=== PATIENT | male | born 1970 | race Caucasian/White ===

== ENCOUNTER 2020-09-07 12:08 | Emergency (ER) | payer MEDICAID, SELFPAY ==
[2020-09-07 12:37] VITALS: BP 135/76; PULSE 75; RESP 16; TEMP 37.2; O2SAT 97; BMI 40.3
--- NOTE | 2020-09-07 13:39 | ED.EYEPROB ---
HPI - Eye Problem General Chief complaint: Eye Problems Stated complaint: SWOLLEN EYE Time Seen by Provider: 09/07/20 13:37 Source: patient Mode of arrival: ambulatory Limitations: no limitations History of Present Illness HPI Narrative: 50-year-old male presenting to the ED with complaints of right lower eyelid swelling /redness for the past 3 days. Denies any other symptoms complaints or concerns related to this. Related Data Allergies Allergy/AdvReac Type Severity Reaction Status Date / Time No Known Allergies Allergy Verified 09/07/20 12:37 [No Known Allergies*] Review of Systems Review of Systems: Constitutional : No Fever, No Chills Eyes: No Eye Pain, No Redness, No Foreign Body, No Discharge, No Vision Changes, No trauma Skin : No Skin Lesions Yes all other systems are reviewed and are negative FOR[facility]LY [facility], LATER [facility] Past Medical History Attestation statement: The following information was validated with the patient. Medical History Ulcer Social History Social History Advance Directives: No Advance Directives Information Provided: No Physical Exam Vital Signs: Vital Signs: Vital Signs Temp Pulse Resp BP Pulse Ox 09/07/20 12:37 99.0 F 75 16 135/76 97 Body Mass Index 40.3 vital signs have been reviewed as normal and appeared to be correct. Blood pressure normal. Heart rate normal. Respiration rate normal. Temperature normal. Oxygen saturation normal. Appearance: Alert. Oriented X3. No acute distress. Head: Normal external exam. Normocephalic. Atraumatic. No [place] signs noted. No raccoon eyes noted Eyes: PERRLA. EOMI. Conjunctiva and sclera normal. left eyelids normal. right lower eyelid with mild soft tissue swelling and erythema noted consistent with cellulitis. ENT: EAC normal. TM's Normal. Pharynx normal. Uvula midline. Moist mucous membranes. No trismus noted. No drooling noted. No muffled voice noted. Neck: Normal inspection. Neck supple. FROM. No adenopathy. Thyroid Normal. No meningeal signs. No neck mass noted. CVS: Normal heart rate and rhythm. Heart sound normal. No murmurs noted. Pulses normal throughout. Respiratory: No respiratory distress. Painless inspiration. Breath sounds normal. No wheezes/rales/rhonchi noted. Chest nontender. No accessory muscle usage noted or decreased air movement noted. Abdomen: Soft and nontender. Bowel sounds normal in all 4 quadrants. No distention noted. No organomegaly noted. No visible injury noted. Back: No CVA tenderness. Full range of motion noted. Skin: Skin warm and dry. Normal skin color. Normal skin turgor. No rashes/lesions/lacerations noted. Extremities: No lower extremity edema. Extremities exhibit normal range of motion. Extremities nontender. Neuro: Oriented X 3. No motor deficit. No sensory deficit. Reflexes normal. Course Course Course Narrative: patient has what appears like a facial/ preseptal cellulitis. Will place on antibiotics and instructions to return if any new or worsening symptoms to follow-up with primary care provider. Patient understands agrees the plan.
== END 2020-09-07 14:17 | disposition home or self-care (01) ==
PROVIDERS: Emergency Provider Emergency Medicine; PCP Nurse Practitioner Family
DX: H00.032 Abscess of right lower eyelid (principal); L03.213 Periorbital cellulitis
CPT/HCPCS: 99283

== ENCOUNTER 2020-09-23 13:52 | Emergency (ER) | payer MEDICAID, SELFPAY ==
--- NOTE | 2020-09-23 16:02 | ED_ITS ---
HPI - Back Pain/Injury General Chief Complaint: Back Pain/Injury <CADEN Serra Last Filed: 09/23/20 16:12> Stated Complaint: back pain <CADEN Serra Last Filed: 09/23/20 16:12> Time Seen by Provider: 09/23/20 15:55 <CADEN Serra Last Filed: 09/23/20 16:12> Source: patient <CADEN Serra Last Filed: 09/23/20 16:12> Mode of arrival: wheelchair <CADEN Serra Last Filed: 09/23/20 16:12> History of Present Illness HPI Narrative: 50-year-old male with a past medical history of low back pain presented to ED complaining of acute on chronic low back pain x2 days. Reports pain worse on left side radiating down LLE with intermittent tingling. Reports taking Percocet and muscle relaxer at home with little relief. Denies direct trauma/falls, numbness, urinary incontinence/retention, weakness <CADEN Serra Last Filed: 09/23/20 16:12> MD elicited complaint: back pain <CADEN Serra Last Filed: 09/23/20 16:12> Related Data Home Medications: Previous Rx's Medication Instructions Recorded cephalexin [Keflex] 500 mg PO Q6H 10 Days #40 cap 09/07/20 doxycycline monohydrate 100 mg PO BID 10 Days #20 cap 09/07/20 erythromycin 0.5 inch OPHTHALMIC (EYE) QID 5 09/07/20 Days #1 g NS acetaminophen [Tylenol Extra 500 mg PO Q6H PRN #20 tab 09/23/20 Strength] cyclobenzaprine 5 mg PO Q8H PRN 5 Days #14 tab 09/23/20 lidocaine [Lidoderm] 1 patch TOPICAL DAILY PRN #30 ea 09/23/20 MDD remove after 12 hours naproxen 500 mg PO BID PRN 10 Days #20 tab 09/23/20 <CADEN Serra Last Filed: 09/23/20 16:12> Allergies/Adverse Reactions: Allergies Allergy/AdvReac Type Severity Reaction Status Date / Time No Known Allergies Allergy Verified 09/07/20 12:37 [No Known Allergies*] <CADEN Serra Last Filed: 09/23/20 16:12> Review of Systems Review of Systems: Constitutional: No Fever, No Chills Cardiovascular: No Chest Pain, No SOB Respiratory: No Cough, No Sputum, No Wheezing Genitourinary:, No Dysuria, No Urinary FrequencyNo Urinary Incontinence Musculoskeletal: +back pain, No Myalgias, No Joint Swelling Skin: No Skin Lesions, No rash Neuro: No Weakness, No Numbness, No Paresthesias <CADEN Serra - Last Filed: 09/23/20 16:12> Yes all other systems are reviewed and are negative <CADEN Serra - Last Filed: 09/23/20 16:12> Neurologic: Denies Sensory deficit (Neuro) <CADEN Serra - Last Filed: 09/23/20 16:12> FORMERLY [facility] Past Medical History Attestation statement: The following information was validated with the patient. <CADEN Serra - Last Filed: 09/23/20 16:12> Medical History: Medical History Ulcer <CADEN Serra - Last Filed: 09/23/20 16:12> Social History Social History: Social History Advance Directives: No Advance Directives Information Provided: No <CADEN Serra - Last Filed: 09/23/20 16:12> Physical Exam Vital Signs: Vital Signs: Last Vital Signs Temp 97.6 F 09/23/20 16:03 Pulse 71 09/23/20 16:03 Resp 18 09/23/20 16:03 BP 126/68 09/23/20 16:03 Pulse Ox 97 09/23/20 16:03 Body Mass Index 31.9 <CADEN Serra - Last Filed: 09/23/20 16:12> Vital Signs: Last Vital Signs Temp 97.6 F 09/23/20 16:03 Pulse 71 09/23/20 16:03 Resp 18 09/23/20 16:03 BP 126/68 09/23/20 16:03 Pulse Ox 97 09/23/20 16:03 Body Mass Index 31.9 <Francesco Chiu MD - Last Filed: 09/28/20 07:06> Const: General: cooperative and healthy appearing <CADEN Serra - Last Filed: 09/23/20 16:12> Orientation/consciousness: patient oriented x3 <CADEN Serra - Last Filed: 09/23/20 16:12> Limitations: no limitations <Mel Merritt PA - Last Filed: 09/23/20 16:12> HENMT: Head: Yes normal to inspection <CADEN Serra - Last Filed: 09/23/20 16:12> Ears: hearing grossly normal bilaterally <Mel Merritt PA - Last Filed: 09/23/20 16:12> General nose exam: Normal external nose present <CADEN Serra - Last Filed: 09/23/20 16:12> Face and sinus: Yes normal facial exam <CADEN Serra - Last Filed: 09/23/20 16:12> Eyes: General: appearance normal, both eyes and all related structures <CADEN Cook ra - Last Filed: 09/23/20 16:12> EOM: EOMs intact bilaterally <CADEN Serra - Last Filed: 09/23/20 16:12> Neck: Neck: Yes normal visual inspection <CADEN Serra - Last Filed: 09/23/20 16:12> Resp: Effort & Inspection: normal respiratory effort <CADEN Serra - Last Filed: 09/23/20 16:12> Back/Spine/Pelvis: Other: No midline spinous tenderness throughout. + bilateral lower/lumbar MSK tenderness <CADEN Serra - Last Filed: 09/23/20 16:12> Skin: Rashes: no rashes <CADEN Serra - Last Filed: 09/23/20 16:12> Wounds: no wounds <CADEN Serra - Last Filed: 09/23/20 16:12> Neuro: Other: No saddle anesthesia. Ambulating with a limp <CADEN Serra - Last Filed: 09/23/20 16:12> General: patient oriented x3, tone normal and no focal motor deficits <CADEN Serra - Last Filed: 09/23/20 16:12> Motor exam (neuro): 5/5 motor strength present throughout <CADEN Serra - Last Filed: 09/23/20 16:12> Sensory Exam: No Sensory deficit (Neuro) <CADEN Serra Last Filed: 09/23/20 16:12> Extrem: General: Yes normal to inspection <CADEN Serra - Last Filed: 09/23/20 16:12> Course Course Course Narrative: I have reviewed the chart <Francesco Chiu MD - Last Filed: 09/28/20 07:06> MDM - Back Pain/Injury MDM Narrative Medical decision making narrative: On exam VSS, NAD, no midline spinous tenderness or red flag symptoms. No saddle anesthesia. Likely MSK pain. Low concern for cauda equina or cord compression Plan: Toradol, Lidoderm patch in the ED Upon medication reconciliation patient has monthly prescription for tramadol, will not add additional opiate medication on to regiment. <CADEN Serra Last Filed: 09/23/20 16:12> Discharge Plan Discharge Clinical Impression: Lumbar radiculopathy, Acute lumbar back pain <CADEN Serra Last Filed: 09/23/20 16:12> Patient Disposition: Home, Self-Care <CADEN Serra Last Filed: 09/23/20 16:12> Instructions: Back Pain (ED) <CADEN Serra - Last Filed: 09/23/20 16:12> Additional Instructions: Your pain is likely musculoskeletal Flexeril is a muscle relaxer, take at night as it makes you drowsy, do not drive, drink alcohol, or operate machinery while taking it Naproxen as an anti-inflammatory / pain medication, take with food Lidoderm patches are numbing patches, apply to painful area In addition take Tylenol at home If symptoms persist or worsen, pain becomes unbearable, you developed urinary retention or incontinence, or weakness return to the ED <CADEN Serra Last Filed: 09/23/20 16:12> Prescriptions: New acetaminophen [Tylenol Extra Strength] 500 mg tablet 500 mg PO Q6H PRN (Reason: pain or fever) Qty: 20 RF: 0 lidocaine [Lidoderm] 5 % adhesive patch,medicated 1 patch topical DAILY MDD remove after 12 hours PRN (Reason: pain) Qty: 30 RF: 0 naproxen 500 mg tablet 500 mg PO BID PRN (Reason: pain) 10 Days Qty: 20 RF: 0 cyclobenzaprine 5 mg tablet 5 mg PO Q8H PRN (Reason: pain (scale score 7-10)) 5 Days Qty: 14 RF: 0 No Action doxycycline monohydrate 100 mg capsule 100 mg PO BID 10 Days Qty: 20 RF: 0 cephalexin [Keflex] 500 mg capsule 500 mg PO Q6H 10 Days Qty: 40 RF: 0 erythromycin 5 mg/gram (0.5 %) ointment 0.5 inch ophthalmic (eye) QID 5 Days Qty: 1 RF: 0 <CADEN Serra - Last Filed: 09/23/20 16:12> Referrals: Yajaira Barry, DATA ANALYST [employer] DEVELOPER [Primary Care Provider] - 2 days (Your primary care doctor) <CADEN Serra - Last Filed: 09/23/20 16:12> Interventions: ED Discharge Assessment Last Done: 09/23/20 17:36 <CADEN Serra - Last Filed: 09/23/20 16:12> Discharge Date/Time: 09/23/20 16:30 <CADEN Serra - Last Filed: 09/23/20 16:12>
[2020-09-23 16:03] VITALS: BP 126/68; PULSE 71; RESP 18; TEMP 36.4; O2SAT 97; BMI 31.9
[2020-09-23] MEDS: Lidocaine 4 % Patch ADH..PATCH 1 PATCH TRANSDERMA (16:22)
[2020-09-23] MEDS: Ketorolac Tromethamine 15 MG/ML VIAL IM (16:23)
== END 2020-09-23 16:30 | disposition home or self-care (01) ==
PROVIDERS: Emergency Provider Emergency Medicine; PCP Nurse Practitioner Family
DX: M54.16 Radiculopathy, lumbar region (principal); M54.5 Low back pain; Z79.899 Other long term (current) drug therapy
CPT/HCPCS: 96372; 99284; J1885

== ENCOUNTER 2020-11-10 01:59 | Emergency (ER) | payer MEDICAID, SELFPAY ==
[2020-11-10 02:25] VITALS: BP 140/72; PULSE 102; RESP 18; TEMP 36.8; O2SAT 96; BMI 33.3
--- NOTE | 2020-11-10 03:41 | ED.ABDPAIN ---
HPI - Abdominal Pain General Chief Complaint: Abdominal Pain Stated Complaint: Constipation Time Seen by Provider: 11/10/20 03:40 Source: patient Mode of arrival: ambulatory Limitations: no limitations History of Present Illness HPI narrative: patient with history of constipation been constipated for last few days not having good bowel movement took colace without much response no nausea no vomiting no history of small-bowel obstruction in the past no fever MD elicited complaint: abdominal pain Pertinent past history: constipation Onset (ago): day(s) Pain Consistency: intermittent Location: diffuse Severity: mild Quality: cramping Radiation: none Migration to: no migration Exacerbating factors: nothing Relieving factors: nothing Related Data Previous Rx's Medication Instructions Recorded cephalexin [Keflex] 500 mg PO Q6H 10 Days #40 cap 09/07/20 doxycycline monohydrate 100 mg PO BID 10 Days #20 cap 09/07/20 erythromycin 0.5 inch OPHTHALMIC (EYE) QID 5 09/07/20 Days #1 g NS acetaminophen [Tylenol Extra 500 mg PO Q6H PRN #20 tab 09/23/20 Strength] cyclobenzaprine 5 mg PO Q8H PRN 5 Days #14 tab 09/23/20 lidocaine [Lidoderm] 1 patch TOPICAL DAILY PRN #30 ea 09/23/20 MDD remove after 12 hours naproxen 500 mg PO BID PRN 10 Days #20 tab 09/23/20 Allergies Allergy/AdvReac Type Severity Reaction Status Date / Time No Known Allergies Allergy Verified 09/07/20 12:37 [No Known Allergies*] Review of Systems Review of Systems Constitutional : No Weight loss, No Fever, No Chills ENT/Mouth : No sore throat, No Rhinorrhea Eyes: No Eye Pain, No Swelling Cardiovascular : No Chest Pain, no Dyspnea on Exertion, No Orthopnea, No Edema, No Palpitations, no SOB Respiratory : No Cough, No Sputum Gastrointestinal : no Nausea, No Vomiting, No Diarrhea, No Hematochezia, No Melena Genitourinary : No Dysuria, No Urinary Frequency Musculoskeletal : No joint pain, No Myalgias, No Joint Swelling Skin : No Skin Lesions, No rash Neuro : No Weakness, No Numbness, No Dizziness, No Headache Psych : No Anxiety/Panic, No Depression Heme/Lymph: No Bruising, No Lymphadenopathy Endocrine : No Polyuria, No Polydipsia All other systems reviewed and are negative Physical Exam Vital Signs: Vital Signs: Last Vital Signs Temp 98.2 F 11/10/20 02:25 Pulse 102 H 11/10/20 02:25 Resp 18 11/10/20 02:25 BP 140/72 H 11/10/20 02:25 Pulse Ox 96 11/10/20 02:25 Body Mass Index 33.3 Appearance: Alert. Oriented X3. No acute distress. Eyes: Pupils equal, round and reactive to light. ENT: Pharynx normal. Neck: Normal inspection. Neck supple. CVS: Normal heart rate and rhythm. Pulses normal. Respiratory: No respiratory distress. Breath sounds normal. Abdomen: Soft and nontender. Bowel sounds are present, no mass palpable, no CVA tenderness Skin: Skin warm and dry. Normal skin color. Normal skin turgor. Extremities: No lower extremity edema. Neuro: Oriented X 3. No motor deficit. No sensory deficit. MDM - Abdominal Pain MDM Narrative Medical decision making narrative: patient with constipation and diffuse abdominal pain x-ray shows stool burden will discharge him home on MiraLax advised to follow with PCP Differential Diagnosis Differential diagnosis: Likely abdominal pain and constipation Medical Records Attestation: I reviewed the patient's medical records. Lab Data Attestation: I reviewed the patient's lab results. Discharge Plan Discharge Prescriptions: No Action doxycycline monohydrate 100 mg capsule 100 mg PO BID 10 Days Qty: 20 RF: 0 cephalexin [Keflex] 500 mg capsule 500 mg PO Q6H 10 Days Qty: 40 RF: 0 erythromycin 5 mg/gram (0.5 %) ointment 0.5 inch ophthalmic (eye) QID 5 Days Qty: 1 RF: 0 acetaminophen [Tylenol Extra Strength] 500 mg tablet 500 mg PO Q6H PRN (Reason: pain or fever) Qty: 20 RF: 0 lidocaine [Lidoderm] 5 % adhesive patch,medicated 1 patch topical DAILY MDD remove after 12 hours PRN (Reason: pain) Qty: 30 RF: 0 naproxen 500 mg tablet 500 mg PO BID PRN (Reason: pain) 10 Days Qty: 20 RF: 0 cyclobenzaprine 5 mg tablet 5 mg PO Q8H PRN (Reason: pain (scale score 7-10)) 5 Days Qty: 14 RF: 0 PMFSH Past Medical History Medical History Ulcer Social History Social History Smoking Status: Smoker, status unknown Use of substances other than those prescribed or required for medical reasons: No Advance Directives: No Advance Directives Information Provided: No
--- NOTE | 2020-11-10 04:07 | XR_ITS ---
EXAMINATION: ABDOMEN 1 VIEW CLINICAL INFORMATION: Constipation. COMPARISON: 07/21/2020. TECHNIQUE: A supine view of the abdomen is provided. FINDINGS: There are no dilated loops of small bowel. There are no air-fluid levels. There is no appendicolith. The visualized lung bases are clear. The osseous structures are unremarkable. XR/XR KUB IMPRESSION: Unremarkable bowel gas pattern.
[2020-11-10] MEDS: bisacodyL 5 MG TABLET.DR 10 MG PO (04:13)
[2020-11-10] MEDS: Milk of Magnesia 30 ML ORAL.SUSP PO (04:14)
[2020-11-10 05:25] VITALS: BP 119/78; PULSE 97; RESP 18
== END 2020-11-10 05:29 | disposition home or self-care (01) ==
PROVIDERS: Emergency Provider Internal Medicine; PCP Nurse Practitioner Family
DX: K59.00 Constipation, unspecified (principal); Z79.899 Other long term (current) drug therapy
CPT/HCPCS: 74018; 99283; 99284

== ENCOUNTER → 2020-12-09 10:14 | Outpatient (BNVA) | payer MEDICAID, SELFPAY | PROVIDERS: PCP Nurse Practitioner Family; Visit Provider Physician Assistant ==

== ENCOUNTER 2021-04-20 14:38 | Emergency (ER) | payer MEDICAID, SELFPAY ==
[2021-04-20 15:24] VITALS: BP 140/65; PULSE 71; RESP 16; TEMP 36.4; O2SAT 97; BMI 33.9
--- NOTE | 2021-04-20 17:24 | ED_ITS ---
HPI - Back Pain/Injury General Chief Complaint: Back Pain/Injury Stated Complaint: back pain Time Seen by Provider: 04/20/21 17:24 History of Present Illness HPI Narrative: Patient complains of left-sided low back pain after he coughed and his back started to hurt similar to prior episodes, he has no acute illness he has a chronic mild cough, no numbness no weakness no tingling no changes to bowel or bladder no dysuria no incontinence no frequency Related Data Previous Rx's Medication Instructions Recorded erythromycin 0.5 inch OPHTHALMIC (EYE) QID 5 09/07/20 Days #1 g NS acetaminophen [Tylenol Extra 500 mg PO Q6H PRN #20 tab 09/23/20 Strength] cyclobenzaprine 5 mg PO Q8H PRN 5 Days #14 tab 09/23/20 lidocaine [Lidoderm] 1 patch TOPICAL DAILY PRN #30 ea 09/23/20 MDD remove after 12 hours naproxen 500 mg PO BID PRN 10 Days #20 tab 09/23/20 polyethylene glycol 3350 [Miralax] 17 g PO DAILY PRN #510 g 11/10/20 omeprazole 20 mg capsule,delayed 20 mg PO DAILY #30 cap 12/09/20 release acetaminophen 1,000 mg PO QID PRN #30 tab 04/20/21 cyclobenzaprine 5 mg PO TID PRN #14 tab 04/20/21 oxycodone 5 mg PO Q6H PRN #10 tab 04/20/21 Allergies Allergy/AdvReac Type Severity Reaction Status Date / Time No Known Allergies Allergy Verified 04/20/21 15:24 [No Known Allergies*] Review of Systems Review of Systems: Positive for back pain Negatives are no fever no chills no dizziness or weakness no fainting no feeling faint no headache no neck pain no sore throat no chest pain no shortness of breath no abdominal pain no nausea vomiting or diarrhea no dysuria no frequency no incontinence no numbness weakness or tingling Yes all other systems are reviewed and are negative [facility] Past Medical History Source: nursing notes reviewed Medical History (Updated 04/21/21 @ 00:01 by Keegan Singh) Acid reflux Ulcer Family History Family History (Updated 12/09/20 @ 11:12 by Yajaira Fermin PA-C) Father No problems noted. Mother Diabetes Social History Social History (Updated 12/09/20 @ 11:12 by Yajaira Fermin PA-C) Household Members Other:: with sister Alcohol intake: current Alcohol intake frequency: holidays/special occasions only Advance Directives: No Advance Directives Information Provided: Yes Current occupational status: unemployed Physical Exam Vital Signs: Vital Signs: Last Vital Signs Temp 97.6 F 04/20/21 15:24 Pulse 71 04/20/21 15:24 Resp 16 04/20/21 15:24 BP 140/65 H 04/20/21 15:24 Pulse Ox 97 04/20/21 15:24 Body Mass Index 33.9 General appearance no acute distress Head is normocephalic atraumatic Neck is supple Respiratory no acute distress Chest is clear to auscultation bilaterally Abdomen is soft and nontender Back exam there is left lower lumbar paraspinal tenderness, there is no bony tenderness, there is no CVA tenderness, pain is reproduced with movement, the skin is normal with no redness warmth or rash Extremities full range of motion x4 Neuro no gross motor sensory deficit Course Course Course Narrative: Exam is consistent with musculoskeletal pain It was provoked by coughing and the patient's cough is normal for him and he has no acute change in the cough no shortness of breath no fever and no recent upper respiratory illness Discharge Plan Discharge Clinical Impression: Strain of lumbar region Patient Disposition: Home, Self-Care Additional Instructions: Follow with primary care doctor for further evaluation Return any concerns Prescriptions: New oxycodone 5 mg tablet 5 mg PO Q6H PRN (Reason: pain) Qty: 10 RF: 0 acetaminophen 500 mg tablet 1,000 mg PO QID PRN (Reason: pain) Qty: 30 RF: 0 cyclobenzaprine 5 mg tablet 5 mg PO TID PRN (Reason: muscle spasm) Qty: 14 RF: 0 No Action erythromycin 5 mg/gram (0.5 %) ointment 0.5 inch ophthalmic (eye) QID 5 Days Qty: 1 RF: 0 acetaminophen [Tylenol Extra Strength] 500 mg tablet 500 mg PO Q6H PRN (Reason: pain or fever) Qty: 20 RF: 0 lidocaine [Lidoderm] 5 % adhesive patch,medicated 1 patch topical DAILY MDD remove after 12 hours PRN (Reason: pain) Qty: 30 RF: 0 naproxen 500 mg tablet 500 mg PO BID PRN (Reason: pain) 10 Days Qty: 20 RF: 0 cyclobenzaprine 5 mg tablet 5 mg PO Q8H PRN (Reason: pain (scale score 7-10)) 5 Days Qty: 14 RF: 0 polyethylene glycol 3350 [Miralax] 17 gram/dose powder 17 g PO DAILY PRN (Reason: constipation) Qty: 510 RF: 0 omeprazole 20 mg capsule,delayed release(DR/EC) 20 mg PO DAILY Qty: 30 RF: 5 Interventions: ED Discharge Assessment Last Done: 04/20/21 18:52 Discharge Date/Time: 04/20/21 17:39
[2021-04-20] MEDS: oxyCODONE HCl Immed Release 5 MG TABLET 10 MG PO (17:37)
[2021-04-20] MEDS: diazePAM 5 MG TABLET PO (17:37)
[2021-04-20] MEDS: Acetaminophen 325 MG TABLET 650 MG PO (17:38)
== END 2021-04-20 17:39 | disposition home or self-care (01) ==
PROVIDERS: Emergency Provider Internal Medicine; PCP Internal Medicine
DX: S39.012A Strain of muscle, fascia and tendon of lower back, initial encounter (principal); X58.XXXA Exposure to other specified factors, initial encounter; Y93.9 Activity, unspecified; Y92.9 Unspecified place or not applicable; Y99.9 Unspecified external cause status
CPT/HCPCS: 99283; 99284

== ENCOUNTER 2021-05-14 20:43 | Emergency (ER) | payer MEDICAID, SELFPAY ==
--- NOTE | ~2021-05-14 | XR_ITS ---
Indication: Shortness of breath EXAMINATION: Single view of the chest and single view abdomen Comparison 07/21/2020. Single view chest does not show failure or infiltrate. No effusion. The heart size is within normal limits. The hilar structures are comparable to previous. Single view the abdomen demonstrates nonobstructive bowel pattern. Probable pelvic phleboliths. XR/XR chest 1V IMPRESSION: No acute finding in the chest or abdomen. Nonobstructive bowel pattern. No failure or infiltrate in the chest
--- NOTE | ~2021-05-14 | XR_ITS ---
Indication: Shortness of breath EXAMINATION: Single view of the chest and single view abdomen Comparison 07/21/2020. Single view chest does not show failure or infiltrate. No effusion. The heart size is within normal limits. The hilar structures are comparable to previous. Single view the abdomen demonstrates nonobstructive bowel pattern. Probable pelvic phleboliths. XR/XR KUB IMPRESSION: No acute finding in the chest or abdomen. Nonobstructive bowel pattern. No failure or infiltrate in the chest
[2021-05-14 21:10] VITALS: BP 161/92; PULSE 85; RESP 16; TEMP 36.8; O2SAT 97; BMI 32.3
[2021-05-14 21:48] VITALS: BP 156/79; PULSE 79; RESP 18; O2SAT 99
--- NOTE | 2021-05-14 21:57 | ECG_ITS ---
Test Reason : ABDOMINAL PAIN Blood Pressure : / mmHG Vent. Rate : 071 BPM Atrial Rate : 071 BPM P-R Int : 122 ms QRS Dur : 092 ms QT Int : 362 ms P-R-T Axes : 031 011 011 degrees QTc Int : 393 ms Normal sinus rhythm Normal ECG When compared with ECG of 04-OCT-2019 15:34, No significant change was found Referred By: Tamika Santo Electronically Signed By:Mika Lao
--- NOTE | 2021-05-14 22:00 | ED.GENADULT ---
HPI - General Adult General Chief complaint: Abdominal Pain Stated complaint: vomitting, dizziness Time Seen by Provider: 05/14/21 21:51 Source: patient Mode of arrival: ambulatory Limitations: no limitations History of Present Illness HPI narrative: patient comes emergency room complaining of diarrhea, bloating, feeling nervous. Feeling dizzy. When asked the patient what dizzy feels for him, patient states that he feels like he wants to flowed out of his body . Patient also complaining of shortness of breath. patient has chest pain, no abdominal pain, no fever Related Data Previous Rx's Medication Instructions Recorded erythromycin 0.5 inch OPHTHALMIC (EYE) QID 5 09/07/20 Days #1 g NS acetaminophen [Tylenol Extra 500 mg PO Q6H PRN #20 tab 09/23/20 Strength] cyclobenzaprine 5 mg PO Q8H PRN 5 Days #14 tab 09/23/20 lidocaine [Lidoderm] 1 patch TOPICAL DAILY PRN #30 ea 09/23/20 MDD remove after 12 hours naproxen 500 mg PO BID PRN 10 Days #20 tab 09/23/20 polyethylene glycol 3350 [Miralax] 17 g PO DAILY PRN #510 g 11/10/20 omeprazole 20 mg capsule,delayed 20 mg PO DAILY #30 cap 12/09/20 release acetaminophen 1,000 mg PO QID PRN #30 tab 04/20/21 cyclobenzaprine 5 mg PO TID PRN #14 tab 04/20/21 oxycodone 5 mg PO Q6H PRN #10 tab 04/20/21 albuterol sulfate 2 puff INHALATION Q6H PRN #6.7 g 05/15/21 ondansetron HCl [Zofran] 4 mg PO Q6H PRN #10 tab 05/15/21 prednisone 50 mg PO DAILY #5 tab 05/15/21 Allergies Allergy/AdvReac Type Severity Reaction Status Date / Time No Known Allergies Allergy Verified 04/20/21 15:24 [No Known Allergies*] Review of Systems Review of Systems: Constitutional : No Weight loss, No Fever, No Chills, No Night Sweats, No Fatigue, No Malaise ENT/Mouth : No Hearing loss, No Ear Pain, No Nasal Congestion, No Sinus Pain, No Hoarseness, No sore throat, No Rhinorrhea, No Swallowing Difficulty Eyes: No Eye Pain, No Swelling, No Redness, No Foreign Body, No Discharge, No Vision Changes Cardiovascular : No Chest Pain, no Dyspnea on exertion, no orthopnea, no edema Respiratory : No Cough, No Sputum, No Wheezing, No Smoke Exposure, mild shortness of breath Gastrointestinal : No Nausea, No Vomiting, complaining of multiple episodes of diarrhea, No Constipation, No abdominal Pain, No Hematochezia, No Melena Genitourinary : no irregular bleeding, No Dysuria, No Urinary Frequency, No Hematuria, No Urinary Incontinence, No Urgency, No Flank Pain, No Urinary Flow Changes, No Hesitancy Musculoskeletal : No joint pain, No Myalgias, No Joint Swelling Skin : No Skin Lesions, No rash Neuro : No Weakness, No Numbness, No Paresthesias, No Loss of Consciousness, complaining of the dizziness No Headache Psych : No Anxiety/Panic, No Depression, No SI/HI/AH/VH, No Social Issues, Heme/Lymph: No Bruising, No Bleeding,No Lymphadenopathy Endocrine : No Polyuria, No Polydipsia, No Temperature Intolerance [facility] Past Medical History Medical History Acid reflux Ulcer Family History Family History (Updated 12/09/20 @ 11:12 by Yajaira Fermin PA-C) Father No problems noted. Mother Diabetes Social History Social History (Updated 12/09/20 @ 11:12 by Yajaira Fermin PA-C) Household Members Other:: with sister Alcohol intake: current Alcohol intake frequency: holidays/special occasions only Patient Tobacco Use Status: Never used Tobacco Use of substances other than those prescribed or required for medical reasons: Yes Substance Use Type: Marijuana Advance Directives: No Advance Directives Information Provided: Yes Current occupational status: unemployed Physical Exam Vital Signs: Vital Signs: Last Vital Signs Temp 98.3 F 05/14/21 21:10 Pulse 98 05/15/21 00:05 Resp 18 05/14/21 21:48 BP 154/104 H 05/15/21 00:00 Pulse Ox 99 05/14/21 21:48 Body Mass Index 32.3 Appearance: Alert. Oriented X3. No acute distress. Eyes: Pupils equal, round and reactive to light. ENT: Pharynx normal. Neck: Normal inspection. Neck supple. No lymph nodes noted. No crepitus CVS: Normal heart rate and rhythm. Pulses normal. Normal S1 and S2 Respiratory: No respiratory distress. Breath sounds normal. No Wheezing. No rales Abdomen: Soft and nontender. No rigidity. No distention. good BS x4 Skin: Skin warm and dry. Normal skin color. Normal skin turgor. Extremities: No lower extremity edema. No lower extremity edema. No Lacerations. No Rash Neuro: Oriented X 3. No motor deficit. No sensory deficit. Moving all extermities. No slurred speech. Course Course Course Narrative: I discussed the labs with the patient, to his knowledge he does not have anemia. Patient consented to digital rectal exam. Brown stool, patient is also being tested for COVID-19. Patient started feeling short of breath, started wheezing, a breathing treatment was offered. After treatment,Patient's oxygen saturation remains at 99% on room air. no longer wheezing patient's orthostatics were positive initially, given IV fluids, repeat orthostatics are now negative, pt is now asymptomatic. I discussed with the patient that he needs to follow up with his primary care physician regarding the low hemoglobin. Guaiac stool test was negative. Patient will likely need iron studies patient requested that his medication is being sent to [facility], I discussed with the patient that the pharmacy is closed tomorrow, I offered to send his medications to another pharmacy, patient declined, states he will wait until Sunday to pick his medications. I discussed with the patient that if he has shortness of breath, any new symptoms, to return to the emergency room Medical Decision Making Lab Data Result diagrams: 05/14/21 22:06 05/14/21 22:06 Labs: Lab Results 05/14/21 05/14/21 05/14/21 Range/Units 21:53 22:06 22:06 WBC 4.1 L (4.8-10.8) X10*3/uL RBC 2.57 L (4.60-5.80) X10*6/uL Hgb 10.0 L (14.0-18.0) g/dl Hct 29.2 L (42-52) % MCV 113.6 H (80-98) fL MCH 38.9 H (27.0-33.0) pg MCHC 34.2 (31.0-36.0) g/dl RDW 15.0 (11.0-16.0) % Plt Count 123 L (160-400) X10*3/uL MPV 10.8 (9.4-12.4) fL Immature Gran % (Auto) 0.7 H (0.0-0.4) % Neut % (Auto) 41.2 L (45-73) % Lymph % (Auto) 48.0 H (20-40) % [place] % (Auto) 5.4 (2-11) % Eos % (Auto) 3.7 (0-4) % Baso % (Auto) 1.0 (0-2) % Lymph # (Auto) 2.0 (1.2-4.9) X10*3/uL [place] # (Auto) 0.2 (0.1-1.2) X10*3/uL Eos # (Auto) 0.2 (0.0-0.4) X10*3/uL Baso # (Auto) 0.0 (0.0-0.2) X10*3/uL Abs Immat Gran (auto) 0.03 (0.00-0.03) X10*3/uL Absolute Neuts (auto) 1.7 L (2.0-8.3) X10*3/uL Absolute Nucleated RBC 0.000 (0.0-0.012) X10*3/uL Nucleated RBC % (auto) 0.0 (0.0-0.2) /100WBC PT (10.8-13.0) SEC INR (0.9-1.1) Sodium 140 (135-145) mmol/L Potassium 4.2 (3.3-5.1) mmol/L Chloride 104 (96-108) mmol/L Carbon Dioxide 25 (22-29) mmol/L Anion Gap 15 (12-20) BUN 17 H (9-16) mg/dL Creatinine 0.82 (0.5-1.4) mg/dL Estim Creat Clear Calc 111.1 Estimated GFR > 60 Random Glucose 97 (60-115) mg/dL Calcium 9.3 (8.4-10.2) mg/dL Total Bilirubin 0.2 (0.0-1.0) mg/dL Direct Bilirubin 0.2 (0.0-0.5) mg/dL AST 31 (5-37) U/L ALT 25 (0-40) U/L Alkaline Phosphatase 71 (39-117) U/L Troponin I High Sens (<3.5-35.0) ng/L B-Natriuretic Peptide (<100) pg/mL Total Protein 7.2 (6.5-8.0) g/dL Albumin 4.4 (3.5-5.0) g/dL Urine Color YELLOW Urine Appearance CLEAR Urine pH 6.0 (5.0-8.0) Ur Specific [place] 1.020 (1.005-1.025) Urine Protein NEG (NEG-TRACE) MG/DL Urine Glucose (UA) NEG (NEG) MG/DL Urine Ketones NEG (NEG) MG/DL Urine Blood NEG (NEG) Urine Nitrite NEG (NEG) Ur Leukocyte Esterase NEG (NEG) Urine RBC 0-2 (0) /HPF Urine WBC 0 (0-4) /HPF Ur Squamous Epith Cells NONE /LPF Urine Bacteria NONE /LPF Stool Occult Blood (NEGATIVE) COVID-19 (JOEY) (Negative) COVID-19 Clin Com 05/14/21 05/14/21 05/14/21 Range/Units 22:06 22:07 22:50 WBC (4.8-10.8) X10*3/uL RBC (4.60-5.80) X10*6/uL Hgb (14.0-18.0) g/dl Hct (42-52) % MCV (80-98) fL MCH (27.0-33.0) pg MCHC (31.0-36.0) g/dl RDW (11.0-16.0) % Plt Count (160-400) X10*3/uL MPV (9.4-12.4) fL Immature Gran % (Auto) (0.0-0.4) % Neut % (Auto) (45-73) % Lymph % (Auto) (20-40) % [place] % (Auto) (2-11) % Eos % (Auto) (0-4) % Baso % (Auto) (0-2) % Lymph # (Auto) (1.2-4.9) X10*3/uL [place] # (Auto) (0.1-1.2) X10*3/uL Eos # (Auto) (0.0-0.4) X10*3/uL Baso # (Auto) (0.0-0.2) X10*3/uL Abs Immat Gran (auto) (0.00-0.03) X10*3/uL Absolute Neuts (auto) (2.0-8.3) X10*3/uL Absolute Nucleated RBC (0.0-0.012) X10*3/uL Nucleated RBC % (auto) (0.0-0.2) /100WBC PT 11.9 (10.8-13.0) SEC INR 1.0 (0.9-1.1) Sodium (135-145) mmol/L Potassium (3.3-5.1) mmol/L Chloride (96-108) mmol/L Carbon Dioxide (22-29) mmol/L Anion Gap (12-20) BUN (9-16) mg/dL Creatinine (0.5-1.4) mg/dL Estim Creat Clear Calc Estimated GFR Random Glucose (60-115) mg/dL Calcium (8.4-10.2) mg/dL Total Bilirubin (0.0-1.0) mg/dL Direct Bilirubin (0.0-0.5) mg/dL AST (5-37) U/L ALT (0-40) U/L Alkaline Phosphatase (39-117) U/L Troponin I High Sens 4.4 (<3.5-35.0) ng/L B-Natriuretic Peptide < 10 (<100) pg/mL Total Protein (6.5-8.0) g/dL Albumin (3.5-5.0) g/dL Urine Color Urine Appearance Urine pH (5.0-8.0) Ur Specific [place] (1.005-1.025) Urine Protein (NEG-TRACE) MG/DL Urine Glucose (UA) (NEG) MG/DL Urine Ketones (NEG) MG/DL Urine Blood (NEG) Urine Nitrite (NEG) Ur Leukocyte Esterase (NEG) Urine RBC (0) /HPF Urine WBC (0-4) /HPF Ur Squamous Epith Cells /LPF Urine Bacteria /LPF Stool Occult Blood (NEGATIVE) COVID-19 (JOEY) Negative (Negative) COVID-19 Clin Com See Note 06/26/21 Range/Units 22:51 WBC (4.8-10.8) X10*3/uL RBC (4.60-5.80) X10*6/uL Hgb (14.0-18.0) g/dl Hct (42-52) % MCV (80-98) fL MCH (27.0-33.0) pg MCHC (31.0-36.0) g/dl RDW (11.0-16.0) % Plt Count (160-400) X10*3/uL MPV (9.4-12.4) fL Immature Gran % (Auto) (0.0-0.4) % Neut % (Auto) (45-73) % Lymph % (Auto) (20-40) % [place] % (Auto) (2-11) % Eos % (Auto) (0-4) % Baso % (Auto) (0-2) % Lymph # (Auto) (1.2-4.9) X10*3/uL [place] # (Auto) (0.1-1.2) X10*3/uL Eos # (Auto) (0.0-0.4) X10*3/uL Baso # (Auto) (0.0-0.2) X10*3/uL Abs Immat Gran (auto) (0.00-0.03) X10*3/uL Absolute Neuts (auto) (2.0-8.3) X10*3/uL Absolute Nucleated RBC (0.0-0.012) X10*3/uL Nucleated RBC % (auto) (0.0-0.2) /100WBC PT (10.8-13.0) SEC INR (0.9-1.1) Sodium (135-145) mmol/L Potassium (3.3-5.1) mmol/L Chloride (96-108) mmol/L Carbon Dioxide (22-29) mmol/L Anion Gap (12-20) BUN (9-16) mg/dL Creatinine (0.5-1.4) mg/dL Estim Creat Clear Calc Estimated GFR Random Glucose (60-115) mg/dL Calcium (8.4-10.2) mg/dL Total Bilirubin (0.0-1.0) mg/dL Direct Bilirubin (0.0-0.5) mg/dL AST (5-37) U/L ALT (0-40) U/L Alkaline Phosphatase (39-117) U/L Troponin I High Sens (<3.5-35.0) ng/L B-Natriuretic Peptide (<100) pg/mL Total Protein (6.5-8.0) g/dL Albumin (3.5-5.0) g/dL Urine Color Urine Appearance Urine pH (5.0-8.0) Ur Specific [place] (1.005-1.025) Urine Protein (NEG-TRACE) MG/DL Urine Glucose (UA) (NEG) MG/DL Urine Ketones (NEG) MG/DL Urine Blood (NEG) Urine Nitrite (NEG) Ur Leukocyte Esterase (NEG) Urine RBC (0) /HPF Urine WBC (0-4) /HPF Ur Squamous Epith Cells /LPF Urine Bacteria /LPF Stool Occult Blood NEGATIVE (NEGATIVE) COVID-19 (JOEY) (Negative) COVID-19 Clin Com Imaging Data [facility] and chest x-ray: Radiologist's impression: Single view chest does not show failure or infiltrate. No effusion. The heart size is within normal limits. The hilar structures are comparable to previous. Single view the abdomen demonstrates nonobstructive bowel pattern. Probable pelvic phleboliths. XR/XR KUB IMPRESSION: No acute finding in the chest or abdomen. Nonobstructive bowel pattern. No failure or infiltrate in the chest ECG Data Attestation: I personally reviewed and interpreted this ECG as follows: ( sinus rhythm, heart rate 71, no ST segment depression or elevation, nonspecific T-wave inversion in lead 3, QTC 393) Discharge Plan Discharge Clinical Impression: Vomiting, Diarrhea, Dizziness, Asthma Patient Disposition: Home, Self-Care Instructions: Asthma (ED), Dehydration (ED) Additional Instructions: Please follow-up with your primary care physician tomorrow. If you have any worsening or new symptoms, please return to the emergency room or call 911 Prescriptions: New albuterol sulfate 90 mcg/actuation HFA aerosol inhaler 2 puff inhalation Q6H PRN (Reason: shortness of breath or wheezing) Qty: 6.7 RF: 0 prednisone 50 mg tablet 50 mg PO DAILY Qty: 5 RF: 0 ondansetron HCl [Zofran] 4 mg tablet 4 mg PO Q6H PRN (Reason: nausea and vomiting) Qty: 10 RF: 0 No Action erythromycin 5 mg/gram (0.5 %) ointment 0.5 inch ophthalmic (eye) QID 5 Days Qty: 1 RF: 0 acetaminophen [Tylenol Extra Strength] 500 mg tablet 500 mg PO Q6H PRN (Reason: pain or fever) Qty: 20 RF: 0 lidocaine [Lidoderm] 5 % adhesive patch,medicated 1 patch topical DAILY MDD remove after 12 hours PRN (Reason: pain) Qty: 30 RF: 0 naproxen 500 mg tablet 500 mg PO BID PRN (Reason: pain) 10 Days Qty: 20 RF: 0 cyclobenzaprine 5 mg tablet 5 mg PO Q8H PRN (Reason: pain (scale score 7-10)) 5 Days Qty: 14 RF: 0 oxycodone 5 mg tablet 5 mg PO Q6H PRN (Reason: pain) Qty: 10 RF: 0 acetaminophen 500 mg tablet 1,000 mg PO QID PRN (Reason: pain) Qty: 30 RF: 0 cyclobenzaprine 5 mg tablet 5 mg PO TID PRN (Reason: muscle spasm) Qty: 14 RF: 0 polyethylene glycol 3350 [Miralax] 17 gram/dose powder 17 g PO DAILY PRN (Reason: constipation) Qty: 510 RF: 0 omeprazole 20 mg capsule,delayed release(DR/EC) 20 mg PO DAILY Qty: 30 RF: 5
[2021-05-14 22:01] LABS: Appearance Urine CLEAR; Color Urine YELLOW; Glucose Urine UA NEG (NEG); Leukocyte Esterase Urine NEG (NEG); Nitrite Urine NEG (NEG); Urine Blood NEG (NEG); Urine Ketones NEG (NEG); Urine Protein NEG (NEG-TRACE)
[2021-05-14] MEDS: ondansetron HCL 4 MG/2 ML VIAL IVPUSH (22:10)
[2021-05-14] MEDS: Loperamide HCl 2 MG CAPSULE 4 MG PO (22:10)
[2021-05-14 22:11] LABS: MANUAL DIFF FLAG NO
[2021-05-14] MEDS: 0.9 % Sodium Chloride 1,000 ML 999 ML IVCONT ×2 (22:12→23:21)
[2021-05-14 22:13] LABS: Eosinophils Absolute Auto 0.2 X10*3/uL (0.0-0.4); Eosinophils Percent Auto 3.7 % (0-4); Hematocrit 29.2 % (42-52); Imm Gran Abs Auto 0.03 X10*3/uL (0.00-0.03); Imm Gran Pct Auto 0.7 % (0.0-0.4); Mean Corpuscular HGB Conc 34.2 g/dl (31.0-36.0); Mean Corpuscular Hemoglobin 38.9 pg (27.0-33.0); Mean Platelet Volume 10.8 fL (9.4-12.4); Monocytes Absolute Auto 0.2 X10*3/uL (0.1-1.2); Monocytes Percent Auto 5.4 % (2-11); Neutrophils Absolute Auto 1.7 X10*3/uL (2.0-8.3); Neutrophils Percent Auto 41.2 % (45-73); Platelet Count 123 X10*3/uL (160-400); Red Blood Count 2.57 X10*6/uL (4.60-5.80); White Blood Count 4.1 X10*3/uL (4.8-10.8)
[2021-05-14 22:18] LABS: RBC Urine 0-2 /HPF (0); WBC Urine 0 /HPF (0-4)
[2021-05-14 22:22] LABS: Prothrombin Time 11.9 SEC (10.8-13.0)
[2021-05-14 22:29] LABS: Mean Corpuscular Volume 113.6 fL (80-98)
[2021-05-14 22:34] VITALS: BP 154/89; BP 159/54; PULSE 88; PULSE 90
[2021-05-14 22:36] VITALS: BP 141/72; PULSE 105
[2021-05-14 22:36] LABS: Alanine Aminotransferase 25 U/L (0-40); Albumin Level 4.4 g/dL (3.5-5.0); Alkaline Phosphatase 71 U/L (39-117); Anion Gap 15 (12-20); Aspartate Amino Transferase 31 U/L (5-37); Bilirubin Direct 0.2 mg/dL (0.0-0.5); Bilirubin Total 0.2 mg/dL (0.0-1.0); Blood Urea Nitrogen 17 mg/dL (9-16); Calcium 9.3 mg/dL (8.4-10.2); Carbon Dioxide 25 mmol/L (22-29); Chloride 104 mmol/L (96-108); Creatinine Clr Calc Pharmacy 111.1; Estimated Glomerular Filt Rate > 60; Glucose Random 97 mg/dL (60-115); Potassium 4.2 mmol/L (3.3-5.1); Sodium 140 mmol/L (135-145); Total Protein 7.2 g/dL (6.5-8.0)
[2021-05-14 22:40] LABS: B Type Natriuretic Peptide < 10 pg/mL (<100); Troponin-I High Sensitivity 4.4 ng/L (<3.5-35.0)
[2021-05-14 22:57] LABS: OBS Int Ctl Valid YES; OBS1 NEGATIVE (NEGATIVE)
[2021-05-14] MEDS: methylPREDNISolone Sod Succ 125 MG/2 ML VIAL IVPUSH (23:11)
[2021-05-14 23:19] LABS: COVID-19 Test Negative (Negative)
[2021-05-14 23:24] VITALS: BP 154/82; PULSE 84
[2021-05-15] VITALS: BP 147/70; BP 152/77; BP 154/104; PULSE 105; PULSE 112; PULSE 93; RESP 16; O2SAT 94
[2021-05-15] MEDS: Albuterol Sulfate (0.083%) 2.5 MG/3 ML VIAL.NEB 5 MG INHALE (00:04)
[2021-05-15 00:05] VITALS: PULSE 98; O2SAT 99
== END 2021-05-15 00:52 | disposition home or self-care (01) ==
PROVIDERS: Emergency Provider Emergency Medicine; PCP Family Medicine
DX: R19.7 Diarrhea, unspecified (principal); R11.10 Vomiting, unspecified; R42 Dizziness and giddiness; J45.909 Unspecified asthma, uncomplicated; R06.02 Shortness of breath; Z79.899 Other long term (current) drug therapy; Z20.822 Contact with and (suspected) exposure to COVID-19
CPT/HCPCS: 36415; 71045; 74018; 80048; 80076; 81001; 82272; 83880; 84484; 85025; 85610; 87635; 93005; 94640; 96361; 96374; 96375; 99285; J2405; J2930

== ENCOUNTER 2021-06-02 13:47 | Outpatient (REF) | payer MEDICAID, SELFPAY ==
[2021-06-02 15:20] LABS: MANUAL DIFF FLAG NO
[2021-06-02 15:22] LABS: Eosinophils Absolute Auto 0.2 X10*3/uL (0.0-0.4); Eosinophils Percent Auto 4.4 % (0-4); Hemoglobin 10.4 g/dl (14.0-18.0); Imm Gran Abs Auto 0.01 X10*3/uL (0.00-0.03); Imm Gran Pct Auto 0.3 % (0.0-0.4); Lymphocytes Absolute Auto 1.7 X10*3/uL (1.2-4.9); Lymphocytes Percent Auto 45.1 % (20-40); Mean Corpuscular HGB Conc 33.5 g/dl (31.0-36.0); Mean Corpuscular Hemoglobin 38.5 pg (27.0-33.0); Mean Platelet Volume 11.1 fL (9.4-12.4); Monocytes Absolute Auto 0.3 X10*3/uL (0.1-1.2); Monocytes Percent Auto 8.3 % (2-11); Neutrophils Absolute Auto 1.6 X10*3/uL (2.0-8.3); Neutrophils Percent Auto 40.9 % (45-73); Platelet Count 127 X10*3/uL (160-400); Red Cell Distribution Width 14.6 % (11.0-16.0); White Blood Count 3.9 X10*3/uL (4.8-10.8)
[2021-06-02 15:23] LABS: Mean Corpuscular Volume 114.8 fL (80-98)
[2021-06-02 15:43] LABS: Iron 121 mcg/dL (45-160); Percent Iron Saturation 34 % (15-50); Total Iron Binding Capacity 358 mcg/dL (228-428); Unsaturated Iron Binding 237 ug/dL
[2021-06-02 16:04] LABS: Ferritin 245 ng/mL (20-250)
[2021-06-02 16:22] LABS: Folate 8.3 ng/mL (> or = 4.0); Vitamin B12 503 pg/mL (200-900)
== END 2021-06-02 13:48 | disposition home or self-care (01) ==
LOC: HO.LAB 13:47
PROVIDERS: PCP Nurse Practitioner Family; Referring Provider Family Medicine; Visit Provider Physician Assistant
DX: K62.5 Hemorrhage of anus and rectum (principal); D64.9 Anemia, unspecified; K21.9 Gastro-esophageal reflux disease without esophagitis; R19.7 Diarrhea, unspecified
CPT/HCPCS: 36415; 82607; 82728; 82746; 83540; 85025; 99212

== ENCOUNTER → 2021-07-20 11:24 | Outpatient (BNVA) | payer MEDICAID, SELFPAY | PROVIDERS: PCP Nurse Practitioner Family; Visit Provider Physician Assistant ==

== ENCOUNTER 2021-09-09 07:45 | Outpatient (REF) | payer MEDICAID, SELFPAY ==
--- NOTE | ~2021-09-09 | US_ITS ---
EXAMINATION: US ABDOMEN COMPLETE CLINICAL INFORMATION: Alcohol abuse, uncomplicated. COMPARISON: [facility] 05/14/2021 and 11/10/2020. CT abdomen and pelvis 07/21/2020. TECHNIQUE: Real-time imaging of the abdominal viscera. FINDINGS: PANCREAS: The body of the pancreas is normal. The head and tail of the pancreas are not well visualized due to bowel gas. ABDOMINAL AORTA: The proximal, mid, and distal segments are normal in caliber. INFERIOR VENA CAVA: Visualized portions are normal. LIVER: The liver is normal in size. The liver contour is normal. Liver echotexture is slightly increased. No focal hepatic lesion. There is no intrahepatic biliary duct dilatation seen. GALLBLADDER: Normal. The gallbladder is physiologically distended without evidence of stones, sludge, polyps, wall thickening or pericholecystic fluid. COMMON BILE DUCT: Normal in caliber measuring 0.3 cm in diameter. RIGHT KIDNEY: Normal. No hydronephrosis. No renal calculi or focal parenchymal lesions. The kidney measures 12.2 cm in maximum dimension. LEFT KIDNEY: Normal. No hydronephrosis. No renal calculi or focal parenchymal lesions. The kidney measures 11.4 cm in maximum dimension. SPLEEN: Normal. The spleen measures 7.8 cm in maximum dimension. FREE FLUID: None. US/US abdomen complete IMPRESSION: Slightly echogenic liver probably representing fatty infiltration. Limited visualization of the pancreas. Otherwise unremarkable exam.
== END 2021-09-09 07:46 | disposition home or self-care (01) ==
LOC: HO.US 07:45
PROVIDERS: Visit Provider Physician Assistant
DX: R13.10 Dysphagia, unspecified (principal); F10.10 Alcohol abuse, uncomplicated
CPT/HCPCS: 76700

== ENCOUNTER 2021-09-23 14:23 | Emergency (ER) | payer MEDICAID, SELFPAY ==
--- NOTE | ~2021-09-23 | XR_ITS ---
EXAMINATION: XR CHEST CLINICAL INFORMATION: Pneumonia COMPARISON: 05/14/2021 TECHNIQUE: Frontal view of the chest was obtained. FINDINGS: The lungs are well expanded. There is no focal consolidation, edema, or effusion. No pneumothorax. The cardiomediastinal silhouette is within normal limits. No acute osseous abnormality. XR/XR chest 1V IMPRESSION: Clear lungs.
[2021-09-23 14:37] VITALS: BP 153/79; PULSE 90; RESP 18; TEMP 36.6; O2SAT 99; BMI 35.5
[2021-09-23 15:16] LABS: COVID-19 Test Negative (Negative)
[2021-09-23] MEDS: Albuterol/Iprat 2.5/0.5MG 3 ML AMPUL.NEB INHALE (16:19)
[2021-09-23 16:20] VITALS: PULSE 87; O2SAT 99
[2021-09-23] MEDS: predniSONE 20 MG TABLET 60 MG PO (16:37)
[2021-09-23 16:50] LABS: IDNOW Serial# 08D9AD1C; Strep A Nucleic Acid Negative (Negative)
[2021-09-23 17:20] LABS: Influenza A PCR NEGATIVE (Negative); Influenza B PCR NEGATIVE (Negative); Resp Syncy Virus RNA Qual PCR NEGATIVE (Negative); SARS COV2 PCR INHOUSE NEGATIVE (Negative)
--- NOTE | 2021-09-23 17:51 | ED_ITS ---
HPI - General Adult General Chief complaint: Dyspnea Stated complaint: cough, diff breathing, diarrhea Time Seen by Provider: 09/23/21 15:48 Source: patient Mode of arrival: ambulatory Limitations: no limitations History of Present Illness HPI narrative: 51-year-old male with past medical history of asthma asthma, alcohol abuse presents to ED for coughing, body aches, sore throat, diarrhea, chills, and wheezing for the past couple of days. Patient denies any chest pain, shortness of breath, lower extremity swelling, coughing up blood, calf pain, recent long travel, recent surgery, recent trauma, estrogen hormonal use, pleuritic chest pain, or any history of blood clots. Related Data Previous Rx's Medication Instructions Recorded erythromycin 5 mg/gram (0.5 %) eye 0.5 inch OPHTHALMIC (EYE) QID 5 09/07/20 ointment Days #1 g NS acetaminophen 500 mg tablet 500 mg PO Q6H PRN #20 tab 09/23/20 (Tylenol Extra Strength) cyclobenzaprine 5 mg tablet 5 mg PO Q8H PRN 5 Days #14 tab 09/23/20 lidocaine 5 % topical patch 1 patch TOPICAL DAILY PRN #30 ea 09/23/20 (Lidoderm) MDD remove after 12 hours naproxen 500 mg tablet 500 mg PO BID PRN 10 Days #20 tab 09/23/20 polyethylene glycol 3350 17 17 g PO DAILY PRN #510 g 11/10/20 gram/dose oral powder (Miralax) omeprazole 20 mg capsule,delayed 20 mg PO DAILY #30 cap 12/09/20 release acetaminophen 500 mg tablet 1,000 mg PO QID PRN #30 tab 04/20/21 cyclobenzaprine 5 mg tablet 5 mg PO TID PRN #14 tab 04/20/21 oxycodone 5 mg tablet 5 mg PO Q6H PRN #10 tab 04/20/21 albuterol sulfate 90 mcg/actuation 2 puff INHALATION Q6H PRN #6.7 g 05/15/21 aerosol inhaler ondansetron HCl 4 mg tablet 4 mg PO Q6H PRN #10 tab 05/15/21 (Zofran) prednisone 50 mg tablet 50 mg PO DAILY #5 tab 05/15/21 albuterol sulfate 90 mcg/actuation 2 puff INHALATION Q6H PRN #8.5 g 09/23/21 aerosol inhaler prednisone 20 mg tablet 60 mg PO DAILY 5 Days #15 tab 09/23/21 Allergies Allergy/AdvReac Type Severity Reaction Status Date / Time No Known Allergies Allergy Verified 07/20/21 11:25 [No Known Allergies*] Review of Systems Review of Systems: Yes all other systems are reviewed and are negative Constitutional: Constitutional: Reports as per HPI, Reports no additional constitutional complaints, Reports body ache(s) and Reports chills Eyes: Eyes: Reports as per HPI and Reports no additional eye complaints ENT: Reports system reviewed and no additional complaints, except as documented, Reports as per HPI and Reports sore throat Cardiovascular: Cardiovascular: Reports as per HPI and Reports no additional cardiovascular complaints Respiratory: Respiratory: Reports as per HPI and Reports no additional respiratory complaints Gastrointestinal: Gastrointestinal: Reports as per HPI, Reports no additional gastrointestinal complaints and Reports diarrhea Genitourinary: Genitourinary: Reports no additional male genitourinary complaints and Reports as per HPI Musculoskeletal: Musculoskeletal: Reports no additional musculoskeletal complaints and Reports as per HPI Neurologic: Reports system reviewed and no additional complaints, except as documented and Reports as per HPI Psychiatric: Psychiatric: Reports no additional psychiatric complaints and Reports as per HPI PMF Past Medical History Medical History (Updated 09/23/21 @ 18:00 by CADEN Lofton) Acid reflux Alcohol abuse Asthma Ulcer Surgical History History of esophagogastroduodenoscopy (EGD) Hx of colonoscopy Family History Family History Father No problems noted. Mother Diabetes Social History Social History (Updated 07/20/21 @ 12:53 by Yajaira Fermin PA-C) Household Members Other:: with sister Alcohol intake: current Alcohol intake frequency: holidays/special occasions only Patient Tobacco Use Status: Never used Tobacco Substance Use Type: Marijuana Advance Directives: No Current occupational status: employed and unemployed Physical Exam Vital Signs: Vital Signs: Last Vital Signs Temp 97.8 F 09/23/21 14:37 Pulse 87 09/23/21 16:20 Resp 18 09/23/21 14:37 BP 153/79 H 09/23/21 14:37 Pulse Ox 99 09/23/21 14:37 Body Mass Index 35.5 Const: General: cooperative, healthy appearing, comfortable, no acute distress, well developed, alert, awake and Physically active Orientation/consciousness: patient oriented x3 HENMT: Head: Yes normal to inspection, Yes No palpable skull fracture present, Yes normocephalic, Yes atraumatic and No abrasion Ears: hearing grossly normal bilaterally, external ears normal, TM's normal bilaterally, EAC's normal, mastoids normal and no periauricular adenopathy Throat: Yes posterior oropharynx normal, Yes tonsils normal and Yes uvula midline Eyes: General: appearance normal, both eyes and all related structures Neck: Neck: Yes normal visual inspection, Yes full ROM, Yes no lymphadenopathy, Yes no meningeal signs, Yes trachea midline, Yes supple and No tender Chest: Chest palpation & inspection: normal inspection of the chest and abnormal palpation of chest wall Resp: Effort & Inspection: normal respiratory effort and able to speak in complete sentences Auscultation: wheezes (Diffuse) expiratory wheezes Cardio: Jugular venous distension: no JVD Heart sounds: S1 normal heart sound present and S2 normal heart sound present GI: Inspection: Yes normal to inspection and No abdominal wall ecchymosis Palpation (GI): Soft to palpation, not firm, nontender, no guarding and not rigid : General: No CVA tenderness and Yes no CVA tenderness Back/Spine/Pelvis: Back: no CVA tenderness, No CVA tenderness and No back tenderness Skin: General skin exam: no rashes or lesions noted and elasticity normal Neuro: General: patient oriented x3, gait normal, no meningeal signs and CN's II-XI intact bilaterally Cranial nerves: Yes CN's II-XII intact bilaterally Extrem: Other: Lower extremity negative for swelling, pitting edema, calf tenderness. General: Yes normal to inspection and Yes full ROM Psych: Appearance: grossly normal, well kempt and not disheveled Course Course Course Narrative: History physical exam indicate viral syndrome, URI, versus asthma. Will add chest x-ray and check for our SVN influenza. Patient given albuterol prednisone. Reevaluation(s) Reevaluation #1: Patient states she feels better after receiving albuterol/prednisone. X-ray normal. COVID swab influenza RSV negative. Wheezing improved Time: 17:58 Medical Decision Making [facility] Narrative Medical decision making narrative: Asthma Lab Data Labs: Lab Results 09/23/21 09/23/21 09/23/21 Range/Units 14:52 16:33 16:37 COVID-19 (JOEY) Negative (Negative) COVID-19 Clin Com See Note Influenza Type A (PCR) NEGATIVE (Negative) Influenza Type B (PCR) NEGATIVE (Negative) RSV RNA Qual (PCR) NEGATIVE (Negative) SARS-CoV-2 RNA (RT-PCR) NEGATIVE (Negative) S. pyogenes GrpA CHASITY Negative (Negative) Discharge Plan Discharge Clinical Impression: Asthma, Acute upper respiratory infection Patient Disposition: Home, Self-Care Instructions: Asthma (ED), Upper Respiratory Infection (ED) Additional Instructions: Return to ED immediately for any chest pain, shortness of breath, coughing up blood, leg swelling, calf pain, weakness, fever, chills, pain on inspiration, or any other concerning symptoms. Please follow-up with primary care provider Prescriptions: New prednisone 20 mg tablet 60 mg PO DAILY 5 Days Qty: 15 RF: 0 albuterol sulfate 90 mcg/actuation HFA aerosol inhaler 2 puff inhalation Q6H PRN (Reason: shortness of breath or wheezing) Qty: 8.5 RF: 0 No Action erythromycin 5 mg/gram (0.5 %) ointment 0.5 inch ophthalmic (eye) QID 5 Days Qty: 1 RF: 0 acetaminophen [Tylenol Extra Strength] 500 mg tablet 500 mg PO Q6H PRN (Reason: pain or fever) Qty: 20 RF: 0 lidocaine [Lidoderm] 5 % adhesive patch,medicated 1 patch topical DAILY MDD remove after 12 hours PRN (Reason: pain) Qty: 30 RF: 0 naproxen 500 mg tablet 500 mg PO BID PRN (Reason: pain) 10 Days Qty: 20 RF: 0 cyclobenzaprine 5 mg tablet 5 mg PO Q8H PRN (Reason: pain (scale score 7-10)) 5 Days Qty: 14 RF: 0 oxycodone 5 mg tablet 5 mg PO Q6H PRN (Reason: pain) Qty: 10 RF: 0 acetaminophen 500 mg tablet 1,000 mg PO QID PRN (Reason: pain) Qty: 30 RF: 0 cyclobenzaprine 5 mg tablet 5 mg PO TID PRN (Reason: muscle spasm) Qty: 14 RF: 0 polyethylene glycol 3350 [Miralax] 17 gram/dose powder 17 g PO DAILY PRN (Reason: constipation) Qty: 510 RF: 0 albuterol sulfate 90 mcg/actuation HFA aerosol inhaler 2 puff inhalation Q6H PRN (Reason: shortness of breath or wheezing) Qty: 6.7 RF: 0 prednisone 50 mg tablet 50 mg PO DAILY Qty: 5 RF: 0 ondansetron HCl [Zofran] 4 mg tablet 4 mg PO Q6H PRN (Reason: nausea and vomiting) Qty: 10 RF: 0 omeprazole 20 mg capsule,delayed release(DR/EC) 20 mg PO DAILY Qty: 30 RF: 5 Interventions: ED Discharge Assessment Last Done: 09/23/21 18:09 Discharge Date/Time: 09/23/21 18:09 Print Language: Urdu
[2021-09-23 18:19] LABS: Adenovirus PCR Not Detected (Not Detect.); Bordetella parapertussis PCR Not Detected (Not Detect.); Bordetella pertussis PCR Not Detected (Not Detect.); Chlamydia pneumoniae PCR Not Detected (Not Detect.); Coronavirus 229E PCR Not Detected (Not Detect.); Coronavirus HKU1 PCR Not Detected (Not Detect.); Coronavirus NL63 PCR Not Detected (Not Detect.); Coronavirus OC43 PCR Not Detected (Not Detect.); Human metapneumovirus PCR Not Detected (Not Detect.); Influenza A PCR Not Detected (Not Detect.); Influenza B PCR Not Detected (Not Detect.); Mycoplasma pneumoniae PCR Not Detected (Not Detect.); Parainfluenza 1 PCR Not Detected (Not Detect.); Parainfluenza 2 PCR Not Detected (Not Detect.); Parainfluenza 3 PCR Not Detected (Not Detect.); Parainfluenza 4 PCR Not Detected (Not Detect.); RSV PCR Not Detected (Not Detect.); Rhino/Enterovirus PCR Not Detected (Not Detect.); SARS-CoV-2 PCR Not Detected (Not Detect.)
== END 2021-09-23 18:09 | disposition home or self-care (01) ==
PROVIDERS: Physician Assistant; Emergency Provider Internal Medicine; PCP Internal Medicine
DX: J06.9 Acute upper respiratory infection, unspecified (principal); J45.909 Unspecified asthma, uncomplicated; R51.9 Headache, unspecified; M79.10 Myalgia, unspecified site; Z20.822 Contact with and (suspected) exposure to COVID-19
CPT/HCPCS: 0241U; 36415; 71045; 87633; 87635; 87651; 94640; 99283; 99284

== ENCOUNTER 2021-09-24 15:40 | Emergency (ER) | payer MEDICAID, SELFPAY ==
[2021-09-24 15:49] VITALS: BP 166/71; PULSE 90; RESP 18; TEMP 36.6; O2SAT 98; BMI 32.3
--- NOTE | 2021-09-24 18:11 | ED.BACK ---
HPI - Back Pain/Injury General Chief Complaint: Back Pain/Injury Stated Complaint: Back pain/Dizziness Time Seen by Provider: 09/24/21 16:40 Source: patient Mode of arrival: ambulatory Limitations: no limitations History of Present Illness HPI Narrative: 51-year-old male presents to ED for low back pain is worse on movement began today. States back feels tight and hurts when he bends down or move around. Patient denies any dysuria, hematuria, flank pain, fever, chills, nausea, vomiting, penile discharge, testicular pain, chest pain, shortness of breath, headache, or dizziness. Patient denies any recent trauma. 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 Patient denies any urinary/bowel incontinence. Related Data Previous Rx's Medication Instructions Recorded erythromycin 5 mg/gram (0.5 %) eye 0.5 inch OPHTHALMIC (EYE) QID 5 09/07/20 ointment Days #1 g NS acetaminophen 500 mg tablet 500 mg PO Q6H PRN #20 tab 09/23/20 (Tylenol Extra Strength) cyclobenzaprine 5 mg tablet 5 mg PO Q8H PRN 5 Days #14 tab 09/23/20 lidocaine 5 % topical patch 1 patch TOPICAL DAILY PRN #30 ea 09/23/20 (Lidoderm) MDD remove after 12 hours naproxen 500 mg tablet 500 mg PO BID PRN 10 Days #20 tab 09/23/20 polyethylene glycol 3350 17 17 g PO DAILY PRN #510 g 11/10/20 gram/dose oral powder (Miralax) omeprazole 20 mg capsule,delayed 20 mg PO DAILY #30 cap 12/09/20 release acetaminophen 500 mg tablet 1,000 mg PO QID PRN #30 tab 04/20/21 cyclobenzaprine 5 mg tablet 5 mg PO TID PRN #14 tab 04/20/21 oxycodone 5 mg tablet 5 mg PO Q6H PRN #10 tab 04/20/21 albuterol sulfate 90 mcg/actuation 2 puff INHALATION Q6H PRN #6.7 g 05/15/21 aerosol inhaler ondansetron HCl 4 mg tablet 4 mg PO Q6H PRN #10 tab 05/15/21 (Zofran) prednisone 50 mg tablet 50 mg PO DAILY #5 tab 05/15/21 albuterol sulfate 90 mcg/actuation 2 puff INHALATION Q6H PRN #8.5 g 09/23/21 aerosol inhaler cyclobenzaprine 10 mg tablet 10 mg PO TID PRN #21 tab 09/24/21 ketorolac 10 mg tablet 10 mg PO QID PRN 5 Days #20 tab 09/24/21 prednisone 20 mg tablet 60 mg PO DAILY 5 Days #15 tab 09/24/21 Allergies Allergy/AdvReac Type Severity Reaction Status Date / Time No Known Allergies Allergy Verified 07/20/21 11:25 [No Known Allergies*] Review of Systems Review of Systems: Yes all other systems are reviewed and are negative Constitutional: Constitutional: Reports as per HPI and Reports no additional constitutional complaints Eyes: Eyes: Reports as per HPI and Reports no additional eye complaints ENT: Reports system reviewed and no additional complaints, except as documented and Reports as per HPI Cardiovascular: Cardiovascular: Reports as per HPI and Reports no additional cardiovascular complaints Respiratory: Respiratory: Reports as per HPI and Reports no additional respiratory complaints Gastrointestinal: Gastrointestinal: Reports as per HPI and Reports no additional gastrointestinal complaints Genitourinary: Genitourinary: Reports no additional male genitourinary complaints and Reports as per HPI Musculoskeletal: Musculoskeletal: Reports no additional musculoskeletal complaints, Reports as per HPI and Reports back pain PMF Past Medical History Medical History (Updated 09/24/21 @ 18:20 by CADEN Lofton) Acid reflux Alcohol abuse Asthma Ulcer Surgical History History of esophagogastroduodenoscopy (EGD) Hx of colonoscopy Family History Family History Father No problems noted. Mother Diabetes Social History Social History (Updated 07/20/21 @ 12:53 by Yajaira Fermin PA-C) Household Members Other:: with sister Alcohol intake: current Alcohol intake frequency: holidays/special occasions only Patient Tobacco Use Status: Never used Tobacco Substance Use Type: Marijuana Advance Directives: No Advance Directives Information Provided: No Current occupational status: employed and unemployed Physical Exam Vital Signs: Vital Signs: Last Vital Signs Temp 98 F 09/24/21 15:49 Pulse 90 09/24/21 15:49 Resp 18 09/24/21 15:49 BP 166/71 H 09/24/21 15:49 Pulse Ox 98 09/24/21 15:49 Body Mass Index 32.3 Const: General: cooperative, healthy appearing, comfortable, no acute distress, well developed, alert, awake and Physically active Orientation/consciousness: patient oriented x3 HENMT: Head: Yes normal to inspection, Yes No palpable skull fracture present, Yes normocephalic, Yes atraumatic, No abrasion, No Acrocyanosis present, No Alcala's sign, No contusion, No cranial bruits, No hematoma, No laceration, No occipital foramen tenderness, No palpable skull fracture, No raccoon eyes, No scalp lesion, No scalp tenderness, No Temporal artery tenderness present and No periorbital ecchymosis Eyes: General: appearance normal, both eyes and all related structures Neck: Neck: Yes normal visual inspection, Yes full ROM, Yes no lymphadenopathy, Yes no meningeal signs, Yes trachea midline, Yes supple and No tender Chest: Chest palpation & inspection: normal inspection of the chest and normal palpation of entire chest wall Resp: Effort & Inspection: normal respiratory effort and able to speak in complete sentences Auscultation: clear to auscultation bilaterally Cardio: Jugular venous distension: no JVD Heart sounds: S1 normal heart sound present and S2 normal heart sound present GI: Inspection: Yes normal to inspection and No abdominal wall ecchymosis Palpation (GI): Soft to palpation, not firm, nontender, no guarding and not rigid : General: Yes no CVA tenderness Back/Spine/Pelvis: Other: NEgative for spine tenderness. Positive for pain on range of motion of back. Back: no CVA tenderness and back tenderness (positive for lumbar muscle paraspinal tenderness. ) Skin: General skin exam: no rashes or lesions noted and elasticity normal Neuro: General: patient oriented x3, gait normal, no meningeal signs and CN's II-XI intact bilaterally Cranial nerves: Yes CN's II-XII intact bilaterally Extrem: General: Yes normal to inspection and Yes full ROM Psych: Appearance: grossly normal, well kempt and not disheveled Course Course Course Narrative: NO new trauma. Not suspecting cord compression or epidural abscess. NO new need for new imaging. Reevaluation(s) Reevaluation #1: patient treated with toradol and robaxin and will be discharged and informed to follow up with PCP. Time: 18:19 MDM - Back Pain/Injury MDM Narrative Medical decision making narrative: lumbar spasm/strain Discharge Plan Discharge Clinical Impression: Strain of lumbar region, Muscle spasm Patient Disposition: Home, Self-Care Instructions: Low Back Strain (ED), Muscle Spasm (ED) Additional Instructions: Regrese al servicio de urgencias por empeoramiento del dolor de espalda, incontinencia urinaria / intestinal, n?useas, v?mitos, dolor en el costado, fiebre, escalofr?os, disuria, hematuria, dolor testicular, secreci?n del pene, mareos, dolor de ron, dolor en el pecho, dificultad para respirar, par?lisis de las extremidades inferiores , o cualquier otro s?ntoma preocupante. Prescriptions: New cyclobenzaprine 10 mg tablet 10 mg PO TID PRN (Reason: muscle spasm) Qty: 21 RF: 0 ketorolac 10 mg tablet 10 mg PO QID PRN (Reason: pain) 5 Days Qty: 20 RF: 0 prednisone 20 mg tablet 60 mg PO DAILY 5 Days Qty: 15 RF: 0 Discontinued prednisone 20 mg tablet 60 mg PO DAILY 5 Days Qty: 15 RF: 0 No Action erythromycin 5 mg/gram (0.5 %) ointment 0.5 inch ophthalmic (eye) QID 5 Days Qty: 1 RF: 0 acetaminophen [Tylenol Extra Strength] 500 mg tablet 500 mg PO Q6H PRN (Reason: pain or fever) Qty: 20 RF: 0 lidocaine [Lidoderm] 5 % adhesive patch,medicated 1 patch topical DAILY MDD remove after 12 hours PRN (Reason: pain) Qty: 30 RF: 0 naproxen 500 mg tablet 500 mg PO BID PRN (Reason: pain) 10 Days Qty: 20 RF: 0 cyclobenzaprine 5 mg tablet 5 mg PO Q8H PRN (Reason: pain (scale score 7-10)) 5 Days Qty: 14 RF: 0 oxycodone 5 mg tablet 5 mg PO Q6H PRN (Reason: pain) Qty: 10 RF: 0 acetaminophen 500 mg tablet 1,000 mg PO QID PRN (Reason: pain) Qty: 30 RF: 0 cyclobenzaprine 5 mg tablet 5 mg PO TID PRN (Reason: muscle spasm) Qty: 14 RF: 0 polyethylene glycol 3350 [Miralax] 17 gram/dose powder 17 g PO DAILY PRN (Reason: constipation) Qty: 510 RF: 0 albuterol sulfate 90 mcg/actuation HFA aerosol inhaler 2 puff inhalation Q6H PRN (Reason: shortness of breath or wheezing) Qty: 6.7 RF: 0 prednisone 50 mg tablet 50 mg PO DAILY Qty: 5 RF: 0 ondansetron HCl [Zofran] 4 mg tablet 4 mg PO Q6H PRN (Reason: nausea and vomiting) Qty: 10 RF: 0 albuterol sulfate 90 mcg/actuation HFA aerosol inhaler 2 puff inhalation Q6H PRN (Reason: shortness of breath or wheezing) Qty: 8.5 RF: 0 omeprazole 20 mg capsule,delayed release(DR/EC) 20 mg PO DAILY Qty: 30 RF: 5 Referrals: Cassandra Rodriguez MD [Primary Care Provider] - 2 days (lumbar sprain. muscle spasm) Interventions: ED Discharge Assessment Last Done: 09/24/21 18:54 Discharge Date/Time: 09/24/21 18:58 Print Language: English
[2021-09-24] MEDS: Cyclobenzaprine HCl 10 MG TABLET PO (18:37)
[2021-09-24] MEDS: Ketorolac Tromethamine 15 MG/ML VIAL 30 MG IM (18:37)
== END 2021-09-24 18:58 | disposition home or self-care (01) ==
PROVIDERS: Emergency Provider Internal Medicine; PCP Internal Medicine
DX: M54.50 Low back pain, unspecified (principal); M62.830 Muscle spasm of back; R42 Dizziness and giddiness; F12.90 Cannabis use, unspecified, uncomplicated; Z79.899 Other long term (current) drug therapy
CPT/HCPCS: 96372; 99284; J1885

== ENCOUNTER 2021-10-19 00:37 | Emergency (ER) | payer MEDICAID, SELFPAY ==
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
[2021-10-19 01:01] VITALS: BP 146/92; PULSE 98; RESP 18; TEMP 36.6; O2SAT 98; BMI 23.1
[2021-10-19 01:07] LABS: MANUAL DIFF FLAG NO
[2021-10-19 01:21] LABS: Ethanol 188 mg/dL
[2021-10-19 01:22] LABS: Anion Gap 18 (12-20); Blood Urea Nitrogen 15 mg/dL (9-16); Calcium 9.1 mg/dL (8.4-10.2); Carbon Dioxide 21 mmol/L (22-29); Chloride 101 mmol/L (96-108); Estimated Glomerular Filt Rate > 60; Glucose Random 186 mg/dL (60-115); Potassium 4.2 mmol/L (3.3-5.1); Sodium 136 mmol/L (135-145)
[2021-10-19 01:28] LABS: Basophils Absolute Auto 0.1 X10*3/uL (0.0-0.2); Basophils Percent Auto 1.1 % (0-2); Eosinophils Absolute Auto 0.2 X10*3/uL (0.0-0.4); Eosinophils Percent Auto 3.1 % (0-4); Hematocrit 34.8 % (42.0-52.0); Hemoglobin 11.8 g/dl (14.0-18.0); Imm Gran Abs Auto 0.04 X10*3/uL (0.00-0.03); Imm Gran Pct Auto 0.7 % (0.0-0.4); Lymphocytes Percent Auto 53.9 % (20-40); Mean Corpuscular HGB Conc 33.9 g/dl (31.0-36.0); Mean Corpuscular Hemoglobin 37.2 pg (27.0-33.0); Mean Corpuscular Volume 109.8 fL (80.0-98.0); Mean Platelet Volume 11.6 fL (9.4-12.4); Monocytes Absolute Auto 0.2 X10*3/uL (0.1-1.2); Monocytes Percent Auto 3.6 % (2-11); Neutrophils Absolute Auto 2.1 x10*3/uL (2.0-8.3); Neutrophils Percent Auto 37.6 % (45-73); Platelet Count 150 X10*3/uL (160-400); Red Blood Count 3.17 X10*6/uL (4.60-5.80); Red Cell Distribution Width 14.9 % (11.0-16.0); White Blood Count 5.5 X10*3/uL (4.8-10.8)
[2021-10-19] MEDS: iohexoL 350 MG/ML 100 ML INFUS..BTL 85 ML IV (01:33)
[2021-10-19] MEDS: Diphth,Pertus(ACell),Tet Adult 0.5 ML SYRINGE IM (02:47)
[2021-10-19] MEDS: Lidocaine HCl 2 % MPF 5 ML VIAL 10 ML SUBCUT (02:48)
== END 2021-10-19 04:21 | disposition home or self-care (01) ==
PROVIDERS: Nurse Practitioner Family; Emergency Provider Student in an Organized Health Care Education/Training Program
DX: S61.412A Laceration without foreign body of left hand, initial encounter (principal); S60.512A Abrasion of left hand, initial encounter; M79.642 Pain in left hand; M54.2 Cervicalgia; F10.129 Alcohol abuse with intoxication, unspecified; Y90.6 Blood alcohol level of 120-199 mg/100 ml; V47.5XXA Car driver injured in collision with fixed or stationary object in traffic accident, initial encounter; Y93.9 Activity, unspecified; Y92.410 Unspecified street and highway as the place of occurrence of the external cause; Y99.9 Unspecified external cause status; Z79.899 Other long term (current) drug therapy
CPT/HCPCS: 12004; 36415; 70450; 71260; 72125; 74177; 80048; 82077; 85025; 90471; 90715; 93005; 99283; 99291; Q9967

== ENCOUNTER 2021-10-27 11:01 | Emergency (ER) | payer MEDICAID, SELFPAY ==
[2021-10-27 11:28] VITALS: BP 123/55; PULSE 76; RESP 18; TEMP 36.1; O2SAT 98; BMI 35.5
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
== END 2021-10-27 11:54 | disposition home or self-care (01) ==
PROVIDERS: Emergency Provider Emergency Medicine; PCP Internal Medicine
DX: Z48.02 Encounter for removal of sutures (principal); S61.412D Laceration without foreign body of left hand, subsequent encounter; V49.9XXD Car occupant (driver) (passenger) injured in unspecified traffic accident, subsequent encounter
CPT/HCPCS: 99283

== ENCOUNTER 2021-11-21 13:47 | Emergency (ER) | payer MEDICAID, SELFPAY ==
[2021-11-21 15:04] VITALS: BP 123/81; PULSE 61; RESP 18; TEMP 36.3; O2SAT 99; BMI 34.7
--- NOTE | 2021-11-21 16:32 | ED.WOUNDLAC ---
HPI - Wound/Laceration General Chief Complaint: Wound/Laceration Stated Complaint: suture removal Time Seen by Provider: 11/21/21 16:32 Source: patient Mode of arrival: ambulatory Limitations: no limitations History of Present Illness HPI narrative: 51-year-old male presents to the emergency department for suture removal, patient has 1 suture to his ring finger on his left hand. He has no complaints of fevers, chills, nausea, vomiting, abdominal pain, chest pain, shortness of breath. Patient had the sutures placed about 2 weeks ago. No other complaints at this time Location: other (left ringn finger ) Patient tetanus UTD: Yes Associated symptoms: none Related Data Previous Rx's Medication Instructions Recorded erythromycin 5 mg/gram (0.5 %) eye 0.5 inch OPHTHALMIC (EYE) QID 5 09/07/20 ointment Days #1 g NS acetaminophen 500 mg tablet 500 mg PO Q6H PRN #20 tab 09/23/20 (Tylenol Extra Strength) cyclobenzaprine 5 mg tablet 5 mg PO Q8H PRN 5 Days #14 tab 09/23/20 lidocaine 5 % topical patch 1 patch TOPICAL DAILY PRN #30 ea 09/23/20 (Lidoderm) MDD remove after 12 hours naproxen 500 mg tablet 500 mg PO BID PRN 10 Days #20 tab 09/23/20 polyethylene glycol 3350 17 17 g PO DAILY PRN #510 g 11/10/20 gram/dose oral powder (Miralax) omeprazole 20 mg capsule,delayed 20 mg PO DAILY #30 cap 12/09/20 release acetaminophen 500 mg tablet 1,000 mg PO QID PRN #30 tab 04/20/21 cyclobenzaprine 5 mg tablet 5 mg PO TID PRN #14 tab 04/20/21 oxycodone 5 mg tablet 5 mg PO Q6H PRN #10 tab 04/20/21 albuterol sulfate 90 mcg/actuation 2 puff INHALATION Q6H PRN #6.7 g 05/15/21 aerosol inhaler ondansetron HCl 4 mg tablet 4 mg PO Q6H PRN #10 tab 05/15/21 (Zofran) prednisone 50 mg tablet 50 mg PO DAILY #5 tab 05/15/21 albuterol sulfate 90 mcg/actuation 2 puff INHALATION Q6H PRN #8.5 g 09/23/21 aerosol inhaler cyclobenzaprine 10 mg tablet 10 mg PO TID PRN #21 tab 09/24/21 ketorolac 10 mg tablet 10 mg PO QID PRN 5 Days #20 tab 09/24/21 prednisone 20 mg tablet 60 mg PO DAILY 5 Days #15 tab 09/24/21 ibuprofen 600 mg tablet 600 mg PO TID PRN #20 tab 10/27/21 Allergies Allergy/AdvReac Type Severity Reaction Status Date / Time No Known Allergies Allergy Verified 07/20/21 11:25 [No Known Allergies*] Review of Systems Review of Systems: Constitutional : No Fever, No Chills, Cardiovascular : No Chest Pain, No SOB Respiratory : No Dyspnea Gastrointestinal : No abdominal pain Musculoskeletal : No Joint Swelling Skin : No rash, positive skin laceration to left ring finger w/ 1 suture Neuro : No Weakness, No Numbness Psych : No SI/HI Yes all other systems are reviewed and are negative [facility] Past Medical History Attestation statement: The following information was validated with the patient. Source: old records reviewed and nursing notes reviewed Medical History Acid reflux Alcohol abuse Asthma Ulcer Surgical History History of esophagogastroduodenoscopy (EGD) Hx of colonoscopy Family History Family History Father No problems noted. Mother Diabetes Social History Social History Household Members Other:: with sister Alcohol intake: current Alcohol intake frequency: holidays/special occasions only Patient Tobacco Use Status: Never used Tobacco Substance Use Type: Marijuana Current occupational status: employed and unemployed Physical Exam Vital Signs: Vital Signs: Last Vital Signs Temp 97.4 F 11/21/21 15:04 Pulse 61 11/21/21 15:04 Resp 18 11/21/21 15:04 BP 123/81 11/21/21 15:04 Pulse Ox 99 11/21/21 15:04 BMI result Body Mass Index 34.7 VSS Appearance: Alert.? Oriented X3.? No acute distress.? Head: Normocephalic, atraumatic, no step-offs or deformities Neck: Normal inspection.? Neck supple.? CVS: Normal heart rate and rhythm.? Pulses normal.? Respiratory: No respiratory distress.? Breath sounds normal.? Abdomen: Soft and nontender.? Skin: Skin warm and dry.? Normal skin color.? Normal skin turgor.?+Left hand sutures over the dorsal aspect positive healing wound that are scabbing over no sign of wound dehiscence. ?Full range of motion of left hand positive flexion extension positive pulses positive sensation Extremities: No lower extremity edema.? No calf ttp. 5/5 strength to bilateral upper and lower extremities Back: No midline tenderness, no C-spine tenderness, full range of motion, no CVA tenderness bilaterally Neuro: Oriented X 3.? No motor deficit.? No sensory deficit. Course Reevaluation(s) Reevaluation #1: Suture successfully removed. Without complications. No wound dehiscence. Patient tolerated procedure well. A sterile dressing will be placed over the area. Comfortable w/ d/c home will give strict return precautions. Time: 16:38 MDM - Wound/Laceration MDM Narrative Medical decision making narrative: 1635 51 yo M presents for suture removal. No other complaints, no signs of infection. Sutures were placed about 2 weeks ago. PE benign no signs of infection Plan remove sutures Medical Records Attestation: I reviewed the patient's medical records. Lab Data Attestation: I reviewed the patient's lab results. Critical Care Time Critical Care Time Critical Care Time: No Discharge Plan Discharge Clinical Impression: Visit for suture removal Patient Disposition: Home, Self-Care Instructions: Stitches Removal (ED) Additional Instructions: Take your medications as prescribed. Follow-up with your primary care provider this week. Return to the emergency department with new or worsening symptoms. In case of emergency call 911 Prescriptions: No Action erythromycin 5 mg/gram (0.5 %) ointment 0.5 inch ophthalmic (eye) QID 5 Days Qty: 1 RF: 0 acetaminophen [Tylenol Extra Strength] 500 mg tablet 500 mg PO Q6H PRN (Reason: pain or fever) Qty: 20 RF: 0 lidocaine [Lidoderm] 5 % adhesive patch,medicated 1 patch topical DAILY MDD remove after 12 hours PRN (Reason: pain) Qty: 30 RF: 0 naproxen 500 mg tablet 500 mg PO BID PRN (Reason: pain) 10 Days Qty: 20 RF: 0 cyclobenzaprine 5 mg tablet 5 mg PO Q8H PRN (Reason: pain (scale score 7-10)) 5 Days Qty: 14 RF: 0 oxycodone 5 mg tablet 5 mg PO Q6H PRN (Reason: pain) Qty: 10 RF: 0 acetaminophen 500 mg tablet 1,000 mg PO QID PRN (Reason: pain) Qty: 30 RF: 0 cyclobenzaprine 5 mg tablet 5 mg PO TID PRN (Reason: muscle spasm) Qty: 14 RF: 0 polyethylene glycol 3350 [Miralax] 17 gram/dose powder 17 g PO DAILY PRN (Reason: constipation) Qty: 510 RF: 0 albuterol sulfate 90 mcg/actuation HFA aerosol inhaler 2 puff inhalation Q6H PRN (Reason: shortness of breath or wheezing) Qty: 6.7 RF: 0 prednisone 50 mg tablet 50 mg PO DAILY Qty: 5 RF: 0 ondansetron HCl [Zofran] 4 mg tablet 4 mg PO Q6H PRN (Reason: nausea and vomiting) Qty: 10 RF: 0 albuterol sulfate 90 mcg/actuation HFA aerosol inhaler 2 puff inhalation Q6H PRN (Reason: shortness of breath or wheezing) Qty: 8.5 RF: 0 ibuprofen 600 mg tablet 600 mg PO TID PRN (Reason: pain) Qty: 20 RF: 0 cyclobenzaprine 10 mg tablet 10 mg PO TID PRN (Reason: muscle spasm) Qty: 21 RF: 0 ketorolac 10 mg tablet 10 mg PO QID PRN (Reason: pain) 5 Days Qty: 20 RF: 0 prednisone 20 mg tablet 60 mg PO DAILY 5 Days Qty: 15 RF: 0 omeprazole 20 mg capsule,delayed release(DR/EC) 20 mg PO DAILY Qty: 30 RF: 5 Referrals: Cassandra Rodriguez MD [Primary Care Provider] - 2 days Stand Alone Forms: Work/School Release
== END 2021-11-21 16:55 | disposition home or self-care (01) ==
LOC: HO.ED 16:43
PROVIDERS: Emergency Provider Emergency Medicine; PCP Internal Medicine
DX: Z48.02 Encounter for removal of sutures (principal); S61.412D Laceration without foreign body of left hand, subsequent encounter; X58.XXXD Exposure to other specified factors, subsequent encounter
CPT/HCPCS: 99282

== ENCOUNTER 2022-04-19 15:26 | Emergency (ER) | payer MEDICAID, SELFPAY ==
--- NOTE | 2022-04-19 | ECG_ITS ---
Test Reason : DIZZY Blood Pressure : / mmHG Vent. Rate : 063 BPM Atrial Rate : 063 BPM P-R Int : 128 ms QRS Dur : 092 ms QT Int : 366 ms P-R-T Axes : 030 007 009 degrees QTc Int : 374 ms Normal sinus rhythm Normal ECG When compared with ECG of 19-OCT-2021 01:31, Vent. rate has decreased BY 36 BPM QT has shortened Referred By: Generic ED Physician Electronically Signed By:ANGELA CARDONA MD
--- NOTE | ~2022-04-19 | CT_ITS ---
EXAMINATION: CT HEAD WITHOUT CONTRAST CLINICAL INFORMATION: 52-year-old male with dizziness COMPARISON: None TECHNIQUE: Contiguous axial imaging was performed from the skull base to vertex without intravenous administration of contrast. This CT examination was performed using dose optimization techniques as appropriate, variously including the following: *Automated exposure control *Adjustment of mA and/or kV according to patient size (this includes techniques or standardized protocols for targeted exams where dose is matched to indication/reason for exam; i.e. extremities or head) *Use of iterative reconstruction technique DLP: 669 mGy-cm FINDINGS: There is no evidence of acute intracranial hemorrhage or territorial infarction. No abnormal mass effect or midline shift is seen. Beth to white matter differentiation is well preserved. No extra-axial fluid collections are identified. The ventricles are normal in size. There is no abnormal attenuation within the brain parenchyma. The osseous structures and soft tissues are normal. The mastoid air cells and visualized portions of the paranasal sinuses are well aerated. CT/CT head/brain wo con IMPRESSION: No acute intracranial pathology.
[2022-04-19 15:34] VITALS: BP 143/77; PULSE 66; RESP 18; TEMP 37; O2SAT 100; BMI 33.9
[2022-04-19 15:45] LABS: MANUAL DIFF FLAG NO
[2022-04-19 15:51] LABS: Basophils Absolute Auto 0.1 X10*3/uL (0.0-0.2); Basophils Percent Auto 1.1 % (0-2); Eosinophils Absolute Auto 0.2 X10*3/uL (0.0-0.4); Eosinophils Percent Auto 3.8 % (0-4); Hematocrit 32.9 % (42.0-52.0); Hemoglobin 11.1 g/dl (14.0-18.0); Imm Gran Abs Auto 0.02 X10*3/uL (0.00-0.03); Imm Gran Pct Auto 0.5 % (0.0-0.4); Lymphocytes Absolute Auto 1.9 X10*3/uL (1.2-4.9); Lymphocytes Percent Auto 43.3 % (20-40); Mean Corpuscular HGB Conc 33.7 g/dl (31.0-36.0); Mean Corpuscular Volume 106.8 fL (80.0-98.0); Mean Platelet Volume 12.6 fL (9.4-12.4); Monocytes Absolute Auto 0.3 X10*3/uL (0.1-1.2); Monocytes Percent Auto 6.1 % (2-11); Neutrophils Percent Auto 45.2 % (45-73); Platelet Count 108 X10*3/uL (160-400); Red Blood Count 3.08 X10*6/uL (4.60-5.80); Red Cell Distribution Width 16.3 % (11.0-16.0); White Blood Count 4.4 X10*3/uL (4.8-10.8)
[2022-04-19 16:09] LABS: Troponin-I High Sensitivity < 3.5 ng/L (<3.5-35.0)
[2022-04-19 16:10] LABS: Alanine Aminotransferase 28 U/L (0-40); Albumin Level 4.2 g/dL (3.5-5.0); Alkaline Phosphatase 64 U/L (39-117); Anion Gap 11 (12-20); Aspartate Amino Transferase 18 U/L (5-37); Bilirubin Total 0.6 mg/dL (0.0-1.0); Blood Urea Nitrogen 13 mg/dL (9-16); Calcium 9.3 mg/dL (8.4-10.2); Carbon Dioxide 28 mmol/L (22-29); Chloride 104 mmol/L (96-108); Creatinine Clr Calc Pharmacy 91.3; Estimated Glomerular Filt Rate > 60; Glucose Random 143 mg/dL (60-115); Potassium 4.3 mmol/L (3.3-5.1); Sodium 139 mmol/L (135-145); Total Protein 7.1 g/dL (6.5-8.0)
[2022-04-19 18:00] VITALS: BP 108/52; PULSE 63; RESP 16; O2SAT 97
--- NOTE | 2022-04-19 18:02 | ED.GENADULT ---
HPI - General Adult General Chief complaint: Dizziness Stated complaint: Dizziness Time Seen by Provider: 04/19/22 17:59 Source: patient Limitations: no limitations History of Present Illness HPI narrative: This is a 52-year-old male who complains of dizziness, feeling of unsteadiness, with associated moderate posterior headache that began today around 02:00 o'clock. Triage note notes that the patient states onset had been after smoking marijuana. The patient also initially had chest pain, sharp but denied any chest pain when I interviewed him. Denies any visual changes. He denies any nausea vomiting. He denies any focal weakness or numbness to his arms or face or legs. He denies any speech difficulty. She denies any alcohol use today. He did smoke marijuana earlier today Related Data Previous Rx's Medication Instructions Recorded erythromycin 5 mg/gram (0.5 %) eye 0.5 inch OPHTHALMIC (EYE) QID 5 09/07/20 ointment Days #1 g NS acetaminophen 500 mg tablet 500 mg PO Q6H PRN #20 tab 09/23/20 (Tylenol Extra Strength) cyclobenzaprine 5 mg tablet 5 mg PO Q8H PRN 5 Days #14 tab 09/23/20 lidocaine 5 % topical patch 1 patch TOPICAL DAILY PRN #30 ea 09/23/20 (Lidoderm) MDD remove after 12 hours naproxen 500 mg tablet 500 mg PO BID PRN 10 Days #20 tab 09/23/20 polyethylene glycol 3350 17 17 g PO DAILY PRN #510 g 11/10/20 gram/dose oral powder (Miralax) omeprazole 20 mg capsule,delayed 20 mg PO DAILY #30 cap 12/09/20 release acetaminophen 500 mg tablet 1,000 mg PO QID PRN #30 tab 04/20/21 cyclobenzaprine 5 mg tablet 5 mg PO TID PRN #14 tab 04/20/21 oxycodone 5 mg tablet 5 mg PO Q6H PRN #10 tab 04/20/21 albuterol sulfate 90 mcg/actuation 2 puff INHALATION Q6H PRN #6.7 g 05/15/21 aerosol inhaler ondansetron HCl 4 mg tablet 4 mg PO Q6H PRN #10 tab 05/15/21 (Zofran) prednisone 50 mg tablet 50 mg PO DAILY #5 tab 05/15/21 albuterol sulfate 90 mcg/actuation 2 puff INHALATION Q6H PRN #8.5 g 09/23/21 aerosol inhaler cyclobenzaprine 10 mg tablet 10 mg PO TID PRN #21 tab 09/24/21 ketorolac 10 mg tablet 10 mg PO QID PRN 5 Days #20 tab 09/24/21 prednisone 20 mg tablet 60 mg PO DAILY 5 Days #15 tab 09/24/21 ibuprofen 600 mg tablet 600 mg PO TID PRN #20 tab 10/27/21 Allergies Allergy/AdvReac Type Severity Reaction Status Date / Time No Known Allergies Allergy Verified 07/20/21 11:25 [No Known Allergies*] Review of Systems Review of Systems: Yes all other systems are reviewed and are negative Constitutional: Constitutional: Reports as per HPI, Denies fever(s) and Reports headache(s) Eyes: Eyes: Reports as per HPI and Reports no additional eye complaints ENT: Reports system reviewed and no additional complaints, except as documented, Reports as per HPI, Reports dizziness, Reports headache(s), Denies nasal congestion, Denies nasal discharge, Reports disequilibrium and Denies sore throat Cardiovascular: Cardiovascular: Reports as per HPI, Denies chest pain and Denies dyspnea Respiratory: Respiratory: Reports as per HPI, Denies cough and Denies dyspnea Gastrointestinal: Gastrointestinal: Reports as per HPI, Denies abdominal pain, Denies diarrhea and Denies vomiting Genitourinary: Genitourinary: Reports as per HPI, Denies hematuria, Denies dysuria and Denies urinary frequency Musculoskeletal: Musculoskeletal: Reports no additional musculoskeletal complaints and Denies numbness Integumentary/Breasts: Skin/Breast: Reports as per HPI and Denies rash Neurologic: Reports as per HPI, Reports dizziness, Reports headache(s), Denies focal weakness, Denies numbness and Reports disequilibrium Psychiatric: Psychiatric: Reports no additional psychiatric complaints and Reports as per HPI Endocrine: Endocrine: Reports no additional endocrine complaints and Reports as per HPI Hematologic/Lymphatic: Hematologic/Lymphatic: Reports no additional hematologic/lymphatic complaints, Reports as per HPI and Reports other (No peripheral edema) [facility] Past Medical History Medical History Acid reflux Alcohol abuse Asthma Ulcer Surgical History History of esophagogastroduodenoscopy (EGD) Hx of colonoscopy Family History Family History Father No problems noted. Mother Diabetes Social History Social History Household Members Other:: with sister Alcohol intake: current Alcohol intake frequency: holidays/special occasions only Alcohol type: beer and other Patient Tobacco Use Status: Never used Tobacco Use of substances other than those prescribed or required for medical reasons: Yes Substance Use Type: Marijuana Last Used Substance: Just Prior to Admission Advance Directives: No Advance Directives Information Provided: No Current occupational status: employed and unemployed Physical Exam ED Vital Signs: Vital Signs - 24 hr 04/19/22 15:34 04/19/22 18:00 Temperature 98.6 F Pulse Rate 66 63 Respiratory Rate 18 16 Blood Pressure 143/77 H 108/52 L Pulse Oximetry 100 97 BMI result Body Mass Index 33.9 Const Other: Ambulation a little bit tentative but overall steady General: no acute distress Orientation/consciousness: patient oriented x3 HENMT Head: Yes normal to inspection General nose exam: Normal external nose present Mouth: moist mucous membranes Throat: Yes posterior oropharynx normal, Yes tonsils normal and Yes uvula midline Eyes Eyelids: Yes eyelids normal Conjunctivae: conjunctivae normal Pupils: Equal, round and reactive pupils present Neck Neck: Yes supple Resp Effort & Inspection: normal respiratory effort Auscultation: clear to auscultation bilaterally Cardio Rate: regular rate Rhythm: regular rhythm Heart sounds: S1 normal heart sound present, S2 normal heart sound present, no gallops, no murmurs and no rubs GI Inspection: No distended Palpation (GI): Soft to palpation and nontender Auscultation: normal bowel sounds Skin General skin exam: other (Warm and dry) Neuro General: patient oriented x3 and CN's II-XI intact bilaterally Cranial nerves: Yes Equal, round and reactive pupils present Extrem General: Yes no pedal edema Psych Affect: normal affect Attitude: cooperative Medical Decision Making [facility] Narrative Medical decision making narrative: Patient with dizziness and a moderate headache after smoking marijuana today. Patient appeared mildly unsteady initially but now feels much better. CT of the brain negative. Labs unremarkable. EKG without any ST elevation or depression, troponin drawn at 15:40 was negative Lab Data Lab results reviewed: Yes I reviewed the patient's lab results. Result diagrams: 04/19/22 15:41 04/19/22 15:41 Labs: Lab Results 04/19/22 04/19/22 04/19/22 Range/Units 15:40 15:41 15:41 WBC 4.4 L (4.8-10.8) X10*3/uL RBC 3.08 L (4.60-5.80) X10*6/uL Hgb 11.1 L (14.0-18.0) g/dl Hct 32.9 L (42.0-52.0) % MCV 106.8 H (80.0-98.0) fL MCH 36.0 H (27.0-33.0) pg MCHC 33.7 (31.0-36.0) g/dl RDW 16.3 H (11.0-16.0) % Plt Count 108 L D (160-400) X10*3/uL MPV 12.6 H (9.4-12.4) fL Immature Gran % (Auto) 0.5 H (0.0-0.4) % Neut % (Auto) 45.2 (45-73) % Lymph % (Auto) 43.3 H (20-40) % Gaston % (Auto) 6.1 (2-11) % Eos % (Auto) 3.8 (0-4) % Baso % (Auto) 1.1 (0-2) % Lymph # (Auto) 1.9 (1.2-4.9) X10*3/uL Gaston # (Auto) 0.3 (0.1-1.2) X10*3/uL Eos # (Auto) 0.2 (0.0-0.4) X10*3/uL Baso # (Auto) 0.1 (0.0-0.2) X10*3/uL Abs Immat Gran (auto) 0.02 (0.00-0.03) X10*3/uL Absolute Neuts (auto) 2.0 (2.0-8.3) x10*3/uL Absolute Nucleated RBC 0.000 (0.0-0.012) X10*3/uL Nucleated RBC % (auto) 0.0 (0.0-0.2) /100WBC Sodium 139 (135-145) mmol/L Potassium 4.3 (3.3-5.1) mmol/L Chloride 104 (96-108) mmol/L Carbon Dioxide 28 (22-29) mmol/L Anion Gap 11 L (12-20) BUN 13 (9-16) mg/dL Creatinine 1.01 (0.5-1.4) mg/dL Estim Creat Clear Calc 91.3 Estimated GFR > 60 Random Glucose 143 H (60-115) mg/dL Calcium 9.3 (8.4-10.2) mg/dL Total Bilirubin 0.6 (0.0-1.0) mg/dL AST 18 D (5-37) U/L ALT 28 (0-40) U/L Alkaline Phosphatase 64 (39-117) U/L Troponin I High Sens < 3.5 (<3.5-35.0) ng/L Total Protein 7.1 (6.5-8.0) g/dL Albumin 4.2 (3.5-5.0) g/dL Imaging Data CT scan - head: Radiologist's impression: IMPRESSION: No acute intracranial pathology. ECG Data Attestation: I personally reviewed and interpreted this ECG as follows: Prior ECG tracings: available for review Interpretation: Sinus rhythm with a rate of 63. Somewhat hyperacute appearing T-waves in the anterolateral leads. T-waves somewhat taller compared to 1 dated 10/19/2021. No shakeel ST elevation or depression. Discharge Plan Discharge Clinical Impression: Headache, Dizziness Patient Disposition: Home, Self-Care Instructions: Acute Headache (ED), Dizziness (ED) Additional Instructions: Use acetaminophen or ibuprofen for pain. Follow-up your with primary care physician as needed. Return for any new or worsened symptoms Prescriptions: No Action erythromycin 5 mg/gram (0.5 %) ointment 0.5 inch ophthalmic (eye) QID 5 Days Qty: 1 0RF acetaminophen [Tylenol Extra Strength] 500 mg tablet 500 mg PO Q6H PRN (Reason: pain or fever) Qty: 20 0RF lidocaine [Lidoderm] 5 % adhesive patch,medicated 1 patch topical DAILY MDD remove after 12 hours PRN (Reason: pain) Qty: 30 0RF Rx Instructions: leave on most painful area for up to 12 hrs naproxen 500 mg tablet 500 mg PO BID PRN (Reason: pain) 10 Days Qty: 20 0RF cyclobenzaprine 5 mg tablet 5 mg PO Q8H PRN (Reason: pain (scale score 7-10)) 5 Days Qty: 14 0RF oxycodone 5 mg tablet 5 mg PO Q6H PRN (Reason: pain) Qty: 10 0RF Rx Instructions: This narcotic medication may cause drowsiness, no driving for 6 hours after taking acetaminophen 500 mg tablet 1,000 mg PO QID PRN (Reason: pain) Qty: 30 0RF cyclobenzaprine 5 mg tablet 5 mg PO TID PRN (Reason: muscle spasm) Qty: 14 0RF Rx Instructions: This medication causes drowsiness, no driving for 8 hours after taking polyethylene glycol 3350 [Miralax] 17 gram/dose powder 17 g PO DAILY PRN (Reason: constipation) Qty: 510 0RF albuterol sulfate 90 mcg/actuation HFA aerosol inhaler 2 puff inhalation Q6H PRN (Reason: shortness of breath or wheezing) Qty: 6.7 0RF prednisone 50 mg tablet 50 mg PO DAILY Qty: 5 0RF ondansetron HCl [Zofran] 4 mg tablet 4 mg PO Q6H PRN (Reason: nausea and vomiting) Qty: 10 0RF albuterol sulfate 90 mcg/actuation HFA aerosol inhaler 2 puff inhalation Q6H PRN (Reason: shortness of breath or wheezing) Qty: 8.5 0RF ibuprofen 600 mg tablet 600 mg PO TID PRN (Reason: pain) Qty: 20 0RF cyclobenzaprine 10 mg tablet 10 mg PO TID PRN (Reason: muscle spasm) Qty: 21 0RF Rx Instructions: side effect is drowsiness. Do not take at work or while driving ketorolac 10 mg tablet 10 mg PO QID PRN (Reason: pain) 5 Days Qty: 20 0RF Rx Instructions: Patient received IM 30mg toradol in the ED. Do not take any other NSAIDs such as motrin, naproxen, and etc. prednisone 20 mg tablet 60 mg PO DAILY 5 Days Qty: 15 0RF omeprazole 20 mg capsule,delayed release(DR/EC) 20 mg PO DAILY Qty: 30 5RF
[2022-04-19] MEDS: Meclizine HCl 25 MG TABLET 50 MG PO (18:19)
[2022-04-19] MEDS: Acetaminophen 325 MG TABLET 650 MG PO (18:20)
--- NOTE | 2022-04-19 18:21 | PC.NURSE ---
pt a&ox3, vss, pt continues to c/o of some dizziness and a headache. medicated per provider order. no new orders at this time.
== END 2022-04-19 19:40 | disposition home or self-care (01) ==
PROVIDERS: Emergency Provider Emergency Medicine; PCP Internal Medicine
DX: R42 Dizziness and giddiness (principal); R51.9 Headache, unspecified; J45.909 Unspecified asthma, uncomplicated
CPT/HCPCS: 36415; 70450; 80053; 84484; 85025; 93005; 99284

== ENCOUNTER 2022-05-13 11:11 | Inpatient (IN) | payer MEDICAID, SELFPAY ==
[2022-05-13] VITALS (7 sets, daily range): BP systolic 122–154; BP diastolic 67–95; PULSE 75–87; RESP 16–18; TEMP 36.6–37.5; O2SAT 96–100; BMI 29.0
--- NOTE | ~2022-05-13 | CT_ITS ---
EXAMINATION: CT ABDOMEN AND PELVIS WITHOUT CONTRAST CLINICAL INFORMATION: Right-sided abdominal pain and vomiting. COMPARISON: CT of the abdomen and pelvis done on 10/19/2021. TECHNIQUE: Multidetector volumetric imaging was performed from the superior aspect of the liver through the pubic symphysis. Sagittal and coronal reformatted images were obtained on the technologist's workstation. This CT examination was performed using dose optimization techniques as appropriate, variously including the following: *Automated exposure control *Adjustment of mA and/or kV according to patient size (this includes techniques or standardized protocols for targeted exams where dose is matched to indication/reason for exam; i.e. extremities or head) *Use of iterative reconstruction technique DLP: 654 mGy-cm FINDINGS: LUNG BASES: The visualized lung bases are unremarkable. LIVER, GALLBLADDER, AND BILIARY TREE: The liver is normal in size, shape, and attenuation. No focal hepatic lesion or biliary ductal dilatation is present. The gallbladder is unremarkable with no evidence of radiopaque gallstones, gallbladder wall thickening, or obvious pericholecystic inflammatory changes. PANCREAS: Unremarkable. SPLEEN: Unremarkable. ADRENAL GLANDS: Unremarkable. KIDNEYS AND URETERS: The kidneys are normal in size, shape, and attenuation. No hydronephrosis, hydroureter, or calculi seen. No perinephric stranding. BLADDER: Suboptimally distended. GASTROINTESTINAL TRACT: Significant pericolonic inflammatory changes are noted at the mid part of the ascending colon predominantly along the posterior aspect. Specific note is made of a 1 cm radiopaque density seen abutting the serosal surface (413:4). No evidence of any perforation, pericolonic fluid collection or abscess formation or features of obstruction. The radiopaque density may represent an ingested foreign body. The remainder of the large bowel otherwise appear unremarkable. The appendix is well-visualized and is unremarkable. The small bowel loops are decompressed. The stomach is decompressed. ABDOMINAL WALL: No significant hernia is appreciated. LYMPH NODES: Normal. VASCULAR: Unremarkable. PELVIC VISCERA: There is no pelvic mass present. No evidence of any free fluid and/or free air. OSSEOUS STRUCTURES: No acute or suspicious for focal abnormalities. CT/CT abdomen pelvis wo con IMPRESSION: 1. Abnormal study. Significant pericolonic inflammatory changes are noted predominantly along the posterior serosal surface of the mid part of the ascending colon, associated with 1 cm radiopaque density seen abutting the posterior serosal surface. No evidence of any perforation, pericolonic fluid collection, abscess formation or features of obstruction present. The radiopaque density may represent an ingested foreign body. 2. Normal-appearing appendix. This critical result was discussed with Monserrat NEGRETE at 1:33 PM on 05/13/2022 and it was ascertained that the content and urgency of the report was understood at the time of direct communication.
--- NOTE | ~2022-05-13 | XR_ITS ---
EXAMINATION: XR ABDOMEN KUB CLINICAL INDICATION: Foreign body in right colon with colitis. COMPARISON: None TECHNIQUE: AP view of the abdomen. FINDINGS: There is scattered stool and gas seen in the small bowel loops in the left colon. Note patient's distention seen. There is no organomegaly. No gross bony abnormality except for mild spondylosis. XR/XR KUB IMPRESSION: Unremarkable KUB.
--- NOTE | 2022-05-13 11:16 | ED.ABDPAIN ---
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 No vomiting, urinary symptoms, fevers, chills. Patient drinks beer and rum daily. Last drink just prior to arrival. Typically drinks about 12 beers and 5-6 nips of Rum. Occasionally he sniffs cocaine. No additional substance use. He has a history of a gastric ulcer Related Data Home Medications Medication Instructions Recorded Confirmed docusate sodium 100 mg capsule 1 cap PO BID PRN Constipation 05/13/22 05/13/22 fluticasone propionate 50 2 spray intranasal QAM PRN Allergy 05/13/22 mcg/actuation nasal Symptoms spray,suspension nicotine (polacrilex) 4 mg gum 1 ea PO Q2H PRN Nicotine Cravings 05/13/22 tramadol 50 mg tablet 1 tab PO Q6H PRN pain 05/13/22 Previous Rx's Medication Instructions Recorded erythromycin 5 mg/gram (0.5 %) eye 0.5 inch ophthalmic (eye) QID eye 09/07/20 ointment infection 5 days #1 g acetaminophen 500 mg tablet 500 mg PO Q6H PRN pain or fever 09/23/20 (Tylenol Extra Strength) #20 tabs lidocaine 5 % topical patch 1 patch topical DAILY PRN pain #30 09/23/20 (Lidoderm) ea naproxen 500 mg tablet 500 mg PO BID PRN pain 10 days #20 09/23/20 tabs polyethylene glycol 3350 17 17 g PO DAILY PRN constipation 11/10/20 gram/dose oral powder (Miralax) #510 grams omeprazole 20 mg capsule,delayed 20 mg PO DAILY #30 caps 12/09/20 release acetaminophen 500 mg tablet 1,000 mg PO QID PRN pain #30 tabs 04/20/21 cyclobenzaprine 5 mg tablet 5 mg PO TID PRN muscle spasm #14 04/20/21 tabs albuterol sulfate 90 mcg/actuation 2 puff inhalation Q6H PRN 09/23/21 aerosol inhaler shortness of breath or wheezing #8.5 grams cyclobenzaprine 10 mg tablet 10 mg PO TID PRN muscle spasm #21 09/24/21 tabs ketorolac 10 mg tablet 10 mg PO QID PRN pain 5 days #20 09/24/21 tabs ibuprofen 600 mg tablet 600 mg PO TID PRN pain #20 tabs 10/27/21 Allergies Allergy/AdvReac Type Severity Reaction Status Date / Time No Known Allergies Allergy Verified 07/20/21 11:25 [No Known Allergies*] Review of Systems Review of Systems Yes all other systems are reviewed and are negative Constitutional: Reports no additional constitutional complaints, Denies body ache(s), Denies chills, Denies fever(s), Denies headache(s) and Denies weakness Eyes: Reports no additional eye complaints and Denies change in vision Reports system reviewed and no additional complaints, except as documented, Denies dizziness, Denies headache(s), Denies nasal congestion, Denies nasal discharge and Denies neck pain Cardiovascular: Reports no additional cardiovascular complaints, Denies chest pain, Denies leg edema and Denies dyspnea Respiratory: Reports no additional respiratory complaints, Denies cough and Denies dyspnea Gastrointestinal: Reports no additional gastrointestinal complaints, Reports abdominal pain, Denies diarrhea, Reports nausea and Denies vomiting Genitourinary: Denies urinary incontinence Musculoskeletal: Reports no additional musculoskeletal complaints, Denies back pain, Denies arthralgias, Denies joint swelling, Denies neck pain, Denies numbness and Denies tingling Skin/Breast: Reports system reviewed and no additional complaints, except as docu and Denies rash Reports system reviewed and no additional complaints, except as documented, Denies dizziness, Denies headache(s), Denies numbness, Denies tingling and Denies weakness [facility] Past Medical History Attestation statement: The following information was validated with the patient. Source: old records reviewed and nursing notes reviewed Medical History Ulcer Surgical History History of esophagogastroduodenoscopy (EGD) Hx of colonoscopy Family History Family History Father No problems noted. Mother Diabetes Social History Social History Household Members Other:: with sister Alcohol intake: current Alcohol intake frequency: 3 or more drinks per day Alcohol type: beer and hard liquor Patient Tobacco Use Status: Current someday Tobacco user Substance Use Type: Crack/Cocaine and Marijuana Advance Directives: No Advance Directives Information Provided: No Current occupational status: employed and unemployed Physical Exam ED Vital Signs: Vital Signs - 24 hr 05/13/22 11:17 05/13/22 12:29 05/13/22 13:34 Temperature 98.4 F Pulse Rate 87 80 76 Respiratory Rate 18 18 Blood Pressure 146/95 H 124/71 Pulse Oximetry 97 96 99 Oxygen Delivery Method Room Air Room Air Room Air BMI result Body Mass Index 29.0 Const General: cooperative, healthy appearing, comfortable and no acute distress Orientation/consciousness: patient oriented x3 Limitations: no limitations HENMT Head: Yes normal to inspection Ears: hearing grossly normal bilaterally Eyes General: appearance normal, both eyes and all related structures Pupils: Equal, round and reactive pupils present Neck Neck: Yes normal visual inspection, Yes full ROM and Yes no lymphadenopathy Chest Chest palpation & inspection: normal inspection of the chest Resp Effort & Inspection: normal respiratory effort Auscultation: clear to auscultation bilaterally Cardio Rate: regular rate Rhythm: regular rhythm Peripheral pulses: Peripheral pulses 2+ throughout GI Inspection: Yes normal to inspection Palpation (GI): Soft to palpation and nontender Back/Spine/Pelvis Thoracic/Lumbar Spine: thoracic and lumbar spine normal to inspection Skin General skin exam: no rashes or lesions noted Neuro General: patient oriented x3 and moves all extremities Cranial nerves: Yes Equal, round and reactive pupils present Cognition (Neuro): normal cognition Gait exam (Neuro): Normal gait present Extrem General: Yes normal to inspection Course Course Course Narrative: 1359-CT shows pericolonic inflammation at the posterior serosal surface of the mid part of the ascending colon with a 1 cm radiopaque densities seen abutting the posterior serosal surface. No evidence of perforation, fluid collection, absence formation. May represent ingested foreign body. Patient denies any ingestion. Call out to surgery to discuss Reevaluation(s) Reevaluation #1: 1500-spoke to Dr. Shepherd who will admit patient MDM - Abdominal Pain MDM Narrative Medical decision making narrative: 52 year old male with history of alcohol abuse, asthma, gastric reflux here with reports of 3 days of right-sided abdominal pain which radiates to the back with nausea. On exam right upper quadrant tenderness with guarding and rebound. Will check labs, UA, CT. Consider gallstones, cholecystitis, renal colic, appendicitis Medical Records Attestation: I reviewed the patient's medical records. Lab Data Attestation: I reviewed the patient's lab results. Result diagrams: 05/13/22 11:49 05/13/22 11:49 Labs: Lab Results 05/13/22 05/13/22 05/13/22 Range/Units 11:49 11:49 12:34 WBC 8.4 (4.8-10.8) X10*3/uL RBC 3.03 L (4.60-5.80) X10*6/uL Hgb 11.0 L (14.0-18.0) g/dl Hct 32.5 L (42.0-52.0) % MCV 107.3 H (80.0-98.0) fL MCH 36.3 H (27.0-33.0) pg MCHC 33.8 (31.0-36.0) g/dl RDW 16.8 H (11.0-16.0) % Plt Count 87 L (160-400) X10*3/uL MPV 12.9 H (9.4-12.4) fL Immature Gran % (Auto) 1.4 H (0.0-0.4) % Neut % (Auto) 76.4 H (45-73) % Lymph % (Auto) 14.0 L (20-40) % Mckean % (Auto) 5.5 (2-11) % Eos % (Auto) 2.1 (0-4) % Baso % (Auto) 0.6 (0-2) % Lymph # (Auto) 1.2 (1.2-4.9) X10*3/uL Mckean # (Auto) 0.5 (0.1-1.2) X10*3/uL Eos # (Auto) 0.2 (0.0-0.4) X10*3/uL Baso # (Auto) 0.1 (0.0-0.2) X10*3/uL Abs Immat Gran (auto) 0.12 H (0.00-0.03) X10*3/uL Absolute Neuts (auto) 6.4 (2.0-8.3) x10*3/uL Absolute Nucleated RBC 0.000 (0.0-0.012) X10*3/uL Nucleated RBC % (auto) 0.0 (0.0-0.2) /100WBC Sodium 137 (135-145) mmol/L Potassium 4.1 (3.3-5.1) mmol/L Chloride 103 (96-108) mmol/L Carbon Dioxide 26 (22-29) mmol/L Anion Gap 12 (12-20) BUN 14 (9-16) mg/dL Creatinine 0.92 (0.5-1.4) mg/dL Estim Creat Clear Calc 93.1 Estimated GFR > 60 Random Glucose 156 H (60-115) mg/dL Calcium 9.1 (8.4-10.2) mg/dL Total Bilirubin 0.9 (0.0-1.0) mg/dL Direct Bilirubin 0.4 (0.0-0.5) mg/dL AST 17 (5-37) U/L ALT 20 (0-40) U/L Alkaline Phosphatase 71 (39-117) U/L Total Protein 7.1 (6.5-8.0) g/dL Albumin 4.3 (3.5-5.0) g/dL Lipase 16 (8-78) U/L Urine Color YELLOW Urine Appearance CLEAR Urine pH 6.5 (5.0-8.0) Ur Specific [place] 1.025 (1.005-1.025) Urine Protein TRACE (NEG-TRACE) MG/DL Urine Glucose (UA) NEG (NEG) MG/DL Urine Ketones NEG (NEG) MG/DL Urine Blood NEG (NEG) Urine Nitrite NEG (NEG) Ur Leukocyte Esterase NEG (NEG) Imaging Data CT scan - abdomen: Attestation: I personally reviewed and interpreted this imaging study as follows: Radiologist's impression: FINDINGS: LUNG BASES: The visualized lung bases are unremarkable.? LIVER, GALLBLADDER, AND BILIARY TREE: The liver is normal in size, shape, and attenuation. No focal hepatic lesion or biliary ductal dilatation is present. The gallbladder is unremarkable with no evidence of radiopaque gallstones, gallbladder wall thickening, or obvious pericholecystic inflammatory changes.? PANCREAS: Unremarkable.? SPLEEN: Unremarkable.? ADRENAL GLANDS: Unremarkable.? KIDNEYS AND URETERS: The kidneys are normal in size, shape, and attenuation. No hydronephrosis, hydroureter, or calculi seen. No perinephric stranding. ? BLADDER: Suboptimally distended.? GASTROINTESTINAL TRACT: Significant pericolonic inflammatory changes are noted at the mid part of the ascending colon predominantly along the posterior aspect. Specific note is made of a 1 cm radiopaque density seen abutting the serosal surface (413:4). No evidence of any perforation, pericolonic fluid collection or abscess formation or features of obstruction. The radiopaque density may represent an ingested foreign body. The remainder of the large bowel otherwise appear unremarkable. The appendix is well-visualized and is unremarkable. The small bowel loops are decompressed. The stomach is decompressed. ABDOMINAL WALL: No significant hernia is appreciated.? LYMPH NODES: Normal. VASCULAR: Unremarkable. PELVIC VISCERA: There is no pelvic mass present. No evidence of any free fluid and/or free air.? OSSEOUS STRUCTURES: No acute or suspicious for focal abnormalities.? CT/CT abdomen pelvis wo con IMPRESSION: ? 1. Abnormal study. Significant pericolonic inflammatory changes are noted predominantly along the posterior serosal surface of the mid part of the ascending colon, associated with 1 cm radiopaque density seen abutting the posterior serosal surface. No evidence of any perforation, pericolonic fluid collection, abscess formation or features of obstruction present. The radiopaque density may represent an ingested foreign body. 2. Normal-appearing appendix. Discharge Plan Discharge Clinical Impression: Abdominal pain Patient Disposition: Admitted As Inpatient
[2022-05-13 11:54] LABS: MANUAL DIFF FLAG NO
[2022-05-13 11:57] LABS: Basophils Absolute Auto 0.1 X10*3/uL (0.0-0.2); Basophils Percent Auto 0.6 % (0-2); Eosinophils Absolute Auto 0.2 X10*3/uL (0.0-0.4); Eosinophils Percent Auto 2.1 % (0-4); Hematocrit 32.5 % (42.0-52.0); Imm Gran Abs Auto 0.12 X10*3/uL (0.00-0.03); Imm Gran Pct Auto 1.4 % (0.0-0.4); Lymphocytes Absolute Auto 1.2 X10*3/uL (1.2-4.9); Mean Corpuscular HGB Conc 33.8 g/dl (31.0-36.0); Mean Corpuscular Hemoglobin 36.3 pg (27.0-33.0); Mean Corpuscular Volume 107.3 fL (80.0-98.0); Monocytes Absolute Auto 0.5 X10*3/uL (0.1-1.2); Monocytes Percent Auto 5.5 % (2-11); Neutrophils Absolute Auto 6.4 x10*3/uL (2.0-8.3); Neutrophils Percent Auto 76.4 % (45-73); Red Blood Count 3.03 X10*6/uL (4.60-5.80); Red Cell Distribution Width 16.8 % (11.0-16.0); White Blood Count 8.4 X10*3/uL (4.8-10.8)
[2022-05-13 12:14] LABS: Alanine Aminotransferase 20 U/L (0-40); Albumin Level 4.3 g/dL (3.5-5.0); Alkaline Phosphatase 71 U/L (39-117); Anion Gap 12 (12-20); Aspartate Amino Transferase 17 U/L (5-37); Bilirubin Direct 0.4 mg/dL (0.0-0.5); Bilirubin Total 0.9 mg/dL (0.0-1.0); Blood Urea Nitrogen 14 mg/dL (9-16); Calcium 9.1 mg/dL (8.4-10.2); Carbon Dioxide 26 mmol/L (22-29); Chloride 103 mmol/L (96-108); Creatinine Clr Calc Pharmacy 93.1; Estimated Glomerular Filt Rate > 60; Glucose Random 156 mg/dL (60-115); Lipase 16 U/L (8-78); Mean Platelet Volume 12.9 fL (9.4-12.4); Potassium 4.1 mmol/L (3.3-5.1); Sodium 137 mmol/L (135-145); Total Protein 7.1 g/dL (6.5-8.0)
[2022-05-13 12:15] LABS: Platelet Count 87 X10*3/uL (160-400)
[2022-05-13] MEDS: Morphine Sulfate 4 MG/ML CARTRIDGE IVPUSH (12:29)
[2022-05-13] MEDS: ondansetron HCL 4 MG/2 ML VIAL IVPUSH (12:29)
[2022-05-13 12:45] LABS: Appearance Urine CLEAR; Color Urine YELLOW; Glucose Urine UA NEG (NEG); Leukocyte Esterase Urine NEG (NEG); Nitrite Urine NEG (NEG); PH 6.5 (5.0-8.0); Specific Gravity - Urine 1.025 (1.005-1.025); Urine Blood NEG (NEG); Urine Ketones NEG (NEG); Urine Protein TRACE MG/DL (NEG-TRACE)
--- NOTE | 2022-05-13 15:01 | PM.HPGS ---
History of Present Illness History of Present Illness Date of Service: 05/19/22 Chief complaint: Right colon inflammation Narrative: Brandon Louis is a 52 year old male who says he has been having pain on the right flank area for about 3 days now. He does not recall exactly how this started. He says that this been consistently on the right side near the flank area and going posteriorly. He denies any fever at home. He has good bowel movements. He says he has good oral intake. He however says he thought that he had some nausea yesterday He admits to being a heavy alcohol drinker. He says he drinks rum and beer every day. He also admits to smoking marijuana frequently. He admits to smoking cigarettes as well. His CAT scan shows an area of right colon which has inflamed posteriorly along the serosa with note of an ingested foreign body adjacent to this within the lumen. Review of Systems Constitutional: Constitutional: Denies chills and Denies fever(s) Cardiovascular: Cardiovascular: Denies chest pain, Denies dyspnea and Denies dyspnea on exertion Respiratory: Respiratory: Denies cough, Denies dyspnea and Denies dyspnea on exertion Gastrointestinal: Gastrointestinal: Denies hematochezia and Denies change in bowel habits Genitourinary: Genitourinary: Denies hematuria and Denies difficulty urinating Musculoskeletal: Musculoskeletal: Denies back pain and Denies limited range of motion Neurologic: Denies focal weakness and Denies convulsions Psychiatric: Psychiatric: Denies depression and Denies mood swings PMFSH Past Medical History Medical History Ulcer Family History Family History Father No problems noted. Mother Diabetes Surgical History Surgical History History of esophagogastroduodenoscopy (EGD) Hx of colonoscopy Social History Social History Household Members: Family Household Members Other:: with sister Housing: House Do you presently have visiting nurse or other home services: No Alcohol intake: current Alcohol intake frequency: 3 or more drinks per day Alcohol type: beer and hard liquor Patient Tobacco Use Status: Current someday Tobacco user Tobacco use type: Cigarette Substance Use Type: Marijuana service: No Current occupational status: unemployed Meds Allergies Allergy/AdvReac Type Severity Reaction Status Date / Time No Known Allergies Allergy Verified 07/20/21 11:25 [No Known Allergies*] Active Medications: Current Medications Albuterol Sulfate (Albuterol Sulfate 90 Mcg 8 Gm Inhaler) 2 puff INHALE Q4H PRN PRN Reason: wheezing Heparin Sodium (Porcine) (Heparin Sodium,Porcine 5,000 Unit/Ml Vial) 5,000 unit SUBCUT Q12H [facility] Sodium Chloride (Ns) 1,000 mls @ 100 mls/hr IVCONT .Q10H [facility] Piperacillin Sod/Tazobactam (Sod 3.375 gm/ Sodium Chloride) 50 mls @ 100 mls/hr IV Q6H [facility] Morphine Sulfate (Morphine Sulfate 4 Mg/Ml Cartridge) 3 mg IVPUSH Q4H PRN; Protocol PRN Reason: Pain, Severe (Pain Scale 7-10) Omeprazole (Omeprazole 20 Mg Capsule.Dr) 20 mg PO DAILY@06 REPLACED BY [facility] Ondansetron HCl (Ondansetron Hcl 4 Mg/2 Ml Vial) 4 mg IVPUSH Q8H PRN PRN Reason: Nausea and Vomiting Pharmacy Consult (Consult Rx Perform Med Rec) 1 each MISCELLANE ONCE PRN PRN Reason: Consult order Sodium Chloride (0.9 % Sodium Chloride Flush 3 Ml Syringe) 3 ml IVFLUSH QSHIFT REPLACED BY [facility] Home Medications Medication Instructions Recorded Confirmed Last Taken Type docusate sodium 100 mg capsule 1 cap PO BID PRN Constipation 05/13/22 05/13/22 Unknown History fluticasone propionate 50 2 spray intranasal DAILY PRN 05/13/22 05/13/22 Unknown History mcg/actuation nasal Allergy Symptoms spray,suspension nicotine (polacrilex) 4 mg gum 1 ea PO Q2H PRN Nicotine Cravings 05/13/22 05/13/22 Unknown History omeprazole 20 mg capsule,delayed 20 mg PO DAILY@0630 05/13/22 05/13/22 Unknown History release tramadol 50 mg tablet 1 tab PO Q6H PRN pain 05/13/22 05/13/22 Unknown History Physical Exam Vital Signs: Vital Signs: Last Vital Signs Temp 98.4 F 05/13/22 11:17 Pulse 76 05/13/22 13:34 Resp 18 05/13/22 13:34 BP 124/71 05/13/22 13:34 Pulse Ox 99 05/13/22 13:34 O2 Del Method 05/13/22 13:34 BMI result Body Mass Index 29.0 Const: General: comfortable and no acute distress Orientation/consciousness: patient oriented x3 Neck: Neck: Yes no lymphadenopathy Resp: Auscultation: clear to auscultation bilaterally Cardio: Rhythm: regular rhythm GI: Other: tender on the right flank area all the way to posteriorly Palpation (GI): Soft to palpation, nontender and no guarding Neuro: General: patient oriented x3 Results Results Labs: Short CBC 05/13/22 Range/Units 11:49 WBC 8.4 (4.8-10.8) X10*3/uL Hgb 11.0 L (14.0-18.0) g/dl Hct 32.5 L (42.0-52.0) % Plt Count 87 L (160-400) X10*3/uL BMP 05/13/22 11:49 Sodium 137 Potassium 4.1 Chloride 103 Carbon Dioxide 26 BUN 14 Creatinine 0.92 Calcium 9.1 Liver Function 05/13/22 Range/Units 11:49 Total Bilirubin 0.9 (0.0-1.0) mg/dL Direct Bilirubin 0.4 (0.0-0.5) mg/dL AST 17 (5-37) U/L ALT 20 (0-40) U/L Alkaline Phosphatase 71 (39-117) U/L Albumin 4.3 (3.5-5.0) g/dL Urine 05/13/22 Range/Units 12:34 Urine Color YELLOW Urine Appearance CLEAR Urine pH 6.5 (5.0-8.0) Ur Specific [place] 1.025 (1.005-1.025) Urine Protein TRACE (NEG-TRACE) MG/DL Urine Glucose (UA) NEG (NEG) MG/DL Abdomen CT scan report/results: report reviewed and image reviewed CT scan - pelvis: report reviewed and image reviewed Assessment and Plan (1) Right sided colitis: Status: Acute He has been having pain on the right flank area for 3 days now. His CAT scan shows what appears to be inflammatory changes on the posterior serosa of the right colon along with an ingested foreign body abutting this. I am uncertain as to what exactly this foreign body represents. He does not recall ingesting anything unusual the past several days. I will admit him because of the presence of inflammatory changes on the serosa of the right colon posteriorly adjacent to this foreign body. He will be kept NPO except for some sips of clear liquid. I will start him on Zosyn because of the inflammatory changes. The CT scan does not show any evidence of any microperforation/ perforation, nor obstruction. However, if he does not resolve or improve, I told him that there is a has that we may need to proceed with resection of this area by a hand assisted laparoscopy or laparotomy. He otherwise has a benign exam. His white count is normal. He is tender on the right flank area and posteriorly. I have discussed the above with his sister. He admits to drinking every day so I have also consulted the hospitalist service with regards to this. Quality Stroke Does the patient have a stroke diagnosis?: No VTE Prior VTE?: No VTE Risk Level:: Medical - moderate - high VTE Device Contraindication: N/A - Device Ordered VTE Drug Contraindication: N/A - Med Ordered Procedures Date of Service Date of Service: 05/13/22
--- NOTE | 2022-05-13 15:27 | PHA.MEDREC ---
Pharmacy Consult ? Medication Reconciliation Pharmacy has completed the medication reconciliation. [employer] services used, pt poor historian. Agreeable to most medications on claim history.
[2022-05-13] MEDS: Heparin Sodium,Porcine 5,000 UNIT/ML VIAL 5000 UNIT SUBCUT (16:39)
[2022-05-13] MEDS: Piperacillin Sodium/Tazobactam 3.375 GM in 0.9 % Sodium Chloride 50 ML IV ×2 (16:40→22:37)
[2022-05-13] MEDS: 0.9 % Sodium Chloride Flush 3 ML SYRINGE IVFLUSH (16:40)
[2022-05-13] MEDS: 0.9 % Sodium Chloride 1,000 ML 100 ML IVCONT (16:55)
[2022-05-13] MEDS: Morphine Sulfate 4 MG/ML CARTRIDGE 3 MG IVPUSH ×2 (16:56→22:37)
[2022-05-13 18:43] LABS: COVID-19 Test Negative (Negative)
--- NOTE | 2022-05-13 20:07 | PC.NURSE ---
ROUNDING DONE ON PATIENT ,PATIENT REQUEST ADDITIONAL PILLOW .
[2022-05-14] MEDS: Piperacillin Sodium/Tazobactam 3.375 GM in 0.9 % Sodium Chloride 50 ML IV ×4 (03:26→20:37)
[2022-05-14] MEDS: 0.9 % Sodium Chloride 1,000 ML 100 ML IVCONT ×2 (03:26→15:30)
[2022-05-14] MEDS: Heparin Sodium,Porcine 5,000 UNIT/ML VIAL 5000 UNIT SUBCUT ×2 (03:26→15:19)
[2022-05-14] MEDS: Morphine Sulfate 4 MG/ML CARTRIDGE 3 MG IVPUSH ×4 (03:33→20:38)
[2022-05-14] MEDS: Omeprazole 20 MG CAPSULE.DR PO (03:41)
[2022-05-14 03:43] VITALS: BP 126/68; PULSE 77; RESP 16; TEMP 36.2; O2SAT 100
[2022-05-14 06:55] LABS: Hematocrit 28.7 % (42.0-52.0); Hemoglobin 9.4 g/dl (14.0-18.0); Mean Corpuscular HGB Conc 32.8 g/dl (31.0-36.0); Mean Corpuscular Hemoglobin 36.2 pg (27.0-33.0); Mean Platelet Volume 11.1 fL (9.4-12.4); Red Cell Distribution Width 16.6 % (11.0-16.0); White Blood Count 6.1 X10*3/uL (4.8-10.8)
[2022-05-14 06:57] LABS: Mean Corpuscular Volume 110.4 fL (80.0-98.0); Platelet Count 74 X10*3/uL (160-400)
[2022-05-14 07:17] LABS: Anion Gap 7 (12-20); Blood Urea Nitrogen 13 mg/dL (9-16); Carbon Dioxide 29 mmol/L (22-29); Chloride 103 mmol/L (96-108); Creatinine Clr Calc Pharmacy 91.1; Estimated Glomerular Filt Rate > 60; Glucose Random 141 mg/dL (60-115); Sodium 135 mmol/L (135-145)
[2022-05-14 07:32] LABS: Calcium 8.1 mg/dL (8.4-10.2)
--- NOTE | 2022-05-14 07:34 | PM.IMCN ---
History of Present Illness Data of Consult Service Date: 05/14/22 Primary Care Provider: Cassandra Rodriguez MD [facility] Reason for consult: etoh dependence 52-year-old male presented with right flank pain for 3 days Found to have foreign body on CT in acending colon, denies any foreign body ingestion, pain radiates posteriorly, denies any fever, has positive bowel movements. Patient has alcohol dependence and he drinks rum and beer every day, he denies any withdrawal symptoms, has not had withdrawal in the past. His last drink was 1 day prior to presentation. Review of Systems Review of Systems: Yes all other systems are reviewed and are negative [facility] Medical History Ulcer Family History Father No problems noted. Mother Diabetes Surgical History History of esophagogastroduodenoscopy (EGD) Hx of colonoscopy Social History Household Members: Family Household Members Other:: with sister Housing: House Do you presently have visiting nurse or other home services: No Alcohol intake: current Alcohol intake frequency: 3 or more drinks per day Alcohol type: beer and hard liquor Patient Tobacco Use Status: Current someday Tobacco user Tobacco use type: Cigarette Substance Use Type: Marijuana Substance Use Frequency: Daily Last Used Substance: Unknown Currently Displaying Signs/Symptoms of Drug Intoxication Withdrawal: No Any prior treatment program specific to substance use: No Have you been hit, kicked, punched, or otherwise hurt by someone within the past year? If so, by whom?: No Do you feel safe in your current relationship?: No Current Relationship Is there a partner from a previous relationship who is making you feel unsafe now?: No Are you made to feel afraid or neglected: No Advance Directives: No Advance Directives Information Provided: No Do you have thoughts of harming others: None Do you have a plan to hurt others: No Plan Recently lost weight without trying: No Nutrition Risks: No Nutritional Risk Poor oral hygiene: No Current occupational status: employed and unemployed Meds Allergies Allergy/AdvReac Type Severity Reaction Status Date / Time No Known Allergies Allergy Verified 07/20/21 11:25 [No Known Allergies*] Active Medications: Current Medications Albuterol Sulfate (Albuterol Sulfate 90 Mcg 8 Gm Inhaler) 2 puff INHALE Q4H PRN PRN Reason: wheezing Heparin Sodium (Porcine) (Heparin Sodium,Porcine 5,000 Unit/Ml Vial) 5,000 unit SUBCUT Q12H [facility] Last Admin: 05/14/22 03:26 Dose: 5,000 unit Sodium Chloride (Ns) 1,000 mls @ 100 mls/hr IVCONT .Q10H [facility] Last Admin: 05/14/22 03:26 Dose: 100 mls/hr Piperacillin Sod/Tazobactam (Sod 3.375 gm/ Sodium Chloride) 50 mls @ 100 mls/hr IV Q6H [facility] Last Infusion: 05/14/22 04:01 Dose: Infused Morphine Sulfate (Morphine Sulfate 4 Mg/Ml Cartridge) 3 mg IVPUSH Q4H PRN; Protocol PRN Reason: Pain, Severe (Pain Scale 7-10) Last Admin: 05/14/22 03:33 Dose: 3 mg Omeprazole (Omeprazole 20 Mg Capsule.Dr) 20 mg PO DAILY@629 [facility] Last Admin: 05/14/22 03:41 Dose: 20 mg Ondansetron HCl (Ondansetron Hcl 4 Mg/2 Ml Vial) 4 mg IVPUSH Q8H PRN PRN Reason: Nausea and Vomiting Pharmacy Consult (Consult Rx Perform Med Rec) 1 each MISCELLANE ONCE PRN PRN Reason: Consult order Sodium Chloride (0.9 % Sodium Chloride Flush 3 Ml Syringe) 3 ml IVFLUSH QSHIFT [facility] Last Admin: 05/14/22 00:22 Dose: Not Given Home Medications Medication Instructions Recorded Confirmed Last Taken Type docusate sodium 100 mg capsule 1 cap PO BID PRN Constipation 05/13/22 05/13/22 Unknown History fluticasone propionate 50 2 spray intranasal DAILY PRN 05/13/22 05/13/22 Unknown History mcg/actuation nasal Allergy Symptoms spray,suspension nicotine (polacrilex) 4 mg gum 1 ea PO Q2H PRN Nicotine Cravings 05/13/22 05/13/22 Unknown History omeprazole 20 mg capsule,delayed 20 mg PO DAILY@0630 05/13/22 05/13/22 Unknown History release tramadol 50 mg tablet 1 tab PO Q6H PRN pain 05/13/22 05/13/22 Unknown History Physical Exam Vital Signs and Narrative: Vital Signs: Last Vital Signs Temp 97.2 F 05/14/22 03:43 Pulse 77 05/14/22 03:43 Resp 16 05/14/22 03:43 BP 126/68 05/14/22 03:43 Pulse Ox 100 05/14/22 03:43 O2 Del Method 05/14/22 03:43 O2 Flow Rate 2 05/14/22 03:43 BMI result Body Mass Index 29.0 General: no acute distress HEENT: atraumatic Neck: normal to visual inspection CVS: S1, S2, RRR Resp: CTA bilateral Chest: non tender GI: soft, right tender, non distended : no CVA tenderness Skin: no rashes Extremities: no edema Neuro: Oriented X3, grossly intact Psych: cooperative Results Labs CBC and Chem 7: 05/14/22 06:42 05/14/22 06:41 Labs: Laboratory Results - last 24 hr 05/13/22 05/13/22 05/13/22 11:49 11:49 12:34 MCV 107.3 H MCH 36.3 H MCHC 33.8 RDW 16.8 H Plt Count 87 L MPV 12.9 H Immature Gran % (Auto) 1.4 H Neut % (Auto) 76.4 H Lymph % (Auto) 14.0 L [place] % (Auto) 5.5 Eos % (Auto) 2.1 Baso % (Auto) 0.6 Lymph # (Auto) 1.2 [place] # (Auto) 0.5 Eos # (Auto) 0.2 Baso # (Auto) 0.1 Abs Immat Gran (auto) 0.12 H Absolute Neuts (auto) 6.4 Absolute Nucleated RBC 0.000 Nucleated RBC % (auto) 0.0 Anion Gap 12 Estim Creat Clear Calc 93.1 Estimated GFR > 60 Random Glucose 156 H Calcium 9.1 Total Bilirubin 0.9 Direct Bilirubin 0.4 AST 17 ALT 20 Alkaline Phosphatase 71 Total Protein 7.1 Albumin 4.3 Lipase 16 Urine Color YELLOW Urine Appearance CLEAR Urine pH 6.5 Ur Specific [place] 1.025 Urine Protein TRACE Urine Glucose (UA) NEG Urine Ketones NEG Urine Blood NEG Urine Nitrite NEG Ur Leukocyte Esterase NEG COVID-19 (JOEY) COVID-19 Clin Com 05/13/22 05/14/22 05/14/22 18:22 06:41 06:42 MCV 110.4 H MCH 36.2 H MCHC 32.8 RDW 16.6 H Plt Count 74 L MPV 11.1 Immature Gran % (Auto) Neut % (Auto) Lymph % (Auto) Ben[place] % (Auto) Eos % (Auto) Baso % (Auto) Lymph # (Auto) Benzie # (Auto) Eos # (Auto) Baso # (Auto) Abs Immat Gran (auto) Absolute Neuts (auto) Absolute Nucleated RBC 0.000 Nucleated RBC % (auto) 0.0 Anion Gap 7 L Estim Creat Clear Calc 91.1 Estimated GFR > 60 Random Glucose 141 H Calcium 8.1 L D Total Bilirubin Direct Bilirubin AST ALT Alkaline Phosphatase Total Protein Albumin Lipase Urine Color Urine Appearance Urine pH Ur Specific [place] Urine Protein Urine Glucose (UA) Urine Ketones Urine Blood Urine Nitrite Ur Leukocyte Esterase COVID-19 (JOEY) Negative COVID-19 Clin Com See Note Imaging Radiologist's Impressions: Impressions Abdomen/Pelvis CT 05/13/22 12:13 IMPRESSION: 1. Abnormal study. Significant pericolonic inflammatory changes are noted predominantly along the posterior serosal surface of the mid part of the ascending colon, associated with 1 cm radiopaque density seen abutting the posterior serosal surface. No evidence of any perforation, pericolonic fluid collection, abscess formation or features of obstruction present. The radiopaque density may represent an ingested foreign body. 2. Normal-appearing appendix. This critical result was discussed with Monserrat NEGRETE at 1:33 PM on 05/13/2022 and it was ascertained that the content and urgency of the report was understood at the time of direct communication. Assessment and Plan (1) Abdominal pain: Status: Acute Plan 52M presented with right flank pain right flank pain due to foreign body management per surgery alcohol dependence no evidence of withdrawal at this time monitor GRACE, will hold off on phenobarbital for now
[2022-05-14 08:00] VITALS: BP 108/60; PULSE 66; RESP 20; TEMP 37.2; O2SAT 96
--- NOTE | 2022-05-14 09:47 | P.PNGS_ITS ---
Subjective Subjective Date of Service: 05/17/22 Interval history: still has pain on right flank area hungry, asking for food no N/V no fever Physical Exam Vital Signs: Vital Signs: Last Vital Signs Temp 99 F 05/14/22 08:00 Pulse 66 05/14/22 08:00 Resp 20 05/14/22 08:00 BP 108/60 05/14/22 08:00 Pulse Ox 96 05/14/22 08:00 O2 Del Method 05/14/22 08:00 O2 Flow Rate 2 05/14/22 03:43 BMI result Body Mass Index 29.0 Const: General: no acute distress Resp: Effort & Inspection: normal respiratory effort Cardio: Rate: regular rate GI: Other: soft, not distended, no guarding, has tenderness on right side/flank area Objective Data Active Medications Albuterol Sulfate (Albuterol Sulfate 90 Mcg 8 Gm Inhaler) 2 puff INHALE Q4H PRN PRN Reason: wheezing Heparin Sodium (Porcine) (Heparin Sodium,Porcine 5,000 Unit/Ml Vial) 5,000 unit SUBCUT Q12H COUNTS INCLUDE 234 BEDS AT THE [facility] Last Admin: 05/14/22 03:26 Dose: 5,000 unit Documented By: TOSIN Sodium Chloride (Ns) 1,000 mls @ 100 mls/hr IVCONT .Q10H COUNTS INCLUDE 234 BEDS AT THE [facility] Last Admin: 05/14/22 03:26 Dose: 100 mls/hr Documented By: TOSIN Piperacillin Sod/Tazobactam (Sod 3.375 gm/ Sodium Chloride) 50 mls @ 100 mls/hr IV Q6H COUNTS INCLUDE 234 BEDS AT THE [facility] Last Admin: 05/14/22 09:28 Dose: 100 mls/hr Documented By: NICOL Morphine Sulfate (Morphine Sulfate 4 Mg/Ml Cartridge) 3 mg IVPUSH Q4H PRN; Pro tocol PRN Reason: Pain, Severe (Pain Scale 7-10) Last Admin: 05/14/22 09:27 Dose: 3 mg Documented By: NICOL Omeprazole (Omeprazole 20 Mg Capsule.) 20 mg PO DAILY@0630 COUNTS INCLUDE 234 BEDS AT THE [facility] Last Admin: 05/14/22 03:41 Dose: 20 mg Documented By: TOSIN Ondansetron HCl (Ondansetron Hcl 4 Mg/2 Ml Vial) 4 mg IVPUSH Q8H PRN PRN Reason: Nausea and Vomiting Pharmacy Consult (Consult Rx Perform Med Rec) 1 each MISCELLANE ONCE PRN PRN Reason: Consult order Sodium Chloride (0.9 % Sodium Chloride Flush 3 Ml Syringe) 3 ml IVFLUSH QSHIFT COUNTS INCLUDE 234 BEDS AT THE [facility] Last Admin: 05/14/22 09:28 Dose: Not Given Documented By: NICOL Non-Admin Reason: IV Running Labs CBC & Chem 7: 05/15/22 05:53 05/14/22 06:41 Labs: Laboratory Results - last 24 hr 05/13/22 05/13/22 05/13/22 11:49 11:49 12:34 MCV 107.3 H MCH 36.3 H MCHC 33.8 RDW 16.8 H Plt Count 87 L MPV 12.9 H Immature Gran % (Auto) 1.4 H Neut % (Auto) 76.4 H Lymph % (Auto) 14.0 L [place] % (Auto) 5.5 Eos % (Auto) 2.1 Baso % (Auto) 0.6 Lymph # (Auto) 1.2 [place] # (Auto) 0.5 Eos # (Auto) 0.2 Baso # (Auto) 0.1 Abs Immat Gran (auto) 0.12 H Absolute Neuts (auto) 6.4 Absolute Nucleated RBC 0.000 Nucleated RBC % (auto) 0.0 Anion Gap 12 Estim Creat Clear Calc 93.1 Estimated GFR > 60 Random Glucose 156 H Calcium 9.1 Total Bilirubin 0.9 Direct Bilirubin 0.4 AST 17 ALT 20 Alkaline Phosphatase 71 Total Protein 7.1 Albumin 4.3 Lipase 16 Urine Color YELLOW Urine Appearance CLEAR Urine pH 6.5 Ur Specific [place] 1.025 Urine Protein TRACE Urine Glucose (UA) NEG Urine Ketones NEG Urine Blood NEG Urine Nitrite NEG Ur Leukocyte Esterase NEG COVID-19 (JOEY) COVID-19 Clin Com 05/13/22 05/14/22 05/14/22 18:22 06:41 06:42 MCV 110.4 H MCH 36.2 H MCHC 32.8 RDW 16.6 H Plt Count 74 L MPV 11.1 Immature Gran % (Auto) Neut % (Auto) Lymph % (Auto) [place] % (Auto) Eos % (Auto) Baso % (Auto) Lymph # (Auto) [place] # (Auto) Eos # (Auto) Baso # (Auto) Abs Immat Gran (auto) Absolute Neuts (auto) Absolute Nucleated RBC 0.000 Nucleated RBC % (auto) 0.0 Anion Gap 7 L Estim Creat Clear Calc 91.1 Estimated GFR > 60 Random Glucose 141 H Calcium 8.1 L D Total Bilirubin Direct Bilirubin AST ALT Alkaline Phosphatase Total Protein Albumin Lipase Urine Color Urine Appearance Urine pH Ur Specific [place] Urine Protein Urine Glucose (UA) Urine Ketones Urine Blood Urine Nitrite Ur Leukocyte Esterase COVID-19 (JOEY) Negative COVID-19 Clin Com See Note Procedures Date of Service Date of Service: 05/14/22 Progress Note: A&P Assessment and plan (1) Right sided colitis: Status: Acute Assessment and Plan: CT showing inflammatory changes along posterior wall of right colon with ingested FB abutting this no evidence of microperf/fluid/abscess still has pain he does not recall ingesting anything unusual stay on clear liquids today WBC normal if he does not improve in 1-2 days, consider resection has hx of ETOH abuse currently now withdrawal symptoms platelet ct low appreciate Hospilalist ffup Time Spent With Patient Time: Total time spent is greater than 50% in coordination of care (as documented) at patient's floor/unit and/or counseling patient: Quality Stroke Does the patient have a stroke diagnosis?: No VTE Prior VTE?: No VTE Risk Level:: Medical - moderate - high VTE Device Contraindication: N/A - Device Ordered VTE Drug Contraindication: N/A - Med Ordered
[2022-05-14 12:00] VITALS: PULSE 73; RESP 18; TEMP 37.4; O2SAT 96
[2022-05-14 16:00] VITALS: BP 115/64; PULSE 69; RESP 17; TEMP 36.5; O2SAT 97
[2022-05-14 19:56] VITALS: BP 125/70; PULSE 75; RESP 17; TEMP 36.1; O2SAT 95
[2022-05-14 23:17] VITALS: BP 148/79; PULSE 76; RESP 19; TEMP 36.7; O2SAT 100
[2022-05-15] MEDS: Morphine Sulfate 4 MG/ML CARTRIDGE 3 MG IVPUSH ×4 (00:31→22:39)
[2022-05-15] MEDS: 0.9 % Sodium Chloride 1,000 ML 100 ML IVCONT ×2 (00:32→08:48)
[2022-05-15] MEDS: 0.9 % Sodium Chloride Flush 3 ML SYRINGE IVFLUSH ×4 (00:34→19:36)
[2022-05-15] MEDS: Heparin Sodium,Porcine 5,000 UNIT/ML VIAL 5000 UNIT SUBCUT ×2 (02:40→16:25)
[2022-05-15] MEDS: Piperacillin Sodium/Tazobactam 3.375 GM in 0.9 % Sodium Chloride 50 ML IV ×4 (02:41→19:35)
[2022-05-15 03:52] VITALS: BP 122/66; PULSE 63; RESP 19; TEMP 36.3; O2SAT 94
[2022-05-15] MEDS: Omeprazole 20 MG CAPSULE.DR PO (05:59)
[2022-05-15 07:12] LABS: Mean Corpuscular HGB Conc 33.3 g/dl (31.0-36.0); Mean Corpuscular Hemoglobin 36.5 pg (27.0-33.0); Mean Corpuscular Volume 109.5 fL (80.0-98.0); Platelet Count 70 X10*3/uL (160-400); Red Blood Count 2.74 X10*6/uL (4.60-5.80); Red Cell Distribution Width 16.2 % (11.0-16.0); White Blood Count 5.3 X10*3/uL (4.8-10.8)
[2022-05-15 08:00] VITALS: BP 150/76; PULSE 64; RESP 18; TEMP 36.2; O2SAT 98
--- NOTE | 2022-05-15 09:46 | MHC.CM.PN ---
Addendum entered by Ute Evans 05/15/22 11:57: HCP COMPLETED TODAY, UPLOADED TO [facility] AND FILED IN CHART Addendum entered by Ute Evans 05/15/22 09:53: PT IS [employer] SPEAKING [employer]IOR[employer] MEDICAL DIRECTOR NEEDED Original Note: PT REPORTS HE LIVES WITH HIS SISTER, MOE. HE IS INDEPENDENT AT HOME/COMMUNITY AND DENIES USE OF DME. PCP ON FILE- KARMEN CHAPPELL. COVID VAC'D X2 (MODERNA). FRIEND TO TRANSPORT HOME. PT EDUCATED ON HCP-HE WILL COMPLETE WHILE HERE. DISCHARGE PLAN: ANTICIPATE HOME WITH NO SERVICES. CM TO FOLLOW FOR SURGERY, [facility] NEED.
--- NOTE | 2022-05-15 09:51 | PM.PNGS ---
Subjective Subjective Date of Service: 05/15/22 <CADEN Echols - Last Filed: 05/15/22 10:01> 05/15/22 <Ernesto Shepherd MD - Last Filed: 05/15/22 12:00> Interval history: Pt reports that pain is controlled at rest; worse when he moves. Denies N/V. Tolerating clear liquids. Had diarrhea, nonbloody. <CADEN Echols - Last Filed: 05/15/22 10:01> Physical Exam Vital Signs: Vital Signs: Last Vital Signs Temp 97.2 F 05/15/22 08:00 Pulse 64 05/15/22 08:00 Resp 18 05/15/22 08:00 BP 150/76 H 05/15/22 08:00 Pulse Ox 98 05/15/22 08:00 O2 Del Method 05/15/22 08:00 O2 Flow Rate 2 05/14/22 03:43 BMI result Body Mass Index 29.0 <CADEN Echols - Last Filed: 05/15/22 10:01> Const: General: cooperative, comfortable and no acute distress <CADEN Echols - Last Filed: 05/15/22 10:01> Resp: Effort & Inspection: normal respiratory effort <CADEN Echols Last Filed: 05/15/22 10:01> GI: Palpation (GI): Tenderness to palpation present (GI) (R sided tenderness, no overlying skin changes, no peritonitis), Guarding due to palpation present (GI) (voluntary guarding to R sided palpation) and no masses <CADEN Echols - Last Filed: 05/15/22 10:01> Extrem: Other: no edema, no calf tenderness <CADEN Echols Last Filed: 05/15/22 10:01> Objective Data Active Medications Albuterol Sulfate (Albuterol Sulfate 90 Mcg 8 Gm Inhaler) 2 puff INHALE Q4H PRN PRN Reason: wheezing Heparin Sodium (Porcine) (Heparin Sodium,Porcine 5,000 Unit/Ml Vial) 5,000 unit SUBCUT Q12H [facility] Last Admin: 05/15/22 02:40 Dose: 5,000 unit Documented By: CORINE Sodium Chloride (Ns) 1,000 mls @ 100 mls/hr IVCONT .Q10H [facility] Last Admin: 05/15/22 08:48 Dose: 100 mls/hr Documented By: KAILEY Piperacillin Sod/Tazobactam (Sod 3.375 gm/ Sodium Chloride) 50 mls @ 100 mls/hr IV Q6H [facility] Last Admin: 05/15/22 08:50 Dose: 100 mls/hr Documented By: KAILEY Morphine Sulfate (Morphine Sulfate 4 Mg/Ml Cartridge) 3 mg IVPUSH Q4H PRN; Protocol PRN Reason: Pain, Severe (Pain Scale 7-10) Last Admin: 05/15/22 08:51 Dose: 3 mg Documented By: KAILEY Omeprazole (Omeprazole 20 Mg Capsule.Dr) 20 mg PO DAILY@0630 [facility] Last Admin: 05/15/22 05:59 Dose: 20 mg Documented By: CORINE Ondansetron HCl (Ondansetron Hcl 4 Mg/2 Ml Vial) 4 mg IVPUSH Q8H PRN PRN Reason: Nausea and Vomiting Pharmacy Consult (Consult Rx Perform Med Rec) 1 each MISCELLANE ONCE PRN PRN Reason: Consult order Sodium Chloride (0.9 % Sodium Chloride Flush 3 Ml Syringe) 3 ml IVFLUSH QSHIFT [facility] Last Admin: 05/15/22 08:51 Dose: 3 ml Documented By: KAILEY <CADEN Echols - Last Filed: 05/15/22 10:01> Labs CBC & Chem 7: : 05/15/22 05:53 05/14/22 06:41 <CADEN Echols - Last Filed: 05/15/22 10:01> Labs: Laboratory Results - last 24 hr 05/15/22 05:53 MCV 109.5 H MCH 36.5 H MCHC 33.3 RDW 16.2 H Plt Count 70 L MPV Not Reportable Absolute Nucleated RBC 0.000 Nucleated RBC % (auto) 0.0 <CADEN Echols - Last Filed: 05/15/22 10:01> Procedures Date of Service Date of Service: 05/15/22 <CADEN Echols - Last Filed: 05/15/22 10:01> Progress Note: A&P Assessment and plan (1) Right sided colitis: Status: Acute <CADEN Echols - Last Filed: 05/15/22 10:01> Assessment and Plan: CT showing inflammatory changes along posterior wall of right colon with ? ingested FB abutting this- no evidence of microperf/fluid/abscess. Abdominal films pending to monitor location of FB Stay on clear liquids today WBC normal- will continue to trend Continue IV Zosyn Has hx of ETOH abuse- CIWA scale, monitor for withdrawal symptoms If he?does not improve in 1-2 days, consider resection Appreciate Hospilalist involvement Discussed with Dr. Shepherd. <CADEN Echols - Last Filed: 05/15/22 10:01> Assessment and Plan: States that he feels much better compared to yesterday Still sore but less pain Tolerating clear liquids No fever WBC normal KUB unremarkable Continue to do serial abdominal exam Keep on clear liquids for now If with worsening, not improvement, may need right colon resection Looks well otherwise with benign exam Seen and examined independently - agree with CADEN Calloway <Ernesto Shepherd MD - Last Filed: 05/15/22 12:00> Time Spent With Patient Time: Total time spent is greater than 50% in coordination of care (as documented) at patient's floor/unit and/or counseling patient: <CADEN Echols - Last Filed: 05/15/22 10:01> Quality Stroke Does the patient have a stroke diagnosis?: No <CADEN Echols - Last Filed: 05/15/22 10:01> VTE Prior VTE?: No <CADEN Echols - Last Filed: 05/15/22 10:01> VTE Risk Level:: Medical - moderate - high <CADEN Echols - Last Filed: 05/15/22 10:01> VTE Device Contraindication: N/A - Device Ordered <CADEN Echols - Last Filed: 05/15/22 10:01> VTE Drug Contraindication: N/A - Med Ordered <CADEN cEhols - Last Filed: 05/15/22 10:01>
[2022-05-15 12:00] VITALS: RESP 18
--- NOTE | 2022-05-15 14:10 | P.PNIM_ITS ---
Subjective Subjective Date of Service: 05/15/22 Interval History: cc: abd pain interval history:improved Cardiovascular Cardiovascular: Reports no additional cardiovascular complaints Respiratory Respiratory: Reports no additional respiratory complaints Physical Exam Vital Signs: Vital Signs: Last Vital Signs Temp 97.2 F 05/15/22 08:00 Pulse 64 05/15/22 08:00 Resp 18 05/15/22 08:00 BP 150/76 H 05/15/22 08:00 Pulse Ox 98 05/15/22 08:00 O2 Del Method 05/15/22 08:00 O2 Flow Rate 2 05/14/22 03:43 BMI result Body Mass Index 29.0 General: AO X 3, no acute distress Resp: CTA bilateral, no accessory muscles used CVS: S1,S2,RRR GI: soft, non tender, non distended Neuro: motor grossly intact, alert Psych: appropriate affect, appropriate insight Objective Data Active Medications Albuterol Sulfate (Albuterol Sulfate 90 Mcg 8 Gm Inhaler) 2 puff INHALE Q4H PRN PRN Reason: wheezing Heparin Sodium (Porcine) (Heparin Sodium,Porcine 5,000 Unit/Ml Vial) 5,000 unit SUBCUT Q12H [facility] Last Admin: 05/15/22 02:40 Dose: 5,000 unit Documented By: CORINE Sodium Chloride (Ns) 1,000 mls @ 100 mls/hr IVCONT .Q10H [facility] Last Admin: 05/15/22 08:48 Dose: 100 mls/hr Documented By: KAILEY Piperacillin Sod/Tazobactam (Sod 3.375 gm/ Sodium Chloride) 50 mls @ 100 mls/hr IV Q6H [facility] Last Infusion: 05/15/22 11:12 Dose: 0 mls/hr Documented By: KAILEY Morphine Sulfate (Morphine Sulfate 4 Mg/Ml Cartridge) 3 mg IVPUSH Q4H PRN; Protocol PRN Reason: Pain, Severe (Pain Scale 7-10) Last Admin: 05/15/22 08:51 Dose: 3 mg Documented By: KAILEY Omeprazole (Omeprazole 20 Mg Capsule.) 20 mg PO DAILY@0630 [facility] Last Admin: 05/15/22 05:59 Dose: 20 mg Documented By: CORINE Ondansetron HCl (Ondansetron Hcl 4 Mg/2 Ml Vial) 4 mg IVPUSH Q8H PRN PRN Reason: Nausea and Vomiting Pharmacy Consult (Consult Rx Perform Med Rec) 1 each MISCELLANE ONCE PRN PRN Reason: Consult order Sodium Chloride (0.9 % Sodium Chloride Flush 3 Ml Syringe) 3 ml IVFLUSH QSHIFT [facility] Last Admin: 05/15/22 08:51 Dose: 3 ml Documented By: KAILEY Labs CBC & Chem 7: 05/15/22 05:53 05/14/22 06:41 Labs: Laboratory Results - last 24 hr 05/15/22 05:53 MCV 109.5 H MCH 36.5 H MCHC 33.3 RDW 16.2 H Plt Count 70 L MPV Not Reportable Absolute Nucleated RBC 0.000 Nucleated RBC % (auto) 0.0 Assessment and Plan (1) Abdominal pain: Status: Acute Plan 52M presented with right flank pain ?right flank pain due to foreign body ?management per surgery ?alcohol dependence ?continues to have no withdrawal symptoms ?monitor CIWA,? will hold off on phenobarbital for now Quality Stroke Does the patient have a stroke diagnosis?: No VTE Prior VTE?: No VTE Risk Level:: Medical - moderate - high VTE Device Contraindication: N/A - Device Ordered VTE Drug Contraindication: N/A - Med Ordered
[2022-05-15 15:19] VITALS: BP 132/72; PULSE 89; RESP 18; TEMP 36.7; O2SAT 97
[2022-05-15 19:18] VITALS: BP 129/69; PULSE 86; RESP 18; TEMP 36.7; O2SAT 99
[2022-05-15 23:38] VITALS: BP 136/72; PULSE 68; RESP 17; TEMP 36.7; O2SAT 95
[2022-05-16] MEDS: Morphine Sulfate 4 MG/ML CARTRIDGE 3 MG IVPUSH ×4 (02:45→20:01)
[2022-05-16] MEDS: Heparin Sodium,Porcine 5,000 UNIT/ML VIAL 5000 UNIT SUBCUT ×2 (02:45→14:50)
[2022-05-16] MEDS: Piperacillin Sodium/Tazobactam 3.375 GM in 0.9 % Sodium Chloride 50 ML IV ×4 (02:54→20:01)
[2022-05-16 04:00] VITALS: BP 112/58; PULSE 95; RESP 17; TEMP 36.2; O2SAT 95
[2022-05-16] MEDS: Omeprazole 20 MG CAPSULE.DR PO (05:53)
[2022-05-16] MEDS: 0.9 % Sodium Chloride Flush 3 ML SYRINGE IVFLUSH ×3 (06:11→20:02)
[2022-05-16 07:21] VITALS: BP 119/66; PULSE 63; RESP 16; TEMP 36.6; O2SAT 96
--- NOTE | 2022-05-16 09:01 | HO.PM.IMPN ---
Subjective Subjective Date of Service: 05/16/22 Interval History: cc: abd pain interval history:still with abd pain, no withdrawal symptoms Cardiovascular Cardiovascular: Reports no additional cardiovascular complaints Respiratory Respiratory: Reports no additional respiratory complaints Physical Exam Vital Signs: Vital Signs: Last Vital Signs Temp 97.9 F 05/16/22 07:21 Pulse 63 05/16/22 07:21 Resp 16 05/16/22 07:21 BP 119/66 05/16/22 07:21 Pulse Ox 96 05/16/22 07:21 O2 Del Method 05/16/22 07:21 O2 Flow Rate 2 05/14/22 03:43 BMI result Body Mass Index 29.0 General: AO X 3, no acute distress Resp: CTA bilateral, no accessory muscles used CVS: S1,S2,RRR GI: soft, non tender, non distended Neuro: motor grossly intact, alert Psych: appropriate affect, appropriate insight Objective Data Active Medications Albuterol Sulfate (Albuterol Sulfate 90 Mcg 8 Gm Inhaler) 2 puff INHALE Q4H PRN PRN Reason: wheezing Heparin Sodium (Porcine) (Heparin Sodium,Porcine 5,000 Unit/Ml Vial) 5,000 unit SUBCUT Q12H [facility] Last Admin: 05/16/22 02:45 Dose: 5,000 unit Documented By: JEOVANNY Piperacillin Sod/Tazobactam (Sod 3.375 gm/ Sodium Chloride) 50 mls @ 100 mls/hr IV Q6H [facility] Last Infusion: 05/16/22 08:38 Dose: 0 mls/hr Documented By: ALYSSIA Morphine Sulfate (Morphine Sulfate 4 Mg/Ml Cartridge) 3 mg IVPUSH Q4H PRN; Protocol PRN Reason: Pain, Severe (Pain Scale 7-10) Last Admin: 05/16/22 08:05 Dose: 3 mg Documented By: ALYSSIA Omeprazole (Omeprazole 20 Mg Capsule.) 20 mg PO DAILY@0630 [facility] Last Admin: 05/16/22 05:53 Dose: 20 mg Documented By: JEOVANNY Ondansetron HCl (Ondansetron Hcl 4 Mg/2 Ml Vial) 4 mg IVPUSH Q8H PRN PRN Reason: Nausea and Vomiting Pharmacy Consult (Consult Rx Perform Med Rec) 1 each MISCELLANE ONCE PRN PRN Reason: Consult order Sodium Chloride (0.9 % Sodium Chloride Flush 3 Ml Syringe) 3 ml IVFLUSH QSHIFT [facility] Last Admin: 05/16/22 06:11 Dose: 3 ml Documented By: JEOVANNY Labs CBC & Chem 7: 05/15/22 05:53 05/14/22 06:41 Assessment and Plan (1) Abdominal pain: Status: Acute Plan 52M presented with right flank pain ?right flank pain due to foreign body ?management per surgery ?alcohol dependence ?continues to have no withdrawal symptoms ?monitor CIWA,? will hold off on phenobarbital for now will sign off for now, please recall if needed Quality Stroke Does the patient have a stroke diagnosis?: No VTE Prior VTE?: No VTE Risk Level:: Medical - moderate - high VTE Device Contraindication: N/A - Device Ordered VTE Drug Contraindication: N/A - Med Ordered
[2022-05-16 11:58] VITALS: BP 135/75; PULSE 61; RESP 16; TEMP 36.3; O2SAT 96
--- NOTE | 2022-05-16 12:06 | P.PNGS_ITS ---
Subjective Subjective Date of Service: 05/17/22 Interval history: says he still has pain but feels much better pain much improved tolerating liquids well no fever Physical Exam Vital Signs: Vital Signs: Last Vital Signs Temp 97.3 F 05/16/22 11:58 Pulse 61 05/16/22 11:58 Resp 16 05/16/22 11:58 BP 135/75 05/16/22 11:58 Pulse Ox 96 05/16/22 11:58 O2 Del Method 05/16/22 11:58 O2 Flow Rate 2 05/14/22 03:43 BMI result Body Mass Index 29.0 Const: General: comfortable and no acute distress Resp: Effort & Inspection: normal respiratory effort Cardio: Rate: regular rate GI: Other: soft, some tenderness on the right flank area with no guarding or rebound Objective Data Active Medications Albuterol Sulfate (Albuterol Sulfate 90 Mcg 8 Gm Inhaler) 2 puff INHALE Q4H PRN PRN Reason: wheezing Heparin Sodium (Porcine) (Heparin Sodium,Porcine 5,000 Unit/Ml Vial) 5,000 unit SUBCUT Q12H [facility] Last Admin: 05/16/22 02:45 Dose: 5,000 unit Documented By: JEOVANNY Piperacillin Sod/Tazobactam (Sod 3.375 gm/ Sodium Chloride) 50 mls @ 100 mls/hr IV Q6H [facility] Last Infusion: 05/16/22 08:38 Dose: 0 mls/hr Documented By: ALYSSIA Morphine Sulfate (Morphine Sulfate 4 Mg/Ml Cartridge) 3 mg IVPUSH Q4H PRN; Protocol PRN Reason: Pain, Severe (Pain Scale 7-10) Last Admin: 05/16/22 08:05 Dose: 3 mg Documented By: ALYSSIA Omeprazole (Omeprazole 20 Mg Capsule.) 20 mg PO DAILY@0630 [facility] Last Admin: 05/16/22 05:53 Dose: 20 mg Documented By: JEOVANNY Ondansetron HCl (Ondansetron Hcl 4 Mg/2 Ml Vial) 4 mg IVPUSH Q8H PRN PRN Reason: Nausea and Vomiting Pharmacy Consult (Consult Rx Perform Med Rec) 1 each MISCELLANE ONCE PRN PRN Reason: Consult order Sodium Chloride (0.9 % Sodium Chloride Flush 3 Ml Syringe) 3 ml IVFLUSH QSHIFT [facility] Last Admin: 05/16/22 06:11 Dose: 3 ml Documented By: JEOVANNY Labs CBC & Chem 7: 05/15/22 05:53 05/14/22 06:41 Procedures Date of Service Date of Service: 05/16/22 Progress Note: A&P Assessment and plan (1) Right sided colitis: Status: Acute Assessment and Plan: with what appears to be an ingested foreign body on the right colon abutting the posterior wall clinically much improved still has tenderness but much better he looks well will keep on clear liquids today continue IV Zosyn monitor closely with serial exams KUB done yesterday does not reveal an obvious foreign body or any abnormal bowel gas pattern Time Spent With Patient Time: Total time spent is greater than 50% in coordination of care (as documented) at patient's floor/unit and/or counseling patient: Quality Stroke Does the patient have a stroke diagnosis?: No VTE Prior VTE?: No VTE Risk Level:: Medical - moderate - high VTE Device Contraindication: N/A - Device Ordered VTE Drug Contraindication: N/A - Med Ordered
[2022-05-16 15:01] VITALS: BP 135/83; PULSE 70; RESP 18; TEMP 36.1; O2SAT 98
[2022-05-16 19:10] VITALS: BP 128/74; PULSE 58; RESP 18; TEMP 36.2; O2SAT 98
[2022-05-16 23:28] VITALS: BP 119/73; PULSE 61; RESP 17; TEMP 36.5; O2SAT 98
[2022-05-17] MEDS: Morphine Sulfate 4 MG/ML CARTRIDGE 3 MG IVPUSH ×2 (00:34→12:02)
[2022-05-17] MEDS: Piperacillin Sodium/Tazobactam 3.375 GM in 0.9 % Sodium Chloride 50 ML IV ×4 (03:45→20:36)
[2022-05-17] MEDS: Heparin Sodium,Porcine 5,000 UNIT/ML VIAL 5000 UNIT SUBCUT ×2 (03:45→14:06)
[2022-05-17 04:00] VITALS: BP 141/68; PULSE 54; RESP 17; TEMP 36.3; O2SAT 96
[2022-05-17] MEDS: Omeprazole 20 MG CAPSULE.DR PO (05:34)
[2022-05-17 07:30] VITALS: BP 117/59; PULSE 57; RESP 16; TEMP 36.9; O2SAT 96
[2022-05-17] MEDS: 0.9 % Sodium Chloride Flush 3 ML SYRINGE IVFLUSH ×3 (08:19→20:36)
--- NOTE | 2022-05-17 08:40 | P.PNGS_ITS ---
Subjective Subjective Date of Service: 05/17/22 Interval history: Continues to feel better Still has some pain on the right side but says this is much improved Tolerating clear liquids well Hungry Physical Exam Vital Signs: Vital Signs: Last Vital Signs Temp 98.5 F 05/17/22 07:30 Pulse 57 05/17/22 07:30 Resp 16 05/17/22 07:30 BP 117/59 L 05/17/22 07:30 Pulse Ox 96 05/17/22 07:30 O2 Del Method 05/17/22 07:30 O2 Flow Rate 2 05/14/22 03:43 BMI result Body Mass Index 29.0 Const: General: comfortable and no acute distress Resp: Effort & Inspection: normal respiratory effort Cardio: Rate: regular rate GI: Palpation (GI): Soft to palpation, not firm, Tenderness to palpation present (GI) (Some tenderness on the right side, although improved) and no guarding Objective Data Active Medications Albuterol Sulfate (Albuterol Sulfate 90 Mcg 8 Gm Inhaler) 2 puff INHALE Q4H PRN PRN Reason: wheezing Heparin Sodium (Porcine) (Heparin Sodium,Porcine 5,000 Unit/Ml Vial) 5,000 unit SUBCUT Q12H [facility] Last Admin: 05/17/22 03:45 Dose: 5,000 unit Documented By: JEOVANNY Comments: down time Piperacillin Sod/Tazobactam (Sod 3.375 gm/ Sodium Chloride) 50 mls @ 100 mls/hr IV Q6H [facility] Last Admin: 05/17/22 08:18 Dose: 100 mls/hr Documented By: ALYSSIA Morphine Sulfate (Morphine Sulfate 4 Mg/Ml Cartridge) 3 mg IVPUSH Q4H PRN; Protocol PRN Reason: Pain, Severe (Pain Scale 7-10) Last Admin: 05/17/22 00:34 Dose: 3 mg Documented By: JIM Omeprazole (Omeprazole 20 Mg Mike.) 20 mg PO DAILY@629 [facility] Last Admin: 05/17/22 05:34 Dose: 20 mg Documented By: JEOVANNY Ondansetron HCl (Ondansetron Hcl 4 Mg/2 Ml Vial) 4 mg IVPUSH Q8H PRN PRN Reason: Nausea and Vomiting Pharmacy Consult (Consult Rx Perform Med Rec) 1 each MISCELLANE ONCE PRN PRN Reason: Consult order Sodium Chloride (0.9 % Sodium Chloride Flush 3 Ml Syringe) 3 ml IVFLUSH QSHIFT [facility] Last Admin: 05/17/22 08:19 Dose: 3 ml Documented By: ALYSSIA Labs CBC & Chem 7: 05/15/22 05:53 05/14/22 06:41 Procedures Date of Service Date of Service: 05/17/22 Progress Note: A&P Assessment and plan (1) Right sided colitis: Status: Acute Assessment and Plan: Right-sided colitis with associated ingested foreign body? Clinically much improved Follow-up KUB does not show the foreign body Trial of full liquids today Exam remains benign Time Spent With Patient Time: Total time spent is greater than 50% in coordination of care (as documented) at patient's floor/unit and/or counseling patient: Quality Stroke Does the patient have a stroke diagnosis?: No VTE Prior VTE?: No VTE Risk Level:: Medical - moderate - high VTE Device Contraindication: N/A - Device Ordered VTE Drug Contraindication: N/A - Med Ordered
[2022-05-17 11:29] VITALS: BP 123/66; PULSE 53; RESP 16; TEMP 37.1; O2SAT 97
[2022-05-17 15:00] VITALS: BP 122/79; PULSE 66; RESP 18; TEMP 36.3; O2SAT 100
[2022-05-17 19:12] VITALS: BP 107/64; PULSE 58; RESP 18; TEMP 36.9; O2SAT 97
[2022-05-17 23:53] VITALS: BP 128/73; PULSE 57; RESP 17; TEMP 36.7; O2SAT 97
[2022-05-18] MEDS: Morphine Sulfate 4 MG/ML CARTRIDGE 3 MG IVPUSH ×2 (00:02→08:08)
[2022-05-18] MEDS: Piperacillin Sodium/Tazobactam 3.375 GM in 0.9 % Sodium Chloride 50 ML IV ×3 (02:58→14:55)
[2022-05-18] MEDS: Heparin Sodium,Porcine 5,000 UNIT/ML VIAL 5000 UNIT SUBCUT (02:58)
[2022-05-18 04:00] VITALS: BP 115/59; PULSE 84; RESP 17; TEMP 36.3; O2SAT 97
[2022-05-18] MEDS: Omeprazole 20 MG CAPSULE.DR PO (05:41)
[2022-05-18 07:59] VITALS: BP 125/73; PULSE 64; RESP 18; TEMP 36.3; O2SAT 99
[2022-05-18] MEDS: 0.9 % Sodium Chloride Flush 3 ML SYRINGE IVFLUSH ×2 (08:08→15:00)
--- NOTE | 2022-05-18 10:04 | P.PNGS_ITS ---
Subjective Subjective Date of Service: 05/18/22 Interval history: He continues to feel well He says pain is almost gone Tolerating diet well Physical Exam Vital Signs: Vital Signs: Last Vital Signs Temp 97.3 F 05/18/22 07:59 Pulse 64 05/18/22 07:59 Resp 18 05/18/22 07:59 BP 125/73 05/18/22 07:59 Pulse Ox 99 05/18/22 07:59 O2 Del Method 05/18/22 07:59 O2 Flow Rate 2 05/14/22 03:43 BMI result Body Mass Index 29.0 Const: General: comfortable and no acute distress Resp: Effort & Inspection: normal respiratory effort Cardio: Rate: regular rate GI: Palpation (GI): Soft to palpation, not firm, nontender and no guarding Objective Data Active Medications Albuterol Sulfate (Albuterol Sulfate 90 Mcg 8 Gm Inhaler) 2 puff INHALE Q4H PRN PRN Reason: wheezing Heparin Sodium (Porcine) (Heparin Sodium,Porcine 5,000 Unit/Ml Vial) 5,000 unit SUBCUT Q12H [facility] Last Admin: 05/18/22 02:58 Dose: 5,000 unit Documented By: LAWRENCE Piperacillin Sod/Tazobactam (Sod 3.375 gm/ Sodium Chloride) 50 mls @ 100 mls/hr IV Q6H [facility] Last Infusion: 05/18/22 08:40 Dose: 0 mls/hr Documented By: ALYSSIA Morphine Sulfate (Morphine Sulfate 4 Mg/Ml Cartridge) 3 mg IVPUSH Q4H PRN; Protocol PRN Reason: Pain, Severe (Pain Scale 7-10) Last Admin: 05/18/22 08:08 Dose: 3 mg Documented By: ALYSSIA Omeprazole (Omeprazole 20 Mg Capsule.) 20 mg PO DAILY@0630 [facility] Last Admin: 05/18/22 05:41 Dose: 20 mg Documented By: LAWRENCE Ondansetron HCl (Ondansetron Hcl 4 Mg/2 Ml Vial) 4 mg IVPUSH Q8H PRN PRN Reason: Nausea and Vomiting Pharmacy Consult (Consult Rx Perform Med Rec) 1 each MISCELLANE ONCE PRN PRN Reason: Consult order Sodium Chloride (0.9 % Sodium Chloride Flush 3 Ml Syringe) 3 ml IVFLUSH QSHIFT [facility] Last Admin: 05/18/22 08:08 Dose: 3 ml Documented By: ALYSSIA Labs CBC & Chem 7: 05/15/22 05:53 05/14/22 06:41 Procedures Date of Service Date of Service: 05/18/22 Progress Note: A&P Assessment and plan (1) Right sided colitis: Status: Acute Assessment and Plan: Colitis on the posterior aspect of the right colon, with adjacent ingested fore ign body Pain has not resolved Good GI functions Exam is very benign Diet as tolerated Possible DC home later today or tomorrow on p.o. antibiotics for few more days Time Spent With Patient Time: Total time spent is greater than 50% in coordination of care (as documented) at patient's floor/unit and/or counseling patient: Quality Stroke Does the patient have a stroke diagnosis?: No VTE Prior VTE?: No VTE Risk Level:: Medical - moderate - high VTE Device Contraindication: N/A - Device Ordered VTE Drug Contraindication: N/A - Med Ordered
[2022-05-18 12:00] VITALS: BP 140/72; PULSE 70; RESP 17; TEMP 36.4; O2SAT 98
--- NOTE | 2022-05-18 15:09 | PM.EVENT ---
Event Note Date of Service: 05/18/22 Event Note: seen on afternoon rounds says he does not have pain wants to go home tolerating regular diet well abd remains soft no tenderness good VS ok to dc home PO abx will see in office
[2022-05-18 15:19] VITALS: BP 125/73; PULSE 59; RESP 18; TEMP 37; O2SAT 97
--- NOTE | 2022-05-18 15:29 | MHC.CM.PN ---
nurse K[employer] SETTER NOTE DISCHARGED HOME TODAY NO SERVICES [employer] SPEAKING [facility] WITH HIS SISTER (INDEPENDDENT AT HOME) TRANSPORTATION FAMILY COVID VACINATED X2 MODERNA, INDEPENT PCP DR KARMEN DELGADO PATIENT INSTRUCTED TO CALL FOR [facility],A DISCHAGRE FOLLOW UP
--- NOTE | 2022-05-19 17:00 | P.DS_ITS ---
DS: Providers Provider Date of Service: 05/18/22 Date of admission: 05/13/22 14:36 Primary care physician: Cassandra Rodriguez MD Consults: 05/13/22 14:43 Consult to Hospitalist Routine Consulting Provider: Hospitalist Reason For Exam: ETOH abuse DS: Diagnosis Discharge Diagnosis (1) Right sided colitis: Status: Acute DS: Summary Hospital Course Hospital Course: 52-year-old male admitted by the ER because flank pain. He had a CAT scan showing changes consistent with colitis on the posterior aspect of the right colon along with an adjacent ingested foreign body which was radiopaque. He had a benign exam but did have significant tenderness. He was admitted and kept NPO. He was started on IV Zosyn. He continued to have a very benign exam with normal white count. He showed steady improvement of his right side abdominal pain so was started on clear liquids and this was gradually advanced. He continued a very benign exam and have any fever. Eventually, he had described resolution of his pain and he was tolerating regular diet well. He was therefore discharged on 05/18/2022. Time Spent with Patient Time attestation: Total time spent providing and/or coordinating discharge services: Discharge coordination time: Less than 30 minutes Quality: Safe Use of Opioids Does Pt have an Active Cancer Diagnosis on the Problem List?: No Quality: Stroke Does the patient have a stroke diagnosis?: No Physical Exam Vital Signs: Vital Signs: Last Vital Signs Temp 98.6 F 05/18/22 15:19 Pulse 59 05/18/22 15:19 Resp 18 05/18/22 15:19 BP 125/73 05/18/22 15:19 Pulse Ox 97 05/18/22 15:19 O2 Del Method 05/18/22 15:19 O2 Flow Rate 2 05/14/22 03:43 BMI result Body Mass Index 29.0 Const: General: comfortable and no acute distress Orientation/consciousness: patient oriented x3 Neck: Neck: Yes no lymphadenopathy Resp: Auscultation: clear to auscultation bilaterally Cardio: Rhythm: regular rhythm GI: Palpation (GI): Soft to palpation, nontender and no guarding Neuro: General: patient oriented x3 DS: Data Data Completed and Pending Labs on day of discharge: Laboratory Results WBC 5.3 X10*3/uL (4.8-10.8) 05/15/22 05:53 RBC 2.74 X10*6/uL (4.60-5.80) L 05/15/22 05:53 Hgb 10.0 g/dl (14.0-18.0) L 05/15/22 05:53 Hct 30.0 % (42.0-52.0) L 05/15/22 05:53 MCV 109.5 fL (80.0-98.0) H 05/15/22 05:53 MCH 36.5 pg (27.0-33.0) H 05/15/22 05:53 MCHC 33.3 g/dl (31.0-36.0) 05/15/22 05:53 RDW 16.2 % (11.0-16.0) H 05/15/22 05:53 Plt Count 70 X10*3/uL (160-400) L 05/15/22 05:53 MPV Not Reportable 05/15/22 05:53 Immature Gran % (Auto) 1.4 % (0.0-0.4) H 05/13/22 11:49 Neut % (Auto) 76.4 % (45-73) H 05/13/22 11:49 Lymph % (Auto) 14.0 % (20-40) L 05/13/22 11:49 [place] % (Auto) 5.5 % (2-11) 05/13/22 11:49 Eos % (Auto) 2.1 % (0-4) 05/13/22 11:49 Baso % (Auto) 0.6 % (0-2) 05/13/22 11:49 Lymph # (Auto) 1.2 X10*3/uL (1.2-4.9) 05/13/22 11:49 [place] # (Auto) 0.5 X10*3/uL (0.1-1.2) 05/13/22 11:49 Eos # (Auto) 0.2 X10*3/uL (0.0-0.4) 05/13/22 11:49 Baso # (Auto) 0.1 X10*3/uL (0.0-0.2) 05/13/22 11:49 Abs Immat Gran (auto) 0.12 X10*3/uL (0.00-0.03) H 05/13/22 11:49 Absolute Neuts (auto) 6.4 x10*3/uL (2.0-8.3) 05/13/22 11:49 Absolute Nucleated RBC 0.000 X10*3/uL (0.0-0.012) 05/15/22 05:53 Nucleated RBC % (auto) 0.0 /100WBC (0.0-0.2) 05/15/22 05:53 Sodium 135 mmol/L (135-145) 05/14/22 06:41 Potassium 4.0 mmol/L (3.3-5.1) 05/14/22 06:41 Chloride 103 mmol/L (96-108) 05/14/22 06:41 Carbon Dioxide 29 mmol/L (22-29) 05/14/22 06:41 Anion Gap 7 (12-20) L 05/14/22 06:41 BUN 13 mg/dL (9-16) 05/14/22 06:41 Creatinine 0.94 mg/dL (0.5-1.4) 05/14/22 06:41 Estim Creat Clear Calc 91.1 05/14/22 06:41 Estimated GFR > 60 05/14/22 06:41 Random Glucose 141 mg/dL (60-115) H 05/14/22 06:41 Calcium 8.1 mg/dL (8.4-10.2) L D 05/14/22 06:41 Total Bilirubin 0.9 mg/dL (0.0-1.0) 05/13/22 11:49 Direct Bilirubin 0.4 mg/dL (0.0-0.5) 05/13/22 11:49 AST 17 U/L (5-37) 05/13/22 11:49 ALT 20 U/L (0-40) 05/13/22 11:49 Alkaline Phosphatase 71 U/L (39-117) 05/13/22 11:49 Total Protein 7.1 g/dL (6.5-8.0) 05/13/22 11:49 Albumin 4.3 g/dL (3.5-5.0) 05/13/22 11:49 Lipase 16 U/L (8-78) 05/13/22 11:49 Urine Color YELLOW 05/13/22 12:34 Urine Appearance CLEAR 05/13/22 12:34 Urine pH 6.5 (5.0-8.0) 05/13/22 12:34 Ur Specific Sylvester 1.025 (1.005-1.025) 05/13/22 12:34 Urine Protein TRACE MG/DL (NEG-TRACE) 05/13/22 12:34 Urine Glucose (UA) NEG MG/DL (NEG) 05/13/22 12:34 Urine Ketones NEG MG/DL (NEG) 05/13/22 12:34 Urine Blood NEG (NEG) 05/13/22 12:34 Urine Nitrite NEG (NEG) 05/13/22 12:34 Ur Leukocyte Esterase NEG (NEG) 05/13/22 12:34 COVID-19 (JOEY) Negative (Negative) 05/13/22 18:22 COVID-19 Clin Com See Note 05/13/22 18:22 Impressions Abdomen/Pelvis CT 05/13/22 12:13 IMPRESSION: 1. Abnormal study. Significant pericolonic inflammatory changes are noted predominantly along the posterior serosal surface of the mid part of the ascending colon, associated with 1 cm radiopaque density seen abutting the posterior serosal surface. No evidence of any perforation, pericolonic fluid collection, abscess formation or features of obstruction present. The radiopaque density may represent an ingested foreign body. 2. Normal-appearing appendix. This critical result was discussed with Monserrat NEGRETE at 1:33 PM on 05/13/2022 and it was ascertained that the content and urgency of the report was understood at the time of direct communication. KUB X-Ray 05/15/22 08:13 IMPRESSION: Unremarkable KUB. Discharge Plan Discharge Patient Disposition: Home, Self-Care Discharge Diagnosis: right sided colitis Referrals: Cassandra Rodriguez MD [Primary Care Provider] - 1 Week Ernesto Shepherd MD [Physician] - 1 Week Discharge Medications: New amoxicillin-pot clavulanate 875-125 mg tablet 1 tab PO BID Qty: 10 0RF Continued acetaminophen [Tylenol Extra Strength] 500 mg tablet 500 mg PO Q6H PRN (Reason: pain or fever) Qty: 20 0RF lidocaine [Lidoderm] 5 % adhesive patch,medicated 1 patch topical DAILY MDD remove after 12 hours PRN (Reason: pain) Qty: 30 0RF Rx Instructions: leave on most painful area for up to 12 hrs polyethylene glycol 3350 [Miralax] 17 gram/dose powder 17 g PO DAILY PRN (Reason: constipation) Qty: 510 0RF albuterol sulfate 90 mcg/actuation HFA aerosol inhaler 2 puff inhalation Q6H PRN (Reason: shortness of breath or wheezing) Qty: 8.5 0RF tramadol 50 mg tablet 1 tab PO Q6H PRN (Reason: pain) nicotine (polacrilex) 4 mg gum 1 ea PO Q2H PRN (Reason: Nicotine Cravings) docusate sodium 100 mg capsule 1 cap PO BID PRN (Reason: Constipation) fluticasone propionate 50 mcg/actuation spray,suspension 2 spray intranasal DAILY PRN (Reason: Allergy Symptoms) omeprazole 20 mg capsule,delayed release(DR/EC) 20 mg PO DAILY@0630 Discharge Orders: Discharge Order (Routine); Ordered 05/18/22 Ordered By: Ernesto Shepherd Activity on Discharge: As tolerated Stand Alone Forms: Patient Portal Discharge page Care Plan Goals: continue home meds ffup with me and PCP Health Concerns: colitis Plan of Treatment: ffup in the office oral antibiotics - Augmentin Assessment: doing well Discharge Date/Time: 05/18/22 17:17
== END 2022-05-18 17:17 | disposition home or self-care (01) | DRG 249 ==
LOC: HO.ED 11:28 → HO.EDOVER 14:47 → HO.S3 20:46
PROVIDERS: Nurse Practitioner Family; Admitting Provider Surgery; Emergency Provider Emergency Medicine Emergency Medical Services; PCP Internal Medicine; Visit Provider Surgery
DX: K52.89 Other specified noninfective gastroenteritis and colitis (principal); T18.4XXA Foreign body in colon, initial encounter; F10.20 Alcohol dependence, uncomplicated; X58.XXXA Exposure to other specified factors, initial encounter; K21.9 Gastro-esophageal reflux disease without esophagitis; F17.210 Nicotine dependence, cigarettes, uncomplicated; Z71.6 Tobacco abuse counseling; Z20.822 Contact with and (suspected) exposure to COVID-19; Z79.51 Long term (current) use of inhaled steroids; Z79.899 Other long term (current) drug therapy
CPT/HCPCS: 36415; 74018; 74176; 80048; 80076; 81003; 83690; 85025; 85027; 87635; 96374; 96375; 99285; J2270; J2405; J2543

== ENCOUNTER 2022-09-07 07:49 | Inpatient (IN) | payer MEDICAID, SELFPAY ==
[2022-09-07] VITALS (16 sets, daily range): BP systolic 122–153; BP diastolic 55–81; PULSE 70–100; RESP 15–24; TEMP 36.9–37.2; O2SAT 93–100; BMI 30.9
--- NOTE | ~2022-09-07 | XR_ITS ---
EXAMINATION: XR CHEST CLINICAL INFORMATION: Dyspnea COMPARISON: CT chest 10/19/2021, chest radiograph 09/23/2021 TECHNIQUE: Frontal view of the chest was obtained. FINDINGS: Lungs hypoinflated. Heart size upper limits of normal. No gross CHF. Some mildly coarse reticulonodular markings are seen along with some minimal basilar atelectasis, right greater than left. No consolidations, large effusions or suspicious lung masses are seen.. XR/XR chest 1V IMPRESSION: Hypoinflated lungs with bibasilar atelectasis.
--- NOTE | ~2022-09-07 | US_ITS ---
EXAMINATION: US ABDOMEN LIMITED CLINICAL INFORMATION: Elevated LFTs. COMPARISON: CT scan of the abdomen and pelvis dated 05/13/2022, abdominal ultrasound dated 09/09/2021. TECHNIQUE: Real-time imaging of the right upper quadrant abdominal viscera. FINDINGS: PANCREAS: Visualized portions unremarkable. LIVER: Unremarkable. GALLBLADDER: Unremarkable. COMMON BILE DUCT: Normal in caliber measuring 0.5 cm in diameter. RIGHT KIDNEY: 11.5 cm. Unremarkable. FREE FLUID: None. US/US abdomen limited IMPRESSION: Unremarkable right upper quadrant abdominal ultrasound.
--- NOTE | 2022-09-07 07:59 | ECG_ITS ---
Test Reason : diff breathing Blood Pressure : / mmHG Vent. Rate : 099 BPM Atrial Rate : 099 BPM P-R Int : 120 ms QRS Dur : 084 ms QT Int : 336 ms P-R-T Axes : 041 015 011 degrees QTc Int : 431 ms Normal sinus rhythm Normal ECG When compared with ECG of 19-APR-2022 15:25, Vent. rate has increased BY 36 BPM QT has lengthened Referred By: Carlene Mata Electronically Signed By:OLEG GREEN MD
[2022-09-07] MEDS: Albuterol Sulfate 7.5 MG, Albuterol/Iprat 2.5/0.5MG 3 ML 3 ML INHALE (08:06)
--- NOTE | 2022-09-07 08:09 | ED_ITS ---
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 He is here c/o anxiety and feeling like he is coughing a lot. He has no pain. He denies recent URI. States he was okay recently. He does have albuterol INH at home. MD complaint: asthma attack and shortness of breath Onset (ago): hour(s) (2) Severity: severe Context: none known Associated symptoms: productive cough Asthma History: childhood onset Treatments Prior to Arrival: inhaled bronchodilator and IV steroid Related Data Home Medications Medication Instructions Recorded Confirmed docusate sodium 100 mg capsule 1 cap PO BID PRN Constipation 05/13/22 09/07/22 fluticasone propionate 50 2 spray intranasal DAILY PRN 05/13/22 09/07/22 mcg/actuation nasal Allergy Symptoms spray,suspension nicotine (polacrilex) 4 mg gum 1 ea PO Q2H PRN Nicotine Cravings 05/13/22 09/07/22 tramadol 50 mg tablet 1 tab PO Q6H PRN pain 05/13/22 09/07/22 fluticasone 250 mcg-salmeterol 50 1 puff inhalation BID 09/07/22 09/07/22 mcg/dose blistr powdr for inhalation (Advair Diskus) Previous Rx's Medication Instructions Recorded acetaminophen 500 mg tablet 500 mg PO Q6H PRN pain or fever 09/23/20 (Tylenol Extra Strength) #20 tabs polyethylene glycol 3350 17 17 g PO DAILY PRN constipation 11/10/20 gram/dose oral powder (Miralax) #510 grams albuterol sulfate 90 mcg/actuation 2 puff inhalation Q6H PRN 09/23/21 aerosol inhaler shortness of breath or wheezing #8.5 grams Allergies Allergy/AdvReac Type Severity Reaction Status Date / Time No Known Allergies Allergy Verified 07/20/21 11:25 [No Known Allergies*] Review of Systems Review of Systems: Constitutional : No Fever, No Chills ENT/Mouth : No Hoarseness, No sore throat, No Rhinorrhea Eyes: No Redness, No Discharge, No Vision Changes Cardiovascular : No Chest Pain, positive SOB, positive Dyspnea on Exertion, pos Edema Respiratory : positive Cough, pos Sputum, positive Wheezing, Gastrointestinal : No Nausea, No Vomiting, No Diarrhea, No abdominal Pain Genitourinary : No Dysuria, No Hematuria Musculoskeletal : No joint pain, No Myalgias Skin : No rash Neuro : No Weakness, No Numbness, No Headache, pos dizziness Psych : No anxiety, depression Heme/Lymph: No Bruising, No Bleeding Endocrine : No Polyuria, No Polydipsia All other systems reviewed and are negative [facility] Past Medical History Attestation statement: The following information was validated with the patient. Medical History Acid reflux Alcohol abuse Asthma Ulcer Surgical History History of esophagogastroduodenoscopy (EGD) Hx of colonoscopy Family History Family History Father No problems noted. Mother Diabetes Social History Social History Household Members: Family Household Members Other:: with sister Housing: House Do you presently have visiting nurse or other home services: No Alcohol intake: current Alcohol intake frequency: a few times a week Alcohol type: beer and hard liquor Patient Tobacco Use Status: Current everyday Tobacco user Tobacco use type: Cigarette Substance Use Type: Marijuana Advance Directives: No service: No Current occupational status: unemployed Physical Exam Vital Signs: Vital Signs: Last Vital Signs Temp 98.5 F 09/07/22 10:54 Pulse 91 09/07/22 10:54 Resp 18 09/07/22 10:54 BP 138/60 09/07/22 10:54 Pulse Ox 97 09/07/22 09:11 O2 Del Method 09/07/22 09:11 Oxygen Flow Rate 5 09/07/22 08:07 BMI result Body Mass Index 30.9 Appearance: Alert. Oriented X3. No acute distress. Eyes: Pupils equal, round and reactive to light. pale conjunctiva ENT: Pharynx normal. Neck: Normal inspection. Neck supple. CVS: Normal heart rate and rhythm. Pulses normal. Respiratory: No respiratory distress. Breath sounds diminished bilaterally diffuse insp and exp wheezes Abdomen: Soft and nontender. Rectal: brown stool Skin: Skin warm and diaphoretic. pale skin color. Normal skin turgor. Extremities: 1+ pitting bilateral lower extremity edema. No calf ttp Neuro: Oriented X 3. No motor deficit. No sensory deficit. Course Course Course Narrative: denies GIB symptoms but does report he has been dizzy - + anemia he is pale will start blood transfusions will not repeat rectal exam - unable to get enough on stool card per lab cannot result MDM - Asthma MDM Narrative Medical decision making narrative: 52 yo male with hx of asthma, alcohol abuse, PUD here with c/o asthma attack resulting in hypoxia. States he started coughing this AM and developed wheezing. Will give IV magnesium and repeat hour long neb since he already had IV steroids with EMS. EKG and CXR/labs ordered. He does have mild LE edema but states that this isn't new - may need diuretics. Lab Data Result diagrams: 09/07/22 08:51 09/07/22 08:52 Labs: Lab Results 09/07/22 09/07/22 09/07/22 Range/Units 08:51 08:52 08:52 WBC 5.4 (4.8-10.8) X10*3/uL RBC 1.10 L D (4.60-5.80) X10*6/uL Hgb 4.2 L* D (14.0-18.0) g/dl Hct 12.8 L* D (42.0-52.0) % MCV 116.4 H (80.0-98.0) fL MCH 38.2 H (27.0-33.0) pg MCHC 32.8 (31.0-36.0) g/dl RDW 19.4 H (11.0-16.0) % Plt Count 51 L D (160-400) X10*3/uL MPV Not Reportable Immature Gran % (Auto) 1.5 H (0.0-0.4) % Neut % (Auto) 47.0 (45-73) % Lymph % (Auto) 37.6 (20-40) % [place] % (Auto) 7.6 (2-11) % Eos % (Auto) 4.3 H (0-4) % Baso % (Auto) 2.0 (0-2) % Lymph # (Auto) 2.0 (1.2-4.9) X10*3/uL [place] # (Auto) 0.4 (0.1-1.2) X10*3/uL Eos # (Auto) 0.2 (0.0-0.4) X10*3/uL Baso # (Auto) 0.1 (0.0-0.2) X10*3/uL Abs Immat Gran (auto) 0.08 H (0.00-0.03) X10*3/uL Absolute Neuts (auto) 2.5 (2.0-8.3) x10*3/uL Absolute Nucleated RBC 0.000 (0.0-0.012) X10*3/uL Nucleated RBC % (auto) 0.0 (0.0-0.2) /100WBC Smear Tech's Comments VERIFIED PT (10.0-13.1) SEC INR (0.9-1.1) APTT (26.0-36.4) SEC VBG pH (7.32-7.43) VBG pCO2 mmHg VBG pO2 mmHg VBG HCO3 (22-26) mmol/L VBG O2 Saturation VBG Base Excess mmol/L Sodium 140 (135-145) mmol/L Potassium 3.4 (3.3-5.1) mmol/L Chloride 104 (96-108) mmol/L Carbon Dioxide 24 (22-29) mmol/L Anion Gap 15 (12-20) BUN 14 (9-16) mg/dL Creatinine 0.80 (0.5-1.4) mg/dL Estim Creat Clear Calc 113.9 Estimated GFR > 60 Random Glucose 139 H (60-115) mg/dL Calcium 8.6 D (8.4-10.2) mg/dL Magnesium 2.7 H (1.6-2.6) mg/dL Total Bilirubin 0.4 (0.0-1.0) mg/dL Direct Bilirubin 0.2 (0.0-0.5) mg/dL AST 44 H D (5-37) U/L ALT 54 H (0-40) U/L Alkaline Phosphatase 78 (39-117) U/L Troponin I High Sens 6.3 D (<3.5-35.0) ng/L B-Natriuretic Peptide 121 H (<100) pg/mL Total Protein 5.9 L (6.5-8.0) g/dL Albumin 3.7 (3.5-5.0) g/dL Stool Occult Blood Ethyl Alcohol 41 mg/dL COVID-19 (JOEY) (Negative) COVID-19 Clin Com Blood Type Antibody Screen Crossmatch 09/07/22 09/07/22 09/07/22 Range/Units 08:52 08:52 09:02 WBC (4.8-10.8) X10*3/uL RBC (4.60-5.80) X10*6/uL Hgb (14.0-18.0) g/dl Hct (42.0-52.0) % MCV (80.0-98.0) fL MCH (27.0-33.0) pg MCHC (31.0-36.0) g/dl RDW (11.0-16.0) % Plt Count (160-400) X10*3/uL MPV Immature Gran % (Auto) (0.0-0.4) % Neut % (Auto) (45-73) % Lymph % (Auto) (20-40) % [place] % (Auto) (2-11) % Eos % (Auto) (0-4) % Baso % (Auto) (0-2) % Lymph # (Auto) (1.2-4.9) X10*3/uL [place] # (Auto) (0.1-1.2) X10*3/uL Eos # (Auto) (0.0-0.4) X10*3/uL Baso # (Auto) (0.0-0.2) X10*3/uL Abs Immat Gran (auto) (0.00-0.03) X10*3/uL Absolute Neuts (auto) (2.0-8.3) x10*3/uL Absolute Nucleated RBC (0.0-0.012) X10*3/uL Nucleated RBC % (auto) (0.0-0.2) /100WBC Smear Tech's Comments PT 13.0 (10.0-13.1) SEC INR 1.1 (0.9-1.1) APTT 29.9 (26.0-36.4) SEC VBG pH 7.51 H (7.32-7.43) VBG pCO2 29 mmHg VBG pO2 155 mmHg VBG HCO3 23 (22-26) mmol/L VBG O2 Saturation TNP VBG Base Excess 1.1 mmol/L Sodium (135-145) mmol/L Potassium (3.3-5.1) mmol/L Chloride (96-108) mmol/L Carbon Dioxide (22-29) mmol/L Anion Gap (12-20) BUN (9-16) mg/dL Creatinine (0.5-1.4) mg/dL Estim Creat Clear Calc Estimated GFR Random Glucose (60-115) mg/dL Calcium (8.4-10.2) mg/dL Magnesium (1.6-2.6) mg/dL Total Bilirubin (0.0-1.0) mg/dL Direct Bilirubin (0.0-0.5) mg/dL AST (5-37) U/L ALT (0-40) U/L Alkaline Phosphatase (39-117) U/L Troponin I High Sens (<3.5-35.0) ng/L B-Natriuretic Peptide (<100) pg/mL Total Protein (6.5-8.0) g/dL Albumin (3.5-5.0) g/dL Stool Occult Blood Ethyl Alcohol mg/dL COVID-19 (JOEY) Negative (Negative) COVID-19 Clin Com See Note Blood Type Antibody Screen Crossmatch 09/07/22 09/07/22 Range/Units 09:21 10:33 WBC (4.8-10.8) X10*3/uL RBC (4.60-5.80) X10*6/uL Hgb (14.0-18.0) g/dl Hct (42.0-52.0) % MCV (80.0-98.0) fL MCH (27.0-33.0) pg MCHC (31.0-36.0) g/dl RDW (11.0-16.0) % Plt Count (160-400) X10*3/uL MPV Immature Gran % (Auto) (0.0-0.4) % Neut % (Auto) (45-73) % Lymph % (Auto) (20-40) % [place] % (Auto) (2-11) % Eos % (Auto) (0-4) % Baso % (Auto) (0-2) % Lymph # (Auto) (1.2-4.9) X10*3/uL [place] # (Auto) (0.1-1.2) X10*3/uL Eos # (Auto) (0.0-0.4) X10*3/uL Baso # (Auto) (0.0-0.2) X10*3/uL Abs Immat Gran (auto) (0.00-0.03) X10*3/uL Absolute Neuts (auto) (2.0-8.3) x10*3/uL Absolute Nucleated RBC (0.0-0.012) X10*3/uL Nucleated RBC % (auto) (0.0-0.2) /100WBC Smear Tech's Comments PT (10.0-13.1) SEC INR (0.9-1.1) APTT (26.0-36.4) SEC VBG pH (7.32-7.43) VBG pCO2 mmHg VBG pO2 mmHg VBG HCO3 (22-26) mmol/L VBG O2 Saturation VBG Base Excess mmol/L Sodium (135-145) mmol/L Potassium (3.3-5.1) mmol/L Chloride (96-108) mmol/L Carbon Dioxide (22-29) mmol/L Anion Gap (12-20) BUN (9-16) mg/dL Creatinine (0.5-1.4) mg/dL Estim Creat Clear Calc Estimated GFR Random Glucose (60-115) mg/dL Calcium (8.4-10.2) mg/dL Magnesium (1.6-2.6) mg/dL Total Bilirubin (0.0-1.0) mg/dL Direct Bilirubin (0.0-0.5) mg/dL AST (5-37) U/L ALT (0-40) U/L Alkaline Phosphatase (39-117) U/L Troponin I High Sens (<3.5-35.0) ng/L B-Natriuretic Peptide (<100) pg/mL Total Protein (6.5-8.0) g/dL Albumin (3.5-5.0) g/dL Stool Occult Blood TNP Ethyl Alcohol mg/dL COVID-19 (JOEY) (Negative) COVID-19 Clin Com Blood Type A Positive Antibody Screen NEGATIVE Crossmatch See Detail ECG Data Attestation: I personally reviewed and interpreted this ECG as follows: ECG interpretation date: 09/07/22 ECG interpretation time: 08:18 Interpretation: Rate: 99 Rhythm: NSR Aiken: normal Normal P waves. Normal KARI. Normal QRS complex. ST T wave : no [place], nonspecific inf leads qTC: normal prior studies: no acute ischemia The study has been interpreted contemporaneously by me. Critical Care Time Critical Care Time Critical Care Time: Yes Total Critical Care Time: 60 Attestation: hour long neb, blood transfusions, admissions, review of records I attest to this time spent taking care of the patient Discharge Plan Discharge Clinical Impression: Alcohol abuse Asthma Qualifiers: Asthma severity: moderate Asthma persistence: persistent Asthma complication type: with acute exacerbation Qualified Code(s): J45.41 - Moderate persistent asthma with (acute) exacerbation Anemia Qualifiers: Anemia type: unspecified type Qualified Code(s): D64.9 - Anemia, unspecified Patient Disposition: Admitted As Inpatient
[2022-09-07] MEDS: Magnesium Sulfate/H2O 2 GM/50 ML PIGGYBACK IV (08:39)
[2022-09-07 09:02] LABS: Basophils Absolute Auto 0.1 X10*3/uL (0.0-0.2); Eosinophils Absolute Auto 0.2 X10*3/uL (0.0-0.4); Eosinophils Percent Auto 4.3 % (0-4); Imm Gran Abs Auto 0.08 X10*3/uL (0.00-0.03); Imm Gran Pct Auto 1.5 % (0.0-0.4); Lymphocytes Percent Auto 37.6 % (20-40); MANUAL DIFF FLAG SCAN; Mean Corpuscular HGB Conc 32.8 g/dl (31.0-36.0); Mean Corpuscular Hemoglobin 38.2 pg (27.0-33.0); Monocytes Absolute Auto 0.4 X10*3/uL (0.1-1.2); Monocytes Percent Auto 7.6 % (2-11); Neutrophils Absolute Auto 2.5 x10*3/uL (2.0-8.3); PLT CLUMP 1; Red Cell Distribution Width 19.4 % (11.0-16.0); SCAN SMEAR FLAG 1
[2022-09-07 09:06] LABS: Mean Corpuscular Volume 116.4 fL (80.0-98.0)
[2022-09-07 09:07] LABS: Venous Blood Gas Refer to POC result
[2022-09-07 09:07] LABS: VBG Base Excess 1.1 mmol/L; VBG HCO3 23 mmol/L (22-26); VBG pCO2 29 mmHg; VBG pH 7.51 (7.32-7.43); VBG pO2 155 mmHg
[2022-09-07 09:15] LABS: Hematocrit 12.8 % (42.0-52.0)
[2022-09-07 09:16] LABS: Hemoglobin 4.2 g/dl (14.0-18.0)
[2022-09-07 09:20] LABS: Alanine Aminotransferase 54 U/L (0-40); Albumin Level 3.7 g/dL (3.5-5.0); Alkaline Phosphatase 78 U/L (39-117); Anion Gap 15 (12-20); Aspartate Amino Transferase 44 U/L (5-37); Bilirubin Direct 0.2 mg/dL (0.0-0.5); Bilirubin Total 0.4 mg/dL (0.0-1.0); Blood Urea Nitrogen 14 mg/dL (9-16); Calcium 8.6 mg/dL (8.4-10.2); Carbon Dioxide 24 mmol/L (22-29); Chloride 104 mmol/L (96-108); Creatinine Clr Calc Pharmacy 113.9; Estimated Glomerular Filt Rate > 60; Ethanol 41 mg/dL; Glucose Random 139 mg/dL (60-115); Magnesium 2.7 mg/dL (1.6-2.6); Potassium 3.4 mmol/L (3.3-5.1); Sodium 140 mmol/L (135-145); Total Protein 5.9 g/dL (6.5-8.0)
[2022-09-07 09:28] LABS: B Type Natriuretic Peptide 121 pg/mL (<100); COVID-19 Test Negative (Negative); Troponin-I High Sensitivity 6.3 ng/L (<3.5-35.0)
[2022-09-07 09:34] LABS: Platelet Count 51 X10*3/uL (160-400); White Blood Count 5.4 X10*3/uL (4.8-10.8)
[2022-09-07 09:35] LABS: SLIDE REVIEW VERIFIED
--- NOTE | 2022-09-07 09:43 | PHA.MEDREC ---
Pharmacy Consult ? Medication Reconciliation Pharmacy has completed the medication reconciliation. Patient is historically a poor historain and agreeable to all medications. Receive active medication list from [facility] pharmacy. Aarti Watts, ValentinaD
--- NOTE | 2022-09-07 09:45 | PC.NURSE ---
patient a/ox4 . pearrla . breathing labored and even . patient reports productive cough , clear sputum . wheezes in upper lobes noted. . RT at bedside for treatment . heart rate regular at 93 beats per minute . patient currently requiring supplemental o2 of 3l on non rebreather mask . Iv placed in left AC . skin dry and edema noted in lower extremities . abdomen distended . positive bowel sounds in all four quadrants . patient is aware of plan of care .
[2022-09-07] MEDS: Pantoprazole Sodium 40 MG/10 ML VIAL IVPUSH ×2 (10:56→17:01)
[2022-09-07] MEDS: Thiamine HCL 200 MG in 0.9 % Sodium Chloride 100 ML 204 MG IV (10:56)
--- NOTE | 2022-09-07 11:00 | PC.NURSE ---
patient able to maintain oxygen level of 95 % on room air after breathing treatments . patient breathing even and unlabored . wheezes diminished . patient reports improvement in breathing . patient aware of plan of care .
[2022-09-07 11:04] LABS: INTERNATIONAL NORM RATIO 1.1 (0.9-1.1)
[2022-09-07 11:07] LABS: Partial Thromboplastin Time 29.9 SEC (26.0-36.4)
--- NOTE | 2022-09-07 12:27 | P.HPHOSP_ITS ---
History of Present Illness Date of Service: 09/07/22 <CADEN Pastrana - Last Filed: 09/07/22 13:27> Attending physician on admission: Andria Mahan <CADEN Pastrana - Last Filed: 09/07/22 13:27> Chief Complaint: sob, wheezing, dizziness <CADEN Pastrana - Last Filed: 09/07/22 13:27> 52-year-old male with history of moderate persistent asthma without acute exacerbation, alcohol abuse, chronic macrocytic anemia, chronic constipation, hi story of gastric ulcer, GERD, former smoker presented to the ED this morning for evaluation of shortness of breath and wheezing ongoing for 1 day. He is also reporting a nonproductive cough. He has noted increasing albuterol usage with some improvement in symptoms. He does also state that for the last few weeks he has been experiencing lightheadedness and fatigue. This morning also had mild chest tightness and short-lived palpitations. He is unable to elaborate on any alleviating or exacerbating factors. On arrival to the ED, mild tachypnea of 24 and mildly tachycardic at 100. He is afebrile without hypoxia. Hematology studies significant for WBC 5.4, RBC 1.10, HGB 4.2, HCT 12.8, MCV 116.4 (baseline WBC 5.3, RBC 2.74, HGB 10.0, HCT 30.0, MCV 109.5). Renal function and electrolyte levels normal. AST 44, ALT 54, alkaline phosphatase 78. BNP 121. Ethyl alcohol 41. Attempts were made to collect stool occult sample but was unable to be performed. The patient denies any fevers, chills, nausea, abdominal pain, diarrhea. He states he did notice a small amount of bright red blood on the stool this morning and does endorse straining due to constipation but denies any other episodes of hematochezia or melena. Currently denying any dyspnea, palpitations, chest pain. Did have similar episode of vomiting in the ED without any hematemesis. Patient is a heavy every day drinker consuming 6 12 oz beers and 1 neb daily but denies any history of cirrhosis her esophageal varices. He denies any illicit drug use but does endorse occasional marijuana use. Patient has received the 1st of 3 units packed red blood cells in the ED and is tolerating this well. He has also received DuoNeb updraft, 2 g IV Mag, 40 mg pantoprazole, and started on phenobarb per protocol for alcohol withdrawal. <CADEN Pastrana - Last Filed: 09/07/22 13:27> Review of Systems Review of Systems: General: No fevers, malaise, unintentional weight loss HEENT: No blurred vision or diplopia Cardiovascular: +cp, palps. No leg edema Respiratory: + shortness of breath, + wheezing, + cough GI: + vomiting, +constipation, +BRBPR. No abdominal pain, nausea, diarrhea, melena : No dysuria, hematuria, increased urinary frequency Neuro: No headaches, weakness, paresthesias Psych: ETOH dependence Skin: No rashes or lesions <CADEN Pastrana - Last Filed: 09/07/22 13:27> [facility] Medical History: Medical History (Updated 09/07/22 @ 13:15 by CADEN Pastrana) Acid reflux Alcohol abuse Asthma History of gastric ulcer Macrocytic anemia <CADEN Pastrana - Last Filed: 09/07/22 13:27> Family History: Family History Father No problems noted. Mother Diabetes <CADEN Pastrana - Last Filed: 09/07/22 13:27> Surgical History: Surgical History History of esophagogastroduodenoscopy (EGD) Hx of colonoscopy <CADEN Pastrana - Last Filed: 09/07/22 13:27> Social History: Social History Household Members: Family Household Members Other:: with sister Housing: House Do you presently have visiting nurse or other home services: No Alcohol intake: current Alcohol intake frequency: a few times a week Alcohol type: beer and hard liquor Patient Tobacco Use Status: Current everyday Tobacco user Tobacco use type: Cigarette Substance Use Type: Marijuana Advance Directives: No service: No Current occupational status: unemployed <CADEN Pastrana - Last Filed: 09/07/22 13:27> Meds Allergies/Adverse reactions: Allergies Allergy/AdvReac Type Severity Reaction Status Date / Time No Known Allergies Allergy Verified 07/20/21 11:25 [No Known Allergies*] <CADEN Pastrana - Last Filed: 09/07/22 13:27> Active Medications: Current Medications Pharmacy Consult (Consult Rx Perform Med Rec) 1 each MISCELLANE ONCE PRN PRN Reason: Consult order Pharmacy Consult (Consult Rx Etoh Phenob Im/Po) 1 each MISCELLANE ONCE PRN; Protocol PRN Reason: Consult order Phenobarbital (Phenobarbital 15 Mg Tablet) 45 mg PO BID LONNIE; Protocol Stop: 09/09/22 09:01 Phenobarbital (Phenobarbital 15 Mg Tablet) 15 mg PO BID LONNIE; Protocol Stop: 09/12/22 09:01 Phenobarbital (Phenobarbital 15 Mg Tablet) 15 mg PO DAILY LONNIE; Protocol Stop: 09/14/22 09:01 Phenobarbital Sodium (Phenobarbital Sodium 130 Mg/Ml Vial Im Q3hx2) 158.6 mg IM Q3H LONNIE; Protocol Stop: 09/07/22 16:01 <CADEN Pastrana - Last Filed: 09/07/22 13:27> Home medications: Home Medications Medication Instructions Recorded Confirmed Last Taken Type docusate sodium 100 mg capsule 1 cap PO BID PRN Constipation 05/13/22 09/07/22 Unknown History fluticasone propionate 50 2 spray intranasal DAILY PRN 05/13/22 09/07/22 Unknown History mcg/actuation nasal Allergy Symptoms spray,suspension nicotine (polacrilex) 4 mg gum 1 ea PO Q2H PRN Nicotine Cravings 05/13/22 09/07/22 Unknown History tramadol 50 mg tablet 1 tab PO Q6H PRN pain 05/13/22 09/07/22 Unknown History fluticasone 250 mcg-salmeterol 50 1 puff inhalation BID 09/07/22 09/07/22 Unknown History mcg/dose blistr powdr for inhalation (Advair Diskus) <CADEN Pastrana - Last Filed: 09/07/22 13:27> Physical Exam Vital Signs and Narrative: Vital Signs: Last Vital Signs Temp 98.8 F 09/07/22 12:25 Pulse 84 09/07/22 12:25 Resp 18 09/07/22 12:25 BP 135/77 09/07/22 12:25 Pulse Ox 97 09/07/22 09:11 O2 Del Method 09/07/22 09:11 Oxygen Flow Rate 5 09/07/22 08:07 BMI result Body Mass Index 30.9 <CADEN Pastrana - Last Filed: 09/07/22 13:27> Constitutional - Awake and Alert, No apparent distress, resting comfortably receiving blood transfusion with occassional cough. Pallor Eyes - PERRLA, EOMI, conjunctival pallor Cardiovascular - S1S2, RRR, No edema Respiratory - wheezing bilateral lower lobes with coarse lung sounds throughout. Normal lung expansion, Normal respiratory effort, No respiratory distress Gastrointestinal -softly distended, NT; +BS; No rebound or guarding Extremities - no calf tenderness bilaterally, no swelling Skin - Warm/Dry, pale Neurological - Alert & oriented x3, CN II -XII in tact, 4/5 strength BUE and BLE Psychological - Appropriate affect <CADEN Pastrana - Last Filed: 09/07/22 13:27> Results Labs CBC and Chem 7: : 09/07/22 08:51 09/07/22 08:52 <CADEN Pastrana - Last Filed: 09/07/22 13:27> Labs: Laboratory Results - last 24 hr 09/07/22 09/07/22 09/07/22 08:51 08:52 08:52 MCV 116.4 H MCH 38.2 H MCHC 32.8 RDW 19.4 H Plt Count 51 L D MPV Not Reportable Immature Gran % (Auto) 1.5 H Neut % (Auto) 47.0 Lymph % (Auto) 37.6 Parmer % (Auto) 7.6 Eos % (Auto) 4.3 H Baso % (Auto) 2.0 Lymph # (Auto) 2.0 Parmer # (Auto) 0.4 Eos # (Auto) 0.2 Baso # (Auto) 0.1 Abs Immat Gran (auto) 0.08 H Absolute Neuts (auto) 2.5 Absolute Nucleated RBC 0.000 Nucleated RBC % (auto) 0.0 Smear Tech's Comments VERIFIED PT INR APTT VBG pH VBG pCO2 VBG pO2 VBG HCO3 VBG O2 Saturation VBG Base Excess Anion Gap 15 Estim Creat Clear Calc 113.9 Estimated GFR > 60 Random Glucose 139 H Calcium 8.6 D Magnesium 2.7 H Total Bilirubin 0.4 Direct Bilirubin 0.2 AST 44 H D ALT 54 H Alkaline Phosphatase 78 Troponin I High Sens 6.3 D B-Natriuretic Peptide 121 H Total Protein 5.9 L Albumin 3.7 Stool Occult Blood Ethyl Alcohol 41 COVID-19 ([facility]) COVID-19 Clin Com Blood Type Antibody Screen Crossmatch 09/07/22 09/07/22 09/07/22 08:52 08:52 09:02 MCV MCH MCHC RDW Plt Count MPV Immature Gran % (Auto) Neut % (Auto) Lymph % (Auto) Parmer % (Auto) Eos % (Auto) Baso % (Auto) Lymph # (Auto) Parmer # (Auto) Eos # (Auto) Baso # (Auto) Abs Immat Gran (auto) Absolute Neuts (auto) Absolute Nucleated RBC Nucleated RBC % (auto) Smear Tech's Comments PT 13.0 INR 1.1 APTT 29.9 VBG pH 7.51 H VBG pCO2 29 VBG pO2 155 VBG HCO3 23 VBG O2 Saturation TNP VBG Base Excess 1.1 Anion Gap Estim Creat Clear Calc Estimated GFR Random Glucose Calcium Magnesium Total Bilirubin Direct Bilirubin AST ALT Alkaline Phosphatase Troponin I High Sens B-Natriuretic Peptide Total Protein Albumin Stool Occult Blood Ethyl Alcohol COVID-19 ([facility]) Negative [email or web address] Clin Com See Note Blood Type Antibody Screen Crossmatch 09/07/22 09/07/22 09:21 10:33 MCV MCH MCHC RDW Plt Count MPV Immature Gran % (Auto) Neut % (Auto) Lymph % (Auto) Parmer % (Auto) Eos % (Auto) Baso % (Auto) Lymph # (Auto) Parmer # (Auto) Eos # (Auto) Baso # (Auto) Abs Immat Gran (auto) Absolute Neuts (auto) Absolute Nucleated RBC Nucleated RBC % (auto) Smear Tech's Comments PT INR APTT VBG pH VBG pCO2 VBG pO2 VBG HCO3 VBG O2 Saturation VBG Base Excess Anion Gap Estim Creat Clear Calc Estimated GFR Random Glucose Calcium Magnesium Total Bilirubin Direct Bilirubin AST ALT Alkaline Phosphatase Troponin I High Sens B-Natriuretic Peptide Total Protein Albumin Stool Occult Blood TNP Ethyl Alcohol COVID-19 ([facility]) COVID-19 Clin Com Blood Type A Positive Antibody Screen NEGATIVE Crossmatch See Detail <CADEN Pastrana - Last Filed: 09/07/22 13:27> Imaging Radiologist's Impressions: Impressions Chest X-Ray 09/07/22 09:30 IMPRESSION: Hypoinflated lungs with bibasilar atelectasis. <CADEN Pastrana - Last Filed: 09/07/22 13:27> Assessment and Plan (1) Symptomatic anemia: Status: Acute <CADEN Pastrana - Last Filed: 09/07/22 13:27> (2) Alcohol abuse: Status: Acute <CADEN Pastrana - Last Filed: 09/07/22 13:27> 52-year-old male with history of moderate persistent asthma without acute exacerbation, alcohol abuse, chronic macrocytic anemia, chronic constipation, history of gastric ulcer, GERD, former smoker to be admitted for symptomatic an emia and acute asthma exacerbation. # symptomatic acute on chronic anemia-likely multifactorial including alcohol abuse and question of GI bleed (hx gastric ulcer) -patient mildly tachycardic with HR 100, tachypneic 24 secondary to anemia and bruno exac, not sepsis.no hypoxia. -H/H 4.2/12.8%, MCV 116.4 (baseline 10.0, 30.0, MCV from 04/2022) -3 units packed RBC initiated in ED tolerating well -IV PPI -Admit to telemetry -Folic acid, iron ordered. Vitamin B12, folic acid ordered -Repeat stool occult blood pending -GI consult ordered -Follow CBC CMP am #Acute moderate persistent asthma exacerbation- without hypoxia -received 125 mg Solu-Medrol in ED as well as DuoNeb -initiate 40 mg prednisone a.m. -DuoNebs q.4h while awake -continue home Advair # alcohol dependence -consumes 6 X 12 oz beers and 1 nip from daily. Last drink yesterday -at risk for withdrawal. Denies history of withdrawal seizure -CIWA scale -continue phenobarb protocol -addiction medicine consult -admit to telemetry # transaminitis-likely secondary to alcohol abuse -AST 44, ALT 54 (baseline AST 17, ALT 20) -abdominal ultrasound ordered to evaluate for any hepatic disease including cirrhosis/evidence of varices -follow CMP #Chronic constipation -Docusate and miralax #GERD -IV PPI DVT prophylaxis-Lovenox Full code Patient requires inpatient stay of at least 2 midnights due to severe acute on chronic symptomatic anemia requiring 3 units packed red blood and close monitoring of blood counts, possibly requiring additional transfusion pending results, in patient who is at risk for alcohol withdrawal secondary to dependent during admission on phenobarbital per protocol. <CADEN Pastrana - Last Filed: 09/07/22 13:27> 52-year-old male with history of moderate persistent asthma without acute exacerbation, alcohol abuse, chronic macrocytic anemia, chronic constipation, history of gastric ulcer, GERD, former smoker to be admitted for symptomatic anemia and acute asthma exacerbation. # symptomatic acute on chronic anemia-likely multifactorial including alcohol abuse and question of GI bleed (hx gastric ulcer) -patient mildly tachycardic with HR 100, tachypneic 24 secondary to anemia and bruno exac, not sepsis.no hypoxia. -H/H 4.2/12.8%, MCV 116.4 (baseline 10.0, 30.0, MCV from 04/2022) -3 units packed RBC initiated in ED tolerating well -IV PPI -Admit to telemetry -Folic acid, iron ordered. Vitamin B12, folic acid ordered -Repeat stool occult blood pending -GI consult ordered -Follow CBC CMP am #Acute moderate persistent asthma exacerbation- without hypoxia -received 125 mg Solu-Medrol in ED as well as DuoNeb -initiate 40 mg prednisone a.m. -DuoNebs q.4h while awake -continue home Advair # alcohol dependence -consumes 6 X 12 oz beers and 1 nip from daily. Last drink yesterday -at risk for withdrawal. Denies history of withdrawal seizure -CIWA scale -continue phenobarb protocol -addiction medicine consult -admit to telemetry # transaminitis-likely secondary to alcohol abuse -AST 44, ALT 54 (baseline AST 17, ALT 20) -abdominal ultrasound ordered to evaluate for any hepatic disease including cirrhosis/evidence of varices -follow CMP #Chronic constipation -Docusate and miralax #GERD -IV PPI DVT prophylaxis-Lovenox Full code Patient requires inpatient stay of at least 2 midnights due to severe acute on chronic symptomatic anemia requiring 3 units packed red blood and close monitoring of blood counts, possibly requiring additional transfusion pending results, in patient who is at risk for alcohol withdrawal secondary to dependent during admission on phenobarbital per protocol. Addendum to history and physical by mid-level provider, CADEN Blanchard I interviewed and examined the patient. I discussed their presentation and management with the mid-level provider. I reviewed the history and physical and agree with the documentation, with the following additions and corrections: 52yo M with AUD, hx gastric ulcer, asthma presenting with wheezing + dyspnea and found to have a profound hypoproliferative macrocytic anemia. Pale on exam but benign abd. Wheezes on lung exam. FOBT pending. Admit to [facility], trnsafuse 3 units pRBCs, consult GI, give IV PPI. Asthma exac- give prednisone with PPI. High risk of withdrawal- give phenobarbital taper. <Andria Mahan MD - Last Filed: 09/07/22 16:49> Quality Stroke Does the patient have a stroke diagnosis?: No <CADEN Pastrana - Last Filed: 09/07/22 13:27> VTE Prior VTE?: No <CADEN Pastrana - Last Filed: 09/07/22 13:27> VTE Risk Level:: Medical - moderate - high <CADEN Pastrana - Last Filed: 09/07/22 13:27> VTE Device Contraindication: Treatment Not Indicated <CADEN Pastrana - Last Filed: 09/07/22 13:27> VTE Drug Contraindication: N/A - Med Ordered <CADEN Pastrana - Last Filed: 09/07/22 13:27>
[2022-09-07] MEDS: PHENobarbitaL sodium 130 MG/ML IM ONCE 211.9 MG IM (12:56)
[2022-09-07] MEDS: Albuterol/Iprat 2.5/0.5MG 3 ML AMPUL.NEB INHALE (13:55)
[2022-09-07 14:51] LABS: Immature Retic Fraction 14.7 % (2.3-13.4); Retic HGB Equivalent 38.8 pg (30.0-35.0); Reticulocyte Percent 1.2 % (0.5-1.8); Reticulocytes Absolute 0.021 X10*6/uL (0.026-0.095)
--- NOTE | 2022-09-07 15:00 | PC.NURSE ---
GI at bedside . patient to have endoscopy in Am . NPO after midnight . patient aware of plan of care .
[2022-09-07 15:05] LABS: Iron 277 mcg/dL (45-160); Total Iron Binding Capacity < 294 mcg/dL (228-428); Unsaturated Iron Binding < 17 ug/dL
[2022-09-07] MEDS: Enoxaparin Sodium 40 MG/0.4 ML SYRINGE SUBCUT (15:15)
[2022-09-07] MEDS: Docusate Sodium 100 MG CAPSULE PO ×2 (15:15→21:02)
[2022-09-07] MEDS: Folic Acid 1 MG in 0.9 % Sodium Chloride 50 ML 100.4 MG IV (15:16)
[2022-09-07 15:25] LABS: Ferritin 506 ng/mL (20-250)
--- NOTE | 2022-09-07 15:32 | PM.GICN ---
History of Present Illness Data of Consult Service Date: 09/07/22 Requesting physician: Beverly Blanchard Primary Care Provider: Cassandra Rodriguez MD [facility] Reason for consult: Severe anemia, suspected GI bleed 52 year old Chilean-speaking male with asthma without acute exacerbation, alcohol abuse, chronic macrocytic anemia, chronic constipation, history of DU, GERD, former smoker seen at [facility] earlier today for evaluation of shortness of breath, nonproductive cough and wheezing ongoing for 1 day.? Pt reported increasing albuterol usage with some improvement in symptoms.? Pt noted he has been experiencing lightheadedness and fatigue for the past several days and mild chest tightness and short-lived palpitations this morning.? History was obtained with the help of [place] orthodontic lab technician. Patient denies significant abdominal pain. He admits to heartburn and dysphagia to solid food. The patient also reports chronic constipation and noted blood in the stool. He stated that he did notice a small amount of bright red blood on the stool this morning and does endorse straining due to constipation but denies any other episodes of hematochezia or melena.? Pt had a non-bloody BM after arrival in the ER per nursing staff. Patient has asthma and admits to loud snoring and denies major cardiac problems. Denies being on chronic anticoagulation or taking NSAIDS. He takes Pepcid and Prilosec as needed if he has abdominal pain and does not take these medications regularly. Patient admits to smoking marijuana. He admits to drinking alcohol on weekends (a 6 pack/ 12 ounces of beer and 1 nip of Rum) and was drinking heavily in the past. Patient denies known family history of colon polyps, colon cancer or other GI malignancies. On arrival to the ED, pt was afebrile without hypoxia, had mild tachypnea of 24 and mildly tachycardic at 100.? ? Labs showed WBC 5.4, RBC 1.10, HGB 4.2, HCT 12.8, MCV 116.4 (baseline WBC 5.3, RBC 2.74, HGB 10.0, HCT 30.0, MCV 109.5).? Renal function and electrolyte levels normal.? LFTs were mildly elevated with AST 44, ALT 54, alkaline phosphatase 78.? BNP 121.? Ethyl alcohol 41.? Attempts were made to collect stool occult sample but was unable to be performed.? Currently denying any dyspnea, palpitations, chest pain.? Did have similar episode of vomiting in the ED without any hematemesis.? Patient is a heavy every day drinker consuming 6 12 oz beers and 1 neb daily but denies any history of cirrhosis her esophageal varices.? He denies any illicit drug use but does endorse occasional marijuana use.? Patient has received the 1st of 3 units packed red blood cells in the ED and is tolerating this well.? He has also received DuoNeb updraft, 2 g IV Mag, 40 mg pantoprazole, and started on phenobarb per protocol for alcohol withdrawal. PAST EGD/COLONOSCOPY: April EGD AND COLON SHOWED: Endoscopy Findings: LARYNX: Changes suggestive of LPRD ESOPHAGUS: Focal esophagitis at GE junction. STOMACH: Gastritis with pre-pyloric erosions DUODENUM: Ulcer at the apex/posterior wall of bulb with edematous duodenal folds with luminal narrowing Colonoscopy Findings: Five hyperplastic polyps removed Moderate diverticulosis seen in the sigmoid colon Moderate internal hemorrhoids on retroflexed exam. Plan: Repeat EGD in 3 months (Needs GA for future procedures) to confirm DU has healed and balloon dilation if duodenal stricture is detected. Start Omeprazole at 20 mg PO twice daily Patient to schedule a FU appointment in the GI Clinic with Steff Weaver M.D.-. Repeat Colonoscopy interval based on path results - in 3 years if polyps are adenomatous and 10 years if polyps are hyperplastic. AUG, 2019 REPEAT EGD SHOWED: DUODENUM: Edematous folds in duodenal bulb and ulcer seen in apex/posterior wall of duodenal bulb healed completely. Midsize upper endoscope passed into the descending duodenum without significant resistance. Normal descending duodenum Plan: Continue present medication. BIOPSIES SHOWED: Stomach, antrum, biopsy: Mild chronic, inactive gastritis; no Helicobacter pylori organisms seen. Review of Systems Review of Systems: General: No fevers, malaise, unintentional weight loss HEENT: No blurred vision or diplopia Cardiovascular: +cp, palps. No leg edema Respiratory: + shortness of breath, + wheezing, + cough GI: + vomiting, +constipation, +BRBPR. No abdominal pain, nausea, diarrhea, melena : No dysuria, hematuria, increased urinary frequency Neuro: No headaches, weakness, paresthesias Psych: ETOH dependence Skin: No rashes or lesions PMFSH Past Medical History Medical History (Updated 09/07/22 @ 13:15 by CADEN Pastrana) Acid reflux Alcohol abuse Asthma History of gastric ulcer Macrocytic anemia Family History Family History Father No problems noted. Mother Diabetes Surgical History Surgical History History of esophagogastroduodenoscopy (EGD) Hx of colonoscopy Social History Social History Household Members: Family Household Members Other:: with sister Housing: House Do you presently have visiting nurse or other home services: No Alcohol intake: current Alcohol intake frequency: a few times a week Alcohol type: beer and hard liquor Patient Tobacco Use Status: Current everyday Tobacco user Tobacco use type: Cigarette Substance Use Type: Marijuana Advance Directives: No service: No Current occupational status: unemployed Meds Allergies Allergy/AdvReac Type Severity Reaction Status Date / Time No Known Allergies Allergy Verified 07/20/21 11:25 [No Known Allergies*] Active Medications: Current Medications Acetaminophen (Acetaminophen 325 Mg Tablet) 650 mg PO Q6H PRN PRN Reason: Pain, Mild (Pain Scale 1-3) Albuterol/Ipratropium (Albuterol/Iprat 2.5/0.5mg 3 Ml Ampul.Neb) 3 ml INHALE RQ4H WHILE AWAKE [facility] Last Admin: 09/07/22 13:55 Dose: 3 ml Docusate Sodium (Docusate Sodium 100 Mg Capsule) 100 mg PO BID [facility] Last Admin: 09/07/22 15:15 Dose: 100 mg Enoxaparin Sodium (Enoxaparin Sodium 40 Mg/0.4 Ml Syringe) 40 mg SUBCUT Q24H [facility] Last Admin: 09/07/22 15:15 Dose: 40 mg Fluticasone Propionate (Fluticasone Propionate Nasal 16 Gm Copen) 2 spray NOSTRIL-B DAILY PRN PRN Reason: Allergy Symptoms Fluticasone/Vilanterol (Fluticasone/Vilanterol 100/25 Blst.W.Dev) 1 puff INHALE RDAILY [facility] Thiamine HCl 100 mg/ Sodium (Chloride) 101 mls @ 202 mls/hr IV DAILY [facility] Folic Acid 1 mg/ Sodium (Chloride) 50.2 mls @ 100.4 mls/hr IV DAILY [facility] Last Admin: 09/07/22 15:16 Dose: 100.4 mls/hr Nicotine Polacrilex (Nicotine Polacrilex 2 Mg Gum) 2 mg BUCCAL Q2H PRN PRN Reason: Nicotine Cravings Pantoprazole Sodium (Pantoprazole Sodium 40 Mg/10 Ml Vial) 40 mg IVPUSH BID@0630,1630 [facility] Pharmacy Consult (Consult Rx Perform Med Rec) 1 each MISCELLANE ONCE PRN PRN Reason: Consult order Pharmacy Consult (Consult Rx Etoh Phenob Im/Po) 1 each MISCELLANE ONCE PRN; Protocol PRN Reason: Consult order Phenobarbital (Phenobarbital 15 Mg Tablet) 45 mg PO BID [facility]; Protocol Stop: 09/09/22 09:01 Phenobarbital (Phenobarbital 15 Mg Tablet) 15 mg PO BID [facility]; Protocol Stop: 09/12/22 09:01 Phenobarbital (Phenobarbital 15 Mg Tablet) 15 mg PO DAILY [facility]; Protocol Stop: 09/14/22 09:01 Phenobarbital Sodium (Phenobarbital Sodium 130 Mg/Ml Vial Im Q3hx2) 158.6 mg IM Q3H [facility]; Protocol Stop: 09/07/22 19:01 Polyethylene Glycol (Polyethylene Glycol 3350 17 Gm Powd.Pack) 17 gm PO DAILY PRN PRN Reason: constipation Prednisone (Prednisone 20 Mg Tablet) 40 mg PO DAILY [facility] Stop: 09/12/22 09:01 Sodium Chloride (0.9 % Sodium Chloride Flush 3 Ml Syringe) 3 [facility] Tramadol HCl (Tramadol Hcl 50 Mg Tablet) 50 mg PO Q6H PRN PRN Reason: Pain, Moderate (Pain Scale 4-6 Home Medications Medication Instructions Recorded Confirmed Last Taken Type docusate sodium 100 mg capsule 1 cap PO BID PRN Constipation 05/13/22 09/07/22 Unknown History fluticasone propionate 50 2 spray intranasal DAILY PRN 05/13/22 09/07/22 Unknown History mcg/actuation nasal Allergy Symptoms spray,suspension nicotine (polacrilex) 4 mg gum 1 ea PO Q2H PRN Nicotine Cravings 05/13/22 09/07/22 Unknown History tramadol 50 mg tablet 1 tab PO Q6H PRN pain 05/13/22 09/07/22 Unknown History fluticasone 250 mcg-salmeterol 50 1 puff inhalation BID 09/07/22 09/07/22 Unknown History mcg/dose blistr powdr for inhalation (Advair Diskus) Physical Exam Vital Signs: Vital Signs: Last Vital Signs Temp 98.8 F 09/07/22 12:57 Pulse 91 09/07/22 14:33 Resp 18 09/07/22 14:33 BP 140/70 H 09/07/22 14:33 Pulse Ox 97 09/07/22 14:33 O2 Del Method 09/07/22 14:33 Oxygen Flow Rate 5 09/07/22 08:07 BMI result Body Mass Index 30.9 Const: General: no acute distress Nutritional Appearance: obese Orientation/consciousness: patient oriented x3 Limitations: language barrier HEENT: Head: Yes normal to inspection Ears: hearing grossly normal bilaterally Eyes: Sclerae: sclerae normal Pupils: Equal, round and reactive pupils present Neck: Neck: Yes normal visual inspection Chest: Chest palpation & inspection: normal inspection of the chest Resp: Effort & Inspection: normal respiratory effort Auscultation: clear to auscultation bilaterally Cardio: Palpation: normal PMI Rate: regular rate Rhythm: regular rhythm Heart sounds: S1 normal heart sound present, S2 normal heart sound present and no murmurs GI: Inspection: Yes obesity Palpation (GI): Soft to palpation, nontender and No hepatosplenomegaly present Auscultation: normal bowel sounds Rectal Exam - Male: Yes deferred Skin: General skin exam: no rashes or lesions noted Neuro: General: patient oriented x3, gait normal and moves all extremities Cranial nerves: Yes Equal, round and reactive pupils present Psych: Appearance: grossly normal Mental Status: mental status grossly normal Results Labs CBC & Chem 7: 09/07/22 08:51 09/07/22 08:52 Labs: Short CBC 09/07/22 Range/Units 08:51 WBC 5.4 (4.8-10.8) X10*3/uL Hgb 4.2 L* D (14.0-18.0) g/dl Hct 12.8 L* D (42.0-52.0) % Plt Count 51 L D (160-400) X10*3/uL BMP 09/07/22 08:52 Sodium 140 Potassium 3.4 Chloride 104 Carbon Dioxide 24 BUN 14 Creatinine 0.80 Calcium 8.6 D Liver Function 09/07/22 Range/Units 08:52 Total Bilirubin 0.4 (0.0-1.0) mg/dL Direct Bilirubin 0.2 (0.0-0.5) mg/dL AST 44 H D (5-37) U/L ALT 54 H (0-40) U/L Alkaline Phosphatase 78 (39-117) U/L Albumin 3.7 (3.5-5.0) g/dL Assessment and Plan (1) Symptomatic anemia: Status: Acute (2) Alcohol abuse: Status: Acute (3) Dysphagia: Status: Acute (4) Acid reflux: Status: Acute Plan 52 year old [place]an-speaking male with asthma without acute exacerbation, alcohol abuse, chronic macrocytic anemia, chronic constipation, history of DU, GERD, former smoker seen at [facility] ED earlier today for evaluation of shortness of breath, nonproductive cough and wheezing ongoing for 1 day.? Pt noted he has been experiencing lightheadedness and fatigue for the past several days and mild chest tightness and short-lived palpitations this morning.? He stated that he did notice a small amount of bright red blood on the stool this morning and does endorse straining due to constipation but denies any other episodes of hematochezia or melena.? Pt had a non-bloody BM after arrival in the ER per nursing staff. He takes Pepcid and Prilosec as needed if he has abdominal pain and does not take these medications regularly. He admits to drinking alcohol on weekends (a 6 pack/ 12 ounces of beer and 1 nip of Rum) and was drinking heavily in the past. Pt has a known hx of a large DU on EGD in 2019 which had healed on FU EGD. 04/2019 colonoscopy showed diverticulosis and hyperplastic polyps were removed Pt has mildly elevated LFTs likely a combination of fatty liver and ETOH use. RECOMMENDATIONS: 1. Agree with transfusing 3 U of PRBC and check FU H & H post transfusion. 2. IV PPI BID 3. Regular diet today and NPO after midnight for EGD tomorrow 4. [facility] protocol for ETOH withdrawl 5. Hep B and C serologies - added to am labs 6. Pt scheduled for an EGD on 09/08/22 at 9 am to rule out recurrent DU, PUD, esophageal varices, Gastritis or UGI AVM Procedures Date of Service Date of Service: 09/07/22
[2022-09-07 15:39] LABS: Folate 8.6 ng/mL (> or = 4.0); Vitamin B12 716 pg/mL (200-900)
[2022-09-07] MEDS: PHENobarbitaL sodium 130 MG/ML VIAL IM Q3Hx2 158.6 MG IM ×2 (16:47→20:13)
[2022-09-07] MEDS: 0.9 % Sodium Chloride Flush 3 ML SYRINGE IVFLUSH (16:48)
--- NOTE | 2022-09-07 18:04 | PC.NURSE ---
patient completed 3 units of RBC no reactions ocurred . patient reports feeling better . vss . patient aware of plan of care .
--- NOTE | 2022-09-07 23:29 | PC.NURSE ---
Attempted to call report at [phone]. No answer, receiving RN is aware that I am waiting to give report. Will try again
--- NOTE | 2022-09-07 23:54 | PC.NURSE ---
PT REMINDED THAT A URINE SAMPLE IS NEEDED. PT GIVEN FRESH WATER AND URINAL PLACED WITHIN REACH. CALL CRESPO PLACED WITHIN REACH
[2022-09-08] VITALS (21 sets, daily range): BP systolic 105–146; BP diastolic 57–91; PULSE 58–98; RESP 14–23; TEMP 36.3–37.6; O2SAT 93–97; BMI 31.0
[2022-09-08] MEDS: 0.9 % Sodium Chloride Flush 3 ML SYRINGE IVFLUSH ×3 (00:14→20:26)
[2022-09-08 01:15] LABS: Amphetamine Screen Urine Not Detected (Not Detect); Barbiturates, Urine POSITIVE (Not Detect); Benzodiazepines Screen Urine Not Detected (Not Detect); Cannabinoid Screen Urine POSITIVE (Not Detect); Cocaine Screen Urine Not Detected (Not Detect); Fentanyl, urine Not Detected (Not Detect); Opiate Screen Urine Not Detected (Not Detect); Phencyclidine Screen Urine Not Detected (Not Detect)
[2022-09-08] MEDS: Albuterol/Iprat 2.5/0.5MG 3 ML AMPUL.NEB INHALE ×5 (02:31→20:34)
[2022-09-08] MEDS: Pantoprazole Sodium 40 MG/10 ML VIAL IVPUSH ×2 (06:37→20:26)
[2022-09-08 06:45] LABS: MANUAL DIFF FLAG NO
[2022-09-08 07:25] LABS: Basophils Absolute Auto 0.2 X10*3/uL (0.0-0.2); Basophils Percent Auto 2.4 % (0-2); Eosinophils Absolute Auto 0.3 X10*3/uL (0.0-0.4); Eosinophils Percent Auto 3.3 % (0-4); Imm Gran Pct Auto 1.3 % (0.0-0.4); Lymphocytes Absolute Auto 2.3 X10*3/uL (1.2-4.9); Lymphocytes Percent Auto 29.3 % (20-40); Mean Corpuscular HGB Conc 35.4 g/dl (31.0-36.0); Mean Corpuscular Hemoglobin 35.7 pg (27.0-33.0); Monocytes Absolute Auto 0.4 X10*3/uL (0.1-1.2); Monocytes Percent Auto 5.5 % (2-11); Neutrophils Absolute Auto 4.6 x10*3/uL (2.0-8.3); Neutrophils Percent Auto 58.2 % (45-73); Red Blood Count 1.96 X10*6/uL (4.60-5.80); Red Cell Distribution Width 21.2 % (11.0-16.0)
[2022-09-08 07:31] LABS: Alanine Aminotransferase 43 U/L (0-40); Albumin Level 3.4 g/dL (3.5-5.0); Alkaline Phosphatase 68 U/L (39-117); Anion Gap 12 (12-20); Aspartate Amino Transferase 23 U/L (5-37); Bilirubin Total 1.9 mg/dL (0.0-1.0); Blood Urea Nitrogen 19 mg/dL (9-16); Calcium 7.9 mg/dL (8.4-10.2); Carbon Dioxide 23 mmol/L (22-29); Chloride 106 mmol/L (96-108); Creatinine Clr Calc Pharmacy 107.4; Estimated Glomerular Filt Rate > 60; Glucose Random 116 mg/dL (60-115); Potassium 4.2 mmol/L (3.3-5.1); Sodium 137 mmol/L (135-145); Total Protein 5.5 g/dL (6.5-8.0)
[2022-09-08 07:52] LABS: HBS Num1 35.85 mIU/mL (0-7.99); HBc Num1 0.26 S/CO (0.00-0.79); HBsAGNum1 0.21 S/CO (0.00-0.99); Hepatitis B Core Antibody Nonreactive (Nonreactive); Hepatitis B Surface Antigen Negative (Negative); ~HepC Num1 0.12 S/CO (0.00-0.79); ~Hepatitis B Surface Antibody REACTIVE (Nonreactive); ~Hepatitis C Antibody Nonreactive (Nonreactive)
[2022-09-08] MEDS: Fluticasone/Vilanterol 100/25 BLST.W.DEV 1 PUFF INHALE (08:01)
--- NOTE | 2022-09-08 08:30 | MHC.SHP ---
Pre-Procedural Eval Section A Date of Service: 09/08/22 The patient is an INPATIENT: Yes Changes since office visit: Yes New Medical Problems, Yes Changes in Medication and Yes Patient answered all questions The History & Physical has been completed within 30 days and I have reviewed it.: Yes Section B Chief Complaint: symptomatic anemia etoh withdrawal Allergies: Allergies Allergy/AdvReac Type Severity Reaction Status Date / Time No Known Allergies Allergy Verified 07/20/21 11:25 [No Known Allergies*] Plan I have reviewed the history and physical and performed a pertinent physical examination on my patient. No changes have occurred unless specified.
--- NOTE | 2022-09-08 08:32 | HO.PM.IMPN ---
Subjective Subjective Date of Service: 09/08/22 Interval History: Seen and examined in follow up for acute blood loss anemia, etoh withdrawal Interval history: Felling well without complaints, tired. Denies withdrawal sx. No abd pain, nausea, vomiting, rectal bleeding. Requests to eat. Review of Systems General: No fevers, malaise, unintentional weight loss Cardiovascular: No chest pain, palpitations, or leg edema Respiratory: No shortness of breath, wheezing, cough GI: No abdominal pain, nausea, vomiting, diarrhea, constipation, melena, hematochezia Neuro: No headaches, weakness, paresthesias Skin: No rashes or lesions Physical Exam Vital Signs: Vital Signs: Last Vital Signs Temp 97.8 F 09/08/22 07:47 Pulse 68 09/08/22 08:02 Resp 18 09/08/22 08:02 BP 105/57 L 09/08/22 07:47 Pulse Ox 95 09/08/22 07:47 O2 Del Method 09/08/22 07:47 O2 Flow Rate 2 09/08/22 04:00 Oxygen Flow Rate 5 09/07/22 08:07 BMI result Body Mass Index 31.0 Constitutional - Awake and drowsy,, No apparent distress Eyes - PERRLA, EOMI Cardiovascular - S1S2, RRR, No edema Respiratory - Normal lung expansion, Normal respiratory effort, No respiratory distress, CTA bilaterally Gastrointestinal - NT / ND; +BS; No rebound or guarding Extremities - no calf tenderness bilaterally, no swelling Skin - Warm/Dry Neurological - Alert & oriented x3, No focal deficit Objective Data Active Medications Acetaminophen (Acetaminophen 325 Mg Tablet) 650 mg PO Q6H PRN PRN Reason: Pain, Mild (Pain Scale 1-3) Albuterol/Ipratropium (Albuterol/Iprat 2.5/0.5mg 3 Ml Ampul.Neb) 3 ml INHALE RQ4H WHILE AWAKE LONNIE Last Admin: 09/08/22 08:01 Dose: 3 ml Documented By: RANDA Albuterol/Ipratropium (Albuterol/Iprat 2.5/0.5mg 3 Ml Ampul.Neb) 3 ml INHALE RQ4H PRN PRN Reason: Shortness of Breath/Wheezing Last Admin: 09/08/22 02:31 Dose: 3 ml Documented By: SALMA Docusate Sodium (Docusate Sodium 100 Mg Capsule) 100 mg PO BID [facility] Last Admin: 09/07/22 21:02 Dose: 100 mg Documented By: TANK Enoxaparin Sodium (Enoxaparin Sodium 40 Mg/0.4 Ml Syringe) 40 mg SUBCUT Q24H [facility] Last Admin: 09/07/22 15:15 Dose: 40 mg Documented By: HARLEY Fluticasone Propionate (Fluticasone Propionate Nasal 16 Gm [place]) 2 spray NOSTRIL-B DAILY PRN PRN Reason: Allergy Symptoms Fluticasone/Vilanterol (Fluticasone/Vilanterol 100/25 Blst.W.Dev) 1 puff INHALE RDAILY [facility] Last Admin: 09/08/22 08:01 Dose: 1 puff Documented By: RANDA Thiamine HCl 100 mg/ Sodium (Chloride) 101 mls @ 202 mls/hr IV DAILY [facility] Folic Acid 1 mg/ Sodium (Chloride) 50.2 mls @ 100.4 mls/hr IV DAILY [facility] Last Infusion: 09/07/22 16:39 Dose: 0 mls/hr Documented By: HARLEY Nicotine Polacrilex (Nicotine Polacrilex 2 Mg Gum) 2 mg BUCCAL Q2H PRN PRN Reason: Nicotine Cravings Pantoprazole Sodium (Pantoprazole Sodium 40 Mg/10 Ml Vial) 40 mg IVPUSH BID@0630,1630 [facility] Last Admin: 09/08/22 06:37 Dose: 40 mg Documented By: [facility] Pharmacy Consult (Consult Rx Perform Med Rec) 1 each MISCELLANE ONCE PRN PRN Reason: Consult order Pharmacy Consult (Consult Rx Etoh Phenob Im/Po) 1 each MISCELLANE ONCE PRN; Protocol PRN Reason: Consult order Phenobarbital (Phenobarbital 15 Mg Tablet) 45 mg PO BID [facility]; Protocol Stop: 09/09/22 21:01 Phenobarbital (Phenobarbital 15 Mg Tablet) 15 mg PO BID [facility]; Protocol Stop: 09/11/22 21:01 Phenobarbital (Phenobarbital 15 Mg Tablet) 15 mg PO DAILY [facility]; Protocol Stop: 09/13/22 09:01 Polyethylene Glycol (Polyethylene Glycol 3350 17 Gm Powd.Pack) 17 gm PO DAILY PRN PRN Reason: constipation Prednisone (Prednisone 20 Mg Tablet) 40 mg PO DAILY [facility] Stop: 09/12/22 09:01 Sodium Chloride (0.9 % Sodium Chloride Flush 3 Ml Syringe) 3 ml IVFLUSH QSHIFT [facility] Last Admin: 09/08/22 00:14 Dose: 3 ml Documented By: TANK Tramadol HCl (Tramadol Hcl 50 Mg Tablet) 50 mg PO Q6H PRN PRN Reason: Pain, Moderate (Pain Scale 4-6 Labs CBC & Chem 7: 09/08/22 06:18 09/08/22 06:18 Labs: Laboratory Results - last 24 hr 09/07/22 09/07/22 09/07/22 08:51 08:52 08:52 MCV 116.4 H MCH 38.2 H MCHC 32.8 RDW 19.4 H Plt Count 51 L D MPV Not Reportable Immature Gran % (Auto) 1.5 H Neut % (Auto) 47.0 Lymph % (Auto) 37.6 [place]ran % (Auto) 7.6 Eos % (Auto) 4.3 H Baso % (Auto) 2.0 Lymph # (Auto) 2.0 [place]chran # (Auto) 0.4 Eos # (Auto) 0.2 Baso # (Auto) 0.1 Abs Immat Gran (auto) 0.08 H Absolute Neuts (auto) 2.5 Absolute Nucleated RBC 0.000 Nucleated RBC % (auto) 0.0 Smear Tech's Comments VERIFIED Smear Path Review SEE NOTE Absolute Retic Percent Retic Immature Retic Fraction Retic Hgb Equivalent PT INR APTT VBG pH VBG pCO2 VBG pO2 VBG HCO3 VBG O2 Saturation VBG Base Excess Anion Gap 15 Estim Creat Clear Calc 113.9 Estimated GFR > 60 Random Glucose 139 H Calcium 8.6 D Magnesium 2.7 H Iron TIBC % Saturation Unsat Iron Binding Ferritin Total Bilirubin 0.4 Direct Bilirubin 0.2 AST 44 H D ALT 54 H Alkaline Phosphatase 78 Troponin I High Sens 6.3 D B-Natriuretic Peptide 121 H Total Protein 5.9 L Albumin 3.7 Vitamin B12 Folate Stool Occult Blood Urine Opiates Screen Urine Fentanyl Screen Ur Barbiturates Screen Ur Phencyclidine Scrn Ur Amphetamines Screen U Benzodiazepines Scrn Urine Cocaine Screen U Marijuana (THC) Screen Ethyl Alcohol 41 COVID-19 ([facility]) COVID-19 Clin Com Hep Bs Antigen Hep Bs Antibody Hep B Core Total Ab Hepatitis C Ab (EIA) Blood Type Antibody Screen Crossmatch 09/07/22 09/07/22 09/07/22 08:52 08:52 09:02 MCV MCH MCHC RDW Plt Count MPV Immature Gran % (Auto) Neut % (Auto) Lymph % (Auto) [place]chran % (Auto) Eos % (Auto) Baso % (Auto) Lymph # (Auto) [place]chran # (Auto) Eos # (Auto) Baso # (Auto) Abs Immat Gran (auto) Absolute Neuts (auto) Absolute Nucleated RBC Nucleated RBC % (auto) Smear Tech's Comments Smear Path Review Absolute Retic Percent Retic Immature Retic Fraction Retic Hgb Equivalent PT 13.0 INR 1.1 APTT 29.9 VBG pH 7.51 H VBG pCO2 29 VBG pO2 155 VBG HCO3 23 VBG O2 Saturation TNP VBG Base Excess 1.1 Anion Gap Estim Creat Clear Calc Estimated GFR Random Glucose Calcium Magnesium Iron TIBC % Saturation Unsat Iron Binding Ferritin Total Bilirubin Direct Bilirubin AST ALT Alkaline Phosphatase Troponin I High Sens B-Natriuretic Peptide Total Protein Albumin Vitamin B12 Folate Stool Occult Blood Urine Opiates Screen Urine Fentanyl Screen Ur Barbiturates Screen Ur Phencyclidine Scrn Ur Amphetamines Screen U Benzodiazepines Scrn Urine Cocaine Screen U Marijuana (THC) Screen Ethyl Alcohol COVID-19 ([facility]) Negative COVID-19 Clin Com See Note Hep Bs Antigen Hep Bs Antibody Hep B Core Total Ab Hepatitis C Ab (EIA) Blood Type Antibody Screen Crossmatch 09/07/22 09/07/22 09/07/22 09:21 10:33 14:43 MCV MCH MCHC RDW Plt Count MPV Immature Gran % (Auto) Neut % (Auto) Lymph % (Auto) [place]ran % (Auto) Eos % (Auto) Baso % (Auto) Lymph # (Auto) [place]ran # (Auto) Eos # (Auto) Baso # (Auto) Abs Immat Gran (auto) Absolute Neuts (auto) Absolute Nucleated RBC Nucleated RBC % (auto) Smear Tech's Comments Smear Path Review Absolute Retic Percent Retic Immature Retic Fraction Retic Hgb Equivalent PT INR APTT VBG pH VBG pCO2 VBG pO2 VBG HCO3 VBG O2 Saturation VBG Base Excess Anion Gap Estim Creat Clear Calc Estimated GFR Random Glucose Calcium Magnesium Iron 277 H TIBC < 294 % Saturation TNP Unsat Iron Binding < 17 Ferritin 506 H Total Bilirubin Direct Bilirubin AST ALT Alkaline Phosphatase Troponin I High Sens B-Natriuretic Peptide Total Protein Albumin Vitamin B12 Folate Stool Occult Blood TNP Urine Opiates Screen Urine Fentanyl Screen Ur Barbiturates Screen Ur Phencyclidine Scrn Ur Amphetamines Screen U Benzodiazepines Scrn Urine Cocaine Screen U Marijuana (THC) Screen Ethyl Alcohol COVID-19 ([facility]) COVID-19 Clin Com Hep Bs Antigen Hep Bs Antibody Hep B Core Total Ab Hepatitis C Ab (EIA) Blood Type A Positive Antibody Screen NEGATIVE Crossmatch See Detail 09/07/22 09/07/22 09/08/22 14:43 14:43 00:48 MCV MCH MCHC RDW Plt Count MPV Immature Gran % (Auto) Neut % (Auto) Lymph % (Auto) [place] % (Auto) Eos % (Auto) Baso % (Auto) Lymph # (Auto) [place] # (Auto) Eos # (Auto) Baso # (Auto) Abs Immat Gran (auto) Absolute Neuts (auto) Absolute Nucleated RBC Nucleated RBC % (auto) Smear Tech's Comments Smear Path Review Absolute Retic 0.021 L Percent Retic 1.2 Immature Retic Fraction 14.7 H Retic Hgb Equivalent 38.8 H PT INR APTT VBG pH VBG pCO2 VBG pO2 VBG HCO3 VBG O2 Saturation VBG Base Excess Anion Gap Estim Creat Clear Calc Estimated GFR Random Glucose Calcium Magnesium Iron TIBC % Saturation Unsat Iron Binding Ferritin Total Bilirubin Direct Bilirubin AST ALT Alkaline Phosphatase Troponin I High Sens B-Natriuretic Peptide Total Protein Albumin Vitamin B12 716 Folate 8.6 Stool Occult Blood Urine Opiates Screen Not Detected Urine Fentanyl Screen Not Detected Ur Barbiturates Screen POSITIVE H Ur Phencyclidine Scrn Not Detected Ur Amphetamines Screen Not Detected U Benzodiazepines Scrn Not Detected Urine Cocaine Screen Not Detected U Marijuana (THC) Screen POSITIVE H Ethyl Alcohol COVID-19 ([facility]) COVID-19 Clin Com Hep Bs Antigen Hep Bs Antibody Hep B Core Total Ab Hepatitis C Ab (EIA) Blood Type Antibody Screen Crossmatch 09/08/22 09/08/22 09/08/22 06:18 06:18 06:18 MCV MCH MCHC RDW Plt Count MPV Immature Gran % (Auto) Neut % (Auto) Lymph % (Auto) [place] % (Auto) Eos % (Auto) Baso % (Auto) Lymph # (Auto) [place] # (Auto) Eos # (Auto) Baso # (Auto) Abs Immat Gran (auto) Absolute Neuts (auto) Absolute Nucleated RBC Nucleated RBC % (auto) Smear Tech's Comments Smear Path Review Absolute Retic Percent Retic Immature Retic Fraction Retic Hgb Equivalent PT INR APTT VBG pH VBG pCO2 VBG pO2 VBG HCO3 VBG O2 Saturation VBG Base Excess Anion Gap 12 Estim Creat Clear Calc 107.4 Estimated GFR > 60 Random Glucose 116 H Calcium 7.9 L D Magnesium 2.0 Iron TIBC % Saturation Unsat Iron Binding Ferritin Total Bilirubin 1.9 H Direct Bilirubin AST 23 D ALT 43 H Alkaline Phosphatase 68 Troponin I High Sens B-Natriuretic Peptide Total Protein 5.5 L Albumin 3.4 L Vitamin B12 Folate Stool Occult Blood Urine Opiates Screen Urine Fentanyl Screen Ur Barbiturates Screen Ur Phencyclidine Scrn Ur Amphetamines Screen U Benzodiazepines Scrn Urine Cocaine Screen U Marijuana (THC) Screen Ethyl Alcohol COVID-19 ([facility]) COVID-19 Clin Com Hep Bs Antigen Negative Hep Bs Antibody REACTIVE Hep B Core Total Ab Nonreactive Hepatitis C Ab (EIA) Nonreactive Blood Type Antibody Screen Crossmatch Assessment and Plan (1) Symptomatic anemia: Status: Acute (2) Alcohol abuse: Status: Acute (3) Asthma: Status: Acute Plan 52-year-old male with history of moderate persistent asthma without acute exacerbation, alcohol abuse, chronic macrocytic anemia, chronic constipation, history of gastric ulcer, GERD, former smoker to be admitted for symptomatic anemia and acute asthma exacerbation. # symptomatic acute blood loss anemia with baseline chronic anemia-likely multifactorial including alcohol abuse and question of GI bleed (hx gastric ulcer) -H/H improved to 7.0/19.8 following 3 units prbc yesterday. -GI performed endosocopy today without clear source of bleeding. Recommending addl 2 units packed RBC. Reviewed indication, risks, benefits with pt and questions answered. Consent signed -Colonoscopy tomorrow per GI. Clear liquid diet per GI. -IV PPI -Folate, vitamin b12, normal. Iron high 277, ferritin 506 -RUQ u/s normal -Hgb electrophoresis added on -Repeat stool occult blood pending -GI consult ordered -Follow CBC CMP am #Acute moderate persistent asthma exacerbation- improving -Continue 40 mg prednisone a.m. -DuoNebs q.4h while awake -continue home Advair # alcohol dependence -consumes 6 X 12 oz beers and 1 nip from daily.? Last drink yesterday -Denies withdrawal symptoms -Continue CIWA -continue phenobarb protocol -addiction medicine consult # transaminitis-likely secondary to alcohol abuse -LFTs trending down- AST 44/ALT54 -abd us without abnormality -follow CMP #Chronic constipation -Docusate and miralax #GERD -IV PPI DVT prophylaxis-Lovenox Full code Patient requires ongoing inpt stay for ongoing management of acute blood loss anemia requiring addl transfusion of 2 units packed rbc with ongoing investigation of source of GI bleeding. Quality Stroke Does the patient have a stroke diagnosis?: No VTE Prior VTE?: No VTE Risk Level:: Medical - moderate - high VTE Device Contraindication: Treatment Not Indicated VTE Drug Contraindication: N/A - Med Ordered
--- NOTE | 2022-09-08 08:33 | HO.ANESPROP2 ---
[facility] Active Problems Active Problems: All Active Problems (Updated 09/07/22 @ 13:15 by CADEN Pastrana) Symptomatic anemia (Acute) Alcohol abuse (Acute) Alcohol abuse (Acute) Dysphagia (Acute) Asthma (Acute) Anemia (Acute) Acid reflux (Acute) Past Medical History Medical History Acid reflux Alcohol abuse Asthma History of gastric ulcer Macrocytic anemia Family History Family History Father No problems noted. Mother Diabetes Family history of problems with anesthesia: No Surgical History Surgical History History of esophagogastroduodenoscopy (EGD) Hx of colonoscopy History of Problems with Anesthesia: No Social History Social History Household Members: Family Household Members Other:: sister Housing: House Do you presently have visiting nurse or other home services: No Alcohol intake: current Alcohol intake frequency: a few times a week Alcohol type: beer and hard liquor Patient Tobacco Use Status: Current someday Tobacco user Tobacco use type: Cigarette Cigarettes Per Day: 4 e-Cigarette/Vaping Use: Never Used Substance Use Type: Marijuana service: No Current occupational status: unemployed Meds Allergies Allergy/AdvReac Type Severity Reaction Status Date / Time No Known Allergies Allergy Verified 07/20/21 11:25 [No Known Allergies*] Active Medications: Current Medications Acetaminophen (Acetaminophen 325 Mg Tablet) 650 mg PO Q6H PRN PRN Reason: Pain, Mild (Pain Scale 1-3) Albuterol/Ipratropium (Albuterol/Iprat 2.5/0.5mg 3 Ml Ampul.Neb) 3 ml INHALE RQ4H WHILE AWAKE [facility] Last Admin: 09/08/22 08:01 Dose: 3 ml Albuterol/Ipratropium (Albuterol/Iprat 2.5/0.5mg 3 Ml Ampul.Neb) 3 ml INHALE RQ4H PRN PRN Reason: Shortness of Breath/Wheezing Last Admin: 09/08/22 02:31 Dose: 3 ml Docusate Sodium (Docusate Sodium 100 Mg Capsule) 100 mg PO BID LONNIE Last Admin: 10/20/22 21:02 Dose: 100 mg Enoxaparin Sodium (Enoxaparin Sodium 40 Mg/0.4 Ml Syringe) 40 mg SUBCUT Q24H [facility] Last Admin: 09/07/22 15:15 Dose: 40 mg Fluticasone Propionate (Fluticasone Propionate Nasal 16 Gm [place]) 2 spray NOSTRIL-B DAILY PRN PRN Reason: Allergy Symptoms Fluticasone/Vilanterol (Fluticasone/Vilanterol 100/25 Blst.W.Dev) 1 puff INHALE RDAILY [facility] Last Admin: 09/08/22 08:01 Dose: 1 puff Thiamine HCl 100 mg/ Sodium (Chloride) 101 mls @ 202 mls/hr IV DAILY [facility] Folic Acid 1 mg/ Sodium (Chloride) 50.2 mls @ 100.4 mls/hr IV DAILY [facility] Last Infusion: 09/07/22 16:39 Dose: Infused Nicotine Polacrilex (Nicotine Polacrilex 2 Mg Gum) 2 mg BUCCAL Q2H PRN PRN Reason: Nicotine Cravings Pantoprazole Sodium (Pantoprazole Sodium 40 Mg/10 Ml Vial) 40 mg IVPUSH BID@0630,1630 [facility] Last Admin: 09/08/22 06:37 Dose: 40 mg Pharmacy Consult (Consult Rx Perform Med Rec) 1 each MISCELLANE ONCE PRN PRN Reason: Consult order Pharmacy Consult (Consult Rx Etoh Phenob Im/Po) 1 each MISCELLANE ONCE PRN; Protocol PRN Reason: Consult order Phenobarbital (Phenobarbital 15 Mg Tablet) 45 mg PO BID [facility]; Protocol Stop: 09/09/22 21:01 Phenobarbital (Phenobarbital 15 Mg Tablet) 15 mg PO BID [facility]; Protocol Stop: 09/11/22 21:01 Phenobarbital (Phenobarbital 15 Mg Tablet) 15 mg PO DAILY [facility]; Protocol Stop: 09/13/22 09:01 Polyethylene Glycol (Polyethylene Glycol 3350 17 Gm Powd.Pack) 17 gm PO DAILY PRN PRN Reason: constipation Prednisone (Prednisone 20 Mg Tablet) 40 mg PO DAILY [facility] Stop: 09/12/22 09:01 Sodium Chloride (0.9 % Sodium Chloride Flush 3 Ml Syringe) 3 ml IVFLUSH QSHIFT [facility] Last Admin: 09/08/22 00:14 Dose: 3 ml Tramadol HCl (Tramadol Hcl 50 Mg Tablet) 50 mg PO Q6H PRN PRN Reason: Pain, Moderate (Pain Scale 4-6 Home Medications Medication Instructions Recorded Confirmed Last Taken Type docusate sodium 100 mg capsule 1 cap PO BID PRN Constipation 05/13/22 09/07/22 Unknown History fluticasone propionate 50 2 spray intranasal DAILY PRN 05/13/22 09/07/22 Unknown History mcg/actuation nasal Allergy Symptoms spray,suspension nicotine (polacrilex) 4 mg gum 1 ea PO Q2H PRN Nicotine Cravings 05/13/22 09/07/22 Unknown History tramadol 50 mg tablet 1 tab PO Q6H PRN pain 05/13/22 09/07/22 Unknown History fluticasone 250 mcg-salmeterol 50 1 puff inhalation BID 09/07/22 09/07/22 Unknown History mcg/dose blistr powdr for inhalation (Advair Diskus) Exam Exam Date and Time: September 08, 2022 0833 Height,Weight and Vital Signs: Height 5 ft 7 in Weight 89.9 kg Last Vital Signs Temp 97.8 F 09/08/22 07:47 Pulse 68 09/08/22 08:02 Resp 18 09/08/22 08:02 BP 105/57 L 09/08/22 07:47 Pulse Ox 95 09/08/22 07:47 O2 Del Method 09/08/22 07:47 O2 Flow Rate 2 09/08/22 04:00 Oxygen Flow Rate 5 09/07/22 08:07 Pertinent Lab Results Pertinent Lab Results: Laboratory Tests 09/07/22 09/07/22 09/07/22 08:51 08:52 08:52 WBC 5.4 RBC 1.10 L D Hgb 4.2 L* D Hct 12.8 L* D MCV 116.4 H MCH 38.2 H MCHC 32.8 RDW 19.4 H Plt Count 51 L D MPV Not Reportable Immature Gran % (Auto) 1.5 H Neut % (Auto) 47.0 Lymph % (Auto) 37.6 Logan % (Auto) 7.6 Eos % (Auto) 4.3 H Baso % (Auto) 2.0 Lymph # (Auto) 2.0 Logan # (Auto) 0.4 Eos # (Auto) 0.2 Baso # (Auto) 0.1 Abs Immat Gran (auto) 0.08 H Absolute Neuts (auto) 2.5 Absolute Nucleated RBC 0.000 Nucleated RBC % (auto) 0.0 Smear Tech's Comments VERIFIED Smear Path Review SEE NOTE Absolute Retic Percent Retic Immature Retic Fraction Retic Hgb Equivalent PT INR APTT VBG pH VBG pCO2 VBG pO2 VBG HCO3 VBG O2 Saturation VBG Base Excess Sodium 140 Potassium 3.4 Chloride 104 Carbon Dioxide 24 Anion Gap 15 BUN 14 Creatinine 0.80 Estim Creat Clear Calc 113.9 Estimated GFR > 60 Random Glucose 139 H Calcium 8.6 D Magnesium 2.7 H Iron TIBC % Saturation Unsat Iron Binding Ferritin Total Bilirubin 0.4 Direct Bilirubin 0.2 AST 44 H D ALT 54 H Alkaline Phosphatase 78 Troponin I High Sens 6.3 D B-Natriuretic Peptide 121 H Total Protein 5.9 L Albumin 3.7 Vitamin B12 Folate Stool Occult Blood Urine Opiates Screen Urine Fentanyl Screen Ur Barbiturates Screen Ur Phencyclidine Scrn Ur Amphetamines Screen U Benzodiazepines Scrn Urine Cocaine Screen U Marijuana (THC) Screen Ethyl Alcohol 41 COVID-19 (JOE[facility]) COVID-19 Clin Com Hep Bs Antigen Hep Bs Antibody Hep B Core Total Ab Hepatitis C Ab (EIA) Blood Type Antibody Screen Crossmatch 09/07/22 09/07/22 09/07/22 08:52 08:52 09:02 WBC RBC Hgb Hct MCV MCH MCHC RDW Plt Count MPV Immature Gran % (Auto) Neut % (Auto) Lymph % (Auto) Logan % (Auto) Eos % (Auto) Baso % (Auto) Lymph # (Auto) Logan # (Auto) Eos # (Auto) Baso # (Auto) Abs Immat Gran (auto) Absolute Neuts (auto) Absolute Nucleated RBC Nucleated RBC % (auto) Smear Tech's Comments Smear Path Review Absolute Retic Percent Retic Immature Retic Fraction Retic Hgb Equivalent PT 13.0 INR 1.1 APTT 29.9 VBG pH 7.51 H VBG pCO2 29 VBG pO2 155 VBG HCO3 23 VBG O2 Saturation TNP VBG Base Excess 1.1 Sodium Potassium Chloride Carbon Dioxide Anion Gap BUN Creatinine Estim Creat Clear Calc Estimated GFR Random Glucose Calcium Magnesium Iron TIBC % Saturation Unsat Iron Binding Ferritin Total Bilirubin Direct Bilirubin AST ALT Alkaline Phosphatase Troponin I High Sens B-Natriuretic Peptide Total Protein Albumin Vitamin B12 Folate Stool Occult Blood Urine Opiates Screen Urine Fentanyl Screen Ur Barbiturates Screen Ur Phencyclidine Scrn Ur Amphetamines Screen U Benzodiazepines Scrn Urine Cocaine Screen U Marijuana (THC) Screen Ethyl Alcohol COVID-19 (JOEY) Negative COVID-19 Clin Com See Note Hep Bs Antigen Hep Bs Antibody Hep B Core Total Ab Hepatitis C Ab (EIA) Blood Type Antibody Screen Crossmatch 09/07/22 09/07/22 09/07/22 09:21 10:33 14:43 WBC RBC Hgb Hct MCV MCH MCHC RDW Plt Count MPV Immature Gran % (Auto) Neut % (Auto) Lymph % (Auto) Logan % (Auto) Eos % (Auto) Baso % (Auto) Lymph # (Auto) Logan # (Auto) Eos # (Auto) Baso # (Auto) Abs Immat Gran (auto) Absolute Neuts (auto) Absolute Nucleated RBC Nucleated RBC % (auto) Smear Tech's Comments Smear Path Review Absolute Retic Percent Retic Immature Retic Fraction Retic Hgb Equivalent PT INR APTT VBG pH VBG pCO2 VBG pO2 VBG HCO3 VBG O2 Saturation VBG Base Excess Sodium Potassium Chloride Carbon Dioxide Anion Gap BUN Creatinine Estim Creat Clear Calc Estimated GFR Random Glucose Calcium Magnesium Iron 277 H TIBC < 294 % Saturation TNP Unsat Iron Binding < 17 Ferritin 506 H Total Bilirubin Direct Bilirubin AST ALT Alkaline Phosphatase Troponin I High Sens B-Natriuretic Peptide Total Protein Albumin Vitamin B12 Folate Stool Occult Blood TNP Urine Opiates Screen Urine Fentanyl Screen Ur Barbiturates Screen Ur Phencyclidine Scrn Ur Amphetamines Screen U Benzodiazepines Scrn Urine Cocaine Screen U Marijuana (THC) Screen Ethyl Alcohol COVID-19 (JOEY) COVID-19 Clin Com Hep Bs Antigen Hep Bs Antibody Hep B Core Total Ab Hepatitis C Ab (EIA) Blood Type A Positive Antibody Screen NEGATIVE Crossmatch See Detail 09/07/22 09/07/22 09/08/22 14:43 14:43 00:48 WBC RBC Hgb Hct MCV MCH MCHC RDW Plt Count MPV Immature Gran % (Auto) Neut % (Auto) Lymph % (Auto) Logan % (Auto) Eos % (Auto) Baso % (Auto) Lymph # (Auto) Logan # (Auto) Eos # (Auto) Baso # (Auto) Abs Immat Gran (auto) Absolute Neuts (auto) Absolute Nucleated RBC Nucleated RBC % (auto) Smear Tech's Comments Smear Path Review Absolute Retic 0.021 L Percent Retic 1.2 Immature Retic Fraction 14.7 H Retic Hgb Equivalent 38.8 H PT INR APTT VBG pH VBG pCO2 VBG pO2 VBG HCO3 VBG O2 Saturation VBG Base Excess Sodium Potassium Chloride Carbon Dioxide Anion Gap BUN Creatinine Estim Creat Clear Calc Estimated GFR Random Glucose Calcium Magnesium Iron TIBC % Saturation Unsat Iron Binding Ferritin Total Bilirubin Direct Bilirubin AST ALT Alkaline Phosphatase Troponin I High Sens B-Natriuretic Peptide Total Protein Albumin Vitamin B12 716 Folate 8.6 Stool Occult Blood Urine Opiates Screen Not Detected Urine Fentanyl Screen Not Detected Ur Barbiturates Screen POSITIVE H Ur Phencyclidine Scrn Not Detected Ur Amphetamines Screen Not Detected U Benzodiazepines Scrn Not Detected Urine Cocaine Screen Not Detected U Marijuana (THC) Screen POSITIVE H Ethyl Alcohol COVID-19 (JOEY) COVID-19 Clin Com Hep Bs Antigen Hep Bs Antibody Hep B Core Total Ab Hepatitis C Ab (EIA) Blood Type Antibody Screen Crossmatch 09/08/22 09/08/22 09/08/22 06:18 06:18 06:18 WBC RBC Hgb Hct MCV MCH MCHC RDW Plt Count MPV Immature Gran % (Auto) Neut % (Auto) Lymph % (Auto) Logan % (Auto) Eos % (Auto) Baso % (Auto) Lymph # (Auto) Logan # (Auto) Eos # (Auto) Baso # (Auto) Abs Immat Gran (auto) Absolute Neuts (auto) Absolute Nucleated RBC Nucleated RBC % (auto) Smear Tech's Comments Smear Path Review Absolute Retic Percent Retic Immature Retic Fraction Retic Hgb Equivalent PT INR APTT VBG pH VBG pCO2 VBG pO2 VBG HCO3 VBG O2 Saturation VBG Base Excess Sodium 137 Potassium 4.2 D Chloride 106 Carbon Dioxide 23 Anion Gap 12 BUN 19 H Creatinine 0.85 Estim Creat Clear Calc 107.4 Estimated GFR > 60 Random Glucose 116 H Calcium 7.9 L D Magnesium 2.0 Iron TIBC % Saturation Unsat Iron Binding Ferritin Total Bilirubin 1.9 H Direct Bilirubin AST 23 D ALT 43 H Alkaline Phosphatase 68 Troponin I High Sens B-Natriuretic Peptide Total Protein 5.5 L Albumin 3.4 L Vitamin B12 Folate Stool Occult Blood Urine Opiates Screen Urine Fentanyl Screen Ur Barbiturates Screen Ur Phencyclidine Scrn Ur Amphetamines Screen U Benzodiazepines Scrn Urine Cocaine Screen U Marijuana (THC) Screen Ethyl Alcohol COVID-19 (JOE[facility]) COVID-19 Clin Com Hep Bs Antigen Negative Hep Bs Antibody REACTIVE Hep B Core Total Ab Nonreactive Hepatitis C Ab (EIA) Nonreactive Blood Type Antibody Screen Crossmatch Airway Mallampati Class: III TM Dist: >3cm Neck ROM: Full Denture: Upper and Lower Assessment and Plan Assessment Anesthesia Assessment: Anesthesia Plan Discussed and Chart Reviewed Final Anesthetic Review Family History of Problems with Anesthesia: No History of Problems with Anesthesia: No NPO: Yes ASA Class: III Final Preanesthetic Review: No Changes in Pt Med Stat, Meds/Allgs Chart Reviewed, Consent Obtained/Reviewed and Anes Risks/Benef Reviewed Patient Risk: Intermediate Procedure Risk: Intermediate Anesthetic Plan Anesthetic Plan: MAC: Disposition: Standard PACU
[2022-09-08 08:46] LABS: Hematocrit 19.8 % (42.0-52.0); Platelet Count 47 X10*3/uL (160-400)
--- NOTE | 2022-09-08 09:18 | PM.OP ---
Brief Operative Note Date of Service: 09/08/22 Pre-op diagnosis: GI Bleeding, severe anemia Post-op diagnosis: other (Hiatal hernia, gastritis, prominent duodenal folds) Procedure: FLEXIBLE TRANSORAL UPPER GASTROINTESTINAL ENDOSCOPY WITH BIOPSIES Consent: Indications for the procedure and potential complications of bleeding, perforation, reaction to medications and missed diagnosis were discussed with the patient and informed consent was obtained. Instrument: Olympus GIF H 190 mid size upper endoscope Monitoring: Vital signs and clinical assessment, continuous EKG monitoring, Pulse oximetry, Carbon Dioxide monitoring and blood pressure monitoring were done throughout the procedure. Procedure: The patient was placed in the left lateral decubitis position and pre-procedure medications were administered and a bite block was placed. The endoscope was inserted into the mouth and advanced under direct vision to the third part of duodenum. A careful inspection was made as the upper endoscope was withdrawn including a retroflexed examination of the proximal stomach; Findings and interventions are described below. Findings: Larynx: Normal Esophagus: Tortuous esophagus with increased tertiary contractions. GE junction at 38 cms. Small hiatal hernia 38 to 40 cms. No varices, esophagitis or Yin's. Stomach: Mild gastric erythema. Biopsies were obtained to check for H Pylori. No gastric varices and grade 2 flap valve on retroflexed examination of the cardia. Duodenum: Edematous folds in apex of duodenal bulb - biopsied. No recurrent ulcer was noted. Midsize upper endoscope passed into the descending duodenum without significant resistance. Normal descending duodenum Intervention: Biopsies as noted above Impression and Post Procedure Diagnosis: Endoscopy Findings: ESOPHAGUS: Small hiatal hernia STOMACH: Gastritis - biopsied to check for H Pylori DUODENUM: Edematous folds in apex of duodenal bulb - biopsied. No recurrent ulcer was noted. No blood seen in the UGI tract during EGD Plan: Transfuse 2 U of PRBC and monitor H & H Q 8 hrly x 24 hrs. Golyte prep today for colonoscopy tomorrow Surgeon: Steff Weaver MD Anesthesia: MAC (Dr Phillips) Was an Hog Slaughterer used for this Procedure?: Yes Hog Slaughterer: Shadia Pierce Estimated blood loss (mL): 0 Pathology: other (A. duodenal fold bxs B. gastric antrum bxs, R/O H. pylori) Condition: stable Disposition: PACU
--- NOTE | 2022-09-08 09:35 | W.PM.OPN ---
Operative Note Operative Note Date of Service: 09/08/22 Narrative: Pre-op diagnosis: GI Bleeding, severe anemia Post-op diagnosis:?other (Hiatal hernia, gastritis, prominent duodenal folds) Procedure: FLEXIBLE TRANSORAL UPPER GASTROINTESTINAL ENDOSCOPY WITH BIOPSIES Consent:?Indications for the procedure and potential complications of bleeding, perforation, reaction to medications and missed diagnosis were discussed with the patient and informed consent was obtained. Instrument:?Olympus GIF H 190 mid size upper endoscope Monitoring: Vital signs and clinical assessment, continuous EKG monitoring, Pulse oximetry, Carbon Dioxide monitoring and blood pressure monitoring were done throughout the procedure. Procedure:?The patient was placed in the left lateral decubitis position and pre-procedure medications were administered and a bite block was placed. The endoscope was inserted into the mouth and advanced under direct vision to the third part of duodenum. A careful inspection was made as the upper endoscope was withdrawn including a retroflexed examination of the proximal stomach; Findings and interventions are described below. Findings: Larynx:? Normal Esophagus: Tortuous esophagus with increased tertiary contractions.? GE junction at 38 cms. Small hiatal hernia 38 to 40 cms.? No varices, esophagitis or Yin's. Stomach: Mild gastric erythema. Biopsies were obtained to check for H Pylori. No gastric varices and grade 2 flap valve on retroflexed examination of the cardia. Duodenum: Edematous folds in apex of duodenal bulb - biopsied. No recurrent ulcer was noted. Midsize upper endoscope passed into the descending duodenum without significant resistance.? Normal descending duodenum Intervention: Biopsies as noted above Impression and Post Procedure Diagnosis: Endoscopy Findings: ESOPHAGUS: Small hiatal hernia STOMACH: Gastritis - biopsied to check for H Pylori DUODENUM: Edematous folds in apex of duodenal bulb - biopsied. No recurrent ulcer was noted. No blood seen in the UGI tract during EGD Plan: Transfuse 2 U of PRBC and monitor H & H Q 8 hrly x 24 hrs. Golyte prep today for colonoscopy tomorrow Surgeon: Steff Weaver MD Anesthesia:?MAC (Dr Phillips) Was an Tariff Counsel used for this Procedure?:?Yes Tariff Counsel:?Shadia Pierce Estimated blood loss (mL):?0 Pathology:?other (A. duodenal fold bxs? B. gastric antrum bxs, R/O H. pylori) Condition:?stable Disposition:?PACU
--- NOTE | 2022-09-08 09:40 | MHC.CM.PN ---
Patient lives in an apartment with his Sister and he required no services nor DME METAL CLEANER. Home,self care vs Care Team Intervention related to ETOH withdrawal appears to be the goal and CM has initiated and will follow for dc planning. Patient is Tonia Galvan and his PCP is Dr. Cassandra Rodriguez.
[2022-09-08] MEDS: PHENobarbitaL 15 MG TABLET 45 MG PO ×2 (11:22→20:25)
[2022-09-08] MEDS: Folic Acid 1 MG in 0.9 % Sodium Chloride 50 ML 100.4 MG IV (11:23)
[2022-09-08] MEDS: predniSONE 20 MG TABLET 40 MG PO (11:23)
[2022-09-08] MEDS: Docusate Sodium 100 MG CAPSULE PO ×2 (11:23→20:26)
[2022-09-08] MEDS: Thiamine HCL 100 MG in 0.9 % Sodium Chloride 100 ML 202 MG IV (12:11)
[2022-09-08] MEDS: Acetaminophen 325 MG TABLET PO (12:12)
[2022-09-08] MEDS: diphenhydrAMINE HCL 25 MG CAPSULE PO (12:12)
[2022-09-08] MEDS: Enoxaparin Sodium 40 MG/0.4 ML SYRINGE SUBCUT (12:12)
[2022-09-08] MEDS: PEG 3350/Na Sulf,Bicarb,Cl/KCL 4,000 ML SOLN.RECON 4000 ML PO (15:37)
[2022-09-09] VITALS (9 sets, daily range): BP systolic 115–140; BP diastolic 52–75; PULSE 64–98; RESP 14–20; TEMP 36.6–37.7; O2SAT 91–98
[2022-09-09] MEDS: Pantoprazole Sodium 40 MG/10 ML VIAL IVPUSH (04:58)
[2022-09-09 07:06] LABS: MANUAL DIFF FLAG NO
[2022-09-09 07:18] LABS: Basophils Absolute Auto 0.1 X10*3/uL (0.0-0.2); Basophils Percent Auto 1.2 % (0-2); Eosinophils Absolute Auto 0.2 X10*3/uL (0.0-0.4); Eosinophils Percent Auto 1.7 % (0-4); Hematocrit 25.9 % (42.0-52.0); Hemoglobin 8.9 g/dl (14.0-18.0); Imm Gran Abs Auto 0.08 X10*3/uL (0.00-0.03); Imm Gran Pct Auto 0.8 % (0.0-0.4); Lymphocytes Absolute Auto 2.1 X10*3/uL (1.2-4.9); Lymphocytes Percent Auto 21.7 % (20-40); Mean Corpuscular HGB Conc 34.4 g/dl (31.0-36.0); Mean Corpuscular Hemoglobin 33.7 pg (27.0-33.0); Mean Corpuscular Volume 98.1 fL (80.0-98.0); Monocytes Absolute Auto 0.6 X10*3/uL (0.1-1.2); Monocytes Percent Auto 5.8 % (2-11); Neutrophils Absolute Auto 6.6 x10*3/uL (2.0-8.3); Neutrophils Percent Auto 68.8 % (45-73); Red Blood Count 2.64 X10*6/uL (4.60-5.80); Red Cell Distribution Width 19.9 % (11.0-16.0); White Blood Count 9.7 X10*3/uL (4.8-10.8)
[2022-09-09 07:20] LABS: Platelet Count 42 X10*3/uL (160-400)
--- NOTE | 2022-09-09 08:41 | P.PNIM_ITS ---
Subjective Subjective Date of Service: 09/09/22 Interval History: Seen and examined in follow up for acute blood loss anemia, etoh withdrawal Interval history: Reports bilateral upper abdominal pain with nausea. No vomiting. Finished 1/2 prep for colonoscopy with watery tarry stool. Feels tired. Reports wheezing. Review of Systems General: No fevers, malaise, unintentional weight loss Cardiovascular: No chest pain, palpitations, or leg edema Respiratory: +wheezing. No shortness of breath, cough GI: +abd pain, +nausea, +diarrhea, +melena. No vomiting, constipation, hematochezia Neuro: No headaches, weakness, paresthesias Skin: No rashes or lesions Physical Exam Vital Signs: Vital Signs: Last Vital Signs Temp 98.1 F 09/09/22 07:48 Pulse 64 09/09/22 07:48 Resp 20 09/09/22 07:48 BP 127/75 09/09/22 07:48 Pulse Ox 97 09/09/22 07:48 O2 Del Method 09/09/22 07:48 O2 Flow Rate 6 09/08/22 09:45 Oxygen Flow Rate 5 09/07/22 08:07 BMI result Body Mass Index 31.0 Constitutional - Awake and Alert, No apparent distress Eyes - PERRLA, EOMI Cardiovascular - S1S2, RRR, No edema Respiratory - Bilateral wheezing. Normal lung expansion, Normal respiratory effort, No respiratory distress Gastrointestinal - bilateral upper abdominal pain. ND; +BS; No rebound or guarding Extremities - no calf tenderness bilaterally, no swelling Skin - Warm/Dry, Jaundice appearing Neurological - Alert & oriented x3, No focal deficit Psychological - Appropriate affect Objective Data Active Medications Acetaminophen (Acetaminophen 325 Mg Tablet) 650 mg PO Q6H PRN PRN Reason: Pain, Mild (Pain Scale 1-3) Albuterol/Ipratropium (Albuterol/Iprat 2.5/0.5mg 3 Ml Ampul.Neb) 3 ml INHALE RQ4H WHILE AWAKE [facility] Last Admin: 09/09/22 08:08 Dose: Not Given Documented By: CRISS Non-Admin Reason: Patient Asleep Albuterol/Ipratropium (Albuterol/Iprat 2.5/0.5mg 3 Ml Ampul.Neb) 3 ml INHALE RQ4H PRN PRN Reason: Shortness of Breath/Wheezing Last Admin: 09/08/22 02:31 Dose: 3 ml Documented By: SALMA Bisacodyl (Bisacodyl 5 Mg Tablet.Dr) 10 mg PO ONCE ONE Stop: 09/09/22 13:01 Docusate Sodium (Docusate Sodium 100 Mg Capsule) 100 mg PO BID [facility] Last Admin: 09/08/22 20:26 Dose: 100 mg Documented By: JESSICA Enoxaparin Sodium (Enoxaparin Sodium 40 Mg/0.4 Ml Syringe) 40 mg SUBCUT Q24H [facility] Last Admin: 09/08/22 12:12 Dose: 40 mg Documented By: WILLIE-[place] Fluticasone Propionate (Fluticasone Propionate Nasal 16 Gm [place]) 2 spray NOSTRIL-B DAILY PRN PRN Reason: Allergy Symptoms Fluticasone/Vilanterol (Fluticasone/Vilanterol 100/25 Blst.W.Dev) 1 puff INHALE RDAILY [facility] Last Admin: 09/09/22 08:08 Dose: Not Given Documented By: CRISS Non-Admin Reason: Patient Asleep Thiamine HCl 100 mg/ Sodium (Chloride) 101 mls @ 202 mls/hr IV DAILY [facility] Last Infusion: 09/08/22 12:49 Dose: 0 mls/hr Documented By: WILLIE-[place] Folic Acid 1 mg/ Sodium (Chloride) 50.2 mls @ 100.4 mls/hr IV DAILY [facility] Last Infusion: 09/08/22 12:18 Dose: 0 mls/hr Documented By: RUPALI Nicotine Polacrilex (Nicotine Polacrilex 2 Mg Gum) 2 mg BUCCAL Q2H PRN PRN Reason: Nicotine Cravings Pantoprazole Sodium (Pantoprazole Sodium 40 Mg/10 Ml Vial) 40 mg IVPUSH BID@0630,1630 [facility] Last Admin: 09/09/22 04:58 Dose: 40 mg Documented By: JESSICA Pharmacy Consult (Consult Rx Perform Med Rec) 1 each MISCELLANE ONCE PRN PRN Reason: Consult order Pharmacy Consult (Consult Rx Etoh Phenob Im/Po) 1 each MISCELLANE ONCE PRN; Protocol PRN Reason: Consult order Phenobarbital (Phenobarbital 15 Mg Tablet) 45 mg PO BID [facility]; Protocol Stop: 09/09/22 21:01 Last Admin: 09/08/22 20:25 Dose: 45 mg Documented By: ANTOIC Phenobarbital (Phenobarbital 15 Mg Tablet) 15 mg PO BID [facility]; Protocol Stop: 09/11/22 21:01 Phenobarbital (Phenobarbital 15 Mg Tablet) 15 mg PO DAILY [facility]; Protocol Stop: 09/13/22 09:01 Polyethylene Glycol (Polyethylene Glycol 3350 17 Gm Powd.Pack) 17 gm PO DAILY PRN PRN Reason: constipation Prednisone (Prednisone 20 Mg Tablet) 40 mg PO DAILY [facility] Stop: 09/12/22 09:01 Last Admin: 09/08/22 11:23 Dose: 40 mg Documented By: DOBROB Sodium Chloride (0.9 % Sodium Chloride Flush 3 Ml Syringe) 3 ml IVFLUSH QSHIFT [facility] Last Admin: 09/08/22 20:26 Dose: 3 ml Documented By: ANTOIC Tramadol HCl (Tramadol Hcl 50 Mg Tablet) 50 mg PO Q6H PRN PRN Reason: Pain, Moderate (Pain Scale 4-6 Labs CBC & Chem 7: 09/09/22 06:43 09/09/22 06:43 Labs: Laboratory Results - last 24 hr 09/07/22 09/08/22 09/09/22 09:21 06:18 06:43 MCV 101.0 H D 98.1 H MCH 35.7 H 33.7 H MCHC 35.4 34.4 RDW 21.2 H 19.9 H Plt Count 47 L 42 L MPV Not Reportable Not Reportable Immature Gran % (Auto) 1.3 H 0.8 H Neut % (Auto) 58.2 68.8 Lymph % (Auto) 29.3 21.7 [place] % (Auto) 5.5 5.8 Eos % (Auto) 3.3 1.7 Baso % (Auto) 2.4 H 1.2 Lymph # (Auto) 2.3 2.1 [place] # (Auto) 0.4 0.6 Eos # (Auto) 0.3 0.2 Baso # (Auto) 0.2 0.1 Abs Immat Gran (auto) 0.10 H 0.08 H Absolute Neuts (auto) 4.6 6.6 Absolute Nucleated RBC 0.000 0.000 Nucleated RBC % (auto) 0.0 0.0 Blood Type A Positive Antibody Screen NEGATIVE Crossmatch See Detail Assessment and Plan (1) Symptomatic anemia: Status: Acute (2) Alcohol abuse: Status: Acute (3) Asthma: Status: Acute Plan 52-year-old male with history of moderate persistent asthma without acute exacerbation, alcohol abuse, chronic macrocytic anemia, chronic constipation, history of gastric ulcer, GERD, former smoker to be admitted for symptomatic anemia and acute asthma exacerbation. # symptomatic acute anemia with baseline chronic anemia-likely multifactorial including alcohol abuse. GI bleed ruled out. Question hemolysis -H/H improved to 8.9/25.9 following 2 additional units prbc yesterday (total 5 units transfused) -Endoscopy and colonoscopy without clear source of bleeding -Hemolysis workup initiated with peripheral smear, retic count, haptoglobin, and LDH. Pt is jaundice bili 1.9 -Hematology consulted -DC PPI -Hgb electrophoresis pending -Follow CBC CMP #Acute moderate persistent asthma exacerbation- currently wheezing -Change PO to IV steroid -DuoNebs q.4h while awake -continue home Advair #Jaundice- new -Bili 1.9, transaminases improved -RUQ u/s 09/07 unremarkable # alcohol dependence -consumes 6 X 12 oz beers and 1 nip from daily.? Last drink yesterday -Denies withdrawal symptoms -Continue CIWA -continue phenobarb protocol -addiction medicine consult # transaminitis-likely secondary to alcohol abuse -LFTs trending down -abd us without abnormality -follow CMP #Chronic constipation -Docusate and miralax #GERD -IV PPI DVT prophylaxis-Lovenox Full code Patient requires ongoing inpt stay for ongoing management of acute blood loss anemia requiring addl transfusion of 2 units packed rbc with ongoing investigation of source of GI bleeding. Quality Stroke Does the patient have a stroke diagnosis?: No VTE Prior VTE?: No VTE Risk Level:: Medical - moderate - high VTE Device Contraindication: Treatment Not Indicated VTE Drug Contraindication: N/A - Med Ordered
--- NOTE | 2022-09-09 09:01 | P.CONAN_ITS ---
HPI - Anesthesia Eval Consult details Narrative: anemia [facility] Active Problems Active Problems: All Active Problems (Updated 09/07/22 @ 13:15 by CADEN Pastrana) Symptomatic anemia (Acute) Alcohol abuse (Acute) Alcohol abuse (Acute) Dysphagia (Acute) Asthma (Acute) Anemia (Acute) Acid reflux (Acute) Past Medical History Medical History Acid reflux Alcohol abuse Asthma History of gastric ulcer Macrocytic anemia Family History Family History Father No problems noted. Mother Diabetes Family history of problems with anesthesia: No Surgical History Surgical History History of esophagogastroduodenoscopy (EGD) Hx of colonoscopy History of Problems with Anesthesia: No Social History Social History Household Members: Family Household Members Other:: sister Housing: House Do you presently have visiting nurse or other home services: No Alcohol intake: current Alcohol intake frequency: a few times a week Alcohol type: beer and hard liquor Patient Tobacco Use Status: Current everyday Tobacco user Tobacco use type: Cigarette Cigarettes Per Day: 5 e-Cigarette/Vaping Use: Never Used Substance Use Type: Marijuana service: No Current occupational status: unemployed Meds Allergies Allergy/AdvReac Type Severity Reaction Status Date / Time No Known Allergies Allergy Verified 07/20/21 11:25 [No Known Allergies*] Active Medications: Current Medications Acetaminophen (Acetaminophen 325 Mg Tablet) 650 mg PO Q6H PRN PRN Reason: Pain, Mild (Pain Scale 1-3) Albuterol/Ipratropium (Albuterol/Iprat 2.5/0.5mg 3 Ml Ampul.Neb) 3 ml INHALE RQ4H WHILE AWAKE [facility] Last Admin: 09/09/22 08:08 Dose: Not Given Albuterol/Ipratropium (Albuterol/Iprat 2.5/0.5mg 3 Ml Ampul.Neb) 3 ml INHALE RQ4H PRN PRN Reason: Shortness of Breath/Wheezing Last Admin: 09/08/22 02:31 Dose: 3 ml Bisacodyl (Bisacodyl 5 Mg Tablet.) 10 mg PO ONCE ONE Stop: 09/09/22 13:01 Docusate Sodium (Docusate Sodium 100 Mg Capsule) 100 mg PO BID [facility] Last Admin: 09/08/22 20:26 Dose: 100 mg Enoxaparin Sodium (Enoxaparin Sodium 40 Mg/0.4 Ml Syringe) 40 mg SUBCUT Q24H [facility] Last Admin: 09/08/22 12:12 Dose: 40 mg Fluticasone Propionate (Fluticasone Propionate Nasal 16 Gm [place]) 2 spray NOSTRIL-B DAILY PRN PRN Reason: Allergy Symptoms Fluticasone/Vilanterol (Fluticasone/Vilanterol 100/25 Blst.W.Dev) 1 puff INHALE RDAILY [facility] Last Admin: 09/09/22 08:08 Dose: Not Given Thiamine HCl 100 mg/ Sodium (Chloride) 101 mls @ 202 mls/hr IV DAILY [facility] Last Infusion: 09/08/22 12:49 Dose: Infused Folic Acid 1 mg/ Sodium (Chloride) 50.2 mls @ 100.4 mls/hr IV DAILY [facility] Last Infusion: 09/08/22 12:18 Dose: Infused Methylprednisolone Sodium Succinate (Methylprednisolone Sod Succ 40 Mg/Ml Vial) 40 mg IVPUSH ONCE ONE Stop: 09/09/22 08:53 Nicotine Polacrilex (Nicotine Polacrilex 2 Mg Gum) 2 mg BUCCAL Q2H PRN PRN Reason: Nicotine Cravings Pantoprazole Sodium (Pantoprazole Sodium 40 Mg/10 Ml Vial) 40 mg IVPUSH BID@0630,1630 [facility] Last Admin: 09/09/22 04:58 Dose: 40 mg Pharmacy Consult (Consult Rx Perform Med Rec) 1 each MISCELLANE ONCE PRN PRN Reason: Consult order Pharmacy Consult (Consult Rx Etoh Phenob Im/Po) 1 each MISCELLANE ONCE PRN; Protocol PRN Reason: Consult order Phenobarbital (Phenobarbital 15 Mg Tablet) 45 mg PO BID [facility]; Protocol Stop: 09/09/22 21:01 Last Admin: 09/08/22 20:25 Dose: 45 mg Phenobarbital (Phenobarbital 15 Mg Tablet) 15 mg PO BID [facility]; Protocol Stop: 09/11/22 21:01 Phenobarbital (Phenobarbital 15 Mg Tablet) 15 mg PO DAILY [facility]; Protocol Stop: 09/13/22 09:01 Polyethylene Glycol (Polyethylene Glycol 3350 17 Gm Powd.Pack) 17 gm PO DAILY PRN PRN Reason: constipation Prednisone (Prednisone 20 Mg Tablet) 40 mg PO DAILY [facility] Last Admin: 09/08/22 11:23 Dose: 40 mg Sodium Chloride (0.9 % Sodium Chloride Flush 3 Ml Syringe) 3 ml IVFLUSH QSHIFT [facility] Last Admin: 09/08/22 20:26 Dose: 3 ml Tramadol HCl (Tramadol Hcl 50 Mg Tablet) 50 mg PO Q6H PRN PRN Reason: Pain, Moderate (Pain Scale 4-6 Home Medications Medication Instructions Recorded Confirmed Last Taken Type docusate sodium 100 mg capsule 1 cap PO BID PRN Constipation 05/13/22 09/07/22 Unknown History fluticasone propionate 50 2 spray intranasal DAILY PRN 05/13/22 09/07/22 Unknown History mcg/actuation nasal Allergy Symptoms spray,suspension nicotine (polacrilex) 4 mg gum 1 ea PO Q2H PRN Nicotine Cravings 05/13/22 09/07/22 Unknown History tramadol 50 mg tablet 1 tab PO Q6H PRN pain 05/13/22 09/07/22 Unknown History fluticasone 250 mcg-salmeterol 50 1 puff inhalation BID 09/07/22 09/07/22 Unknown History mcg/dose blistr powdr for inhalation (Advair Diskus) Exam Exam Date and Time: September 09, 2022 0901 Height,Weight and Vital Signs: Height 5 ft 7 in Weight 89.9 kg Last Vital Signs Temp 98.1 F 09/09/22 07:48 Pulse 64 09/09/22 07:48 Resp 20 09/09/22 07:48 BP 127/75 09/09/22 07:48 Pulse Ox 97 09/09/22 07:48 O2 Del Method 09/09/22 07:48 O2 Flow Rate 6 09/08/22 09:45 Oxygen Flow Rate 5 09/07/22 08:07 Pertinent Lab Results Pertinent Lab Results: Laboratory Tests 09/07/22 09/07/22 09/07/22 08:51 08:52 08:52 WBC 5.4 RBC 1.10 L D Hgb 4.2 L* D Hct 12.8 L* D MCV 116.4 H MCH 38.2 H MCHC 32.8 RDW 19.4 H Plt Count 51 L D MPV Not Reportable Immature Gran % (Auto) 1.5 H Neut % (Auto) 47.0 Lymph % (Auto) 37.6 [place] % (Auto) 7.6 Eos % (Auto) 4.3 H Baso % (Auto) 2.0 Lymph # (Auto) 2.0 [place] # (Auto) 0.4 Eos # (Auto) 0.2 Baso # (Auto) 0.1 Abs Immat Gran (auto) 0.08 H Absolute Neuts (auto) 2.5 Absolute Nucleated RBC 0.000 Nucleated RBC % (auto) 0.0 Smear Tech's Comments VERIFIED Smear Path Review SEE NOTE Absolute Retic Percent Retic Immature Retic Fraction Retic Hgb Equivalent PT INR APTT VBG pH VBG pCO2 VBG pO2 VBG HCO3 VBG O2 Saturation VBG Base Excess Sodium 140 Potassium 3.4 Chloride 104 Carbon Dioxide 24 Anion Gap 15 BUN 14 Creatinine 0.80 Estim Creat Clear Calc 113.9 Estimated GFR > 60 Random Glucose 139 H Calcium 8.6 D Magnesium 2.7 H Iron TIBC % Saturation Unsat Iron Binding Ferritin Total Bilirubin 0.4 Direct Bilirubin 0.2 AST 44 H D ALT 54 H Alkaline Phosphatase 78 Troponin I High Sens 6.3 D B-Natriuretic Peptide 121 H Total Protein 5.9 L Albumin 3.7 Vitamin B12 Folate Stool Occult Blood Urine Opiates Screen Urine Fentanyl Screen Ur Barbiturates Screen Ur Phencyclidine Scrn Ur Amphetamines Screen U Benzodiazepines Scrn Urine Cocaine Screen U Marijuana (THC) Screen Ethyl Alcohol 41 COVID-19 (JOEY) COVID-19 Clin Com Hep Bs Antigen Hep Bs Antibody Hep B Core Total Ab Hepatitis C Ab (EIA) Blood Type Antibody Screen Crossmatch 09/07/22 09/07/22 09/07/22 08:52 08:52 09:02 WBC RBC Hgb Hct MCV MCH MCHC RDW Plt Count MPV Immature Gran % (Auto) Neut % (Auto) Lymph % (Auto) [place] % (Auto) Eos % (Auto) Baso % (Auto) Lymph # (Auto) [place] # (Auto) Eos # (Auto) Baso # (Auto) Abs Immat Gran (auto) Absolute Neuts (auto) Absolute Nucleated RBC Nucleated RBC % (auto) Smear Tech's Comments Smear Path Review Absolute Retic Percent Retic Immature Retic Fraction Retic Hgb Equivalent PT 13.0 INR 1.1 APTT 29.9 VBG pH 7.51 H VBG pCO2 29 VBG pO2 155 VBG HCO3 23 VBG O2 Saturation TNP VBG Base Excess 1.1 Sodium Potassium Chloride Carbon Dioxide Anion Gap BUN Creatinine Estim Creat Clear Calc Estimated GFR Random Glucose Calcium Magnesium Iron TIBC % Saturation Unsat Iron Binding Ferritin Total Bilirubin Direct Bilirubin AST ALT Alkaline Phosphatase Troponin I High Sens B-Natriuretic Peptide Total Protein Albumin Vitamin B12 Folate Stool Occult Blood Urine Opiates Screen Urine Fentanyl Screen Ur Barbiturates Screen Ur Phencyclidine Scrn Ur Amphetamines Screen U Benzodiazepines Scrn Urine Cocaine Screen U Marijuana (THC) Screen Ethyl Alcohol COVID-19 (JOEY) Negative COVID-19 Clin Com See Note Hep Bs Antigen Hep Bs Antibody Hep B Core Total Ab Hepatitis C Ab (EIA) Blood Type Antibody Screen Crossmatch 09/07/22 09/07/22 09/07/22 09:21 10:33 14:43 WBC RBC Hgb Hct MCV MCH MCHC RDW Plt Count MPV Immature Gran % (Auto) Neut % (Auto) Lymph % (Auto) [place] % (Auto) Eos % (Auto) Baso % (Auto) Lymph # (Auto) [place] # (Auto) Eos # (Auto) Baso # (Auto) Abs Immat Gran (auto) Absolute Neuts (auto) Absolute Nucleated RBC Nucleated RBC % (auto) Smear Tech's Comments Smear Path Review Absolute Retic Percent Retic Immature Retic Fraction Retic Hgb Equivalent PT INR APTT VBG pH VBG pCO2 VBG pO2 VBG HCO3 VBG O2 Saturation VBG Base Excess Sodium Potassium Chloride Carbon Dioxide Anion Gap BUN Creatinine Estim Creat Clear Calc Estimated GFR Random Glucose Calcium Magnesium Iron 277 H TIBC < 294 % Saturation TNP Unsat Iron Binding < 17 Ferritin 506 H Total Bilirubin Direct Bilirubin AST ALT Alkaline Phosphatase Troponin I High Sens B-Natriuretic Peptide Total Protein Albumin Vitamin B12 Folate Stool Occult Blood TNP Urine Opiates Screen Urine Fentanyl Screen Ur Barbiturates Screen Ur Phencyclidine Scrn Ur Amphetamines Screen U Benzodiazepines Scrn Urine Cocaine Screen U Marijuana (THC) Screen Ethyl Alcohol COVID-19 ([facility]) COVID-19 Clin Com Hep Bs Antigen Hep Bs Antibody Hep B Core Total Ab Hepatitis C Ab (EIA) Blood Type A Positive Antibody Screen NEGATIVE Crossmatch See Detail 09/07/22 09/07/22 09/08/22 14:43 14:43 00:48 WBC RBC Hgb Hct MCV MCH MCHC RDW Plt Count MPV Immature Gran % (Auto) Neut % (Auto) Lymph % (Auto) [place] % (Auto) Eos % (Auto) Baso % (Auto) Lymph # (Auto) [place] # (Auto) Eos # (Auto) Baso # (Auto) Abs Immat Gran (auto) Absolute Neuts (auto) Absolute Nucleated RBC Nucleated RBC % (auto) Smear Tech's Comments Smear Path Review Absolute Retic 0.021 L Percent Retic 1.2 Immature Retic Fraction 14.7 H Retic Hgb Equivalent 38.8 H PT INR APTT VBG pH VBG pCO2 VBG pO2 VBG HCO3 VBG O2 Saturation VBG Base Excess Sodium Potassium Chloride Carbon Dioxide Anion Gap BUN Creatinine Estim Creat Clear Calc Estimated GFR Random Glucose Calcium Magnesium Iron TIBC % Saturation Unsat Iron Binding Ferritin Total Bilirubin Direct Bilirubin AST ALT Alkaline Phosphatase Troponin I High Sens B-Natriuretic Peptide Total Protein Albumin Vitamin B12 716 Folate 8.6 Stool Occult Blood Urine Opiates Screen Not Detected Urine Fentanyl Screen Not Detected Ur Barbiturates Screen POSITIVE H Ur Phencyclidine Scrn Not Detected Ur Amphetamines Screen Not Detected U Benzodiazepines Scrn Not Detected Urine Cocaine Screen Not Detected U Marijuana (THC) Screen POSITIVE H Ethyl Alcohol COVID-19 ([facility]) COVID-19 Clin Com Hep Bs Antigen Hep Bs Antibody Hep B Core Total Ab Hepatitis C Ab (EIA) Blood Type Antibody Screen Crossmatch 09/08/22 09/08/22 09/08/22 06:18 06:18 06:18 WBC 8.0 RBC 1.96 L D Hgb 7.0 L* D Hct 19.8 L* D MCV 101.0 H D MCH 35.7 H MCHC 35.4 RDW 21.2 H Plt Count 47 L MPV Not Reportable Immature Gran % (Auto) 1.3 H Neut % (Auto) 58.2 Lymph % (Auto) 29.3 [place] % (Auto) 5.5 Eos % (Auto) 3.3 Baso % (Auto) 2.4 H Lymph # (Auto) 2.3 [place] # (Auto) 0.4 Eos # (Auto) 0.3 Baso # (Auto) 0.2 Abs Immat Gran (auto) 0.10 H Absolute Neuts (auto) 4.6 Absolute Nucleated RBC 0.000 Nucleated RBC % (auto) 0.0 Smear Tech's Comments Smear Path Review Absolute Retic Percent Retic Immature Retic Fraction Retic Hgb Equivalent PT INR APTT VBG pH VBG pCO2 VBG pO2 VBG HCO3 VBG O2 Saturation VBG Base Excess Sodium Potassium Chloride Carbon Dioxide Anion Gap BUN Creatinine Estim Creat Clear Calc Estimated GFR Random Glucose Calcium Magnesium 2.0 Iron TIBC % Saturation Unsat Iron Binding Ferritin Total Bilirubin Direct Bilirubin AST ALT Alkaline Phosphatase Troponin I High Sens B-Natriuretic Peptide Total Protein Albumin Vitamin B12 Folate Stool Occult Blood Urine Opiates Screen Urine Fentanyl Screen Ur Barbiturates Screen Ur Phencyclidine Scrn Ur Amphetamines Screen U Benzodiazepines Scrn Urine Cocaine Screen U Marijuana (THC) Screen Ethyl Alcohol COVID-19 ([facility]) COVID-19 Clin Com Hep Bs Antigen Negative Hep Bs Antibody REACTIVE Hep B Core Total Ab Nonreactive Hepatitis C Ab (EIA) Nonreactive Blood Type Antibody Screen Crossmatch 09/08/22 09/09/22 06:18 06:43 WBC 9.7 RBC 2.64 L D Hgb 8.9 L D Hct 25.9 L D MCV 98.1 H MCH 33.7 H MCHC 34.4 RDW 19.9 H Plt Count 42 L MPV Not Reportable Immature Gran % (Auto) 0.8 H Neut % (Auto) 68.8 Lymph % (Auto) 21.7 [place] % (Auto) 5.8 Eos % (Auto) 1.7 Baso % (Auto) 1.2 Lymph # (Auto) 2.1 [place] # (Auto) 0.6 Eos # (Auto) 0.2 Baso # (Auto) 0.1 Abs Immat Gran (auto) 0.08 H Absolute Neuts (auto) 6.6 Absolute Nucleated RBC 0.000 Nucleated RBC % (auto) 0.0 Smear Tech's Comments Smear Path Review Absolute Retic Percent Retic Immature Retic Fraction Retic Hgb Equivalent PT INR APTT VBG pH VBG pCO2 VBG pO2 VBG HCO3 VBG O2 Saturation VBG Base Excess Sodium 137 Potassium 4.2 D Chloride 106 Carbon Dioxide 23 Anion Gap 12 BUN 19 H Creatinine 0.85 Estim Creat Clear Calc 107.4 Estimated GFR > 60 Random Glucose 116 H Calcium 7.9 L D Magnesium Iron TIBC % Saturation Unsat Iron Binding Ferritin Total Bilirubin 1.9 H Direct Bilirubin AST 23 D ALT 43 H Alkaline Phosphatase 68 Troponin I High Sens B-Natriuretic Peptide Total Protein 5.5 L Albumin 3.4 L Vitamin B12 Folate Stool Occult Blood Urine Opiates Screen Urine Fentanyl Screen Ur Barbiturates Screen Ur Phencyclidine Scrn Ur Amphetamines Screen U Benzodiazepines Scrn Urine Cocaine Screen U Marijuana (THC) Screen Ethyl Alcohol COVID-19 ([facility]) COVID-19 Clin Com Hep Bs Antigen Hep Bs Antibody Hep B Core Total Ab Hepatitis C Ab (EIA) Blood Type Antibody Screen Crossmatch Airway Mallampati Class: II TM Dist: >3cm Neck ROM: Full Loose/Missing/Broken Teeth: No Heart: RRR Lungs: dCta Assessment and Plan Assessment Anesthesia Assessment: Anesthesia Plan Discussed and Chart Reviewed Final Anesthetic Review Family History of Problems with Anesthesia: No History of Problems with Anesthesia: No NPO: Yes ASA Class: III Final Preanesthetic Review: No Changes in Pt Med Stat, Meds/Allgs Chart Reviewed, Consent Obtained/Reviewed and Anes Risks/Benef Reviewed Patient Risk: Intermediate Procedure Risk: Low Anesthetic Plan Anesthetic Plan: MAC: Disposition: Standard PACU
--- NOTE | 2022-09-09 09:23 | HO.POSTANES ---
Post Anesthesia Evaluation Post Anesthesia Evaluation Vital Signs: Vital Signs Temp Pulse Resp BP Pulse Ox O2 Del Method 09/09/22 07:48 98.1 F 64 20 127/75 97 Room Air 09/09/22 03:03 99.0 F 71 14 115/52 L 96 Room Air 09/08/22 23:31 98.7 F 71 14 123/66 96 Room Air 09/08/22 22:00 98.6 F 84 18 137/67 Anesthesia: Monitored Mental Status: Awake Pain Control: Satisfactory Nausea/Vomiting: None Hydration: Adequate Anesthesia-Related Issues: No Anes. Related Issues
--- NOTE | 2022-09-09 09:25 | P.BOP_ITS ---
Brief Operative Note Date of Service: 09/09/22 Pre-op diagnosis: Gi Bleeding, severe anemia Post-op diagnosis: other (Colon polyps, diverticulosis, hemorrhoids, AVM ascending colon) Procedure: COLONOSCOPY TILL CECUM WITH BIOPSIES, SNARE POLYPECTOMY AND APC OF AVM IN THE ASCENDING COLON Consent: Indications for the procedure and potential complications of bleeding, perforation, reaction to medications and missed diagnosis were discussed with the patient and informed consent was obtained. Instrument: Olympus PCF H 190 L variable stiffness pediatric colonoscope Monitoring: Vital signs and clinical assessment, intermittent blood pressure monitoring, continuous EKG monitoring, Pulse oximetry and Carbon Dioxide monitoring were done throughout the procedure. Colon withdrawl time was 25 minutes. Procedure: The patient was placed in the left lateral decubitis position and pre-procedure medications were administered. After a digital rectal examination of the ano-rectum, the video colonoscope was inserted into the rectum and advanced through the colon to the cecum. The colonoscope was slowly withdrawn in a retrograde panoramic fashion and the colon mucosa was carefully examined including a retroflexed view of the rectum. Findings and interventions are described below. Procedure Difficulty: Without difficulty Findings: Terminal Ileum: Distal 10 cm was examined and appeared normal. Cecum: Normal Ascending Colon: A 2 cm nonbleeding AVM ablated with APC Transverse Colon: A 10-12 mm diminutive appearing polyp removed with a cold biopsy Descending Colon: Moderate diverticulosis Sigmoid Colon: Three 10-12 mm ( one adenomatous appearing and two diminutive appearing) polyps removed with a hot snare. A few additional smaller (8 - 10 mm) diminutive appearing polyps in the rectosigmoid which were not removed. Moderate diverticulosis Rectum: Normal Ano-rectum: Moderate non-bleeding internal hemorrhoids Colon preparation: Good after some irrigation. Impression and Post Procedure Diagnosis: Colonoscopy Findings: Four medium sized polyps removed A 2 cm nonbleeding AVM ablated with APC. Moderate diverticulosis seen in the left colon Moderate nonbleeding hemorrhoids on retroflexed exam. No blood seen in the lower GI tract or TI during colonoscopy. Anemia is likely a combination of GI blood loss (AC AVM) and possible hemolysis (elevated indirect bilirubin) Plan: Follow CBC daily. Hemolysis workup. OK to start a regular diet and switch to PO PPI. A letter will be sent with pathology results Patient to schedule a FU appointment in the GI Clinic with Steff Weaver M.D. Repeat Colonoscopy interval based on path results - in 3-5 years if polyps are adenomatous and 10 years if polyps are hyperplastic. Above findings were reviewed with the patient. Surgeon: Steff Weaver MD Anesthesia: MAC (Dr Ashby) Was an Refrigerator Repair Technician used for this Procedure?: Yes Refrigerator Repair Technician: Mayra Arteaga Estimated blood loss (mL): 0 Pathology: other ( A: transverse colon polyp B: sigmoid polyps) Condition: stable Disposition: PACU
[2022-09-09 09:28] LABS: Alanine Aminotransferase 33 U/L (0-40); Albumin Level 3.4 g/dL (3.5-5.0); Alkaline Phosphatase 71 U/L (39-117); Anion Gap 13 (12-20); Aspartate Amino Transferase 14 U/L (5-37); Bilirubin Total 1.9 mg/dL (0.0-1.0); Blood Urea Nitrogen 11 mg/dL (9-16); Calcium 8.3 mg/dL (8.4-10.2); Carbon Dioxide 25 mmol/L (22-29); Chloride 102 mmol/L (96-108); Creatinine Clr Calc Pharmacy 121.8; Estimated Glomerular Filt Rate > 60; Glucose Random 118 mg/dL (60-115); Sodium 136 mmol/L (135-145); Total Protein 5.6 g/dL (6.5-8.0)
--- NOTE | 2022-09-09 10:12 | W.PM.OPN ---
Operative Note Operative Note Date of Service: 09/09/22 Narrative: Pre-op diagnosis: GI Bleeding, severe anemia Post-op diagnosis:?other (Colon polyps, diverticulosis, hemorrhoids, AVM ascending colon) Procedure: COLONOSCOPY TILL CECUM WITH BIOPSIES, SNARE POLYPECTOMY AND APC OF AVM IN THE ASCENDING COLON Consent: Indications for the procedure and potential complications of bleeding, perforation, reaction to medications and missed diagnosis were discussed with the patient and informed consent was obtained. Instrument: Olympus PCF H 190 L variable stiffness pediatric colonoscope Monitoring: Vital signs and clinical assessment, intermittent blood pressure monitoring, continuous EKG monitoring, Pulse oximetry and Carbon Dioxide monitoring were done throughout the procedure. Colon withdrawl time was 25 minutes. Procedure: The patient was placed in the left lateral decubitis position and pre-procedure medications were administered. After a digital rectal examination of the ano-rectum, the video colonoscope was inserted into the rectum and advanced through the colon to the cecum. The colonoscope was slowly withdrawn in a retrograde panoramic fashion and the colon mucosa was carefully examined including a retroflexed view of the rectum. Findings and interventions are described below. Procedure Difficulty: Without difficulty Findings: Terminal Ileum: Distal? 10 cm was examined and appeared normal. Cecum:? Normal Ascending Colon:? A? 2 cm nonbleeding AVM ablated with APC Transverse Colon:? A? 10-12 mm diminutive appearing polyp removed with a cold biopsy Descending Colon: ? Moderate diverticulosis Sigmoid Colon:? Three 10-12 mm ( one adenomatous appearing and two diminutive appearing)? polyps removed with a hot snare. ? A few additional smaller (8 - 10 mm) diminutive appearing polyps in the rectosigmoid which were not removed.? Moderate diverticulosis Rectum:? Normal Ano-rectum:? Moderate? non-bleeding internal hemorrhoids Colon preparation:? Good? after some irrigation. Impression and Post Procedure Diagnosis: Colonoscopy Findings: Four medium sized polyps removed A? 2 cm nonbleeding AVM ablated with APC. Moderate diverticulosis seen in the left colon Moderate? nonbleeding hemorrhoids on retroflexed exam. No blood seen in the? lower GI tract or TI during colonoscopy. Anemia is likely a combination of GI blood loss (AC AVM) and possible hemolysis (elevated indirect bilirubin) Plan: Follow CBC daily. Hemolysis workup. OK to start a regular diet and switch to PO PPI. A letter will be sent with pathology results Patient to schedule a FU appointment in the GI Clinic with? Steff Weaver M.D. Repeat Colonoscopy interval based on path results - in 3-5 years if polyps are adenomatous and 10 years if polyps are hyperplastic. Above findings were reviewed with the patient. Surgeon: Steff Weaver MD Anesthesia:?MAC (Dr Ashby) Was an Retail Sales Director used for this Procedure?:?Yes Retail Sales Director:?Mayra Arteaga Estimated blood loss (mL):?0 Pathology:?other ( A: transverse colon polyp? B: sigmoid polyps) Condition:?stable Disposition:?PACU
[2022-09-09] MEDS: Enoxaparin Sodium 40 MG/0.4 ML SYRINGE SUBCUT (11:16)
[2022-09-09] MEDS: PHENobarbitaL 15 MG TABLET 45 MG PO ×2 (11:16→20:55)
[2022-09-09] MEDS: 0.9 % Sodium Chloride Flush 3 ML SYRINGE IVFLUSH ×2 (11:17→17:08)
[2022-09-09] MEDS: Thiamine HCL 100 MG in 0.9 % Sodium Chloride 100 ML 202 MG IV (11:17)
[2022-09-09] MEDS: methylPREDNISolone Sod Succ 40 MG/ML VIAL IVPUSH (11:26)
--- NOTE | 2022-09-09 11:45 | MHC.RECOVSUP ---
Recovery Support note: Patient is a 52 year old English speaking male who presented to [facility] ED due to difficulty breathing. This loan underwriter met with patient in 469 with [facility] bilingual interpreter to discuss alcohol use and recovery supports. Patient reports previously he was only drinking on weekends and did not find his drinking to be problematic. Patient reports he with his partner about one week ago and has been drinking daily since then. Patient recognizes that this pattern of alcohol use is detrimental to his health and reports a desire to stop drinking entirely. Discussed recovery supports with patient including [facility] [place] and recovery coaching. Patient accepted a calendar of meetings and events for Maite Glass. Discussed AA with patient. Education regarding medications for alcohol use disorder was provided and patient accepted information on the [facility]. Patient reports no questions at this time regarding the resources discussed and provided. Patient anticipate no barriers to his recovery. Patient states I want to do this. Encouraged patient to inform staff if any questions arise or if he would like to speak with the Recovery Team again. Patient acknowledged.
[2022-09-09 12:27] LABS: Immature Retic Fraction 8.4 % (2.3-13.4); Retic HGB Equivalent 41.7 pg (30.0-35.0); Reticulocyte Percent 0.9 % (0.5-1.8); Reticulocytes Absolute 0.024 X10*6/uL (0.026-0.095)
[2022-09-09] MEDS: Folic Acid 1 MG in 0.9 % Sodium Chloride 50 ML 100.4 MG IV (12:33)
[2022-09-09 12:42] LABS: Lactate Dehydrogenase 203 U/L (118-273)
[2022-09-09] MEDS: bisacodyL 5 MG TABLET.DR 10 MG PO (12:42)
[2022-09-09] MEDS: Albuterol/Iprat 2.5/0.5MG 3 ML AMPUL.NEB INHALE ×2 (15:55→20:19)
[2022-09-09] MEDS: traMADoL HCL 50 MG TABLET PO (17:14)
--- NOTE | 2022-09-09 19:15 | P.CNHO_ITS ---
Subjective - Subjective Chief complaint: Consult for: Anemia. Patient: new to practice Consult date: 09/09/22 Requesting Physician: Lo. Primary Care Provider: Cassandra Rodriguez MD Medical Summary: DIAGNOSIS: ANEMIA. HPI - Consult Narrative Reason for consult: Consult for: Anemia. Narrative: Brandon Louis is a pleasant 52 year old gentleman who presented on 09/07 with symptoms of SOB, dizziness and fatigue. He also noted chest tightness and palpitations. CBC :WBC 5.4, HGB 4.2, HCT 12.8,MCV 116.4, . He has a history of alcohol abuse. PMH: 1. Asthma. 2. GERD. 3. Smoker. 4. Alcohol abuse. Review of Systems - Constitutional Reports system reviewed and no additional complaints, except as documented, Reports lack of energy, Reports weakness - Eyes Reports system reviewed and no additional complaints, except as documented - ENT Reports system reviewed and no additional complaints, except as documented - Cardiovascular Reports system reviewed and no additional complaints, except as documented - Respiratory Reports no additional respiratory complaints - Gastrointestinal Reports system reviewed and no additional complaints, except as documented - Genitourinary Genitourinary: Reports no additional male genitourinary complaints - Musculoskeletal Reports system reviewed and no additional complaints, except as documented - Integumentary/Breasts Skin/Breast: Reports no additional skin complaints - Neurologic Reports system reviewed and no additional complaints, except as documented - Psychiatric Reports system reviewed and no additional complaints, except as documented - Endocrine Reports no additional endocrine complaints - Hematologic/Lymphatic Reports system reviewed and no additional complaints, except as documented - Allergic/Immunologic Reports system reviewed and no additional complaints, except as documented Oncology Screenings - ECOG Performance Status ECOG Performance Status: 1 [facility] Medical History: Medical History (Last Reviewed 09/08/22 @ 08:38 by Laila Altamirano RN) Acid reflux Alcohol abuse Alcohol abuse Anemia Asthma History of gastric ulcer Macrocytic anemia Family History: Family History (Last Reviewed 09/07/22 @ 13:11 by CADEN Pastrana) Father No problems noted. Mother Diabetes Surgical History: Surgical History (Last Reviewed 09/08/22 @ 08:38 by Laila Altamirano RN) History of esophagogastroduodenoscopy (EGD) Hx of colonoscopy Social History: Social History (Last Reviewed 09/07/22 @ 13:11 by CADEN Pastrana) Living Situation History: Household Members: Family Household Members Other:: sister Housing: House Do you presently have visiting nurse or other home services: No Tobacco History: Patient Tobacco Use Status: Current everyday Tobacco Tobacco use type: Cigarette e-Cigarette/Vaping Use: Never Used Substance Use History: Substance Use Type: Marijuana Occupation Assessmet: service: No Current occupational status: unemployed Home Medications and Allergies Current Medications: Current Medications Acetaminophen (Acetaminophen 325 Mg Tablet) 650 mg PO Q6H PRN PRN Reason: Pain, Mild (Pain Scale 1-3) Albuterol/Ipratropium (Albuterol/Iprat 2.5/0.5mg 3 Ml Ampul.Neb) 3 ml INHALE RQ4H WHILE AWAKE [facility] Last Admin: 09/09/22 15:55 Dose: 3 ml Albuterol/Ipratropium (Albuterol/Iprat 2.5/0.5mg 3 Ml Ampul.Neb) 3 ml INHALE RQ4H PRN PRN Reason: Shortness of Breath/Wheezing Last Admin: 09/08/22 02:31 Dose: 3 ml Docusate Sodium (Docusate Sodium 100 Mg Capsule) 100 mg PO BID [facility] Last Admin: 09/09/22 11:02 Dose: Not Given Enoxaparin Sodium (Enoxaparin Sodium 40 Mg/0.4 Ml Syringe) 40 mg SUBCUT Q24H [facility] Last Admin: 09/09/22 11:16 Dose: 40 mg Fluticasone Propionate (Fluticasone Propionate Nasal 16 Gm [place]) 2 spray NOSTRIL-B DAILY PRN PRN Reason: Allergy Symptoms Fluticasone/Vilanterol (Fluticasone/Vilanterol 100/25 Blst.W.Dev) 1 puff INHALE RDAILY [facility] Last Admin: 09/09/22 08:08 Dose: Not Given Thiamine HCl 100 mg/ Sodium (Chloride) 101 mls @ 202 mls/hr IV DAILY [facility] Last Infusion: 09/09/22 12:33 Dose: Infused Folic Acid 1 mg/ Sodium (Chloride) 50.2 mls @ 100.4 mls/hr IV DAILY [facility] Last Infusion: 09/09/22 13:29 Dose: Infused Nicotine Polacrilex (Nicotine Polacrilex 2 Mg Gum) 2 mg BUCCAL Q2H PRN PRN Reason: Nicotine Cravings Pharmacy Consult (Consult Rx Perform Med Rec) 1 each MISCELLANE ONCE PRN PRN Reason: Consult order Pharmacy Consult (Consult Rx Etoh Phenob Im/Po) 1 each MISCELLANE ONCE PRN; Protocol PRN Reason: Consult order Phenobarbital (Phenobarbital 15 Mg Tablet) 45 mg PO BID [facility]; Protocol Stop: 09/09/22 21:01 Last Admin: 09/09/22 11:16 Dose: 45 mg Phenobarbital (Phenobarbital 15 Mg Tablet) 15 mg PO BID [facility]; Protocol Stop: 09/11/22 21:01 Phenobarbital (Phenobarbital 15 Mg Tablet) 15 mg PO DAILY [facility]; Protocol Stop: 09/13/22 09:01 Polyethylene Glycol (Polyethylene Glycol 3350 17 Gm Powd.Pack) 17 gm PO DAILY PRN PRN Reason: constipation Prednisone (Prednisone 20 Mg Tablet) 40 mg PO DAILY [facility] Last Admin: 09/08/22 11:23 Dose: 40 mg Sodium Chloride (0.9 % Sodium Chloride Flush 3 Ml Syringe) 3 ml IVFLUSH QSHIFT [facility] Last Admin: 09/09/22 17:08 Dose: 3 ml Tramadol HCl (Tramadol Hcl 50 Mg Tablet) 50 mg PO Q6H PRN PRN Reason: Pain, Moderate (Pain Scale 4-6 Last Admin: 09/09/22 17:14 Dose: 50 mg Home Medications Medication Instructions Recorded Confirmed Type docusate sodium 100 mg capsule 1 cap PO BID PRN Constipation 05/13/22 09/07/22 History fluticasone propionate 50 2 spray intranasal DAILY PRN 05/13/22 09/07/22 History mcg/actuation nasal Allergy Symptoms spray,suspension nicotine (polacrilex) 4 mg gum 1 ea PO Q2H PRN Nicotine Cravings 05/13/22 09/07/22 History tramadol 50 mg tablet 1 tab PO Q6H PRN pain 05/13/22 09/07/22 History fluticasone 250 mcg-salmeterol 50 1 puff inhalation BID 09/07/22 09/07/22 History mcg/dose blistr powdr for inhalation (Advair Diskus) Allergies Allergy/AdvReac Type Severity Reaction Status Date / Time No Known Allergies Allergy Verified 07/20/21 11:25 [No Known Allergies*] Physical Exam Vital signs: Vital Signs Temp 97.9 F 09/09/22 15:34 Pulse 80 09/09/22 15:34 Resp 16 09/09/22 15:56 BP 140/67 H 09/09/22 15:34 Pulse Ox 96 09/09/22 15:34 O2 Del Method 09/09/22 15:34 O2 Flow Rate 1.5 09/09/22 15:34 Intake & Output 09/09/22 09/09/22 09/10/22 06:59 18:59 06:59 Intake Total 830 / 1481.2 151.2 / 151.2 Output Total 475 / 475 Balance 830 / 1481.2 -323.8 / -323.8 Urine Output (Average ml/kg/hr) 0.44 Intake: Intake, Oral Amount 480 / 630 Intake (Blood Product) Amount 350 / 700 Red Blood Cells (E0382) Unit 350 / 350 [id number] Intake, IV Amount 151.2 / 151.2 Folic Acid 1 mg In 0.9 % Sodium 50.2 / 50.2 Chloride 50 ml @ 100.4 mls/hr IV DAILY [facility] Rx#:[id number] Thiamine HCL 100 mg In 0.9 % 101 / 101 Sodium Chloride 100 ml @ 202 mls/hr IV DAILY [facility] Rx#: [id number] Output: Output, Urine Amount 475 / 475 Other: IV Intake, Intraoperative 350 Amount NPO Yes Yes Number of Unmeasured Voids 3 1 Urine Bedside Commode Last Bowel Movement 09/09/22 09/09/22 Stool Bedside Commode Stool Amount Moderate Stool Color Black ([place]) Stool Consistency Watery Weight 89.9 kg - Constitutional Present: mild distress - Routine HEENT Exam Head: Present: normocephalic ENT: Present: mucous membranes moist - Routine Neck Exam Present: supple - Routine Respiratory Exam Present: CTAB - Routine Cardiovascular Exam Cardiovascular: Present: RRR, S1, S2 - Routine Abdominal Exam Present: nontender - Routine Extremities Exam Present: normal inspection, nontender - Routine Skin Exam Present: intact - Routine Neurological Exam Present: alert, oriented X3 - Detailed Neurological Exam: Coma Scale Eye Opening: Spontaneous (4) Verbal Response: Oriented (5) Motor Response: Obeys commands (6) Tiffany Coma Scale Total: 15 - Routine Psychiatric Exam Present: depressed Hem/Onc Consult Result - Labs CBC & Chem 7: 09/11/22 06:28 09/12/22 06:28 Labs: Short CBC 09/09/22 Range/Units 06:43 WBC 9.7 (4.8-10.8) X10*3/uL Hgb 8.9 L D (14.0-18.0) g/dl Hct 25.9 L D (42.0-52.0) % Plt Count 42 L (160-400) X10*3/uL BMP 09/09/22 06:43 Sodium 136 Potassium 4.0 Chloride 102 Carbon Dioxide 25 BUN 11 Creatinine 0.75 Calcium 8.3 L Liver Function 09/09/22 Range/Units 06:43 Total Bilirubin 1.9 H (0.0-1.0) mg/dL AST 14 (5-37) U/L ALT 33 (0-40) U/L Alkaline Phosphatase 71 (39-117) U/L Albumin 3.4 L (3.5-5.0) g/dL Assessment and Plan Patient Active problem list reviewed?: Yes (1) Symptomatic anemia Status: Resolved Assessment and plan: This is a pleasant 52 year old gentleman with H/O Alcoholism, presented with Fatigue, dizziness and SOB. Noted to be significantly Anemic. DIFFERENTIAL DIAGNOSIS: Macrocytic Anemia: 1. B12 or Folate Deficiency: B12 716. Folate: 8.6. 2. Bone Marrow Infiltrative Disorder: Myelodysplastic Syndrome, vs Multiple Myeloma vs Lymphoma. 3. Hemolytic Anemia: LDH 203. 4. Hypersplenism: Is likely contributing factor in the setting of alcohol abuse. 5. ACD: Can coexist. In view of the CKD. 6. Iron Deficiency Anemia: Iron 277/TIBC <294/ferritin 506. PLAN: Wait for complete Hemolytic screen. If GI evaluation is completely non revealing, will proceed with a bone marrow exam for further evaluation. Will follow blood count. Proceed with blood transfusion to keep hemoglobin above 8 gms. Thanks for the consult, Will follow, CC: Lo. - Time Spent With Patient Time Spent with Patient (in minutes): 30
[2022-09-09] MEDS: Docusate Sodium 100 MG CAPSULE PO (20:55)
[2022-09-10] VITALS (13 sets, daily range): BP systolic 107–146; BP diastolic 60–81; PULSE 63–91; RESP 16–20; TEMP 36.4–37.6; O2SAT 94–98
[2022-09-10] MEDS: 0.9 % Sodium Chloride Flush 3 ML SYRINGE IVFLUSH ×3 (01:09→15:49)
[2022-09-10] MEDS: traMADoL HCL 50 MG TABLET PO ×3 (06:37→18:05)
[2022-09-10 07:19] LABS: MANUAL DIFF FLAG NO
[2022-09-10 07:23] LABS: Eosinophils Absolute Auto 0.2 X10*3/uL (0.0-0.4); Eosinophils Percent Auto 1.8 % (0-4); Mean Corpuscular Hemoglobin 33.6 pg (27.0-33.0); SCAN SMEAR FLAG 1
[2022-09-10 07:25] LABS: Basophils Absolute Auto 0.2 X10*3/uL (0.0-0.2); Basophils Percent Auto 1.9 % (0-2); Hematocrit 25.9 % (42.0-52.0); Hemoglobin 8.8 g/dl (14.0-18.0); Imm Gran Abs Auto 0.08 X10*3/uL (0.00-0.03); Imm Gran Pct Auto 0.9 % (0.0-0.4); Lymphocytes Absolute Auto 2.3 X10*3/uL (1.2-4.9); Lymphocytes Percent Auto 24.9 % (20-40); Mean Corpuscular Volume 98.9 fL (80.0-98.0); Monocytes Absolute Auto 0.6 X10*3/uL (0.1-1.2); Monocytes Percent Auto 6.6 % (2-11); Neutrophils Absolute Auto 5.8 x10*3/uL (2.0-8.3); Neutrophils Percent Auto 63.9 % (45-73); Red Blood Count 2.62 X10*6/uL (4.60-5.80); Red Cell Distribution Width 19.5 % (11.0-16.0)
[2022-09-10 07:27] LABS: Platelet Count 39 X10*3/uL (160-400)
[2022-09-10 07:28] LABS: PLT ABN DIST 1
[2022-09-10] MEDS: Fluticasone/Vilanterol 100/25 BLST.W.DEV 1 PUFF INHALE (07:39)
[2022-09-10] MEDS: Albuterol/Iprat 2.5/0.5MG 3 ML AMPUL.NEB INHALE ×4 (07:39→19:11)
[2022-09-10 08:13] LABS: Alanine Aminotransferase 36 U/L (0-40); Albumin Level 3.4 g/dL (3.5-5.0); Alkaline Phosphatase 73 U/L (39-117); Anion Gap 13 (12-20); Aspartate Amino Transferase 17 U/L (5-37); Bilirubin Total 0.6 mg/dL (0.0-1.0); Blood Urea Nitrogen 13 mg/dL (9-16); Calcium 8.3 mg/dL (8.4-10.2); Carbon Dioxide 25 mmol/L (22-29); Chloride 103 mmol/L (96-108); Creatinine Clr Calc Pharmacy 123.4; Estimated Glomerular Filt Rate > 60; Glucose Random 120 mg/dL (60-115); Potassium 4.1 mmol/L (3.3-5.1); Sodium 137 mmol/L (135-145); Total Protein 5.6 g/dL (6.5-8.0)
[2022-09-10] MEDS: Thiamine HCL 100 MG in 0.9 % Sodium Chloride 100 ML 202 MG IV (09:55)
[2022-09-10] MEDS: Docusate Sodium 100 MG CAPSULE PO ×2 (09:56→20:38)
[2022-09-10] MEDS: PHENobarbitaL 15 MG TABLET PO ×2 (09:56→20:37)
--- NOTE | 2022-09-10 09:58 | HO.PM.IMPN ---
Subjective Subjective Date of Service: 09/10/22 Interval History: No significant nursing events overnight. Patient maintaining normal oxygen saturation on room air. Minimal wheezing. No new complaints Review of Systems All 13 review of systems are negative except as noted in HPI Physical Exam Vital Signs: Vital Signs: Last Vital Signs Temp 97.6 F 09/10/22 07:47 Pulse 73 09/10/22 07:47 Resp 20 09/10/22 07:47 BP 126/72 09/10/22 07:47 Pulse Ox 95 09/10/22 08:00 O2 Del Method 09/10/22 08:00 O2 Flow Rate 1 09/10/22 07:47 Oxygen Flow Rate 1 09/10/22 08:00 BMI result Body Mass Index 31.0 Middle-aged male lying in bed in no distress Neck supple, no JVD Regular rate and rhythm, S1-S2 heard Minimal bilateral expiratory wheezing Abdomen soft nontender, no guarding, no rigidity Patient is awake, alert and oriented to self, place, time and person ; no focal motor deficit Psych: Normal mood No pedal edema Objective Data Active Medications Acetaminophen (Acetaminophen 325 Mg Tablet) 650 mg PO Q6H PRN PRN Reason: Pain, Mild (Pain Scale 1-3) Albuterol/Ipratropium (Albuterol/Iprat 2.5/0.5mg 3 Ml Ampul.Neb) 3 ml INHALE RQ4H WHILE AWAKE [facility] Last Admin: 09/10/22 07:39 Dose: 3 ml Documented By: CRISS Albuterol/Ipratropium (Albuterol/Iprat 2.5/0.5mg 3 Ml Ampul.Neb) 3 ml INHALE RQ4H PRN PRN Reason: Shortness of Breath/Wheezing Last Admin: 09/08/22 02:31 Dose: 3 ml Documented By: SALMA Docusate Sodium (Docusate Sodium 100 Mg Capsule) 100 mg PO BID [facility] Last Admin: 09/10/22 09:56 Dose: 100 mg Documented By: LAURIE Enoxaparin Sodium (Enoxaparin Sodium 40 Mg/0.4 Ml Syringe) 40 mg SUBCUT Q24H [facility] Last Admin: 09/09/22 11:16 Dose: 40 mg Documented By: OBDULIA Fluticasone Propionate (Fluticasone Propionate Nasal 16 Gm [place]) 2 spray NOSTRIL-B DAILY PRN PRN Reason: Allergy Symptoms Fluticasone/Vilanterol (Fluticasone/Vilanterol 100/25 Blst.W.Dev) 1 puff INHALE RDAILY [facility] Last Admin: 09/10/22 07:39 Dose: 1 puff Documented By: CRISS Thiamine HCl 100 mg/ Sodium (Chloride) 101 mls @ 202 mls/hr IV DAILY [facility] Last Admin: 09/10/22 09:55 Dose: 202 mls/hr Documented By: LAURIE Folic Acid 1 mg/ Sodium (Chloride) 50.2 mls @ 100.4 mls/hr IV DAILY [facility] Last Infusion: 09/09/22 13:29 Dose: 0 mls/hr Documented By: OBDULIA Nicotine Polacrilex (Nicotine Polacrilex 2 Mg Gum) 2 mg BUCCAL Q2H PRN PRN Reason: Nicotine Cravings Pharmacy Consult (Consult Rx Perform Med Rec) 1 each MISCELLANE ONCE PRN PRN Reason: Consult order Pharmacy Consult (Consult Rx Etoh Phenob Im/Po) 1 each MISCELLANE ONCE PRN; Protocol PRN Reason: Consult order Phenobarbital (Phenobarbital 15 Mg Tablet) 15 mg PO BID [facility]; Protocol Stop: 09/11/22 21:01 Last Admin: 09/10/22 09:56 Dose: 15 mg Documented By: LAURIE Phenobarbital (Phenobarbital 15 Mg Tablet) 15 mg PO DAILY [facility]; Protocol Stop: 09/13/22 09:01 Polyethylene Glycol (Polyethylene Glycol 3350 17 Gm Powd.Pack) 17 gm PO DAILY PRN PRN Reason: constipation Prednisone (Prednisone 20 Mg Tablet) 40 mg PO DAILY [facility] Last Admin: 09/08/22 11:23 Dose: 40 mg Documented By: MARCOS Sodium Chloride (0.9 % Sodium Chloride Flush 3 Ml Syringe) 3 ml IVFLUSH QSHIFT [facility] Last Admin: 09/10/22 01:09 Dose: 3 ml Documented By: JANICE Tramadol HCl (Tramadol Hcl 50 Mg Tablet) 50 mg PO Q6H PRN PRN Reason: Pain, Moderate (Pain Scale 4-6 Last Admin: 09/10/22 06:37 Dose: 50 mg Documented By: JANICE Labs CBC & Chem 7: 09/10/22 06:28 09/10/22 06:28 Labs: Laboratory Results - last 24 hr 09/09/22 09/09/22 09/09/22 06:43 06:43 06:43 MCV MCH MCHC RDW Plt Count MPV Immature Gran % (Auto) Neut % (Auto) Lymph % (Auto) [place] % (Auto) Eos % (Auto) Baso % (Auto) Lymph # (Auto) [place] # (Auto) Eos # (Auto) Baso # (Auto) Abs Immat Gran (auto) Absolute Neuts (auto) Absolute Nucleated RBC Nucleated RBC % (auto) Smear Path Review Cancelled Absolute Retic 0.024 L Percent Retic 0.9 Immature Retic Fraction 8.4 Retic Hgb Equivalent 41.7 H Anion Gap Estim Creat Clear Calc Estimated GFR Random Glucose Calcium Total Bilirubin AST ALT Alkaline Phosphatase Lactate Dehydrogenase 203 Total Protein Albumin [place], Polyspecific NEGATIVE Positive [place] Work-up TNP 09/10/22 09/10/22 06:28 06:28 MCV 98.9 H MCH 33.6 H MCHC 34.0 RDW 19.5 H Plt Count 39 L MPV Not Reportable Immature Gran % (Auto) 0.9 H Neut % (Auto) 63.9 Lymph % (Auto) 24.9 [place] % (Auto) 6.6 Eos % (Auto) 1.8 Baso % (Auto) 1.9 Lymph # (Auto) 2.3 [place] # (Auto) 0.6 Eos # (Auto) 0.2 Baso # (Auto) 0.2 Abs Immat Gran (auto) 0.08 H Absolute Neuts (auto) 5.8 Absolute Nucleated RBC 0.000 Nucleated RBC % (auto) 0.0 Smear Path Review Absolute Retic Percent Retic Immature Retic Fraction Retic Hgb Equivalent Anion Gap 13 Estim Creat Clear Calc 123.4 Estimated GFR > 60 Random Glucose 120 H Calcium 8.3 L Total Bilirubin 0.6 AST 17 ALT 36 Alkaline Phosphatase 73 Lactate Dehydrogenase Total Protein 5.6 L Albumin 3.4 L [place], Polyspecific Positive [place] Work-up Assessment and Plan (1) Symptomatic anemia: Status: Acute (2) Alcohol abuse: Status: Acute (3) Acid reflux: Status: Acute Plan 52-year-old male with history of moderate persistent asthma without acute exacerbation, alcohol abuse, chronic macrocytic anemia, chronic constipation, history of gastric ulcer, GERD, former smoker to be admitted for symptomatic anemia and acute asthma exacerbation. # symptomatic acute anemia with baseline chronic anemia- -unclear etiology. GI bleed ruled out. Question hemolysis -Endoscopy and colonoscopy without clear source of bleeding -Hemolysis workup initiated with peripheral smear, retic count, haptoglobin, and LDH. Pt is jaundice bili 1.9 -Hematology following with possible bone marrow -DC PPI -Hgb electrophoresis and hemolysis labs pending -Follow CBC CMP #Acute moderate persistent asthma exacerbation -improving. On PO steroids -DuoNebs q.4h while awake -continue home Advair # alcohol use disorder -consumes 6 X 12 oz beers and 1 nip daily. -Denies withdrawal symptoms -Continue CIWA -continue phenobarb protocol -addiction medicine consult # transaminitis-likely secondary to alcohol abuse -LFTs trending down -abd us without abnormality #Chronic constipation -Docusate and miralax #GERD -on famotidine DVT prophylaxis-Lovenox Full code Patient requires ongoing inpt stay for ongoing management of acute blood loss anemia requiring addl transfusion of 2 units packed rbc with ongoing investigation of source of GI bleeding. Quality Stroke Does the patient have a stroke diagnosis?: No VTE Prior VTE?: No VTE Risk Level:: Medical - moderate - high VTE Device Contraindication: Treatment Not Indicated VTE Drug Contraindication: N/A - Med Ordered
[2022-09-10] MEDS: Famotidine 20 MG TABLET PO (10:39)
[2022-09-10] MEDS: Acetaminophen 325 MG TABLET 650 MG PO (10:41)
--- NOTE | 2022-09-10 11:55 | HO.POSTANES ---
Post Anesthesia Evaluation Post Anesthesia Evaluation Vital Signs: Vital Signs Temp Pulse Resp BP Pulse Ox O2 Del Method O2 Flow Rate 09/10/22 10:50 98.5 F 75 18 134/74 95 Room Air 09/10/22 10:57 20 09/10/22 10:45 94 Room Air 09/10/22 08:00 95 Nasal Cannula 09/10/22 07:47 97.6 F 73 20 126/72 95 Nasal Cannula 1 09/10/22 07:39 71 18 09/10/22 03:44 98.2 F 63 16 108/66 98 Nasal Cannula 1 09/10/22 00:00 99.7 F 79 16 107/61 97 Nasal Cannula 1 Anesthesia: Monitored Mental Status: Awake Pain Control: Satisfactory Nausea/Vomiting: None Hydration: Adequate Anesthesia-Related Issues: No Anes. Related Issues
[2022-09-10] MEDS: Enoxaparin Sodium 40 MG/0.4 ML SYRINGE SUBCUT (12:12)
[2022-09-10] MEDS: Folic Acid 1 MG in 0.9 % Sodium Chloride 50 ML 100 MG IV (12:43)
[2022-09-10] MEDS: Benzonatate 100 MG CAPSULE 200 MG PO (18:05)
[2022-09-11] VITALS (11 sets, daily range): BP systolic 119–149; BP diastolic 51–78; PULSE 66–91; RESP 16–20; TEMP 36.2–36.8; O2SAT 94–100
[2022-09-11] MEDS: 0.9 % Sodium Chloride Flush 3 ML SYRINGE IVFLUSH ×3 (00:20→21:06)
[2022-09-11 07:29] LABS: Basophils Absolute Auto 0.3 X10*3/uL (0.0-0.2); Basophils Percent Auto 3.5 % (0-2); Eosinophils Absolute Auto 0.3 X10*3/uL (0.0-0.4); Eosinophils Percent Auto 4.3 % (0-4); Hematocrit 24.9 % (42.0-52.0); Hemoglobin 8.4 g/dl (14.0-18.0); Imm Gran Abs Auto 0.06 X10*3/uL (0.00-0.03); Imm Gran Pct Auto 0.8 % (0.0-0.4); Lymphocytes Absolute Auto 2.4 X10*3/uL (1.2-4.9); Lymphocytes Percent Auto 31.7 % (20-40); MANUAL DIFF FLAG SCAN; Mean Corpuscular HGB Conc 33.7 g/dl (31.0-36.0); Mean Corpuscular Hemoglobin 33.5 pg (27.0-33.0); Mean Corpuscular Volume 99.2 fL (80.0-98.0); Monocytes Absolute Auto 0.5 X10*3/uL (0.1-1.2); Monocytes Percent Auto 6.8 % (2-11); Neutrophils Absolute Auto 3.9 x10*3/uL (2.0-8.3); Neutrophils Percent Auto 52.9 % (45-73); Red Blood Count 2.51 X10*6/uL (4.60-5.80); SCAN SMEAR FLAG 1; White Blood Count 7.5 X10*3/uL (4.8-10.8)
[2022-09-11 07:31] LABS: Platelet Count 43 X10*3/uL (160-400)
[2022-09-11] MEDS: Fluticasone/Vilanterol 100/25 BLST.W.DEV 1 PUFF INHALE (07:44)
[2022-09-11] MEDS: Albuterol/Iprat 2.5/0.5MG 3 ML AMPUL.NEB INHALE ×4 (07:44→18:52)
[2022-09-11 07:48] LABS: Alanine Aminotransferase 31 U/L (0-40); Albumin Level 3.3 g/dL (3.5-5.0); Alkaline Phosphatase 65 U/L (39-117); Anion Gap 12 (12-20); Aspartate Amino Transferase 14 U/L (5-37); Bilirubin Total 0.4 mg/dL (0.0-1.0); Blood Urea Nitrogen 11 mg/dL (9-16); Calcium 8.2 mg/dL (8.4-10.2); Carbon Dioxide 28 mmol/L (22-29); Chloride 101 mmol/L (96-108); Creatinine Clr Calc Pharmacy 123.4; Estimated Glomerular Filt Rate > 60; Glucose Random 112 mg/dL (60-115); Sodium 137 mmol/L (135-145); Total Protein 5.3 g/dL (6.5-8.0)
[2022-09-11 08:15] LABS: SLIDE REVIEW VERIFIED
[2022-09-11] MEDS: Folic Acid 1 MG in 0.9 % Sodium Chloride 50 ML 100 MG IV (09:29)
[2022-09-11] MEDS: Docusate Sodium 100 MG CAPSULE PO ×2 (09:29→21:05)
[2022-09-11] MEDS: Famotidine 20 MG TABLET PO (09:29)
[2022-09-11] MEDS: PHENobarbitaL 15 MG TABLET PO ×2 (09:29→21:06)
[2022-09-11] MEDS: Thiamine HCL 100 MG in 0.9 % Sodium Chloride 100 ML 202 MG IV (10:22)
--- NOTE | 2022-09-11 10:56 | HO.PM.IMPN ---
Subjective Subjective Date of Service: 09/11/22 Interval History: f/u on anemia interval history: he's coughing a lot, not sure why Review of Systems cough, no fever some sob Physical Exam Vital Signs: Vital Signs: Last Vital Signs Temp 98.2 F 09/11/22 08:00 Pulse 72 09/11/22 08:00 Resp 20 09/11/22 08:00 BP 125/66 09/11/22 08:00 Pulse Ox 96 09/11/22 08:00 O2 Del Method 09/11/22 08:00 O2 Flow Rate 1.5 09/11/22 08:00 FiO2 96 09/10/22 19:31 Oxygen Flow Rate 1.5 09/11/22 08:00 BMI result Body Mass Index 31.0 Const: Other: General: AO X 3, no acute distress Resp: bilateral rhonchi CVS: S1,S2,RRR GI: +BS, NT, no distention Skin: No rash Neuro: motor grossly intact Psych: appropriate affect Objective Data Active Medications Acetaminophen (Acetaminophen 325 Mg Tablet) 650 mg PO Q6H PRN PRN Reason: Pain, Mild (Pain Scale 1-3) Last Admin: 09/10/22 10:41 Dose: 650 mg Documented By: LAURIE Albuterol/Ipratropium (Albuterol/Iprat 2.5/0.5mg 3 Ml Ampul.Neb) 3 ml INHALE RQ4H WHILE AWAKE [facility] Last Admin: 09/11/22 07:44 Dose: 3 ml Documented By: CRISS Albuterol/Ipratropium (Albuterol/Iprat 2.5/0.5mg 3 Ml Ampul.Neb) 3 ml INHALE RQ4H PRN PRN Reason: Shortness of Breath/Wheezing Last Admin: 09/08/22 02:31 Dose: 3 ml Documented By: SALMA Benzonatate (Benzonatate 100 Mg Capsule) 200 mg PO TID PRN PRN Reason: cough Last Admin: 09/10/22 18:05 Dose: 200 mg Documented By: LEIGHA Docusate Sodium (Docusate Sodium 100 Mg Capsule) 100 mg PO BID [facility] Last Admin: 09/11/22 09:29 Dose: 100 mg Documented By: MARCOS Enoxaparin Sodium (Enoxaparin Sodium 40 Mg/0.4 Ml Syringe) 40 mg SUBCUT Q24H [facility] Last Admin: 09/10/22 12:12 Dose: 40 mg Documented By: LAURIE Famotidine (Famotidine 20 Mg Tablet) 20 mg PO DAILY [facility] Last Admin: 09/11/22 09:29 Dose: 20 mg Documented By: MARCOS Fluticasone Propionate (Fluticasone Propionate Nasal 16 Gm [place]) 2 spray NOSTRIL-B DAILY PRN PRN Reason: Allergy Symptoms Fluticasone/Vilanterol (Fluticasone/Vilanterol 100/25 Blst.W.Dev) 1 puff INHALE RDAILY [facility] Last Admin: 09/11/22 07:44 Dose: 1 puff Documented By: CRISS Thiamine HCl 100 mg/ Sodium (Chloride) 101 mls @ 202 mls/hr IV DAILY [facility] Last Admin: 09/11/22 10:22 Dose: 202 mls/hr Documented By: MARCOS Folic Acid 1 mg/ Sodium (Chloride) 50.2 mls @ 100.4 mls/hr IV DAILY [facility] Last Infusion: 09/11/22 10:24 Dose: 0 mls/hr Documented By: MARCOS Nicotine Polacrilex (Nicotine Polacrilex 2 Mg Gum) 2 mg BUCCAL Q2H PRN PRN Reason: Nicotine Cravings Pharmacy Consult (Consult Rx Perform Med Rec) 1 each MISCELLANE ONCE PRN PRN Reason: Consult order Pharmacy Consult (Consult Rx Etoh Phenob Im/Po) 1 each MISCELLANE ONCE PRN; Protocol PRN Reason: Consult order Phenobarbital (Phenobarbital 15 Mg Tablet) 15 mg PO BID [facility]; Protocol Stop: 09/11/22 21:01 Last Admin: 09/11/22 09:29 Dose: 15 mg Documented By: MARCOS Phenobarbital (Phenobarbital 15 Mg Tablet) 15 mg PO DAILY [facility]; Protocol Stop: 09/13/22 09:01 Polyethylene Glycol (Polyethylene Glycol 3350 17 Gm Powd.Pack) 17 gm PO DAILY PRN PRN Reason: constipation Prednisone (Prednisone 20 Mg Tablet) 40 mg PO DAILY [facility] Last Admin: 09/08/22 11:23 Dose: 40 mg Documented By: MARCOS Sodium Chloride (0.9 % Sodium Chloride Flush 3 Ml Syringe) 3 ml IVFLUSH QSHIFT [facility] Last Admin: 09/11/22 09:29 Dose: 3 ml Documented By: DOBROB Tramadol HCl (Tramadol Hcl 50 Mg Tablet) 50 mg PO Q6H PRN PRN Reason: Pain, Moderate (Pain Scale 4-6 Last Admin: 09/10/22 18:05 Dose: 50 mg Documented By: LEIGHA Labs CBC & Chem 7: 09/11/22 06:28 09/11/22 06:28 Labs: Laboratory Results - last 24 hr 09/11/22 09/11/22 06:28 06:28 MCV 99.2 H MCH 33.5 H MCHC 33.7 RDW 19.0 H Plt Count 43 L MPV Not Reportable Immature Gran % (Auto) 0.8 H Neut % (Auto) 52.9 Lymph % (Auto) 31.7 [place] % (Auto) 6.8 Eos % (Auto) 4.3 H Baso % (Auto) 3.5 H Lymph # (Auto) 2.4 [place] # (Auto) 0.5 Eos # (Auto) 0.3 Baso # (Auto) 0.3 H Abs Immat Gran (auto) 0.06 H Absolute Neuts (auto) 3.9 Absolute Nucleated RBC 0.000 Nucleated RBC % (auto) 0.0 Smear Tech's Comments VERIFIED Anion Gap 12 Estim Creat Clear Calc 123.4 Estimated GFR > 60 Random Glucose 112 Calcium 8.2 L Total Bilirubin 0.4 AST 14 ALT 31 Alkaline Phosphatase 65 Total Protein 5.3 L Albumin 3.3 L Assessment and Plan (1) Symptomatic anemia: Status: Acute (2) Alcohol abuse: Status: Acute (3) Acid reflux: Status: Acute Plan 52-year-old male with history of moderate persistent asthma without acute exacerbation, alcohol abuse, chronic macrocytic anemia, chronic constipation, history of gastric ulcer, GERD, former smoker to be admitted for symptomatic anemia and acute asthma exacerbation. # symptomatic acute anemia with baseline chronic anemia- -unclear etiology. GI bleed ruled out. Question hemolysis -Endoscopy and colonoscopy without clear source of bleeding -Hemolysis workup initiated with peripheral smear, retic count, haptoglobin, and LDH. Pt is jaundice bili 1.9 -Hematology following with possible bone marrow -DC PPI -Hgb electrophoresis and hemolysis labs pending -Follow CBC CMP #Acute moderate persistent asthma exacerbation -improving. On PO steroids -DuoNebs q.4h while awake -continue home Advair # alcohol use disorder -consumes 6 X 12 oz beers and 1 nip daily. -Denies withdrawal symptoms -Continue CIWA -continue phenobarb protocol -addiction medicine consult # transaminitis-likely secondary to alcohol abuse -LFTs trending down -abd us without abnormality #Chronic constipation -Docusate and miralax #GERD -on famotidine DVT prophylaxis-Lovenox Full code Patient requires ongoing inpt stay for ongoing management of acute blood loss anemia requiring addl transfusion of 2 units packed rbc with ongoing investigation of source of GI bleeding. Quality Stroke Does the patient have a stroke diagnosis?: No VTE Prior VTE?: No VTE Risk Level:: Medical - moderate - high VTE Device Contraindication: Treatment Not Indicated VTE Drug Contraindication: N/A - Med Ordered
[2022-09-11] MEDS: Benzonatate 100 MG CAPSULE 200 MG PO (11:10)
[2022-09-11] MEDS: Enoxaparin Sodium 40 MG/0.4 ML SYRINGE SUBCUT (14:10)
[2022-09-11 16:48] LABS: Haptoglobin 107 mg/dL (43-212)
[2022-09-11 23:32] LABS: Hematocrit 19.8 % (38.5-50.0); Hemoglobin 6.9 g/dL (13.2-17.1); MCH 34.8 pg (27.0-33.0); RBC 1.98 Million/uL (4.20-5.80); RDW 20.2 % (11.0-15.0)
[2022-09-12 03:10] VITALS: BP 127/69; PULSE 70; RESP 18; TEMP 36.7; O2SAT 95
[2022-09-12 07:33] LABS: Alanine Aminotransferase 31 U/L (0-40); Albumin Level 3.3 g/dL (3.5-5.0); Alkaline Phosphatase 69 U/L (39-117); Anion Gap 13 (12-20); Aspartate Amino Transferase 14 U/L (5-37); Bilirubin Total 0.4 mg/dL (0.0-1.0); Blood Urea Nitrogen 10 mg/dL (9-16); Calcium 8.3 mg/dL (8.4-10.2); Carbon Dioxide 27 mmol/L (22-29); Chloride 103 mmol/L (96-108); Creatinine Clr Calc Pharmacy 126.9; Estimated Glomerular Filt Rate > 60; Glucose Random 110 mg/dL (60-115); Potassium 4.5 mmol/L (3.3-5.1); Sodium 138 mmol/L (135-145); Total Protein 5.5 g/dL (6.5-8.0)
[2022-09-12 07:45] VITALS: BP 120/62; PULSE 68; RESP 17; TEMP 36.4; O2SAT 96
[2022-09-12 08:00] VITALS: O2SAT 96
[2022-09-12] MEDS: Albuterol/Iprat 2.5/0.5MG 3 ML AMPUL.NEB INHALE ×2 (08:28→12:00)
[2022-09-12 08:29] VITALS: PULSE 78; RESP 18; O2SAT 93
[2022-09-12] MEDS: Fluticasone/Vilanterol 100/25 BLST.W.DEV 1 PUFF INHALE (08:33)
[2022-09-12] MEDS: 0.9 % Sodium Chloride Flush 3 ML SYRINGE IVFLUSH (09:07)
[2022-09-12] MEDS: Docusate Sodium 100 MG CAPSULE PO (09:09)
[2022-09-12] MEDS: Benzonatate 100 MG CAPSULE 200 MG PO (09:09)
[2022-09-12] MEDS: PHENobarbitaL 15 MG TABLET PO (09:09)
[2022-09-12] MEDS: Famotidine 20 MG TABLET PO (09:09)
[2022-09-12] MEDS: Folic Acid 1 MG in 0.9 % Sodium Chloride 50 ML 100 MG IV (09:11)
[2022-09-12] MEDS: Thiamine HCL 100 MG in 0.9 % Sodium Chloride 100 ML 202 MG IV (09:48)
--- NOTE | 2022-09-12 10:45 | P.DS_ITS ---
DS: Providers Provider Date of Service: 09/12/22 Date of admission: 09/07/22 12:52 Primary care physician: Cassandra Rodriguez MD Consults: 09/07/22 12:52 Consult to Gastroenterology Routine Consulting Provider: Steff Weaver Reason for consultation: symptomatic anemia, ?GIB 09/07/22 13:22 Addiction Medicine Routine Consulting Provider: Addiction Covering Reason for consultation: alcohol dependence 09/09/22 15:19 Consult to Hematology / Oncology Routine Consulting Provider: Gurmeet Gama Reason for consultation: anemia, GI work up negative DS: Diagnosis Discharge Diagnosis (1) Symptomatic anemia: Status: Acute (2) Alcohol abuse: Status: Acute (3) Acid reflux: Status: Acute DS: Summary Hospital Course Hospital Course: Chief Complaint: ? ? ? sob, wheezing, dizziness?<CADEN Pastrana - Last Filed: 09/07/22 13:27> ? ? ? 52-year-old male with history of moderate persistent asthma without acute exacerbation, alcohol abuse, chronic macrocytic anemia, chronic constipation, history of gastric ulcer, GERD, former smoker presented to the ED this morning for evaluation of shortness of breath and wheezing ongoing for 1 day.? He is also reporting a nonproductive cough.? He has noted increasing albuterol usage with some improvement in symptoms.? He does also state that for the last few weeks he has been experiencing lightheadedness and fatigue.? This morning also had mild chest tightness and short-lived palpitations.? He is unable to elaborate on any alleviating or exacerbating factors.? On arrival to the ED, mild tachypnea of 24 and mildly tachycardic at 100.? He is afebrile without hypoxia.? Hematology studies significant for WBC 5.4, RBC 1.10, HGB 4.2, HCT 12 .8, MCV 116.4 (baseline WBC 5.3, RBC 2.74, HGB 10.0, HCT 30.0, MCV 109.5).? Renal function and electrolyte levels normal.? AST 44, ALT 54, alkaline phosphatase 78.? BNP 121.? Ethyl alcohol 41.? Attempts were made to collect stool occult sample but was unable to be performed.? The patient denies any fevers, chills, nausea, abdominal pain, diarrhea.? He states he did notice a small amount of bright red blood on the stool this morning and does endorse straining due to constipation but denies any other episodes of hematochezia or melena.? Currently denying any dyspnea, palpitations, chest pain.? Did have similar episode of vomiting in the ED without any hematemesis.? Patient is a heavy every day drinker consuming 6 12 oz beers and 1 neb daily but denies any history of cirrhosis her esophageal varices.? He denies any illicit drug use but does endorse occasional marijuana use.? Patient has received the 1st of 3 units packed red blood cells in the ED and is tolerating this well.? He has also received DuoNeb updraft, 2 g IV Mag, 40 mg pantoprazole, and started on phenobarb per protocol for alcohol withdrawal. Hospital course: # Symptomatic acute on chronic anemia GI work up in the past unremarkable including EGD and colonoscopy in the past. Hematology has seen him and doing hemolysis work up and electrophoresis. He presented with hemoglobin of 4.2 and now 8.4 after transfusion. At this point he should folloow up with hematology office. #Acute moderate persistent asthma exacerbation--improved, treated with bronchodilators and Nebs, DC with prednisone f # alcohol use disorder--was on CIWA and no withdrawal noted # transaminitis-likely secondary to alcohol abuse--LFTs have trended down, Ultrasound was ok #Chronic constipation -Docusate and miralax #GERD -on famotidine Time Spent with Patient Time attestation: Total time spent providing and/or coordinating discharge services: Discharge coordination time: Greater than 30 minutes Quality: Safe Use of Opioids Does Pt have an Active Cancer Diagnosis on the Problem List?: No Quality: Stroke Does the patient have a stroke diagnosis?: No Physical Exam Vital Signs: Vital Signs: Last Vital Signs Temp 97.5 F 09/12/22 07:45 Pulse 78 09/12/22 08:29 Resp 18 09/12/22 08:29 BP 120/62 09/12/22 07:45 Pulse Ox 96 09/12/22 08:00 O2 Del Method 09/12/22 08:00 O2 Flow Rate 2 09/11/22 11:05 FiO2 96 09/10/22 19:31 Oxygen Flow Rate 1.5 09/11/22 08:00 BMI result Body Mass Index 31.0 DS: Data Data Completed and Pending Completed studies during hospitalization [Text1]: Pending at discharge 09/08/22 09:26 Surgical [PTH] Routine Pending studies at discharge: Pending at discharge 09/09/22 09:58 Surgical [PTH] Routine Discharge Plan Discharge Anticipated Discharge Date/Time: 09/12/22 10:43 Patient Disposition: Home, Self-Care Discharge Diagnosis: Acute on chronic anemia Referrals: Cassandra Rodriguez MD [Primary Care Provider] - 1 Week Gurmeet Gama MD [Physician] - 2 Weeks (anemia) Discharge Medications: New prednisone 20 mg tablet 20 mg PO DAILY Qty: 6 0RF Continued acetaminophen [Tylenol Extra Strength] 500 mg tablet 500 mg PO Q6H PRN (Reason: pain or fever) Qty: 20 0RF polyethylene glycol 3350 [Miralax] 17 gram/dose powder 17 g PO DAILY PRN (Reason: constipation) Qty: 510 0RF albuterol sulfate 90 mcg/actuation HFA aerosol inhaler 2 puff inhalation Q6H PRN (Reason: shortness of breath or wheezing) Qty: 8.5 0RF tramadol 50 mg tablet 1 tab PO Q6H PRN (Reason: pain) nicotine (polacrilex) 4 mg gum 1 ea PO Q2H PRN (Reason: Nicotine Cravings) docusate sodium 100 mg capsule 1 cap PO BID PRN (Reason: Constipation) fluticasone propionate 50 mcg/actuation spray,suspension 2 spray intranasal DAILY PRN (Reason: Allergy Symptoms) fluticasone propion-salmeterol [Advair Diskus] 250-50 mcg/dose blister with device 1 puff inhalation BID Discharge Orders: Discharge Order (Routine); Ordered 09/12/22 Ordered By: Curtis Luque Diet: Advance to usual diet Activity on Discharge: As tolerated Stand Alone Forms: Patient Portal Discharge page Care Plan Goals: full work up for the chronic anemia Health Concerns: recurent anemia Plan of Treatment: follow up with hematology for further work up Assessment: as above
--- NOTE | 2022-09-12 11:06 | MHC.CM.PN ---
Patient has been medically cleared for dc to home today, self care.
[2022-09-12 12:00] VITALS: BP 145/72; PULSE 72; RESP 18; TEMP 36.8; O2SAT 95
[2022-09-12 12:01] VITALS: PULSE 82; RESP 18; O2SAT 94
[2022-09-17 11:52] LABS: Vitamin B1 972 nmol/L (8-30)
== END 2022-09-12 12:34 | disposition home or self-care (01) | DRG 253 ==
LOC: HO.ED 09:18 → HO.EDOVER 13:02 → HO.IMC 18:47
PROVIDERS: Internal Medicine; Internal Medicine Gastroenterology; Student in an Organized Health Care Education/Training Program; Admitting Provider Physician Assistant; Emergency Provider Emergency Medicine; PCP Internal Medicine; Visit Provider Internal Medicine
PROC: 0DJ08ZZ Inspection of Upper Intestinal Tract, Via Natural or Artificial Opening Endoscopic (ICD-10-PCS; CPT 43235; principal; 2022-09-08 09:00)
PROC: 0DJD8ZZ Inspection of Lower Intestinal Tract, Via Natural or Artificial Opening Endoscopic (ICD-10-PCS; CPT 45378; principal; 2022-09-09 09:00)
DX: K55.21 Angiodysplasia of colon with hemorrhage (principal); D62 Acute posthemorrhagic anemia; J45.41 Moderate persistent asthma with (acute) exacerbation; D63.8 Anemia in other chronic diseases classified elsewhere; K57.31 Diverticulosis of large intestine without perforation or abscess with bleeding; K21.9 Gastro-esophageal reflux disease without esophagitis; K29.71 Gastritis, unspecified, with bleeding; F10.239 Alcohol dependence with withdrawal, unspecified; K44.9 Diaphragmatic hernia without obstruction or gangrene; Y90.2 Blood alcohol level of 40-59 mg/100 ml; K59.09 Other constipation; K63.5 Polyp of colon; K64.8 Other hemorrhoids; Z79.51 Long term (current) use of inhaled steroids; Z79.899 Other long term (current) drug therapy
CPT/HCPCS: 36415; 71045; 76705; 80048; 80053; 80076; 80307; 82077; 82607; 82728; 82746; 82803; 83010; 83020; 83540; 83615; 83735; 83880; 84425; 84484; 85014; 85018; 85025; 85041; 85045; 85610; 85730; 86704; 86706; 86803; 86850; 86880; 86900; 86901; 86923; 87340; 87635; 88305; 88342; 93005; 94640; 99285; J1650; J2560; J2920; J3411; J3475; P9016

== ENCOUNTER 2022-10-05 13:49 | Outpatient (REF) | payer MEDICAID, SELFPAY ==
[2022-10-05 14:10] LABS: Basophils Absolute Auto 0.2 X10*3/uL (0.0-0.2); Basophils Percent Auto 4.2 % (0-2); Eosinophils Absolute Auto 0.2 X10*3/uL (0.0-0.4); Eosinophils Percent Auto 5.4 % (0-4); Hematocrit 25.6 % (42.0-52.0); Hemoglobin 8.3 g/dl (14.0-18.0); Imm Gran Abs Auto 0.05 X10*3/uL (0.00-0.03); Imm Gran Pct Auto 1.2 % (0.0-0.4); Lymphocytes Absolute Auto 1.7 X10*3/uL (1.2-4.9); Lymphocytes Percent Auto 39.4 % (20-40); MANUAL DIFF FLAG SCAN; Mean Corpuscular HGB Conc 32.4 g/dl (31.0-36.0); Mean Corpuscular Hemoglobin 33.1 pg (27.0-33.0); Monocytes Absolute Auto 0.4 X10*3/uL (0.1-1.2); Monocytes Percent Auto 8.5 % (2-11); Neutrophils Absolute Auto 1.8 x10*3/uL (2.0-8.3); Neutrophils Percent Auto 41.3 % (45-73); Red Blood Count 2.51 X10*6/uL (4.60-5.80); Red Cell Distribution Width 18.3 % (11.0-16.0); SCAN SMEAR FLAG 1; White Blood Count 4.3 X10*3/uL (4.8-10.8)
[2022-10-05 14:11] LABS: Platelet Count 54 X10*3/uL (160-400)
[2022-10-05 14:12] LABS: PLT ABN DIST 1
[2022-10-05 14:37] LABS: SLIDE REVIEW VERIFIED
[2022-10-05 14:39] LABS: Iron 249 mcg/dL (45-160); Total Iron Binding Capacity < 266 mcg/dL (228-428); Unsaturated Iron Binding < 17 ug/dL
[2022-10-05 15:02] LABS: Ferritin 666 ng/mL (20-250)
== END 2022-10-05 13:50 | disposition home or self-care (01) ==
LOC: HO.LAB 13:49
PROVIDERS: PCP Internal Medicine; Visit Provider Physician Assistant
DX: D64.9 Anemia, unspecified (principal)
CPT/HCPCS: 36415; 82728; 83540; 85025

== ENCOUNTER 2022-10-26 16:03 | Inpatient (IN) | payer MEDICAID, SELFPAY ==
[2022-10-26] VITALS (12 sets, daily range): BP systolic 112–136; BP diastolic 45–71; PULSE 66–97; RESP 12–21; TEMP 36.6–37.1; O2SAT 96–100; BMI 29.0
--- NOTE | ~2022-10-26 | XR_ITS ---
EXAMINATION: XR CHEST CLINICAL INFORMATION: Shortness of breath COMPARISON: 09/07/2022 TECHNIQUE: Frontal view of the chest was obtained. FINDINGS: Mild diffuse peribronchial vascular opacities may reflect edema or atypical infection. XR/XR chest 1V IMPRESSION: Mild diffuse peribronchial vascular opacities may reflect edema or atypical infection.
--- NOTE | ~2022-10-26 | US_ITS ---
EXAMINATION: US ABDOMEN COMPLETE CLINICAL INFORMATION: Pancytopenia. COMPARISON: Abdominal ultrasound on 09/07/2022 TECHNIQUE: Real-time imaging of the abdominal viscera. FINDINGS: PANCREAS: Normal. ABDOMINAL AORTA: The proximal, mid, and distal segments are normal in caliber. INFERIOR VENA CAVA: Visualized portions are normal. LIVER: Normal. The liver is normal in size. The liver contour is normal. Parenchymal echogenicity is normal. No focal hepatic lesion. There is no intrahepatic biliary duct dilatation seen. GALLBLADDER: Normal. The gallbladder is physiologically distended without evidence of stones, sludge, polyps, wall thickening or pericholecystic fluid. COMMON BILE DUCT: Normal in caliber measuring 0.3 cm in diameter. RIGHT KIDNEY: Normal. No hydronephrosis. No renal calculi or focal parenchymal lesions. The kidney measures 11.6 cm in maximum dimension. LEFT KIDNEY: Normal. No hydronephrosis. No renal calculi or focal parenchymal lesions. The kidney measures 11.2 cm in maximum dimension. SPLEEN: Normal. The spleen measures 9.9 cm in maximum dimension. FREE FLUID: None. US/US abdomen complete IMPRESSION: Unremarkable abdominal ultrasound.
--- NOTE | 2022-10-26 16:21 | ED_ITS ---
HPI - General Adult General Chief complaint: Recheck/Abnormal Lab/Rx Stated complaint: Sent by for blood transfusion Time Seen by Provider: 10/26/22 16:46 Related Data Home Medications Medication Instructions Recorded Confirmed fluticasone propionate 50 2 spray intranasal DAILY PRN 05/13/22 10/26/22 mcg/actuation nasal Allergy Symptoms spray,suspension tramadol 50 mg tablet 1 tab PO Q6H PRN pain 05/13/22 10/26/22 fluticasone 250 mcg-salmeterol 50 1 puff inhalation BID 09/07/22 10/26/22 mcg/dose blistr powdr for inhalation (Advair Diskus) albuterol sulfate 2.5 mg/3 mL 1 amp inhalation QID 09/28/22 10/26/22 (0.083 %) solution for nebulization docusate sodium 100 mg capsule 1 cap PO BID PRN Constipation 09/28/22 10/26/22 folic acid 1 mg tablet 1 mg PO DAILY 09/28/22 10/26/22 multivitamin 1 tab PO DAILY 09/28/22 10/26/22 omeprazole 20 mg capsule,delayed 1 cap PO DAILY 09/28/22 10/26/22 release pantoprazole 20 mg tablet,delayed 20 mg PO DAILY 09/28/22 10/26/22 release paroxetine HCl 20 mg tablet 1 tab PO DAILY 09/28/22 10/26/22 thiamine HCl (vitamin B1) 100 mg 100 mg PO DAILY 09/28/22 10/26/22 tablet blood-glucose meter (FreeStyle #1 ea 10/05/22 10/26/22 [place] Lite kit) lancets 33 gauge (TRUEplus Lancets) #100 ea 10/05/22 10/26/22 Previous Rx's Medication Instructions Recorded acetaminophen 500 mg tablet 500 mg PO Q6H PRN pain or fever 09/23/20 (Tylenol Extra Strength) #20 tabs polyethylene glycol 3350 17 17 g PO DAILY PRN constipation 11/10/20 gram/dose oral powder (Miralax) #510 grams albuterol sulfate 90 mcg/actuation 2 puff inhalation Q6H PRN 09/23/21 aerosol inhaler shortness of breath or wheezing #8.5 grams prednisone 20 mg tablet 20 mg PO DAILY #6 tabs 09/12/22 Allergies Allergy/AdvReac Type Severity Reaction Status Date / Time No Known Allergies Allergy Verified 10/26/22 14:26 [No Known Allergies*] [facility] Past Medical History Medical History Acid reflux Alcohol abuse Alcohol abuse Anemia Asthma History of gastric ulcer Macrocytic anemia Surgical History History of esophagogastroduodenoscopy (EGD) Hx of colonoscopy Family History Family History Father No problems noted. Mother Diabetes Other No family history of cancer Social History Social History Household Members: Family Household Members Other:: sister Housing: House Are you a primary director of career services to a significant other at home: No Do you presently have visiting nurse or other home services: No Alcohol intake: current Alcohol intake frequency: a few times a week Alcohol type: beer and hard liquor Patient Tobacco Use Status: Current everyday Tobacco user Tobacco use type: Cigarette e-Cigarette/Vaping Use: Never Used Substance Use Type: Marijuana Advance Directives: Yes Advance Directives on File: Yes Advance Directives Date on File: 05/19/22 service: No Current occupational status: unemployed Physical Exam ED Vital Signs: Vital Signs - 24 hr 10/26/22 16:20 10/26/22 17:04 10/26/22 17:48 Temperature 98.2 F 98.8 F Pulse Rate 97 76 90 Respiratory Rate 20 16 21 H Blood Pressure 119/53 L 118/63 Pulse Oximetry 98 98 Oxygen Delivery Method Room Air Room Air 10/26/22 18:17 10/26/22 18:33 Temperature 98.8 F 98.3 F Pulse Rate 81 86 Respiratory Rate 14 16 Blood Pressure 136/71 119/45 L Pulse Oximetry Oxygen Delivery Method BMI result Body Mass Index 29.0 Course Course Course Narrative: This is a rapid medical exam. Deferred additional HPI, pe, review of systems to primary provider. This is a 52-year-old male with history of anemia requiring b lood transfusion, moderate persistent asthma without acute exacerbation, alcohol abuse, chronic macrocytic anemia, chronic constipation, history of gastric ulcer, GERD, former smoker here with abnormal h/h drawn outpatient. Patient reports some nose bleeding intermittent. No other bleeding. Reviewed hgb 5.4, hct 15.6. Will check labs, EKG. Patient reports last alcholic beverage one month ago. c/o weakness. VSS Medications Administered Discontinued Medications Generic Name Dose Route Start Last Admin Trade Name Freq PRN Reason Stop Dose Admin Albuterol Sulfate 2.5 mg 10/26/22 17:33 10/26/22 17:49 Albuterol Sulfate (0.083%) 2.5 Mg/3 Ml Vial.Neb INHALE 10/26/22 17:34 2.5 mg ONCE ONE Administration Albuterol Sulfate 2.5 mg/ 0 mg 10/26/22 17:33 10/26/22 17:48 Albuterol/Ipratropium 3 ml INHALE 10/26/22 17:34 5 each ONCE ONE Administration Methylprednisolone Sodium Succinate 125 mg 10/26/22 18:21 10/26/22 18:37 Methylprednisolone Sod Succ 125 Mg/2 Ml Vial IVPUSH 10/26/22 18:22 125 mg ONCE ONE Administration Discharge Plan Discharge Clinical Impression: Anemia Patient Disposition: Admitted As Inpatient
--- NOTE | 2022-10-26 16:23 | ECG_ITS ---
Test Reason : ABNORMAL LABS Blood Pressure : / mmHG Vent. Rate : 073 BPM Atrial Rate : 073 BPM P-R Int : 128 ms QRS Dur : 084 ms QT Int : 362 ms P-R-T Axes : 018 011 014 degrees QTc Int : 398 ms Normal sinus rhythm Normal ECG When compared with ECG of 07-SEP-2022 08:15, No significant change was found Referred By: Monserrat Cantu Electronically Signed By:ANGELA CARDONA MD
--- NOTE | 2022-10-26 17:11 | ED.GENADULT ---
HPI - General Adult General Chief complaint: Recheck/Abnormal Lab/Rx Stated complaint: Sent by for blood transfusion Time Seen by Provider: 10/26/22 16:46 History of Present Illness HPI narrative: Patient is a 52-year-old male with a history anemia in the past. History of alcohol abuse in the past. Presented today with having weakness again. Patient was seen in the hospital for anemia. Had an upper endoscopy and a colonoscopy done they were both negative. No evidence for esophageal varices. Presented today from doctor's office with having low blood count again. No fever no chills no chest pain or shortness breath no nausea no vomiting. Positive generalized malaise. Patient feels very tired. No bloody stool. Related Data Home Medications Medication Instructions Recorded Confirmed fluticasone propionate 50 2 spray intranasal DAILY PRN 05/13/22 10/26/22 mcg/actuation nasal Allergy Symptoms spray,suspension tramadol 50 mg tablet 1 tab PO Q6H PRN pain 05/13/22 10/26/22 fluticasone 250 mcg-salmeterol 50 1 puff inhalation BID 09/07/22 10/26/22 mcg/dose blistr powdr for inhalation (Advair Diskus) albuterol sulfate 2.5 mg/3 mL 1 amp inhalation QID 09/28/22 10/26/22 (0.083 %) solution for nebulization docusate sodium 100 mg capsule 1 cap PO BID PRN Constipation 09/28/22 10/26/22 folic acid 1 mg tablet 1 mg PO DAILY 09/28/22 10/26/22 multivitamin 1 tab PO DAILY 09/28/22 10/26/22 omeprazole 20 mg capsule,delayed 1 cap PO DAILY 09/28/22 10/26/22 release pantoprazole 20 mg tablet,delayed 20 mg PO DAILY 09/28/22 10/26/22 release paroxetine HCl 20 mg tablet 1 tab PO DAILY 09/28/22 10/26/22 thiamine HCl (vitamin B1) 100 mg 100 mg PO DAILY 09/28/22 10/26/22 tablet blood-glucose meter (FreeStyle #1 ea 10/05/22 10/26/22 [place] Lite kit) lancets 33 gauge (TRUEplus Lancets) #100 ea 10/05/22 10/26/22 Previous Rx's Medication Instructions Recorded acetaminophen 500 mg tablet 500 mg PO Q6H PRN pain or fever 09/23/20 (Tylenol Extra Strength) #20 tabs polyethylene glycol 3350 17 17 g PO DAILY PRN constipation 11/10/20 gram/dose oral powder (Miralax) #510 grams albuterol sulfate 90 mcg/actuation 2 puff inhalation Q6H PRN 09/23/21 aerosol inhaler shortness of breath or wheezing #8.5 grams prednisone 20 mg tablet 20 mg PO DAILY #6 tabs 09/12/22 Allergies Allergy/AdvReac Type Severity Reaction Status Date / Time No Known Allergies Allergy Verified 10/26/22 14:26 [No Known Allergies*] Review of Systems Review of Systems: Positive generalized malaise weakness Yes all other systems are reviewed and are negative PMFSH Past Medical History Attestation statement: The following information was validated with the patient. Medical History Acid reflux Alcohol abuse Alcohol abuse Anemia Asthma History of gastric ulcer Macrocytic anemia Surgical History History of esophagogastroduodenoscopy (EGD) Hx of colonoscopy Family History Family History Father No problems noted. Mother Diabetes Other No family history of cancer Social History Social History Household Members: Family Household Members Other:: sister Housing: House Are you a primary laboratory animal caretaker to a significant other at home: No Do you presently have visiting nurse or other home services: No Alcohol intake: current Alcohol intake frequency: a few times a week Alcohol type: beer and hard liquor Patient Tobacco Use Status: Current everyday Tobacco user Tobacco use type: Cigarette e-Cigarette/Vaping Use: Never Used Substance Use Type: Marijuana Advance Directives: Yes Advance Directives on File: Yes Advance Directives Date on File: 05/19/22 service: No Current occupational status: unemployed Physical Exam ED Vital Signs: Vital Signs - 24 hr 10/26/22 16:20 10/26/22 17:04 10/26/22 17:48 Temperature 98.2 F 98.8 F Pulse Rate 97 76 90 Respiratory Rate 20 16 21 H Blood Pressure 119/53 L 118/63 Pulse Oximetry 98 98 Oxygen Delivery Method Room Air Room Air 10/26/22 18:17 10/26/22 18:33 Temperature 98.8 F 98.3 F Pulse Rate 81 86 Respiratory Rate 14 16 Blood Pressure 136/71 119/45 L Pulse Oximetry Oxygen Delivery Method BMI result Body Mass Index 29.0 Appearance: Alert. Oriented X3. No acute distress. Eyes: Pupils equal, round and reactive to light. ENT: Pharynx normal. Neck: Normal inspection. Neck supple. No lymph nodes noted. No crepitus CVS: Normal heart rate and rhythm. Pulses normal. Normal S1 and S2 Respiratory: No respiratory distress. Breath sounds normal. No Wheezing. No rales Abdomen: Soft and nontender. No rigidity. No distention. good BS x4 Rectal exam brown stool(done with tech narupa present) Skin: Skin warm and dry. Normal skin color. Normal skin turgor. Extremities: No lower extremity edema. Neurovascular intact to all extremities. No Lacerations. No Rash Neuro: Oriented X 3. No motor deficit. No sensory deficit. Moving all extermities. No slurred speech Medications Administered Discontinued Medications Generic Name Dose Route Start Last Admin Trade Name Freq PRN Reason Stop Dose Admin Albuterol Sulfate 2.5 mg 10/26/22 17:33 10/26/22 17:49 Albuterol Sulfate (0.083%) 2.5 Mg/3 Ml Vial.Neb INHALE 10/26/22 17:34 2.5 mg ONCE ONE Administration Albuterol Sulfate 2.5 mg/ 0 mg 10/26/22 17:33 10/26/22 17:48 Albuterol/Ipratropium 3 ml INHALE 10/26/22 17:34 5 each ONCE ONE Administration Methylprednisolone Sodium Succinate 125 mg 10/26/22 18:21 10/26/22 18:37 Methylprednisolone Sod Succ 125 Mg/2 Ml Vial IVPUSH 10/26/22 18:22 125 mg ONCE ONE Administration Medical Decision Making Medical Decision Making MDM Narrative: Positive history anemia question etiology. Unlikely to be a GI bleed. Patient had a negative endoscopy and colonoscopy. Stool was grossly brown. Question hematologic etiology. Will transfuse blood is patient grossly appear weeks. He does not have any cardiac history. Patient's hemoglobin was less than 6. Risk and benefit of transfusion discussed with patient. Question as to the etiology of the bleeding. Patient aware. 2 units of blood will be transfused. Patient is currently in guarded condition awaiting admissions. Differential Diagnoses: Differential diagnosis Consideration of admission/observation: Consideration of Admission/Observation Discussion of management with other physician/healthcare provider/other source (e.g., hospitalist, safety and health consultant, behavioral health): Discussion w/other physician/healthcare provider My interpretation is Lab Attestation: I reviewed the patient's lab results. Independent interpretation of EKG, rhythm strip, radiology study: Independent interp EKG,rhythm strip, radiology study My interpretation is Non-ED record review: Review of External (Non-ED) Record Tests considered but not performed: Tests Considered But Not Performed (No need for urgent endoscopy at this point) Chronic conditions affecting care (e.g., diabetes, HTN): Chronic conditions affecting care (e.g., diabetes, HTN) Care significantly affected by Social Determinants of Health (e.g., housing and economic circumstances, unemployment): Care affected by Social Determinants of Health Critical Care Time Critical Care Time Critical Care Time: Yes Total Critical Care Time: 40 Attestation: I have personally provided 40 minutes of critical care time exclusive of time spent on separately billable procedures. Time includes review of lab data, radiology results, discussion with consultants, and monitoring for potential decompensation. Interventions were performed as documented above Discharge Plan Discharge Clinical Impression: Anemia Patient Disposition: Admitted As Inpatient Prescriptions: No Action acetaminophen [Tylenol Extra Strength] 500 mg tablet 500 mg PO Q6H PRN (Reason: pain or fever) Qty: 20 0RF polyethylene glycol 3350 [Miralax] 17 gram/dose powder 17 g PO DAILY PRN (Reason: constipation) Qty: 510 0RF albuterol sulfate 90 mcg/actuation HFA aerosol inhaler 2 puff inhalation Q6H PRN (Reason: shortness of breath or wheezing) Qty: 8.5 0RF tramadol 50 mg tablet 1 tab PO Q6H PRN (Reason: pain) fluticasone propionate 50 mcg/actuation spray,suspension 2 spray intranasal DAILY PRN (Reason: Allergy Symptoms) fluticasone propion-salmeterol [Advair Diskus] 250-50 mcg/dose blister with device 1 puff inhalation BID prednisone 20 mg tablet 20 mg PO DAILY Qty: 6 0RF multivitamin Tablet 1 tab PO DAILY albuterol sulfate 2.5 mg /3 mL (0.083 %) solution for nebulization 1 amp inhalation QID thiamine HCl (vitamin B1) 100 mg Tablet 100 mg PO DAILY pantoprazole 20 mg Tablet,Delayed Release (Dr/Ec) 20 mg PO DAILY paroxetine HCl 20 mg tablet 1 tab PO DAILY docusate sodium 100 mg capsule 1 cap PO BID PRN (Reason: Constipation) omeprazole 20 mg capsule,delayed release(DR/EC) 1 cap PO DAILY folic acid 1 mg Tablet 1 mg PO DAILY (DME) lancets [TRUEplus Lancets] 33 gauge misc See Rx Instructions .ROUTE BID Qty: 100 Rx Instructions: As directed (DME) blood-glucose meter [FreeStyle [place] Lite] Kit See Rx Instructions .ROUTE BID Qty: 1 Rx Instructions: As directed
[2022-10-26 17:29] LABS: MANUAL DIFF FLAG NO
[2022-10-26 17:32] LABS: Basophils Absolute Auto 0.1 X10*3/uL (0.0-0.2); Basophils Percent Auto 2.4 % (0-2); SCAN SMEAR FLAG 1
[2022-10-26 17:34] LABS: Eosinophils Absolute Auto 0.2 X10*3/uL (0.0-0.4); Eosinophils Percent Auto 3.3 % (0-4); Imm Gran Pct Auto 1.7 % (0.0-0.4); Lymphocytes Absolute Auto 2.6 X10*3/uL (1.2-4.9); Lymphocytes Percent Auto 43.9 % (20-40); Mean Corpuscular HGB Conc 34.4 g/dl (31.0-36.0); Mean Corpuscular Hemoglobin 33.1 pg (27.0-33.0); Mean Corpuscular Volume 96.3 fL (80.0-98.0); Monocytes Absolute Auto 0.6 X10*3/uL (0.1-1.2); Monocytes Percent Auto 9.6 % (2-11); Neutrophils Absolute Auto 2.3 x10*3/uL (2.0-8.3); Neutrophils Percent Auto 39.1 % (45-73); Red Blood Count 1.63 X10*6/uL (4.60-5.80); White Blood Count 5.8 X10*3/uL (4.8-10.8)
[2022-10-26 17:35] LABS: OBS Int Ctl Valid YES; OBS1 POSITIVE (NEGATIVE)
[2022-10-26 17:37] LABS: Hematocrit 15.7 % (42.0-52.0); Platelet Count 61 X10*3/uL (160-400)
[2022-10-26 17:38] LABS: Hemoglobin 5.4 g/dl (14.0-18.0); PLT ABN DIST 1
[2022-10-26 17:45] LABS: COVID-19 Test Negative (Negative); IDNOW Serial# BCCEAD1C
[2022-10-26 17:47] LABS: INTERNATIONAL NORM RATIO 1.3 (0.9-1.1); Prothrombin Time 14.8 SEC (10.0-13.1)
[2022-10-26] MEDS: Albuterol Sulfate 2.5 MG, Albuterol/Iprat 2.5/0.5MG 3 ML 3 ML INHALE (17:48)
[2022-10-26] MEDS: Albuterol Sulfate (0.083%) 2.5 MG/3 ML VIAL.NEB INHALE (17:49)
[2022-10-26 18:04] LABS: Alanine Aminotransferase 13 U/L (0-40); Albumin Level 3.9 g/dL (3.5-5.0); Alkaline Phosphatase 67 U/L (39-117); Anion Gap 9 (12-20); Aspartate Amino Transferase 11 U/L (5-37); Bilirubin Direct 0.2 mg/dL (0.0-0.5); Bilirubin Total 0.4 mg/dL (0.0-1.0); Blood Urea Nitrogen 14 mg/dL (9-16); Calcium 8.6 mg/dL (8.4-10.2); Carbon Dioxide 27 mmol/L (22-29); Chloride 108 mmol/L (96-108); Creatinine Clr Calc Pharmacy 103.3; Estimated Glomerular Filt Rate > 60; Glucose Random 105 mg/dL (60-115); Potassium 4.1 mmol/L (3.3-5.1); Sodium 140 mmol/L (135-145); Total Protein 6.3 g/dL (6.5-8.0)
--- NOTE | 2022-10-26 18:20 | PC.NURSE ---
patient a&ox3, iv inserted, labs drawn, [employer] applied-nsr 70s-80s, vss, pts lungs in/ex wheezing-updraft given by RT, 1U prb hung per order, will continue to monitor
--- NOTE | 2022-10-26 18:34 | PC.NURSE ---
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
[2022-10-26] MEDS: methylPREDNISolone Sod Succ 125 MG/2 ML VIAL IVPUSH (18:37)
--- NOTE | 2022-10-26 19:58 | P.HPHOSP_ITS ---
History of Present Illness Date of Service: 10/26/22 Chief Complaint: Low blood count This is a 52-year-old male with pertinent history of alcohol use disorder, chronic microcytic anemia with history of blood transfusions, asthma, gastroesophageal reflux disease who was sent to the emergency department for evaluation of low blood count. Patient was recently admitted on 09/07 and discharged on 09/12 for evaluation of anemia. Patient received multiple blood transfusions and was asked to follow up with Hematology. Patient states he missed his appointment with Dr. Gama. He got blood work done today and low hemoglobin was noted and he was sent to the ER for further evaluation. Does endorse generalized malaise and weakness. Does have mild dyspnea on exertion and wheezing. No fever, chills, cough. Drank 3 beers yesterday. Had extensive GI workup in the past including unremarkable EGD and colonoscopy. Patient denies chest discomfort, palpitations, abdominal pain, changes in urinary or bowel habits. He denies melena or hematochezia In the emergency department, patient's hemoglobin was noted to be 5.3 Review of Systems Constitutional: Constitutional: Reports fatigue, Reports lethargy and Reports malaise Cardiovascular: Cardiovascular: Reports no additional cardiovascular complaints and Reports dyspnea on exertion Respiratory: Respiratory: Reports dyspnea on exertion and Reports wheezing Gastrointestinal: Gastrointestinal: Reports no additional gastrointestinal complaints Genitourinary: Genitourinary: Reports no additional male genitourinary complaints Endocrine: Endocrine: Reports fatigue Allergic/Immunologic: Allergic/Immunologic: Reports wheezing [facility] Medical History (Updated 10/26/22 @ 20:27 by Keith Velasquez MD) Acid reflux Alcohol abuse Alcohol abuse Anemia Asthma History of gastric ulcer Macrocytic anemia Family History Father No problems noted. Mother Diabetes Other No family history of cancer Surgical History History of esophagogastroduodenoscopy (EGD) Hx of colonoscopy Social History Household Members: Family Household Members Other:: sister Housing: House Are you a primary care attendant to a significant other at home: No Do you presently have visiting nurse or other home services: No Alcohol intake: current Alcohol intake frequency: a few times a week Alcohol type: beer and hard liquor Patient Tobacco Use Status: Current everyday Tobacco user Tobacco use type: Cigarette e-Cigarette/Vaping Use: Never Used Substance Use Type: Marijuana Advance Directives: Yes Advance Directives on File: Yes Advance Directives Date on File: 05/19/22 service: No Current occupational status: unemployed Meds Allergies Allergy/AdvReac Type Severity Reaction Status Date / Time No Known Allergies Allergy Verified 10/26/22 14:26 [No Known Allergies*] Active Medications: Current Medications Acetaminophen (Acetaminophen 325 Mg Tablet) 650 mg PO Q6H PRN PRN Reason: Pain, Mild (Pain Scale 1-3) Folic Acid (Folic Acid 1 Mg Tablet) 1 mg PO DAILY LONNIE Melatonin (Melatonin 3 Mg Tablet) 6 mg PO BEDTIME PRN PRN Reason: Insomnia Ondansetron HCl (Ondansetron Hcl 4 Mg/2 Ml Vial) 4 mg IVPUSH Q8H PRN PRN Reason: Nausea and Vomiting Pharmacy Consult (Consult Rx Perform Med Rec) 1 each MISCELLANE ONCE PRN PRN Reason: Consult order Pharmacy Consult (Consult Rx Perform Med Rec) 1 each MISCELLANE ONCE PRN PRN Reason: Consult order Sodium Chloride (0.9 % Sodium Chloride Flush 3 Ml Syringe) 3 ml IVFLUSH QSHIFT [facility] Thiamine HCl (Thiamine Hcl 100 Mg Tablet) 100 mg PO DAILY [facility] Home Medications Medication Instructions Recorded Confirmed Last Taken Type fluticasone propionate 50 2 spray intranasal DAILY PRN 05/13/22 10/26/22 Unknown History mcg/actuation nasal Allergy Symptoms spray,suspension tramadol 50 mg tablet 1 tab PO Q6H PRN pain 05/13/22 10/26/22 Unknown History fluticasone 250 mcg-salmeterol 50 1 puff inhalation BID 09/07/22 10/26/22 10/26/22 History mcg/dose blistr powdr for inhalation (Advair Diskus) albuterol sulfate 2.5 mg/3 mL 1 amp inhalation QID PRN Wheezing 09/28/22 10/26/22 Unknown History (0.083 %) solution for nebulization docusate sodium 100 mg capsule 1 cap PO BID PRN Constipation 09/28/22 10/26/22 Unknown History multivitamin 1 tab PO DAILY 09/28/22 10/26/2222 History pantoprazole 20 mg tablet,delayed 20 mg PO DAILY 09/28/22 10/26/22 10/26/22 History release paroxetine HCl 20 mg tablet 1 tab PO DAILY 09/28/22 10/26/22 10/26/22 History thiamine HCl (vitamin B1) 100 mg 100 mg PO DAILY 09/28/22 10/26/22 10/26/22 History tablet blood-glucose meter (FreeStyle #1 ea 10/05/22 10/26/22 Unknown History [place] Lite kit) lancets 33 gauge (TRUEplus Lancets) #100 ea 10/05/22 10/26/22 Unknown History Physical Exam Vital Signs and Narrative: Vital Signs: Last Vital Signs Temp 98.3 F 10/26/22 18:33 Pulse 86 10/26/22 18:33 Resp 16 10/26/22 18:33 BP 119/45 L 10/26/22 18:33 Pulse Ox 98 10/26/22 17:04 O2 Del Method 10/26/22 17:04 BMI result Body Mass Index 29.0 Middle-aged male lying in bed in no distress Neck supple, no JVD Regular rate and rhythm, S1-S2 heard Bilateral expiratory wheezing present Abdomen soft nontender, no guarding, no rigidity Patient is awake, alert and oriented to self, place, time and person ; no focal motor deficit Psych: Normal mood No pedal edema Results Labs CBC and Chem 7: 10/26/22 17:23 10/26/22 17:23 Labs: Laboratory Results - last 24 hr 10/26/22 10/26/22 10/26/22 15:03 17:07 17:23 MCV 96.3 MCH 33.1 H MCHC 34.4 RDW 20.0 H Plt Count 61 L MPV TNP Immature Gran % (Auto) 1.7 H Neut % (Auto) 39.1 L Lymph % (Auto) 43.9 H [place] % (Auto) 9.6 Eos % (Auto) 3.3 Baso % (Auto) 2.4 H Lymph # (Auto) 2.6 [place] # (Auto) 0.6 Eos # (Auto) 0.2 Baso # (Auto) 0.1 Abs Immat Gran (auto) 0.10 H Absolute Neuts (auto) 2.3 Absolute Nucleated RBC 0.000 Nucleated RBC % (auto) 0.0 PT INR Anion Gap Estim Creat Clear Calc Estimated GFR Random Glucose Calcium Total Bilirubin Direct Bilirubin AST ALT Alkaline Phosphatase Total Protein Albumin Stool Occult Blood POSITIVE COVID-19 ([facility]) COVID-19 Clin Com Blood Type A Positive Antibody Screen NEGATIVE Crossmatch See Detail 10/26/22 10/26/22 10/26/22 17:23 17:23 17:23 MCV MCH MCHC RDW Plt Count MPV Immature Gran % (Auto) Neut % (Auto) Lymph % (Auto) [place] % (Auto) Eos % (Auto) Baso % (Auto) Lymph # (Auto) [place] # (Auto) Eos # (Auto) Baso # (Auto) Abs Immat Gran (auto) Absolute Neuts (auto) Absolute Nucleated RBC Nucleated RBC % (auto) PT 14.8 H INR 1.3 H Anion Gap 9 L Estim Creat Clear Calc 103.3 Estimated GFR > 60 Random Glucose 105 Calcium 8.6 Total Bilirubin 0.4 Direct Bilirubin 0.2 AST 11 ALT 13 Alkaline Phosphatase 67 Total Protein 6.3 L Albumin 3.9 Stool Occult Blood COVID-19 (JOEY) Negative COVID-19 Clin Com See Note Blood Type Antibody Screen Crossmatch Imaging Radiologist's Impressions: Impressions Chest X-Ray 10/26/22 18:33 IMPRESSION: Mild diffuse peribronchial vascular opacities may reflect edema or atypical infection. Assessment and Plan (1) Anemia: Status: Acute (2) Asthma: Status: Acute (3) Alcohol abuse: Status: Acute Plan This is a 52-year-old male with pertinent history of alcohol use disorder, chronic microcytic anemia with history of blood transfusions, asthma, gastroesophageal reflux disease who was sent to the emergency department for evaluation of low blood count. #. Symptomatic acute on chronic anemia -Transfusing 2 units prbc. Repeat in am. Stool occult positive in the ER, although previous EGD and colonoscopy negative. Patient denies melena or hematochezia Consider GI consult if further evidence of melena -missed his appointment with Hematology. Will consult Dr. Gama for evaluation in a.m. Has had hemolysis and electrophoresis workup in the past. #. Acute mild exacerbation of asthma: Scheduled and p.r.n. DuoNebs. Continue home inhaler. Defer steroids until GI bleed ruled out #. Alcohol use disorder -monitor CIWA. On thiamine and folic acid. Concern for withdrawal, initiated phenobarb protocol #. Gastroesophageal reflux disease: On Protonix #. Thrombocytopenia, chronic: No indication for transfusion Med rec pending DVT Prophylaxis: Defer lovenox in setting of thrombocytopenia Full code Regular Diet Admit as inpatient and will require two night minimum hospital stay for blood transfusion and monitoring of H&H Quality Stroke Does the patient have a stroke diagnosis?: No VTE Prior VTE?: No VTE Risk Level:: Medical - low VTE Device Contraindication: Treatment Not Indicated VTE Drug Contraindication: Treatment Not Indicated
--- NOTE | 2022-10-26 20:14 | PHA.MEDREC ---
Pharmacy Consult ? Medication Reconciliation Pharmacy has completed the medication reconciliation. Patient confirmed medications from previous list. Patient seemed like a poor historian, and reported taking medications last filled in july,. Reports not taking folic acid which was recently filled. Aarti Watts, PharmD
[2022-10-26] MEDS: PHENobarbitaL 100 MG, PHENobarbitaL 60 MG 160 MG PO (21:28)
--- NOTE | 2022-10-26 22:36 | PC.NURSE ---
second unit of PRBC started at 2220. this rn remained with pt for first 15 minutes of transfusion. VS stable. pt tolerating transfusion well. pt reports no SOB or changes in temperature at this time
[2022-10-27] VITALS (10 sets, daily range): BP systolic 108–144; BP diastolic 58–73; PULSE 57–76; RESP 13–20; TEMP 36.3–37.2; O2SAT 95–100; BMI 28.7
[2022-10-27] MEDS: Acetaminophen 325 MG TABLET 650 MG PO
--- NOTE | 2022-10-27 00:16 | PC.NURSE ---
2nd unit PRBC transfused at this time. pt tolerated well. VS stable. pt reports no SOB at this time
[2022-10-27] MEDS: 0.9 % Sodium Chloride Flush 3 ML SYRINGE IVFLUSH ×4 (01:02→21:42)
[2022-10-27 06:35] LABS: MANUAL DIFF FLAG NO
[2022-10-27 06:43] LABS: Basophils Percent Auto 0.5 % (0-2); Hematocrit 21.5 % (42.0-52.0); Hemoglobin 7.5 g/dl (14.0-18.0); Imm Gran Abs Auto 0.16 X10*3/uL (0.00-0.03); Imm Gran Pct Auto 1.8 % (0.0-0.4); Lymphocytes Absolute Auto 0.8 X10*3/uL (1.2-4.9); Lymphocytes Percent Auto 9.4 % (20-40); Mean Corpuscular HGB Conc 34.9 g/dl (31.0-36.0); Mean Corpuscular Hemoglobin 32.9 pg (27.0-33.0); Mean Corpuscular Volume 94.3 fL (80.0-98.0); Monocytes Absolute Auto 0.4 X10*3/uL (0.1-1.2); Monocytes Percent Auto 4.4 % (2-11); Neutrophils Absolute Auto 7.4 x10*3/uL (2.0-8.3); Neutrophils Percent Auto 83.9 % (45-73); Platelet Count 55 X10*3/uL (160-400); Red Blood Count 2.28 X10*6/uL (4.60-5.80); Red Cell Distribution Width 17.6 % (11.0-16.0); White Blood Count 8.9 X10*3/uL (4.8-10.8)
[2022-10-27 07:17] LABS: Anion Gap 9 (12-20); Blood Urea Nitrogen 15 mg/dL (9-16); Calcium 8.6 mg/dL (8.4-10.2); Carbon Dioxide 25 mmol/L (22-29); Chloride 106 mmol/L (96-108); Creatinine Clr Calc Pharmacy 110.7; Estimated Glomerular Filt Rate > 60; Glucose Random 191 mg/dL (60-115); Potassium 4.8 mmol/L (3.3-5.1); Sodium 135 mmol/L (135-145)
[2022-10-27] MEDS: PHENobarbitaL 15 MG TABLET 45 MG PO ×2 (08:01→21:41)
[2022-10-27] MEDS: PARoxetine HCL 20 MG TABLET PO (08:02)
[2022-10-27] MEDS: Folic Acid 1 MG TABLET PO (08:02)
[2022-10-27] MEDS: Thiamine HCL 100 MG TABLET PO (08:02)
[2022-10-27] MEDS: Multivitamin TABLET 1 TAB PO (08:02)
[2022-10-27] MEDS: Albuterol/Iprat 2.5/0.5MG 3 ML AMPUL.NEB INHALE ×2 (08:04→19:45)
--- NOTE | 2022-10-27 10:08 | MHC.CM.PN ---
PATIENT IS INDEPENDENT WITH ALL ADLS. NO DME OR VNA SERVICES. NO HCP AND CM CAN ASSIST IF NEEDED PLAN IS HOME - SELF CARE
--- NOTE | 2022-10-27 10:36 | P.EN_ITS ---
Event Note Date of Service: 10/27/22
--- NOTE | 2022-10-27 10:36 | PM.EVENT ---
Event Note Date of Service: 10/27/22
--- NOTE | 2022-10-27 10:45 | HO.PM.IMPN ---
Subjective Subjective Date of Service: 10/27/22 Interval History: Seen for follow up for: Symptomatic acute on chronic anemia, alcohol withdrawal Interval history: Patient admitted last night. resting comfortably in bed eating breakfast, no complaints. H/H improved. No melena, hematchezia Review of Systems General: No fevers, malaise, unintentional weight loss Cardiovascular: No chest pain, palpitations, or leg edema Respiratory: No shortness of breath, wheezing, cough GI: No abdominal pain, nausea, vomiting, diarrhea, constipation, melena, hematochezia : No dysuria, hematuria MSK: No myalgia, back pain Neuro: No headaches, weakness, paresthesias Skin: No rashes or lesions Physical Exam Vital Signs: Vital Signs: Last Vital Signs Temp 98.9 F 10/27/22 07:47 Pulse 64 10/27/22 08:08 Resp 20 10/27/22 08:08 BP 108/60 10/27/22 07:47 Pulse Ox 97 10/27/22 07:47 O2 Del Method 10/27/22 07:47 BMI result Body Mass Index 28.7 Constitutional - Awake and Alert, No apparent distress Eyes - PERRLA, EOMI Cardiovascular - S1S2, RRR, No edema Respiratory - Normal lung expansion, Normal respiratory effort, No respiratory distress, faint expiratory wheezing Gastrointestinal - NT / ND; +BS; No rebound or guarding Extremities - no calf tenderness bilaterally, no swelling Skin - Warm/Dry Neurological - Alert & oriented x3 Psychological - Appropriate affect Objective Data Active Medications Acetaminophen (Acetaminophen 325 Mg Tablet) 650 mg PO Q6H PRN PRN Reason: Pain, Mild (Pain Scale 1-3) Last Admin: 10/27/22 00:00 Dose: 650 mg Documented By: KELLY Acetaminophen (Acetaminophen 325 Mg Tablet) 650 mg PO Q6H PRN PRN Reason: mild pain or fever Albuterol/Ipratropium (Albuterol/Iprat 2.5/0.5mg 3 Ml Ampul.Neb) 3 ml INHALE RQ4H WHILE AWAKE [facility] Last Admin: 10/27/22 08:04 Dose: 3 ml Documented By: LILIANE Albuterol/Ipratropium (Albuterol/Iprat 2.5/0.5mg 3 Ml Ampul.Neb) 3 ml INHALE RQ4H PRN PRN Reason: wheezing Docusate Sodium (Docusate Sodium 100 Mg Capsule) 100 mg PO BID PRN PRN Reason: Constipation Fluticasone Propionate (Fluticasone Propionate Nasal 16 Gm [place]) 2 spray NOSTRIL-B DAILY PRN PRN Reason: Allergy Symptoms Fluticasone/Vilanterol (Fluticasone/Vilanterol 100/25 Blst.W.Dev) 1 puff INHALE RDAILY [facility] Last Admin: 10/27/22 08:09 Dose: Not Given Documented By: LILIANE Non-Admin Reason: Med Not Available Folic Acid (Folic Acid 1 Mg Tablet) 1 mg PO DAILY [facility] Last Admin: 10/27/22 08:02 Dose: 1 mg Documented By: MAGI Melatonin (Melatonin 3 Mg Tablet) 6 mg PO BEDTIME PRN PRN Reason: Insomnia Multivitamins/Vitamin C (Multivitamin Tablet) 1 tab PO DAILY [facility] Last Admin: 10/27/22 08:02 Dose: 1 tab Documented By: MAGI Omeprazole (Omeprazole 20 Mg Capsule.Dr) 20 mg PO DAILY@0630 [facility] Ondansetron HCl (Ondansetron Hcl 4 Mg/2 Ml Vial) 4 mg IVPUSH Q8H PRN PRN Reason: Nausea and Vomiting Paroxetine HCl (Paroxetine Hcl 20 Mg Tablet) 20 mg PO DAILY [facility] Last Admin: 10/27/22 08:02 Dose: 20 mg Documented By: MAGI Pharmacy Consult (Consult Rx Perform Med Rec) 1 each MISCELLANE ONCE PRN PRN Reason: Consult order Pharmacy Consult (Consult Rx Perform Med Rec) 1 each MISCELLANE ONCE PRN PRN Reason: Consult order Pharmacy Consult (Consult Rx Etoh Phenob Po Only) 1 each MISCELLANE ONCE PRN; Protocol PRN Reason: Consult order Phenobarbital (Phenobarbital 15 Mg Tablet) 45 mg PO BID [facility]; Protocol Stop: 10/28/22 21:01 Last Admin: 10/27/22 08:01 Dose: 45 mg Documented By: MAGI Phenobarbital (Phenobarbital 15 Mg Tablet) 15 mg PO BID [facility]; Protocol Stop: 10/30/22 21:01 Phenobarbital (Phenobarbital 15 Mg Tablet) 15 mg PO DAILY [facility]; Protocol Stop: 11/01/22 09:01 Polyethylene Glycol (Polyethylene Glycol 3350 17 Gm Powd.Pack) 17 gm PO DAILY PRN PRN Reason: constipation Sodium Chloride (0.9 % Sodium Chloride Flush 3 Ml Syringe) 3 ml IVFLUSH QSHIFT [facility] Last Admin: 10/27/22 08:03 Dose: 3 ml Documented By: MAGI Thiamine HCl (Thiamine Hcl 100 Mg Tablet) 100 mg PO DAILY [facility] Last Admin: 10/27/22 08:02 Dose: 100 mg Documented By: MAGI Tramadol HCl (Tramadol Hcl 50 Mg Tablet) 50 mg PO Q6H PRN PRN Reason: Pain, Moderate (Pain Scale 4-6 Labs CBC & Chem 7: 10/27/22 05:47 10/27/22 05:47 Labs: Laboratory Results - last 24 hr 10/26/22 10/26/22 10/26/22 15:03 17:07 17:23 MCV 96.3 MCH 33.1 H MCHC 34.4 RDW 20.0 H Plt Count 61 L MPV TNP Immature Gran % (Auto) 1.7 H Neut % (Auto) 39.1 L Lymph % (Auto) 43.9 H Gordon % (Auto) 9.6 Eos % (Auto) 3.3 Baso % (Auto) 2.4 H Lymph # (Auto) 2.6 Gordon # (Auto) 0.6 Eos # (Auto) 0.2 Baso # (Auto) 0.1 Abs Immat Gran (auto) 0.10 H Absolute Neuts (auto) 2.3 Absolute Nucleated RBC 0.000 Nucleated RBC % (auto) 0.0 PT INR Anion Gap Estim Creat Clear Calc Estimated GFR Random Glucose Calcium Total Bilirubin Direct Bilirubin AST ALT Alkaline Phosphatase Total Protein Albumin Stool Occult Blood POSITIVE COVID-19 (JOEY) COVID-19 Clin Com Blood Type A Positive Antibody Screen NEGATIVE Crossmatch See Detail 10/26/22 10/26/22 10/26/22 17:23 17:23 17:23 MCV MCH MCHC RDW Plt Count MPV Immature Gran % (Auto) Neut % (Auto) Lymph % (Auto) Gordon % (Auto) Eos % (Auto) Baso % (Auto) Lymph # (Auto) Gordon # (Auto) Eos # (Auto) Baso # (Auto) Abs Immat Gran (auto) Absolute Neuts (auto) Absolute Nucleated RBC Nucleated RBC % (auto) PT 14.8 H INR 1.3 H Anion Gap 9 L Estim Creat Clear Calc 103.3 Estimated GFR > 60 Random Glucose 105 Calcium 8.6 Total Bilirubin 0.4 Direct Bilirubin 0.2 AST 11 ALT 13 Alkaline Phosphatase 67 Total Protein 6.3 L Albumin 3.9 Stool Occult Blood COVID-19 (JOEY) Negative COVID-19 Clin Com See Note Blood Type Antibody Screen Crossmatch 10/27/22 10/27/22 05:47 05:47 MCV 94.3 MCH 32.9 MCHC 34.9 RDW 17.6 H Plt Count 55 L MPV Not Reportable Immature Gran % (Auto) 1.8 H Neut % (Auto) 83.9 H Lymph % (Auto) 9.4 L Gordon % (Auto) 4.4 Eos % (Auto) 0.0 Baso % (Auto) 0.5 Lymph # (Auto) 0.8 L Gordon # (Auto) 0.4 Eos # (Auto) 0.0 Baso # (Auto) 0.0 Abs Immat Gran (auto) 0.16 H Absolute Neuts (auto) 7.4 Absolute Nucleated RBC 0.000 Nucleated RBC % (auto) 0.0 PT INR Anion Gap 9 L Estim Creat Clear Calc 110.7 Estimated GFR > 60 Random Glucose 191 H Calcium 8.6 Total Bilirubin Direct Bilirubin AST ALT Alkaline Phosphatase Total Protein Albumin Stool Occult Blood COVID-19 (JOEY) COVID-19 Clin Com Blood Type Antibody Screen Crossmatch Assessment and Plan (1) Alcohol abuse: Status: Acute (2) Anemia: Status: Acute Plan This is a 52-year-old male with pertinent history of alcohol use disorder, chronic microcytic anemia with history of blood transfusions, asthma, gastroesophageal reflux disease who was sent to the emergency department for evaluation of low blood count. #Symptomatic acute on chronic anemia -H/H on admission 5.4/15.6%. Stool occult positive. EGD/Colonoscopy last admission negative. No melena/hematachezia -Transfusred 2 units in ED -H/H improved to 7.5/21.5% -missed his appointment with Hematology.?Hematology consult pending. Has had hemolysis and electrophoresis workup in the past. #.? Acute mild exacerbation of asthma -Duonebs q4h while awake -Albuerol prn. Continue advair -Defer steroids until GI bleed ruled out as needed? Continue home inhaler #. Alcohol use disorder/withdrawal -Continue CIWA -Continue phenobarb per protocol -Continue thiamine and folic acid -Etoh consult placed #.? Gastroesophageal reflux disease -continue ppi #.? Thrombocytopenia, chronic -Follow CBC DVT Prophylaxis: Defer lovenox in setting of thrombocytopenia Full code Regular Diet Pt requires ongoing inpt stayfor blood transfusion and monitoring of H&H with symptomatic severe acute on chronic anemia Quality Stroke Does the patient have a stroke diagnosis?: No VTE Prior VTE?: No VTE Risk Level:: Medical - low VTE Device Contraindication: Treatment Not Indicated VTE Drug Contraindication: Treatment Not Indicated
--- NOTE | 2022-10-27 11:49 | P.CNHO_ITS ---
Subjective - Subjective Chief complaint: Consult for: 1. Pancytopenia. 2. Significant Anemia. Patient: known to practice within the last 3 years Consult date: 10/27/22 Requesting Physician: Lo. Primary Care Provider: Cassandra Rodriguez MD Medical Summary: DIAGNOSIS: 1. ANEMIA. 2. PANCYTOPENIA. HPI - Consult Narrative Reason for consult: CONSULT FOR: 1. ANEMIA. 2. PANCYTOPENIA. Narrative: Brandon Louis is a 52 year old male Brandon Louis is a pleasant 52 year old gentleman, admitted to the hospital for significant Anemia and pancytopenia. CBC from 10/05/2022: WBC 4.3, HGB 8.3, HCT 25.6, MCV 102, PLT 54. Iron studies:249/<266/<17/666. B12:716. Folate: 8.6. LDH: 203. PAST MEDICAL HISTORY: He was recently in house, back in August. Hemoglobin was down to 4.2. He had a colonoscopy which revealed: Four medium sized polyps removed. A? 2 cm nonbleeding AVM ablated with APC. Moderate diverticulosis seen in the left colon Moderate? nonbleeding hemorrhoids on retroflexed exam. No blood seen in the? lower GI tract or TI during colonoscopy. Anemia is likely a combination of GI blood loss (AC AVM) and possible hemolysis (elevated indirect bilirubin) 09/12 Discharge summary: 52-year-old male with history of moderate persistent asthma without acute exacerbation, alcohol abuse, chronic macrocytic anemia, chronic constipation, history of gastric ulcer, GERD, former smoker presented to the ED this morning for evaluation of shortness of breath and wheezing ongoing for 1 day.? He is also reporting a nonproductive cough.? He has noted increasing albuterol usage with some improvement in symptoms.? He does also state that for the last few weeks he has been experiencing lightheadedness and fatigue.? This morning also had mild chest tightness and short-lived palpitations.? He is unable to elaborate on any alleviating or exacerbating factors.? On arrival to the ED, mild tachypnea of 24 and mildly tachycardic at 100.? He is afebrile without h ypoxia.? Hematology studies significant for WBC 5.4, RBC 1.10, HGB 4.2, HCT 12.8, MCV 116.4 (baseline WBC 5.3, RBC 2.74, HGB 10.0, HCT 30.0, MCV 109.5).? Renal function and electrolyte levels normal.? AST 44, ALT 54, alkaline phosphatase 78.? BNP 121.? Ethyl alcohol 41.? Attempts were made to collect stool occult sample but was unable to be performed.? The patient denies any fevers, chills, nausea, abdominal pain, diarrhea.? He states he did notice a small amount of bright red blood on the stool this morning and does endorse straining due to constipation but denies any other episodes of hematochezia or melena.? Currently denying any dyspnea, palpitations, chest pain.? Did have similar episode of vomiting in the ED without any hematemesis.? Patient is a heavy every day drinker consuming 6 12 oz beers and 1 neb daily but denies any history of cirrhosis her esophageal varices.? He denies any illicit drug use but does endorse occasional marijuana use.? Patient has received the 1st of 3 units packed red blood cells in the ED and is tolerating this well.? He has also received DuoNeb updraft, 2 g IV Mag, 40 mg pantoprazole, and started on phenobarb per protocol for alcohol withdrawal. FAMILY HISTORY: Positive for diabetes. No known malignancy nor blood disorder in the family. 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 He is not . He has no children. He used to smoke a pack a day for 20 years now down to 2-3 cigarettes a day. He denies alcohol now. REVIEW OF SYSTEMS: He does feel rather fatigued. Especially upon walking. He denies any night sweats fever nor chills. Appetite is okay. He has lost some weight. He denies headaches. Sometimes he feels lightheaded. He has had some nosebleeds. He complains of palpitations. No chest pain or trouble breathing. Sometimes he has a cough. Denies abdominal pain nausea or vomiting however sometimes cough makes him vo rm. He denies any diarrhea. No gross blood in the stools. Colonoscopy: Review of Systems - Constitutional Reports system reviewed and no additional complaints, except as documented, Reports fatigue, Reports lack of energy, Reports malaise, Reports weakness, Reports weight loss, Denies fever(s) - Eyes Reports system reviewed and no additional complaints, except as documented - ENT Reports system reviewed and no additional complaints, except as documented - Cardiovascular Reports system reviewed and no additional complaints, except as documented - Respiratory Reports no additional respiratory complaints - Gastrointestinal Reports system reviewed and no additional complaints, except as documented - Genitourinary Genitourinary: Reports no additional male genitourinary complaints - Musculoskeletal Reports system reviewed and no additional complaints, except as documented - Integumentary/Breasts Skin/Breast: Reports no additional skin complaints - Neurologic Reports system reviewed and no additional complaints, except as documented - Psychiatric Reports system reviewed and no additional complaints, except as documented - Endocrine Reports no additional endocrine complaints - Hematologic/Lymphatic Reports system reviewed and no additional complaints, except as documented - Allergic/Immunologic Reports system reviewed and no additional complaints, except as documented Oncology Screenings - ECOG Performance Status ECOG Performance Status: 0 PMFSH Medical History: Medical History (Last Updated 10/26/22 @ 20:27 by Keith Velasquez MD) Acid reflux Alcohol abuse Alcohol abuse Anemia Asthma History of gastric ulcer Macrocytic anemia Functional capacity: independent ambulation Patient : No Family History: Family History (Last Reviewed 10/26/22 @ 20:26 by Keith Velasquez MD) Father No problems noted. Mother Diabetes Other No family history of cancer Surgical History: Surgical History (Last Reviewed 10/26/22 @ 20:26 by Keith Velasquez MD) History of esophagogastroduodenoscopy (EGD) Hx of colonoscopy Social History: Social History (Last Reviewed 10/26/22 @ 20:26 by Keith Velasquez MD) Living Situation History: Household Members: Family Household Members Other:: sister Housing: House Are you a primary health care manager to a significant other at home: No Do you presently have visiting nurse or other home services: No Tobacco History: Patient Tobacco Use Status: Current everyday Tobacco Tobacco use type: Cigarette e-Cigarette/Vaping Use: Never Used Second Hand Smoke Exposure: No Substance Use History: Substance Use Type: Marijuana Advance Directives: Advance Directives Date on File: 05/19/22 Occupation Assessmet: service: No Current occupational status: unemployed Home Medications and Allergies Current Medications: Current Medications Acetaminophen (Acetaminophen 325 Mg Tablet) 650 mg PO Q6H PRN PRN Reason: Pain, Mild (Pain Scale 1-3) Last Admin: 10/27/22 00:00 Dose: 650 mg Acetaminophen (Acetaminophen 325 Mg Tablet) 650 mg PO Q6H PRN PRN Reason: mild pain or fever Albuterol/Ipratropium (Albuterol/Iprat 2.5/0.5mg 3 Ml Ampul.Neb) 3 ml INHALE RQ4H WHILE AWAKE [facility] Last Admin: 10/27/22 08:04 Dose: 3 ml Albuterol/Ipratropium (Albuterol/Iprat 2.5/0.5mg 3 Ml Ampul.Neb) 3 ml INHALE RQ4H PRN PRN Reason: wheezing Docusate Sodium (Docusate Sodium 100 Mg Capsule) 100 mg PO BID PRN PRN Reason: Constipation Fluticasone Propionate (Fluticasone Propionate Nasal 16 Gm [place]) 2 spray NOSTRIL-B DAILY PRN PRN Reason: Allergy Symptoms Fluticasone/Vilanterol (Fluticasone/Vilanterol 100/25 Blst.W.Dev) 1 puff INHALE RDAILY [facility] Last Admin: 10/27/22 08:09 Dose: Not Given Folic Acid (Folic Acid 1 Mg Tablet) 1 mg PO DAILY [facility] Last Admin: 10/27/22 08:02 Dose: 1 mg Melatonin (Melatonin 3 Mg Tablet) 6 mg PO BEDTIME PRN PRN Reason: Insomnia Multivitamins/Vitamin C (Multivitamin Tablet) 1 tab PO DAILY [facility] Last Admin: 10/27/22 08:02 Dose: 1 tab Omeprazole (Omeprazole 20 Mg Capsule.Dr) 20 mg PO DAILY@0630 [facility] Ondansetron HCl (Ondansetron Hcl 4 Mg/2 Ml Vial) 4 mg IVPUSH Q8H PRN PRN Reason: Nausea and Vomiting Paroxetine HCl (Paroxetine Hcl 20 Mg Tablet) 20 mg PO DAILY [facility] Last Admin: 10/27/22 08:02 Dose: 20 mg Pharmacy Consult (Consult Rx Perform Med Rec) 1 each MISCELLANE ONCE PRN PRN Reason: Consult order Pharmacy Consult (Consult Rx Perform Med Rec) 1 each MISCELLANE ONCE PRN PRN Reason: Consult order Pharmacy Consult (Consult Rx Etoh Phenob Po Only) 1 each MISCELLANE ONCE PRN; Protocol PRN Reason: Consult order Phenobarbital (Phenobarbital 15 Mg Tablet) 45 mg PO BID [facility]; Protocol Stop: 10/28/22 21:01 Last Admin: 10/27/22 08:01 Dose: 45 mg Phenobarbital (Phenobarbital 15 Mg Tablet) 15 mg PO BID [facility]; Protocol Stop: 10/30/22 21:01 Phenobarbital (Phenobarbital 15 Mg Tablet) 15 mg PO DAILY [facility]; Protocol Stop: 11/01/22 09:01 Polyethylene Glycol (Polyethylene Glycol 3350 17 Gm Powd.Pack) 17 gm PO DAILY P RN PRN Reason: constipation Sodium Chloride (0.9 % Sodium Chloride Flush 3 Ml Syringe) 3 ml IVFLUSH QSHIFT [facility] Last Admin: 10/27/22 08:03 Dose: 3 ml Thiamine HCl (Thiamine Hcl 100 Mg Tablet) 100 mg PO DAILY [facility] Last Admin: 10/27/22 08:02 Dose: 100 mg Tramadol HCl (Tramadol Hcl 50 Mg Tablet) 50 mg PO Q6H PRN PRN Reason: Pain, Moderate (Pain Scale 4-6 Home Medications Medication Instructions Recorded Confirmed Type fluticasone propionate 50 2 spray intranasal DAILY PRN 05/13/22 10/26/22 History mcg/actuation nasal Allergy Symptoms spray,suspension tramadol 50 mg tablet 1 tab PO Q6H PRN pain 05/13/22 10/26/22 History fluticasone 250 mcg-salmeterol 50 1 puff inhalation BID 09/07/22 10/26/22 History mcg/dose blistr powdr for inhalation (Advair Diskus) albuterol sulfate 2.5 mg/3 mL 1 amp inhalation QID PRN Wheezing 09/28/22 10/26/22 History (0.083 %) solution for nebulization docusate sodium 100 mg capsule 1 cap PO BID PRN Constipation 09/28/22 10/26/22 History multivitamin 1 tab PO DAILY 09/28/22 10/26/22 History pantoprazole 20 mg tablet,delayed 20 mg PO DAILY 09/28/22 10/26/22 History release paroxetine HCl 20 mg tablet 1 tab PO DAILY 09/28/22 10/26/22 History thiamine HCl (vitamin B1) 100 mg 100 mg PO DAILY 09/28/22 10/26/22 History tablet blood-glucose meter (FreeStyle #1 ea 10/05/22 10/26/22 History [place] Lite kit) lancets 33 gauge (TRUEplus Lancets) #100 ea 10/05/22 10/26/22 History Allergies Allergy/AdvReac Type Severity Reaction Status Date / Time No Known Allergies Allergy Verified 10/26/22 14:26 [No Known Allergies*] Physical Exam Vital signs: Vital Signs Temp 98.9 F 10/27/22 07:47 Pulse 64 10/27/22 08:08 Resp 20 10/27/22 08:08 BP 108/60 10/27/22 07:47 Pulse Ox 97 10/27/22 07:47 O2 Del Method 10/27/22 07:47 Intake & Output 10/26/22 10/27/22 10/27/22 18:59 06:59 18:59 Intake Total 0 / 1140 1140 / 1140 Output Total 500 / 500 Balance 0 / 640 640 / 640 Urine Output (Average ml/kg/hr) 0.52 Intake: Intake, Oral Amount 440 / 440 Intake (Blood Product) Amount 0 / 700 700 / 700 Red Blood Cells (E0382) Unit 0 / 350 350 / 350 [id number] Red Blood Cells (E0382) Unit 350 / 350 [id number] Output: Output, Urine Amount 500 / 500 Other: Number of Bowel Movements 0 Urine Urinal Urine Color Yellow Last Bowel Movement 10/26/22 Weight 81.7 kg 80.7 kg [place] Weight in Grams 35097 Weight 80.7 kg - Constitutional Present: moderate distress - Routine HEENT Exam Head: Present: normal inspection Eye: Present: normal appearance ENT: Present: mucous membranes moist - Routine Neck Exam Present: supple - Routine Respiratory Exam Present: CTAB - Routine Cardiovascular Exam Cardiovascular: Present: RRR, S1, S2 - Routine Abdominal Exam Present: normal bowel sounds, nontender. Absent: organomegaly - Routine Extremities Exam Present: nontender - Routine Skin Exam Present: intact - Routine Neurological Exam Present: alert, oriented X3, moving all extremities, normal speech - Detailed Neurological Exam: Coma Scale Eye Opening: Spontaneous (4) Verbal Response: Oriented (5) Motor Response: Obeys commands (6) Tiffany Coma Scale Total: 15 - Routine Psychiatric Exam Present: normal affect Hem/Onc Consult Result - Labs CBC & Chem 7: 10/28/22 10:52 10/28/22 10:52 Labs: Short CBC 10/26/22 10/27/22 Range/Units 17:23 05:47 WBC 5.8 8.9 (4.8-10.8) X10*3/uL Hgb 5.4 L* 7.5 L D (14.0-18.0) g/dl Hct 15.7 L* 21.5 L D (42.0-52.0) % Plt Count 61 L 55 L (160-400) X10*3/uL BMP 10/26/22 10/27/22 17:23 05:47 Sodium 140 135 Potassium 4.1 4.8 Chloride 108 106 Carbon Dioxide 27 25 BUN 14 15 Creatinine 0.83 0.77 Calcium 8.6 8.6 Liver Function 10/26/22 Range/Units 17:23 Total Bilirubin 0.4 (0.0-1.0) mg/dL Direct Bilirubin 0.2 (0.0-0.5) mg/dL AST 11 (5-37) U/L ALT 13 (0-40) U/L Alkaline Phosphatase 67 (39-117) U/L Albumin 3.9 (3.5-5.0) g/dL Assessment and Plan Patient Active problem list reviewed?: Yes (1) Pancytopenia Status: Acute Assessment and plan: This is a pleasant 52-year-old gentleman, who was referred for pancytopenia. DIFFERENTIAL DIAGNOSIS: 1. AN INFECTIOUS PROCESS: HIV versus hepatitis. 2. LIVER DISEASE/ CIRRHOSIS: Can cause hypersplenism and resulting pancytope ame. 3. UNDERLYING COLLAGEN VASCULAR DISORDER: Lupus versus rheumatoid arthritis. 4. BONE MARROW INFILTRATIVE DISORDER: MDS versus lymphoma versus multiple myeloma. He does have significant anemia which could be on the basis of: 1. Acute GI blood loss. 2. Hemolysis. l checked CBC, Hgb 5.5. Checked HIV and hepatitis profiles: Negative. Checked B12 folate levels: 527/19.4. Checked collagen vascular profile. Checked hemolytic screen, LDH 168. His labs revealed significant anemia with hemoglobin of 5.5. He was sent to the emergency room for further management, for blood transfusion and further GI evaluation. He had 3 units of packed RBCs overnight. Hemoglobin has improved to 7.5. PLAN: He will be evaluated by GI, to see if he has bleeding related to AVM. Check ultrasound of the abdomen, to look for cirrhosis and hypersplenism. If there is no GI bleeding he will require a bone marrow exam for further evaluation. Thank you, Cc: Dr. Georgette Michael. - Time Spent With Patient Time Spent with Patient (in minutes): 30
[2022-10-27 13:34] LABS: Erythrocyte Sedimentation Rate 16 MM/HR (0-15)
[2022-10-27 13:37] LABS: Rheumatoid Factor < 13.0 IU/mL (<15.0)
[2022-10-28 03:15] VITALS: BP 104/58; PULSE 67; RESP 18; TEMP 36.8; O2SAT 98
[2022-10-28] MEDS: Omeprazole 20 MG CAPSULE.DR PO (05:41)
[2022-10-28 07:55] VITALS: PULSE 67; RESP 18; O2SAT 98
[2022-10-28] MEDS: Albuterol/Iprat 2.5/0.5MG 3 ML AMPUL.NEB INHALE (07:55)
[2022-10-28] MEDS: Fluticasone/Vilanterol 100/25 BLST.W.DEV 1 PUFF INHALE (07:55)
[2022-10-28 08:00] VITALS: BP 128/61; PULSE 60; RESP 18; TEMP 36.1; O2SAT 99
[2022-10-28] MEDS: PHENobarbitaL 15 MG TABLET 45 MG PO (08:50)
[2022-10-28] MEDS: Folic Acid 1 MG TABLET PO (08:50)
[2022-10-28] MEDS: PARoxetine HCL 20 MG TABLET PO (08:50)
[2022-10-28] MEDS: Thiamine HCL 100 MG TABLET PO (08:50)
[2022-10-28] MEDS: Multivitamin TABLET 1 TAB PO (08:50)
[2022-10-28] MEDS: 0.9 % Sodium Chloride Flush 3 ML SYRINGE IVFLUSH (08:51)
--- NOTE | 2022-10-28 10:03 | P.PNIM_ITS ---
Subjective Subjective Date of Service: 10/28/22 Interval History: Seen for follow up for: Symptomatic acute on chronic anemia, alcohol withdrawal Interval history: resting comfortably in bed eating breakfast, no complaints. CIWA 0. No melena, hematchezia Review of Systems General: No fevers, malaise, unintentional weight loss Cardiovascular: No chest pain, palpitations, or leg edema Respiratory: No shortness of breath, wheezing, cough GI: No abdominal pain, nausea, vomiting, diarrhea, constipation, melena, hematochezia : No dysuria, hematuria Neuro: No headaches, weakness, paresthesias Skin: No rashes or lesions Physical Exam Vital Signs: Vital Signs: Last Vital Signs Temp 97 F 10/28/22 08:00 Pulse 60 10/28/22 08:00 Resp 18 10/28/22 08:00 BP 128/61 10/28/22 08:00 Pulse Ox 99 10/28/22 08:00 O2 Del Method 10/28/22 08:00 BMI result Body Mass Index 28.7 Constitutional - Awake and Alert, No apparent distress Eyes - PERRLA, EOMI Cardiovascular - S1S2, RRR, No edema Respiratory - Normal lung expansion, Normal respiratory effort, No respiratory distress, faint expiratory wheezing Gastrointestinal - NT / ND; +BS; No rebound or guarding Extremities - no calf tenderness bilaterally, no swelling Skin - Warm/Dry Neurological - Alert & oriented x3 Psychological - Appropriate affect Objective Data Active Medications Acetaminophen (Acetaminophen 325 Mg Tablet) 650 mg PO Q6H PRN PRN Reason: Pain, Mild (Pain Scale 1-3) Last Admin: 10/27/22 00:00 Dose: 650 mg Documented By: KELLY Acetaminophen (Acetaminophen 325 Mg Tablet) 650 mg PO Q6H PRN PRN Reason: mild pain or fever Albuterol/Ipratropium (Albuterol/Iprat 2.5/0.5mg 3 Ml Ampul.Neb) 3 ml INHALE RQ4H WHILE AWAKE LONNIE Last Admin: 10/28/22 07:55 Dose: 3 ml Documented By: KRYSTAL Albuterol/Ipratropium (Albuterol/Iprat 2.5/0.5mg 3 Ml Ampul.Neb) 3 ml INHALE RQ4H PRN PRN Reason: wheezing Docusate Sodium (Docusate Sodium 100 Mg Capsule) 100 mg PO BID PRN PRN Reason: Constipation Fluticasone Propionate (Fluticasone Propionate Nasal 16 Gm [place]) 2 spray NOSTRIL-B DAILY PRN PRN Reason: Allergy Symptoms Fluticasone/Vilanterol (Fluticasone/Vilanterol 100/25 Blst.W.Dev) 1 puff INHALE RDAILY [facility] Last Admin: 10/28/22 07:55 Dose: 1 puff Documented By: KRYSTAL Folic Acid (Folic Acid 1 Mg Tablet) 1 mg PO DAILY [facility] Last Admin: 10/28/22 08:50 Dose: 1 mg Documented By: MAGI Melatonin (Melatonin 3 Mg Tablet) 6 mg PO BEDTIME PRN PRN Reason: Insomnia Multivitamins/Vitamin C (Multivitamin Tablet) 1 tab PO DAILY [facility] Last Admin: 10/28/22 08:50 Dose: 1 tab Documented By: MAGI Omeprazole (Omeprazole 20 Mg Capsule.Dr) 20 mg PO DAILY@0630 [facility] Last Admin: 10/28/22 05:41 Dose: 20 mg Documented By: SRAA Ondansetron HCl (Ondansetron Hcl 4 Mg/2 Ml Vial) 4 mg IVPUSH Q8H PRN PRN Reason: Nausea and Vomiting Paroxetine HCl (Paroxetine Hcl 20 Mg Tablet) 20 mg PO DAILY [facility] Last Admin: 10/28/22 08:50 Dose: 20 mg Documented By: MAGI Pharmacy Consult (Consult Rx Perform Med Rec) 1 each MISCELLANE ONCE PRN PRN Reason: Consult order Pharmacy Consult (Consult Rx Perform Med Rec) 1 each MISCELLANE ONCE PRN PRN Reason: Consult order Pharmacy Consult (Consult Rx Etoh Phenob Po Only) 1 each MISCELLANE ONCE PRN; Protocol PRN Reason: Consult order Phenobarbital (Phenobarbital 15 Mg Tablet) 45 mg PO BID [facility]; Protocol Stop: 10/28/22 21:01 Last Admin: 10/28/22 08:50 Dose: 45 mg Documented By: MAGI Phenobarbital (Phenobarbital 15 Mg Tablet) 15 mg PO BID [facility]; Protocol Stop: 10/30/22 21:01 Phenobarbital (Phenobarbital 15 Mg Tablet) 15 mg PO DAILY [facility]; Protocol Stop: 11/01/22 09:01 Polyethylene Glycol (Polyethylene Glycol 3350 17 Gm Powd.Pack) 17 gm PO DAILY PRN PRN Reason: constipation Sodium Chloride (0.9 % Sodium Chloride Flush 3 Ml Syringe) 3 ml IVFLUSH QSHIFT [facility] Last Admin: 10/28/22 08:51 Dose: 3 ml Documented By: MAGI Thiamine HCl (Thiamine Hcl 100 Mg Tablet) 100 mg PO DAILY [facility] Last Admin: 10/28/22 08:50 Dose: 100 mg Documented By: MAGI Tramadol HCl (Tramadol Hcl 50 Mg Tablet) 50 mg PO Q6H PRN PRN Reason: Pain, Moderate (Pain Scale 4-6 Labs CBC & Chem 7: 10/27/22 05:47 10/27/22 05:47 Labs: Laboratory Results - last 24 hr 10/27/22 10/27/22 05:47 05:47 ESR 16 H Rheumatoid Factor < 13.0 Assessment and Plan (1) Alcohol abuse: Status: Acute (2) Anemia: Status: Acute Plan This is a 52-year-old male with pertinent history of alcohol use disorder, chronic microcytic anemia with history of blood transfusions, asthma, gastroesophageal reflux disease who was sent to the emergency department for evaluation of low blood count. #Symptomatic acute on chronic anemia -H/H on admission 5.4/15.6%. Stool occult positive. EGD/Colonoscopy last admission negative. No melena/hematachezia -Transfused 2 units in ED -H/H improved to 7.5/21.5% -missed his appointment with Hematology.?Hematology consult pending. Has had hemolysis and electrophoresis workup in the past. #.? Acute mild exacerbation of asthma -Duonebs q4h while awake -Albuerol prn. Continue advair -Defer steroids until GI bleed ruled out as needed? Continue home inhaler #. Alcohol use disorder/withdrawal -Continue CIWA -Continue phenobarb per protocol -Continue thiamine and folic acid -Etoh consult placed #.? Gastroesophageal reflux disease -continue ppi #.? Thrombocytopenia, chronic -Follow CBC DVT Prophylaxis: Defer lovenox in setting of thrombocytopenia Full code Regular Diet Pt requires ongoing inpt stay for blood transfusion and monitoring of H&H with symptomatic severe acute on chronic anemia Time Spent With Patient Time: Total time managing care of this patient today 25 minutes. Quality Stroke Does the patient have a stroke diagnosis?: No VTE Prior VTE?: No VTE Risk Level:: Medical - low VTE Device Contraindication: Treatment Not Indicated VTE Drug Contraindication: Treatment Not Indicated
[2022-10-28 10:59] LABS: SCAN SMEAR FLAG 1
[2022-10-28 11:01] LABS: Basophils Absolute Auto 0.2 X10*3/uL (0.0-0.2); Basophils Percent Auto 2.1 % (0-2); Eosinophils Absolute Auto 0.2 X10*3/uL (0.0-0.4); Eosinophils Percent Auto 2.6 % (0-4); Hematocrit 21.1 % (42.0-52.0); Hemoglobin 7.3 g/dl (14.0-18.0); Imm Gran Abs Auto 0.09 X10*3/uL (0.00-0.03); Imm Gran Pct Auto 1.2 % (0.0-0.4); Lymphocytes Absolute Auto 2.6 X10*3/uL (1.2-4.9); Lymphocytes Percent Auto 33.8 % (20-40); MANUAL DIFF FLAG SCAN; Mean Corpuscular HGB Conc 34.6 g/dl (31.0-36.0); Mean Corpuscular Hemoglobin 32.7 pg (27.0-33.0); Mean Corpuscular Volume 94.6 fL (80.0-98.0); Monocytes Absolute Auto 0.7 X10*3/uL (0.1-1.2); Monocytes Percent Auto 8.6 % (2-11); Neutrophils Percent Auto 51.7 % (45-73); PLT CLUMP 1; Red Blood Count 2.23 X10*6/uL (4.60-5.80); Red Cell Distribution Width 17.6 % (11.0-16.0)
[2022-10-28 11:03] LABS: PLT ABN DIST 1
[2022-10-28 11:19] LABS: White Blood Count 7.8 X10*3/uL (4.8-10.8)
[2022-10-28 11:20] LABS: Anion Gap 8 (12-20); Blood Urea Nitrogen 17 mg/dL (9-16); Calcium 8.2 mg/dL (8.4-10.2); Carbon Dioxide 29 mmol/L (22-29); Chloride 104 mmol/L (96-108); Creatinine Clr Calc Pharmacy 102.7; Estimated Glomerular Filt Rate > 60; Glucose Random 166 mg/dL (60-115); Platelet Count 50 X10*3/uL (160-400); Potassium 4.1 mmol/L (3.3-5.1); Sodium 137 mmol/L (135-145)
[2022-10-28 11:21] LABS: SLIDE REVIEW VERIFIED
--- NOTE | 2022-10-28 13:30 | P.DS_ITS ---
DS: Providers Provider Date of Service: 10/28/22 Date of admission: 10/26/22 19:48 Date of discharge: 10/28/22 Primary care physician: Cassandra Rodriguez MD Admitting clinician: Keith Velasquez Attending physician on admission: Keith Velasquez Consults: 10/26/22 20:28 Consult to Hematology / Oncology Routine Consulting Provider: Gurmeet Veliz Reason for consultation: anemia Attending physician on discharge: [facility] Discharging clinician: Beverly Blanchard DS: Diagnosis Discharge Diagnosis (1) Alcohol abuse: Status: Acute (2) Anemia: Status: Acute DS: Summary Hospital Course Hospital Course: HPI on admission by Dr. Velasquez 10/26/2022 This is a 52-year-old male with pertinent history of alcohol use disorder, chronic microcytic anemia with history of blood transfusions, asthma, gastroesophageal reflux disease who was sent to the emergency department for evaluation of low blood count.? Patient was recently admitted on 09/07 and discharged on 09/12 for evaluation of anemia.? Patient received multiple blood transfusions and was asked to follow up with Hematology.? Patient states he missed his appointment with Dr. Veliz.? He got blood work done today and low hemoglobin was noted and he was sent to the ER for further evaluation.? Does endorse generalized malaise and weakness.? Does have mild dyspnea on exertion and wheezing.? No fever, chills, cough.? Drank 3 beers yesterday.? Had extensive GI workup in the past including unremarkable EGD and colonoscopy (nonbleeding AVM, nonbleeding hemorrhoids).? Patient denies chest discomfort, palpitations, abdominal pain, changes in urinary or bowel habits.? He denies melena or hematochezia In the emergency department, patient's hemoglobin was noted to be 5.3 Hospital Course: Patient admitted for acute on chronic symptomatic anemia. He was transfused 3 units PRBC with improvement in H/H to 7.5/21.5%. There has been no evidence of bleeding since admission. No melena or hematachezia. He was evaluated by hematology. Work up negative for HIV and hepatitis. Abd U/S unremarkable, no cirrhosis or splenomegaly. B12/folate levels 527/19.0. Ferritin 680, iron 249. Collagen vascular profile evaluated and pending. Hemolytic screeen negative with LDH 168. H/H remained stable without further transfusion at 7.3/21.1%. Hematology recommending evaluation by GI for any bleeding AVM which can be performed outpt since H/H stable without evidence of active bleeding. The patient also needs to follow up outpt this week with hematology to complete hematologic work up including bone marrow biopsy to further evaluate etiology of anemia. While admitted treated for acute alcohol withdrawal with phenobarb per protocol. CIWA score's 0. Counseled on cessation. Noted to have wheezing but no complaints of SOB/wheezing. Steroids held given question of GI bleed. Pt advised to use maintenance medications for asthma and albuterol prn and contact PCP if symptoms worsen. Follow up with PCP soon. Importance of follow ups stressed to patient since he did miss his hematology appt prior to this admission. Time spent discussing smoking cessation with patient: more than 10 minutes Status at Discharge Functional status at discharge: independent ambulation Overall status at discharge: patient is back to baseline Time Spent with Patient Time attestation: Total time managing care of this patient today 40 minutes. Discharge coordination time: Greater than 30 minutes Quality: Safe Use of Opioids Does Pt have an Active Cancer Diagnosis on the Problem List?: No Quality: Stroke Does the patient have a stroke diagnosis?: No Physical Exam Vital Signs: Vital Signs: Last Vital Signs Temp 97 F 10/28/22 08:00 Pulse 60 10/28/22 08:00 Resp 18 10/28/22 08:00 BP 128/61 10/28/22 08:00 Pulse Ox 99 10/28/22 08:00 O2 Del Method 10/28/22 08:00 BMI result Body Mass Index 28.7 Constitutional - Awake and Alert, No apparent distress Eyes - PERRLA, EOMI Cardiovascular - S1S2, RRR, No edema Respiratory - Normal lung expansion, Normal respiratory effort, No respiratory distress, scattered expiratory wheezing Gastrointestinal - NT / ND; +BS; No rebound or guarding Extremities - no calf tenderness bilaterally, no swelling Skin - Warm/Dry Neurological - Alert & oriented x3 Psychological - Appropriate affect DS: Data Data Completed and Pending Completed studies during hospitalization [Text1]: Procedures Destruction of Ascending Colon, Via Natural or Artificial Opening Endoscopic (09/07/22) Detoxification Services for Substance Abuse Treatment (09/07/22) Excision of Duodenum, Via Natural or Artificial Opening Endoscopic, Diagnostic (09/07/22) Excision of Sigmoid Colon, Via Natural or Artificial Opening Endoscopic, Diagnostic (09/07/22) Excision of Stomach, Pylorus, Via Natural or Artificial Opening Endoscopic, Diagnostic (09/07/22) Excision of Transverse Colon, Via Natural or Artificial Opening Endoscopic, Diagnostic (09/07/22) Transfusion of Nonautologous Red Blood Cells into Peripheral Vein, Percutaneous Approach (09/07/22) Labs on day of discharge: Laboratory Results - last 24 hr 10/27/22 10/27/22 10/28/22 05:47 05:47 10:52 WBC 7.8 RBC 2.23 L Hgb 7.3 L Hct 21.1 L MCV 94.6 MCH 32.7 MCHC 34.6 RDW 17.6 H Plt Count 50 L MPV Not Reportable Immature Gran % (Auto) 1.2 H Neut % (Auto) 51.7 Lymph % (Auto) 33.8 [place] % (Auto) 8.6 Eos % (Auto) 2.6 Baso % (Auto) 2.1 H Lymph # (Auto) 2.6 [place] # (Auto) 0.7 Eos # (Auto) 0.2 Baso # (Auto) 0.2 Abs Immat Gran (auto) 0.09 H Absolute Neuts (auto) 4.0 Absolute Nucleated RBC 0.000 Nucleated RBC % (auto) 0.0 Smear Tech's Comments VERIFIED ESR 16 H Sodium Potassium Chloride Carbon Dioxide Anion Gap BUN Creatinine Estim Creat Clear Calc Estimated GFR Random Glucose Calcium Rheumatoid Factor < 13.0 10/28/22 10:52 WBC RBC Hgb Hct MCV MCH MCHC RDW Plt Count MPV Immature Gran % (Auto) Neut % (Auto) Lymph % (Auto) [place] % (Auto) Eos % (Auto) Baso % (Auto) Lymph # (Auto) [place] # (Auto) Eos # (Auto) Baso # (Auto) Abs Immat Gran (auto) Absolute Neuts (auto) Absolute Nucleated RBC Nucleated RBC % (auto) Smear Tech's Comments ESR Sodium 137 Potassium 4.1 Chloride 104 Carbon Dioxide 29 Anion Gap 8 L BUN 17 H Creatinine 0.83 Estim Creat Clear Calc 102.7 Estimated GFR > 60 Random Glucose 166 H Calcium 8.2 L Rheumatoid Factor Discharge Plan Discharge Anticipated Discharge Date/Time: 10/28/22 14:00 Patient Disposition: Home, Self-Care Discharge Diagnosis: Symptomatic acute on chronic anemia, alcohol withdrawal Referrals: Cassandra Rodriguez MD [Primary Care Provider] - 1 Week Steff Weaver MD [Physician] - 3-5 Days (Pt with severe anemia requiring 3 transfusions. Seen by GI last admission with colonoscopy showing AVMs performed by Owen. Per hematology, recommending GI reeval for bleeding AVMs) Gurmeet Veliz MD [Physician] - 1 Week Discharge Medications: Continued acetaminophen [Tylenol Extra Strength] 500 mg tablet 500 mg PO Q6H PRN (Reason: pain or fever) Qty: 20 0RF polyethylene glycol 3350 [Miralax] 17 gram/dose powder 17 g PO DAILY PRN (Reason: constipation) Qty: 510 0RF albuterol sulfate 90 mcg/actuation HFA aerosol inhaler 2 puff inhalation Q6H PRN (Reason: shortness of breath or wheezing) Qty: 8.5 0RF tramadol 50 mg tablet 1 tab PO Q6H PRN (Reason: pain) fluticasone propionate 50 mcg/actuation spray,suspension 2 spray intranasal DAILY PRN (Reason: Allergy Symptoms) fluticasone propion-salmeterol [Advair Diskus] 250-50 mcg/dose blister with device 1 puff inhalation BID multivitamin Tablet 1 tab PO DAILY albuterol sulfate 2.5 mg /3 mL (0.083 %) solution for nebulization 1 amp inhalation QID PRN (Reason: Wheezing) thiamine HCl (vitamin B1) 100 mg Tablet 100 mg PO DAILY pantoprazole 20 mg Tablet,Delayed Release (Dr/Ec) 20 mg PO DAILY paroxetine HCl 20 mg tablet 1 tab PO DAILY docusate sodium 100 mg capsule 1 cap PO BID PRN (Reason: Constipation) (DME) lancets [TRUEplus Lancets] 33 gauge misc See Rx Instructions .ROUTE BID Qty: 100 Rx Instructions: As directed (DME) blood-glucose meter [FreeStyle [place] Lite] Kit See Rx Instructions .ROUTE BID Qty: 1 Rx Instructions: As directed Discharge Orders: Discharge Order (Routine); Ordered 10/28/22 Ordered By: Beverly Blanchard Diet: Regular diet Activity on Discharge: As tolerated Stand Alone Forms: Patient Portal Discharge page Care Plan Goals: -Follow up with hematology and gastroenterology to further investigate cause of anemia -Treat asthma exacerbation -Abstain from alcohol Health Concerns: Symptomatic anemia, unknown cause Asthma exacerbation Alcohol abuse/withdrawal Plan of Treatment: Follow up with gastroenterology to determine if there is any slow bleed in the intestines that could be contributing to your anemia. There was no evidence of active bleeding during your admission. You also need to follow up soon witmoraima veliz in hematology to investigate the anemia with a bone marrow biopsy. We evaluated many blood tests to determine the cause of your anemia, but the tests have been unremarkable so far, though some results are still pending and Dr. Veliz will follow up with you on these results. You were not given any steroids for your asthma. Continue using your home medications and albuterol. You have been given a medication to help with alcohol withdrawal. It would benefit you to significantly reduce and eventually discontinue alcohol consumption. Assessment: As above
--- NOTE | 2022-10-28 14:39 | MHC.CM.PN ---
DP: PT HAS BEEN MEDICALLY CLEARED FOR DC HOME, NO SERVICES. FAMILY WILL TRANSPORT.
[2022-10-30 13:38] LABS: Anti Nuclear Antibody Screen NEGATIVE (NEGATIVE)
== END 2022-10-28 14:57 | disposition home or self-care (01) | DRG 660 ==
LOC: HO.ED 19:33 → HO.EDOVER 19:53 → HO.S3 23:16
PROVIDERS: Internal Medicine Medical Oncology; Nurse Practitioner Family; Admitting Provider Student in an Organized Health Care Education/Training Program; Emergency Provider Emergency Medicine Emergency Medical Services; PCP Internal Medicine; Visit Provider Physician Assistant
DX: D61.818 Other pancytopenia (principal); J45.41 Moderate persistent asthma with (acute) exacerbation; K21.9 Gastro-esophageal reflux disease without esophagitis; F17.210 Nicotine dependence, cigarettes, uncomplicated; F10.139 Alcohol abuse with withdrawal, unspecified; Z71.6 Tobacco abuse counseling; Z20.822 Contact with and (suspected) exposure to COVID-19; Z79.51 Long term (current) use of inhaled steroids; Z79.899 Other long term (current) drug therapy
CPT/HCPCS: 36415; 71045; 76700; 80048; 80076; 82272; 85025; 85610; 85652; 86038; 86039; 86431; 86850; 86900; 86901; 86923; 87635; 93005; 94640; 99285; J2930; P9016

== ENCOUNTER 2022-11-08 10:05 | Day surgery (SDC) | payer MEDICAID, SELFPAY ==
--- NOTE | 2022-11-07 09:28 | P.CONAN_ITS ---
Documented by User: Natividad Harrell NP 11/07/22 10:03 HPI - Anesthesia Eval Consult details Narrative: 52yo M for Bone Marrow Biopsy [facility] [place] admit 10/26-10/28/22 with ETOH abuse, acute anemia PMFSH Active Problems Active Problems: All Active Problems (Updated 10/29/22 @ 18:32 by Gurmeet Gama MD) Alcohol abuse (Acute) Asthma (Acute) Anemia (Acute) Pancytopenia (Acute) Anemia (Acute) Poor historian (Acute) Past Medical History Medical History Acid reflux Alcohol abuse Alcohol abuse Anemia Asthma History of gastric ulcer Macrocytic anemia Family History Family History Father No problems noted. Mother Diabetes Other No family history of cancer Family history of problems with anesthesia: No Surgical History Surgical History (Updated 11/08/22 @ 10:26 by Laila Altamirano RN) History of esophagogastroduodenoscopy (EGD) Hx of abdominal surgery Hx of colonoscopy History of Problems with Anesthesia: No Social History Social History Household Members: Family Household Members Other:: sister Housing: House Are you a primary acute care registered nurse to a significant other at home: No Do you presently have visiting nurse or other home services: No Alcohol intake: current Alcohol intake frequency: former alcohol drinker Alcohol type: beer Patient Tobacco Use Status: Current everyday Tobacco user Tobacco use type: Cigarette Cigarettes Per Day: 3 e-Cigarette/Vaping Use: Never Used Second Hand Smoke Exposure: No Use of substances other than those prescribed or required for medical reasons: Yes Substance Use Type: Marijuana Substance Use Frequency: Daily Are you DNR?: No Advance Directives: Yes Advance Directives on File: Yes Advance Directives Date on File: 05/19/22 service: No Current occupational status: unemployed Meds Allergies Allergy/AdvReac Type Severity Reaction Status Date / Time No Known Allergies Allergy Verified 11/06/22 08:40 [No Known Allergies*] Home Medications Medication Instructions Recorded Confirmed Last Taken Type fluticasone propionate 50 2 spray intranasal DAILY PRN 05/13/22 10/26/22 Unknown History mcg/actuation nasal Allergy Symptoms spray,suspension tramadol 50 mg tablet 1 tab PO Q6H PRN pain 05/13/22 10/26/22 Unknown History fluticasone 250 mcg-salmeterol 50 1 puff inhalation BID 09/07/22 10/26/22 10/26/22 History mcg/dose blistr powdr for inhalation (Advair Diskus) albuterol sulfate 2.5 mg/3 mL 1 amp inhalation QID PRN Wheezing 09/28/22 10/26/22 Unknown History (0.083 %) solution for nebulization docusate sodium 100 mg capsule 1 cap PO BID PRN Constipation 09/28/22 10/26/22 Unknown History multivitamin 1 tab PO DAILY 09/28/22 10/26/22 10/26/22 History pantoprazole 20 mg tablet,delayed 20 mg PO DAILY 09/28/22 10/26/22 10/26/22 History release paroxetine HCl 20 mg tablet 1 tab PO DAILY 09/28/22 10/26/22 10/26/22 History thiamine HCl (vitamin B1) 100 mg 100 mg PO DAILY 09/28/22 10/26/22 10/26/22 History tablet blood-glucose meter (FreeStyle #1 ea 10/05/22 10/26/22 Unknown History [place] Lite kit) lancets 33 gauge (TRUEplus Lancets) #100 ea 10/05/22 10/26/22 Unknown History folic acid 1 mg tablet 1 mg PO DAILY 11/06/22 Unknown History Exam Exam Date and Time: November 07, 2022 0928 Pertinent Lab Results Pertinent Lab Results: Laboratory Tests 10/28/22 10/28/22 10:52 10:52 WBC 7.8 Hgb 7.3 L Hct 21.1 L Plt Count 50 L Sodium 137 Potassium 4.1 Chloride 104 Carbon Dioxide 29 BUN 17 H Creatinine 0.83 Narrative Narrative: EKG Vent. Rate : 073 BPM ? ? Atrial Rate : 073 BPM ?? P-R Int : 128 ms? QRS Dur : 084 ms ? ? QT Int : 362 ms ? ? ? P-R-T Axes : 018 011 014 degrees ?? QTc Int : 398 ms ? Normal sinus rhythm Normal ECG When compared with ECG of 07-SEP-2022 08:15, No significant change was found Assessment and Plan Assessment Anesthesia Assessment: Chart Reviewed Final Anesthetic Review Family History of Problems with Anesthesia: No History of Problems with Anesthesia: No Documented by User: Judith Dyer MD 11/08/22 12:15 PMFSH Past Medical History Medical History Acid reflux Alcohol abuse Alcohol abuse Anemia Asthma History of gastric ulcer Macrocytic anemia Family History Family History Father No problems noted. Mother Diabetes Other No family history of cancer Surgical History Surgical History (Updated 11/08/22 @ 10:26 by Laila Altamirano RN) History of esophagogastroduodenoscopy (EGD) Hx of abdominal surgery Hx of colonoscopy Social History Social History Household Members: Family Household Members Other:: sister Housing: House Are you a primary acute care registered nurse to a significant other at home: No Do you presently have visiting nurse or other home services: No Alcohol intake: current Alcohol intake frequency: former alcohol drinker Alcohol type: beer Patient Tobacco Use Status: Current everyday Tobacco user Tobacco use type: Cigarette Cigarettes Per Day: 3 e-Cigarette/Vaping Use: Never Used Second Hand Smoke Exposure: No Use of substances other than those prescribed or required for medical reasons: Yes Substance Use Type: Marijuana Substance Use Frequency: Daily Are you DNR?: No Advance Directives: Yes Advance Directives on File: Yes Advance Directives Date on File: 05/19/22 service: No Current occupational status: unemployed Meds Allergies Allergy/AdvReac Type Severity Reaction Status Date / Time No Known Allergies Allergy Verified 11/06/22 08:40 [No Known Allergies*] Home Medications Medication Instructions Recorded Confirmed Last Taken Type fluticasone propionate 50 2 spray intranasal DAILY PRN 05/13/22 10/26/22 Unknown History mcg/actuation nasal Allergy Symptoms spray,suspension tramadol 50 mg tablet 1 tab PO Q6H PRN pain 05/13/22 10/26/22 Unknown History fluticasone 250 mcg-salmeterol 50 1 puff inhalation BID 09/07/22 10/26/22 10/26/22 History mcg/dose blistr powdr for inhalation (Advair Diskus) albuterol sulfate 2.5 mg/3 mL 1 amp inhalation QID PRN Wheezing 09/28/22 10/26/22 Unknown History (0.083 %) solution for nebulization docusate sodium 100 mg capsule 1 cap PO BID PRN Constipation 09/28/22 10/26/22 Unknown History multivitamin 1 tab PO DAILY 09/28/22 10/26/22 10/26/22 History pantoprazole 20 mg tablet,delayed 20 mg PO DAILY 09/28/22 10/26/22 10/26/22 History release paroxetine HCl 20 mg tablet 1 tab PO DAILY 09/28/22 10/26/22 10/26/22 History thiamine HCl (vitamin B1) 100 mg 100 mg PO DAILY 09/28/22 10/26/22 10/26/22 History tablet blood-glucose meter (FreeStyle #1 ea 10/05/22 10/26/22 Unknown History [place] Lite kit) lancets 33 gauge (TRUEplus Lancets) #100 ea 10/05/22 10/26/22 Unknown History folic acid 1 mg tablet 1 mg PO DAILY 11/06/22 Unknown History Exam Airway Mallampati Class: II TM Dist: >3cm Neck ROM: Full Denture: Upper and Lower Loose/Missing/Broken Teeth: No Heart: rr Lungs: cts Assessment and Plan Final Anesthetic Review ASA Class: III Final Preanesthetic Review: No Changes in Pt Med Stat, Meds/Allgs Chart Reviewed, Consent Obtained/Reviewed and Anes Risks/Benef Reviewed Patient Risk: Low Procedure Risk: Low Anesthetic Plan Anesthetic Plan: MAC: Disposition: Standard PACU
[2022-11-08] VITALS (7 sets, daily range): BP systolic 93–108; BP diastolic 41–63; PULSE 53–67; RESP 14–16; TEMP 36.2–36.6; O2SAT 98–100; BMI 28.2
[2022-11-08] MEDS: Lactated Ringers 1,000 ML 100 ML IVCONT (10:58)
[2022-11-08] MEDS: Albuterol Sulfate (0.083%) 2.5 MG/3 ML VIAL.NEB INHALE (12:17)
--- NOTE | 2022-11-08 12:58 | PM.HEMONCBM ---
Bone Marrow Aspiration - Bone Marrow Aspiration Procedure:: *Service Date: [11/08/22] PROCEDURE: BONE MARROW ASPIRATE AND BIOPSY. Pre Op Diagnosis:: PANCYTOPENIA. Post Op Diagnosis:: SAME. Surgeon:: ELAINA VANEGAS. Anesthesia:: MAC. Consent:: Informed consent obtained from the patient for the procedure. Pros and cons of biopsy explained. The patient was willing to proceed with the procedure under local anesthesia. Procedure in Detail:: *Service Date: 11/08/22. *Procedure: BONE MARROW ASPIRATE AND BIOPSY. *Pre Op Dx: PANCYTOPENIA. *Post Op Dx: SAME. *Surgeon: ELAINA VANEGAS. The patient was positioned prone. the left posterior superior iliac spine prepped and draped. Patient was anesthetized under MAC. Under aseptic precautions, 5 ml of 1% lidocaine used for local anesthesia. Bone marrow aspirate was taken. With the Jamshidi needle, core biopsy obtained without any complications. The patient tolerated the procedure well. Specimens were sent for Connell stain, flow cytometry and cytogenetics. Biopsy was sent for histology. Bandage was applied and patient was positioned on his back for 10 to 15 minutes after the procedure. The patient was advised to call us if he develops any pain or swelling at the surgical site. Follow up in 2 weeks.
[2022-11-08 13:06] LABS: Bone Marrow SEE SEPARATE REPORT
[2022-11-08] MEDS: oxyCODONE HCl Immed Release 5 MG TABLET PO (13:21)
[2022-11-08 13:34] LABS: Baso%MD 4.9 %; Eos%MD 5.1 %; Hematocrit 21.8 % (42.0-52.0); Hemoglobin 7.2 g/dl (14.0-18.0); IG%MD 1.7 %; Lymph%MD 40.5 %; Mean Corpuscular Volume 96.9 fL (80.0-98.0); Mono%MD 10.6 %; Neut%MD 37.2 %; Platelet Count 52 X10*3/uL (160-400); Red Blood Count 2.25 X10*6/uL (4.60-5.80); Red Cell Distribution Width 17.3 % (11.0-16.0); White Blood Count 4.7 X10*3/uL (4.8-10.8)
[2022-11-08 13:51] LABS: Alanine Aminotransferase 16 U/L (0-40); Albumin Level 3.6 g/dL (3.5-5.0); Alkaline Phosphatase 64 U/L (39-117); Anion Gap 11 (12-20); Aspartate Amino Transferase 11 U/L (5-37); Bilirubin Total 0.6 mg/dL (0.0-1.0); Blood Urea Nitrogen 10 mg/dL (9-16); Calcium 8.3 mg/dL (8.4-10.2); Carbon Dioxide 24 mmol/L (22-29); Chloride 109 mmol/L (96-108); Creatinine Clr Calc Pharmacy 115.9; Estimated Glomerular Filt Rate > 60; Glucose Random 109 mg/dL (60-115); Potassium 4.1 mmol/L (3.3-5.1); Sodium 140 mmol/L (135-145); Total Protein 5.7 g/dL (6.5-8.0)
[2022-11-08 14:14] LABS: Atypical Lymph Absolute Manual 0.1 x10*3/uL; Atypical Lymphs Percent Manual 3 % (0-6); Band Neutrophils Percent 1 % (3-5); Basophils Abs Manual 0.1 X10*3/uL (0.0-0.2); Basophils Percent Manual 3 % (0-2); Eosinophils Absolute Manual 0.3 X10*3/uL (0.0-0.4); Eosinophils Percent Manual 7 % (0-4); Lymphocytes Absolute Manual 2.1 X10*3/uL (1.2-4.9); Lymphocytes Percent Manual 45 % (20-40); Monocytes Percent Manual 1 % (2-11); Neutrophils Absolute Manual 1.9 X10*3/uL (2.0-8.3); Neutrophils Percent Manual 40 % (45-73)
[2022-11-08 14:15] LABS: Platelet Estimate DECREASED (NORMAL)
[2022-11-08 14:16] LABS: RBC Morphology NOTED; Tear Drop Cells 1+ (0-2) /OIF
[2022-11-08 14:17] LABS: Microcytosis 1+ (5-14) /OIF
[2022-11-08 14:18] LABS: Platelet Morphology Comment NORM
== END 2022-11-08 14:46 | disposition home or self-care (01) ==
PROVIDERS: Pathology Anatomic Pathology & Clinical Pathology; PCP Internal Medicine; Visit Provider Internal Medicine Medical Oncology
PROC: (CPT 38221; principal; 2022-11-08 12:00)
DX: D53.9 Nutritional anemia, unspecified (principal); D61.818 Other pancytopenia; J45.909 Unspecified asthma, uncomplicated; F10.10 Alcohol abuse, uncomplicated; Z87.11 Personal history of peptic ulcer disease; K21.9 Gastro-esophageal reflux disease without esophagitis; K59.09 Other constipation; R42 Dizziness and giddiness; R53.83 Other fatigue; F17.210 Nicotine dependence, cigarettes, uncomplicated; F12.90 Cannabis use, unspecified, uncomplicated; Z79.51 Long term (current) use of inhaled steroids; Z79.899 Other long term (current) drug therapy
CPT/HCPCS: 38222; 36415; 80053; 81245; 81246; 85007; 85027; 88184; 88185; 88237; 88264; 88280; 88305; 88311; 88313; 88341; 88342; 88374; J1642; J2250; J3010

== ENCOUNTER 2022-11-10 12:11 | Emergency (ER) | payer MEDICAID, SELFPAY ==
[2022-11-10 12:25] VITALS: BP 121/58; PULSE 62; RESP 18; TEMP 36.4; O2SAT 100; BMI 27.4
--- NOTE | 2022-11-10 12:30 | ED.GENADULT ---
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 He received a unit of blood today and otherwise denies any fever, chills, headache, dizziness, shortness of breath, chest pain/palpitations, GI or symptoms. <Sofia Schafer MD - Last Filed: 11/10/22 15:29> Related Data Home medications: Home Medications Medication Instructions Recorded Confirmed fluticasone propionate 50 2 spray intranasal DAILY PRN 05/13/22 11/09/22 mcg/actuation nasal Allergy Symptoms spray,suspension tramadol 50 mg tablet 1 tab PO Q6H PRN pain 05/13/22 11/09/22 fluticasone 250 mcg-salmeterol 50 1 puff inhalation BID 09/07/22 11/09/22 mcg/dose blistr powdr for inhalation (Advair Diskus) albuterol sulfate 2.5 mg/3 mL 1 amp inhalation QID PRN Wheezing 09/28/22 11/09/22 (0.083 %) solution for nebulization docusate sodium 100 mg capsule 1 cap PO BID PRN Constipation 09/28/22 11/09/22 multivitamin 1 tab PO DAILY 09/28/22 11/09/22 pantoprazole 20 mg tablet,delayed 20 mg PO DAILY 09/28/22 11/09/22 release paroxetine HCl 20 mg tablet 1 tab PO DAILY 09/28/22 11/09/22 thiamine HCl (vitamin B1) 100 mg 100 mg PO DAILY 09/28/22 11/09/22 tablet blood-glucose meter (FreeStyle #1 ea 10/05/22 11/09/22 [place] Lite kit) lancets 33 gauge (TRUEplus Lancets) #100 ea 10/05/22 11/09/22 folic acid 1 mg tablet 1 mg PO DAILY 11/06/22 11/09/22 Previous Rx's Medication Instructions Recorded acetaminophen 500 mg tablet 500 mg PO Q6H PRN pain or fever 09/23/20 (Tylenol Extra Strength) #20 tabs polyethylene glycol 3350 17 17 g PO DAILY PRN constipation 11/10/20 gram/dose oral powder (Miralax) #510 grams albuterol sulfate 90 mcg/actuation 2 puff inhalation Q6H PRN 09/23/21 aerosol inhaler shortness of breath or wheezing #8.5 grams bisacodyl 5 mg tablet,delayed 10 mg PO ONCE colonoscopy prep 1 10/30/22 release (Dulcolax (bisacodyl)) day #2 tabs polyethylene glycol 3350 17 238 g PO ONCE 1 day #238 grams 10/30/22 gram/dose oral powder (Miralax) <CADEN Travis - Last Filed: 11/10/22 12:31> Allergies/adverse reactions: Allergies Allergy/AdvReac Type Severity Reaction Status Date / Time No Known Allergies Allergy Verified 11/09/22 14:11 [No Known Allergies*] <CADEN Travis - Last Filed: 11/10/22 12:31> Review of Systems Review of Systems: Pertinent positives and negatives as stated in HPI 10 point review of systems is otherwise negative. <Sofia Schafer MD - Last Filed: 11/10/22 15:29> [facility] Past Medical History Source: nursing notes reviewed <Sofia Schafer MD - Last Filed: 11/10/22 15:29> Medical History: Medical History Acid reflux Alcohol abuse Alcohol abuse Anemia Asthma History of gastric ulcer Macrocytic anemia <CADEN Travis - Last Filed: 11/10/22 12:31> Surgical History: Surgical History History of bone marrow biopsy History of esophagogastroduodenoscopy (EGD) Hx of abdominal surgery Hx of colonoscopy <CADEN Travis - Last Filed: 11/10/22 12:31> Family History Family History: Family History Father No problems noted. Mother Diabetes Other No family history of cancer <CADEN Travis - Last Filed: 11/10/22 12:31> Social History Social History: Social History Household Members: Family Household Members Other:: sister Housing: House Are you a primary caretaker to a significant other at home: No Do you presently have visiting nurse or other home services: No Alcohol intake: current Alcohol intake frequency: does not drink Alcohol type: beer Patient Tobacco Use Status: Current everyday Tobacco user Tobacco use type: Cigarette Cigarettes Per Day: 3 Smoked in Last 30 Days: Yes e-Cigarette/Vaping Use: Never Used Second Hand Smoke Exposure: No Use of substances other than those prescribed or required for medical reasons: Yes Substance Use Type: Marijuana Advance Directives: Yes Advance Directives on File: Yes Advance Directives Date on File: 05/19/22 service: No Current occupational status: unemployed <CADEN Travis - Last Filed: 11/10/22 12:31> Physical Exam ED Vital Signs: Vital Signs - 24 hr 11/10/22 12:25 Temperature 97.5 F Pulse Rate 62 Respiratory Rate 18 Blood Pressure 121/58 L Pulse Oximetry 100 Oxygen Delivery Method Room Air BMI result Body Mass Index 27.4 <CADEN Travis - Last Filed: 11/10/22 12:31> Vital Signs - 24 hr 11/10/22 12:25 Temperature 97.5 F Pulse Rate 62 Respiratory Rate 18 Blood Pressure 121/58 L Pulse Oximetry 100 Oxygen Delivery Method Room Air BMI result Body Mass Index 27.4 VITAL SIGNS: Reviewed. GENERAL: Well developed, well nourished, in no acute distress. HEAD: Normocephalic/atraumatic EYES: PERRLA, EOMI EARS: Ext canals without abnormality OROPHARYNX: no oral lesions noted, posterior pharynx clear LUNGS: Normal breath sounds. No adventitious sounds or accessory muscle use. SpO2<100> CARDIOVASCULAR: Regular rate and rhythm without noted murmurs ABDOMEN: Soft, non-tender, non-distended with bowel sounds. MUSCULOSKELETAL: No tenderness, deformities, or effusions noted on gross inspection. EXTREMITIES: No cyanosis, clubbing or edema. SKIN: Inspection of the skin reveals no rashes NEUROLOGIC: Alert and oriented x 3. Strength and sensation to light touch were grossly intact x 4. <Sofia Schafer MD - Last Filed: 11/10/22 15:29> Course Course Course Narrative: Rapid medical exam - 52-year-old male with recently diagnosed AML on bone marrow biopsy presents to the ER from Oncology office, for transfer to [facility] for urgent treatment of AML. [facility] is reportedly the only facility in the area that treats acute myeloid leukemia. Dr. Goldstein from the Oncology office reported that she was going to notify customer service analyst at [facility]. Unable to directly admit per Dr. Goldstein. Patient needs to go through the ER. He has no physical complaints. He did just receive a unit of blood this morning. Will hold off on repeating lab work for a few hours. Will check COVID swab for transfer. <CADEN Travis - Last Filed: 11/10/22 12:31> Reevaluation(s) Reevaluation #1: I discussed this case with Oncology, Dr. Goldstein, to clarify with whom she spoke and that [facility] was willing to accept transfer of the patient as he is otherwise hemodynamically stable. <Sofia Schafer MD - Last Filed: 11/10/22 15:29> Time: 14:01 <Sofia Schafer MD - Last Filed: 11/10/22 15:29> Reevaluation #2: We contacted [facility] transfer center to arrange for transport. <Sofia Schafer MD - Last Filed: 11/10/22 15:29> Time: 14:20 <Sofia Schafer MD - Last Filed: 11/10/22 15:29> Reevaluation #3: I discussed with [facility] who accepts transfer under Dr. Mejia to the oncology floor. <Sofia Schafer MD - Last Filed: 11/10/22 15:29> Time: 15:28 <Sofia Schafer MD - Last Filed: 11/10/22 15:29> Medical Decision Making Medical Decision Making [facility] Narrative: 52-year-old male without constitutional symptoms but informed that he has AML this morning and received 1 unit of blood. There is no differential diagnosis on this he already has a diagnosis, plans are to transfer to [facility] under the care of Dr. Rios. <Sfoia Schafer MD - Last Filed: 11/10/22 15:29> Consult Healthcare Provider Management of the patient was discussed with: Icebox Worker <Sofia Schafer MD - Last Filed: 11/10/22 15:29> [facility] for transfer to the medical floor. <Sofia Schafer MD - Last Filed: 11/10/22 15:29> Lab Data [facility] Lab Attestation statement: I reviewed the patient's lab results. <Sofia Schafer MD - Last Filed: 11/10/22 15:29> Result Diagrams: : 11/10/22 14:28 11/10/22 14:28 <CADEN Travis - Last Filed: 11/10/22 12:31> Labs: Lab Results 11/09/22 11/10/22 11/10/22 Range/Units 13:59 13:20 14:28 WBC 5.0 (4.8-10.8) X10*3/uL RBC 2.37 L (4.60-5.80) X10*6/uL Hgb 7.4 L (14.0-18.0) g/dl Hct 22.2 L (42.0-52.0) % MCV 93.7 (80.0-98.0) fL MCH 31.2 (27.0-33.0) pg MCHC 33.3 (31.0-36.0) g/dl RDW 16.4 H (11.0-16.0) % Plt Count 47 L (160-400) X10*3/uL MPV Not Reportable Immature Gran % (Auto) 1.2 H (0.0-0.4) % Neut % (Auto) 31.2 L (45-73) % Lymph % (Auto) 49.0 H (20-40) % [place] % (Auto) 8.8 (2-11) % Eos % (Auto) 7.2 H (0-4) % Baso % (Auto) 2.6 H (0-2) % Lymph # (Auto) 2.5 (1.2-4.9) X10*3/uL [place] # (Auto) 0.4 (0.1-1.2) X10*3/uL Eos # (Auto) 0.4 (0.0-0.4) X10*3/uL Baso # (Auto) 0.1 (0.0-0.2) X10*3/uL Abs Immat Gran (auto) 0.06 H (0.00-0.03) X10*3/uL Absolute Neuts (auto) 1.6 L (2.0-8.3) x10*3/uL Absolute Nucleated RBC 0.000 (0.0-0.012) X10*3/uL Nucleated RBC % (auto) 0.0 (0.0-0.2) /100WBC Smear Tech's Comments VERIFIED Sodium (135-145) mmol/L Potassium (3.3-5.1) mmol/L Chloride (96-108) mmol/L Carbon Dioxide (22-29) mmol/L Anion Gap (12-20) BUN (9-16) mg/dL Creatinine (0.5-1.4) mg/dL Estim Creat Clear Calc Estimated GFR Random Glucose (60-115) mg/dL Calcium (8.4-10.2) mg/dL Total Bilirubin (0.0-1.0) mg/dL AST (5-37) U/L ALT (0-40) U/L Alkaline Phosphatase (39-117) U/L Lactate Dehydrogenase (118-273) U/L Total Protein (6.5-8.0) g/dL Albumin (3.5-5.0) g/dL COVID-19 (JOEY) Negative (Negative) COVID-19 Clin Com See Note Blood Type A Positive Antibody Screen NEGATIVE Crossmatch See Detail 11/10/22 Range/Units 14:28 WBC (4.8-10.8) X10*3/uL RBC (4.60-5.80) X10*6/uL Hgb (14.0-18.0) g/dl Hct (42.0-52.0) % MCV (80.0-98.0) fL MCH (27.0-33.0) pg MCHC (31.0-36.0) g/dl RDW (11.0-16.0) % Plt Count (160-400) X10*3/uL MPV Immature Gran % (Auto) (0.0-0.4) % Neut % (Auto) (45-73) % Lymph % (Auto) (20-40) % [place] % (Auto) (2-11) % Eos % (Auto) (0-4) % Baso % (Auto) (0-2) % Lymph # (Auto) (1.2-4.9) X10*3/uL [place] # (Auto) (0.1-1.2) X10*3/uL Eos # (Auto) (0.0-0.4) X10*3/uL Baso # (Auto) (0.0-0.2) X10*3/uL Abs Immat Gran (auto) (0.00-0.03) X10*3/uL Absolute Neuts (auto) (2.0-8.3) x10*3/uL Absolute Nucleated RBC (0.0-0.012) X10*3/uL Nucleated RBC % (auto) (0.0-0.2) /100WBC Smear Tech's Comments Sodium 139 (135-145) mmol/L Potassium 4.1 (3.3-5.1) mmol/L Chloride 107 (96-108) mmol/L Carbon Dioxide 28 (22-29) mmol/L Anion Gap 8 L (12-20) BUN 12 (9-16) mg/dL Creatinine 0.76 (0.5-1.4) mg/dL Estim Creat Clear Calc 109.9 Estimated GFR > 60 Random Glucose 99 (60-115) mg/dL Calcium 8.3 L (8.4-10.2) mg/dL Total Bilirubin 0.5 (0.0-1.0) mg/dL AST 13 (5-37) U/L ALT 14 (0-40) U/L Alkaline Phosphatase 64 (39-117) U/L Lactate Dehydrogenase 122 (118-273) U/L Total Protein 5.4 L (6.5-8.0) g/dL Albumin 3.4 L (3.5-5.0) g/dL COVID-19 (JOEY) (Negative) COVID-19 Clin Com Blood Type Antibody Screen Crossmatch <CADEN Travis - Last Filed: 11/10/22 12:31> Lab Results 11/09/22 11/10/22 11/10/22 Range/Units 13:59 13:20 14:28 WBC 5.0 (4.8-10.8) X10*3/uL RBC 2.37 L (4.60-5.80) X10*6/uL Hgb 7.4 L (14.0-18.0) g/dl Hct 22.2 L (42.0-52.0) % MCV 93.7 (80.0-98.0) fL MCH 31.2 (27.0-33.0) pg MCHC 33.3 (31.0-36.0) g/dl RDW 16.4 H (11.0-16.0) % Plt Count 47 L (160-400) X10*3/uL MPV Not Reportable Immature Gran % (Auto) 1.2 H (0.0-0.4) % Neut % (Auto) 31.2 L (45-73) % Lymph % (Auto) 49.0 H (20-40) % [place] % (Auto) 8.8 (2-11) % Eos % (Auto) 7.2 H (0-4) % Baso % (Auto) 2.6 H (0-2) % Lymph # (Auto) 2.5 (1.2-4.9) X10*3/uL [place] # (Auto) 0.4 (0.1-1.2) X10*3/uL Eos # (Auto) 0.4 (0.0-0.4) X10*3/uL Baso # (Auto) 0.1 (0.0-0.2) X10*3/uL Abs Immat Gran (auto) 0.06 H (0.00-0.03) X10*3/uL Absolute Neuts (auto) 1.6 L (2.0-8.3) x10*3/uL Absolute Nucleated RBC 0.000 (0.0-0.012) X10*3/uL Nucleated RBC % (auto) 0.0 (0.0-0.2) /100WBC Smear Tech's Comments VERIFIED Sodium (135-145) mmol/L Potassium (3.3-5.1) mmol/L Chloride (96-108) mmol/L Carbon Dioxide (22-29) mmol/L Anion Gap (12-20) BUN (9-16) mg/dL Creatinine (0.5-1.4) mg/dL Estim Creat Clear Calc Estimated GFR Random Glucose (60-115) mg/dL Calcium (8.4-10.2) mg/dL Total Bilirubin (0.0-1.0) mg/dL AST (5-37) U/L ALT (0-40) U/L Alkaline Phosphatase (39-117) U/L Lactate Dehydrogenase (118-273) U/L Total Protein (6.5-8.0) g/dL Albumin (3.5-5.0) g/dL COVID-19 (JOEY) Negative (Negative) COVID-19 Clin Com See Note Blood Type A Positive Antibody Screen NEGATIVE Crossmatch See Detail 11/10/22 Range/Units 14:28 WBC (4.8-10.8) X10*3/uL RBC (4.60-5.80) X10*6/uL Hgb (14.0-18.0) g/dl Hct (42.0-52.0) % MCV (80.0-98.0) fL MCH (27.0-33.0) pg MCHC (31.0-36.0) g/dl RDW (11.0-16.0) % Plt Count (160-400) X10*3/uL MPV Immature Gran % (Auto) (0.0-0.4) % Neut % (Auto) (45-73) % Lymph % (Auto) (20-40) % [place] % (Auto) (2-11) % Eos % (Auto) (0-4) % Baso % (Auto) (0-2) % Lymph # (Auto) (1.2-4.9) X10*3/uL [place] # (Auto) (0.1-1.2) X10*3/uL Eos # (Auto) (0.0-0.4) X10*3/uL Baso # (Auto) (0.0-0.2) X10*3/uL Abs Immat Gran (auto) (0.00-0.03) X10*3/uL Absolute Neuts (auto) (2.0-8.3) x10*3/uL Absolute Nucleated RBC (0.0-0.012) X10*3/uL Nucleated RBC % (auto) (0.0-0.2) /100WBC Smear Tech's Comments Sodium 139 (135-145) mmol/L Potassium 4.1 (3.3-5.1) mmol/L Chloride 107 (96-108) mmol/L Carbon Dioxide 28 (22-29) mmol/L Anion Gap 8 L (12-20) BUN 12 (9-16) mg/dL Creatinine 0.76 (0.5-1.4) mg/dL Estim Creat Clear Calc 109.9 Estimated GFR > 60 Random Glucose 99 (60-115) mg/dL Calcium 8.3 L (8.4-10.2) mg/dL Total Bilirubin 0.5 (0.0-1.0) mg/dL AST 13 (5-37) U/L ALT 14 (0-40) U/L Alkaline Phosphatase 64 (39-117) U/L Lactate Dehydrogenase 122 (118-273) U/L Total Protein 5.4 L (6.5-8.0) g/dL Albumin 3.4 L (3.5-5.0) g/dL COVID-19 (JOEY) (Negative) COVID-19 Clin Com Blood Type Antibody Screen Crossmatch <Sofia Schafer MD - Last Filed: 11/10/22 15:29> External Record Review External record reviewed: Outpatient record and Prior outpatient labs <Sofia Schafer MD - Last Filed: 11/10/22 15:29> Critical Care Time Critical Care Time Critical Care Time: Yes <Sofia Schafer MD - Last Filed: 11/10/22 15:29> Total Critical Care Time: 30 <Sofia Schafer MD - Last Filed: 11/10/22 15:29> Attestation: I personally attest to this time spent taking care of the patient. <Sofia Schafer MD - Last Filed: 11/10/22 15:29> Discharge Plan Discharge Clinical Impression: AML (acute myeloblastic leukemia) <CADEN Travis - Last Filed: 11/10/22 12:31> Patient Disposition: [facility] <CADEN Travis - Last Filed: 11/10/22 12:31> Transfer Details: Escalated level of care due to specialist [place] [facility] <CADEN Travis - Last Filed: 11/10/22 12:31> Escalated level of care due to specialist for [place] [facility] <Sofia Schafer MD - Last Filed: 11/10/22 15:29> Prescriptions: No Action bisacodyl [Dulcolax (bisacodyl)] 5 mg tablet,delayed release (DR/EC) 10 mg PO ONCE 1 Days Qty: 2 0RF Rx Instructions: Take 2 tablets by mouth at 12:00pm the day before your procedure. polyethylene glycol 3350 [Miralax] 17 gram/dose powder 238 g PO ONCE 1 Days Qty: 238 0RF Rx Instructions: Take as directed by mouth the day before your procedure. acetaminophen [Tylenol Extra Strength] 500 mg tablet 500 mg PO Q6H PRN (Reason: pain or fever) Qty: 20 0RF polyethylene glycol 3350 [Miralax] 17 gram/dose powder 17 g PO DAILY PRN (Reason: constipation) Qty: 510 0RF albuterol sulfate 90 mcg/actuation HFA aerosol inhaler 2 puff inhalation Q6H PRN (Reason: shortness of breath or wheezing) Qty: 8.5 0RF tramadol 50 mg tablet 1 tab PO Q6H PRN (Reason: pain) fluticasone propionate 50 mcg/actuation spray,suspension 2 spray intranasal DAILY PRN (Reason: Allergy Symptoms) fluticasone propion-salmeterol [Advair Diskus] 250-50 mcg/dose blister with device 1 puff inhalation BID multivitamin Tablet 1 tab PO DAILY albuterol sulfate 2.5 mg /3 mL (0.083 %) solution for nebulization 1 amp inhalation QID PRN (Reason: Wheezing) thiamine HCl (vitamin B1) 100 mg Tablet 100 mg PO DAILY pantoprazole 20 mg Tablet,Delayed Release (Dr/Ec) 20 mg PO DAILY paroxetine HCl 20 mg tablet 1 tab PO DAILY docusate sodium 100 mg capsule 1 cap PO BID PRN (Reason: Constipation) (DME) lancets [TRUEplus Lancets] 33 gauge misc See Rx Instructions .ROUTE BID Qty: 100 Rx Instructions: As directed (DME) blood-glucose meter [FreeStyle [place] Lite] Kit See Rx Instructions .ROUTE BID Qty: 1 Rx Instructions: As directed folic acid 1 mg tablet 1 mg PO DAILY <CADEN Travis - Last Filed: 11/10/22 12:31>
[2022-11-10 13:39] LABS: COVID-19 Test Negative (Negative); IDNOW Serial# 9DB6401D
[2022-11-10 14:36] LABS: Basophils Absolute Auto 0.1 X10*3/uL (0.0-0.2); Basophils Percent Auto 2.6 % (0-2); Eosinophils Absolute Auto 0.4 X10*3/uL (0.0-0.4); Eosinophils Percent Auto 7.2 % (0-4); Hematocrit 22.2 % (42.0-52.0); Hemoglobin 7.4 g/dl (14.0-18.0); Imm Gran Abs Auto 0.06 X10*3/uL (0.00-0.03); Imm Gran Pct Auto 1.2 % (0.0-0.4); Lymphocytes Absolute Auto 2.5 X10*3/uL (1.2-4.9); MANUAL DIFF FLAG SCAN; Mean Corpuscular HGB Conc 33.3 g/dl (31.0-36.0); Mean Corpuscular Hemoglobin 31.2 pg (27.0-33.0); Mean Corpuscular Volume 93.7 fL (80.0-98.0); Monocytes Absolute Auto 0.4 X10*3/uL (0.1-1.2); Monocytes Percent Auto 8.8 % (2-11); Neutrophils Absolute Auto 1.6 x10*3/uL (2.0-8.3); Neutrophils Percent Auto 31.2 % (45-73); PLT CLUMP 1; Red Blood Count 2.37 X10*6/uL (4.60-5.80); Red Cell Distribution Width 16.4 % (11.0-16.0); SCAN SMEAR FLAG 1
[2022-11-10 14:51] LABS: Alanine Aminotransferase 14 U/L (0-40); Albumin Level 3.4 g/dL (3.5-5.0); Alkaline Phosphatase 64 U/L (39-117); Anion Gap 8 (12-20); Aspartate Amino Transferase 13 U/L (5-37); Bilirubin Total 0.5 mg/dL (0.0-1.0); Blood Urea Nitrogen 12 mg/dL (9-16); Calcium 8.3 mg/dL (8.4-10.2); Carbon Dioxide 28 mmol/L (22-29); Chloride 107 mmol/L (96-108); Creatinine Clr Calc Pharmacy 109.9; Estimated Glomerular Filt Rate > 60; Glucose Random 99 mg/dL (60-115); Lactate Dehydrogenase 122 U/L (118-273); Potassium 4.1 mmol/L (3.3-5.1); Sodium 139 mmol/L (135-145); Total Protein 5.4 g/dL (6.5-8.0)
[2022-11-10 14:57] LABS: Platelet Count 47 X10*3/uL (160-400); SLIDE REVIEW VERIFIED
--- NOTE | 2022-11-10 15:30 | MHC.EDTECH ---
[facility]'s Transfer called at [phone] to speak with . Accepted by awaiting a call back with a room assignment. Rn aware
[2022-11-10 15:37] VITALS: BP 110/59; PULSE 53; O2SAT 98
[2022-11-10 17:44] VITALS: BP 103/43; PULSE 60; O2SAT 96
--- NOTE | 2022-11-10 18:10 | MHC.EDTECH ---
[facility]'s Transfer Line called at [phone] for an update on bed assignment,spoke with Laura and she stated they were still waiting for a room. and Rn aware
--- NOTE | 2022-11-10 18:27 | MHC.EDTECH ---
[facility] Called at 181 with a room assignment patient is going to [place] [id number] Oncology Bed 10B. [facility] called at [phone] for a s transfer spoke with Tamika awaiting a call back at this time.
--- NOTE | 2022-11-10 18:36 | PC.NURSE ---
report given to oncology floor at [facility]. patient waiting for transport to facility.
--- NOTE | 2022-11-10 18:37 | MHC.EDTECH ---
Spoke with Tamika Porter at [phone],ETA within an hour. Rn aware
[2022-11-10 19:32] VITALS: BP 99/51; PULSE 51; RESP 18; TEMP 36.6; O2SAT 96
== END 2022-11-10 20:05 | disposition short-term general hospital (02) ==
PROVIDERS: Physician Assistant; Emergency Provider Student in an Organized Health Care Education/Training Program; PCP Internal Medicine
DX: C92.00 Acute myeloblastic leukemia, not having achieved remission (principal); F17.210 Nicotine dependence, cigarettes, uncomplicated; Z20.822 Contact with and (suspected) exposure to COVID-19; Z71.6 Tobacco abuse counseling; Z79.899 Other long term (current) drug therapy
CPT/HCPCS: 36415; 36430; 80053; 83615; 85025; 86850; 86900; 86901; 86923; 87635; 99285; P9016

== ENCOUNTER 2022-12-24 12:39 | Emergency (ER) | payer MEDICAID, SELFPAY ==
--- NOTE | ~2022-12-24 | CT_ITS ---
EXAMINATION: CT ABDOMEN AND PELVIS WITHOUT CONTRAST CLINICAL INFORMATION: History of stones left flank pain COMPARISON: 05/13/2022 TECHNIQUE: Multidetector volumetric imaging was performed from the superior aspect of the liver through the pubic symphysis. Sagittal and coronal reformatted images were obtained on the technologist's workstation. This CT examination was performed using dose optimization techniques as appropriate, variously including the following: *Automated exposure control *Adjustment of mA and/or kV according to patient size (this includes techniques or standardized protocols for targeted exams where dose is matched to indication/reason for exam; i.e. extremities or head) *Use of iterative reconstruction technique DLP: 574 mGy-cm FINDINGS: LUNG BASES: The visualized lung bases are unremarkable. LIVER, GALLBLADDER, AND BILIARY TREE: The liver is normal in size, shape, and attenuation. No focal hepatic lesion or biliary ductal dilatation is present. The gallbladder is unremarkable with no evidence of radiopaque gallstones, gallbladder wall thickening, or obvious pericholecystic inflammatory changes. PANCREAS: Unremarkable. SPLEEN: Unremarkable. ADRENAL GLANDS: Unremarkable. KIDNEYS AND URETERS: There is punctate calcification in the collecting system of left kidney but no hydroureteronephrosis or significant perinephric stranding seen. BLADDER: Unremarkable. GASTROINTESTINAL TRACT: The small and large bowel are unremarkable. The appendix is unremarkable. ABDOMINAL WALL: Small fat-containing umbilical hernia LYMPH NODES: Normal. VASCULAR: Unremarkable. PELVIC VISCERA: Unremarkable. OSSEOUS STRUCTURES: Unremarkable. CT/CT abdomen pelvis wo IV con IMPRESSION: 1. Punctate calculus in the collecting system of left kidney. No hydroureteronephrosis. 2. Small fat-containing umbilical hernia. Fleischner guidelines were followed.
--- NOTE | ~2022-12-24 | XR_ITS ---
EXAMINATION: XR CHEST CLINICAL INFORMATION: Cough. COMPARISON: 10/26/2022 chest radiograph. TECHNIQUE: Frontal view of the chest was obtained. FINDINGS: Support devices: Right central venous catheter with tip terminating at the cavoatrial junction. No significant abnormality is noted involving the heart, lungs, mediastinum, bony thorax or soft tissues. XR/XR chest 1V IMPRESSION: No acute cardiopulmonary process.
--- NOTE | 2022-12-24 12:50 | ECG_ITS ---
Test Reason : BACK PAIN ATRAUMATIC Blood Pressure : / mmHG Vent. Rate : 110 BPM Atrial Rate : 110 BPM P-R Int : 118 ms QRS Dur : 082 ms QT Int : 328 ms P-R-T Axes : 043 011 024 degrees QTc Int : 443 ms Sinus tachycardia Otherwise normal ECG When compared with ECG of 26-OCT-2022 17:29, Vent. rate has increased BY 37 BPM Referred By: Generic ED Physician Electronically Signed By:ANGELA CARDONA MD
--- NOTE | 2022-12-24 13:13 | ED_ITS ---
HPI - Abdominal Pain General Chief Complaint: Abdominal Pain <CADEN Freeman - Last Filed: 12/24/22 13:22> Stated Complaint: Back Shoulder Pain No Injury <CADEN Freeman - Last Filed: 12/24/22 13:22> Time Seen by Provider: 12/24/22 16:21 <CADEN Freeman - Last Filed: 12/24/22 13:22> Source: patient <Michael Bhatt MD - Last Filed: 12/24/22 19:07> Mode of arrival: ambulatory <Michael Bhatt MD - Last Filed: 12/24/22 19:07> Limitations: no limitations <Michael Bhatt MD - Last Filed: 12/24/22 19:07> History of Present Illness HPI narrative: Patient recent diagnosis of AML in 11/09 on chemotherapy, history of asthma, alcohol abuse history of gastric ulcer , kidney stone comes here with pain in the left flank it lasts 3 days also pain in the left shoulder no chest pain or palpitation pain increases on deep inspiration no urinary complaints no dysuria or hematuria no fever /chills no abdominal pain no nausea no vomiting no shortness of breath <Michael Bhatt MD - Last Filed: 12/24/22 19:07> Related Data Home Medications: Home Medications Medication Instructions Recorded Confirmed fluticasone propionate 50 2 spray intranasal DAILY PRN 05/13/22 11/09/22 mcg/actuation nasal Allergy Symptoms spray,suspension tramadol 50 mg tablet 1 tab PO Q6H PRN pain 05/13/22 11/09/22 fluticasone 250 mcg-salmeterol 50 1 puff inhalation BID 09/07/22 11/09/22 mcg/dose blistr powdr for inhalation (Advair Diskus) albuterol sulfate 2.5 mg/3 mL 1 amp inhalation QID PRN Wheezing 09/28/22 11/09/22 (0.083 %) solution for nebulization docusate sodium 100 mg capsule 1 cap PO BID PRN Constipation 09/28/22 11/09/22 multivitamin 1 tab PO DAILY 09/28/22 11/09/22 pantoprazole 20 mg tablet,delayed 20 mg PO DAILY 09/28/22 11/09/22 release paroxetine HCl 20 mg tablet 1 tab PO DAILY 09/28/22 11/09/22 thiamine HCl (vitamin B1) 100 mg 100 mg PO DAILY 09/28/22 11/09/22 tablet blood-glucose meter (FreeStyle #1 ea 10/05/22 11/09/22 Frost Lite kit) lancets 33 gauge (TRUEplus Lancets) #100 ea 10/05/22 11/09/22 folic acid 1 mg tablet 1 mg PO DAILY 11/06/22 11/09/22 Previous Rx's Medication Instructions Recorded acetaminophen 500 mg tablet 500 mg PO Q6H PRN pain or fever 09/23/20 (Tylenol Extra Strength) #20 tabs polyethylene glycol 3350 17 17 g PO DAILY PRN constipation 11/10/20 gram/dose oral powder (Miralax) #510 grams albuterol sulfate 90 mcg/actuation 2 puff inhalation Q6H PRN 09/23/21 aerosol inhaler shortness of breath or wheezing #8.5 grams bisacodyl 5 mg tablet,delayed 10 mg PO ONCE colonoscopy prep 1 10/30/22 release (Dulcolax (bisacodyl)) day #2 tabs polyethylene glycol 3350 17 238 g PO ONCE 1 day #238 grams 10/30/22 gram/dose oral powder (Miralax) <CADEN Freeman - Last Filed: 12/24/22 13:22> Allergies/Adverse Reactions: Allergies Allergy/AdvReac Type Severity Reaction Status Date / Time No Known Allergies Allergy Verified 12/24/22 13:20 [No Known Allergies*] <CADEN Freeman - Last Filed: 12/24/22 13:22> Review of Systems Review of Systems Yes all other systems are reviewed and are negative <Michael Bhatt MD - Last Filed: 12/24/22 19:07> [facility] Past Medical History Medical History: Medical History Acid reflux Alcohol abuse AML (acute myeloblastic leukemia) Anemia Asthma History of gastric ulcer Macrocytic anemia <CADEN Freeman - Last Filed: 12/24/22 13:22> Surgical History: Surgical History History of bone marrow biopsy History of esophagogastroduodenoscopy (EGD) Hx of abdominal surgery Hx of colonoscopy <CADEN Freeman - Last Filed: 12/24/22 13:22> Family History Family History: Family History Father No problems noted. Mother Diabetes Other No family history of cancer <CADEN Freeman - Last Filed: 12/24/22 13:22> Social History Social History: Social History Household Members: Family Household Members Other:: sister Housing: House Are you a primary care transition mgr to a significant other at home: No Do you presently have visiting nurse or other home services: No Alcohol intake: current Alcohol intake frequency: does not drink Alcohol type: beer Patient Tobacco Use Status: Current everyday Tobacco user Tobacco use type: Cigarette Cigarettes Per Day: 3 e-Cigarette/Vaping Use: Never Used Second Hand Smoke Exposure: No Substance Use Type: Marijuana Advance Directives: Yes Advance Directives on File: Yes Advance Directives Date on File: 05/19/22 service: No Current occupational status: unemployed <CADEN Freeman - Last Filed: 12/24/22 13:22> Physical Exam ED Vital Signs: Vital Signs - 24 hr 12/24/22 13:15 12/24/22 16:05 Temperature 96.3 F L 97.7 F Pulse Rate 105 H 74 Respiratory Rate 16 18 Blood Pressure 126/85 131/82 Pulse Oximetry 96 100 Oxygen Delivery Method Room Air Room Air BMI result Body Mass Index 27.6 <CADEN Freeman - Last Filed: 12/24/22 13:22> Vital Signs - 24 hr 12/24/22 13:15 12/24/22 16:05 Temperature 96.3 F L 97.7 F Pulse Rate 105 H 74 Respiratory Rate 16 18 Blood Pressure 126/85 131/82 Pulse Oximetry 96 100 Oxygen Delivery Method Room Air Room Air BMI result Body Mass Index 27.6 <Michael Bhatt MD - Last Filed: 12/24/22 19:07> Appearance: Alert. Oriented X3. No acute distress. Eyes: pallor+ No Nystagmus ENT: Pharynx normal. Oral Mucosa moist Neck: Normal inspection. Neck supple. CVS: Normal heart rate and rhythm. Pulses normal. Respiratory: No respiratory distress. Equal air entry bilateral, no wheezing/rales/rhonchi Abdomen: Soft and nontender. Bowel sounds are present, no mass palpable, L CVA tenderness + Skin: Skin warm and dry. Normal skin color. Normal skin turgor. Extremities: No lower extremity edema. No calf tenderness Neuro: Oriented X 3. No motor deficit. <Michael Bhatt MD - Last Filed: 12/24/22 19:07> Course Course Course Narrative: RME-- 52yo M with PMHx AML receiving weekly chemotherapy at [facility] c/o L flank pain and L shoulder pain x 3 days. Also reports cough & SOB, L flank pain worse with inspiration. Also reports epistaxis, resolved at present Denies taking AC or hx of clots Tachycardic to 105. L flank pain / lower chest wall pain reproducible. Abdomen soft/nontender. No pedal edema. EKG, labs, UA, CXR ordered in triage <CADEN Freeman - Last Filed: 12/24/22 13:22> Medical Decision Making Medical Decision Making [facility] Narrative: Patient's CT scan showed punctate calculus in collecting system of left kidney no obstructive stone. Labs are stable with pancytopenia. Patient advised to follow-up with his oncologist will give oxycodone for pain <Michael Bhatt MD - Last Filed: 12/24/22 19:07> Lab Data [facility] Lab Attestation statement: I reviewed the patient's lab results. <Michael Bhatt MD - Last Filed: 12/24/22 19:07> Result Diagrams: 12/24/22 16:49 12/24/22 16:49 <CADEN Freeman - Last Filed: 12/24/22 13:22> Labs: Lab Results 12/24/22 12/24/22 12/24/22 Range/Units 14:04 14:04 16:49 WBC 4.0 L (4.8-10.8) X10*3/uL RBC 2.57 L (4.60-5.80) X10*6/uL Hgb 7.5 L (14.0-18.0) g/dl Hct 22.2 L (42.0-52.0) % MCV 86.4 (80.0-98.0) fL MCH 29.2 (27.0-33.0) pg MCHC 33.8 (31.0-36.0) g/dl RDW 12.9 (11.0-16.0) % Plt Count 24 L D (160-400) X10*3/uL MPV 12.6 H (9.4-12.4) fL Immature Gran % (Auto) 0.7 H (0.0-0.4) % Neut % (Auto) 46.5 (45-73) % Lymph % (Auto) 34.6 (20-40) % Grainger % (Auto) 11.2 H (2-11) % Eos % (Auto) 6.5 H (0-4) % Baso % (Auto) 0.5 (0-2) % Lymph # (Auto) 1.4 (1.2-4.9) X10*3/uL Grainger # (Auto) 0.5 (0.1-1.2) X10*3/uL Eos # (Auto) 0.3 (0.0-0.4) X10*3/uL Baso # (Auto) 0.0 (0.0-0.2) X10*3/uL Abs Immat Gran (auto) 0.03 (0.00-0.03) X10*3/uL Absolute Neuts (auto) 1.9 L (2.0-8.3) x10*3/uL Absolute Nucleated RBC 0.000 (0.0-0.012) X10*3/uL Nucleated RBC % (auto) 0.0 (0.0-0.2) /100WBC PT (10.0-13.1) SEC INR (0.9-1.1) Sodium (135-145) mmol/L Potassium (3.3-5.1) mmol/L Chloride (96-108) mmol/L Carbon Dioxide (22-29) mmol/L Anion Gap (12-20) BUN (9-16) mg/dL Creatinine (0.5-1.4) mg/dL Estim Creat Clear Calc Estimated GFR Random Glucose (60-115) mg/dL Calcium (8.4-10.2) mg/dL Magnesium (1.6-2.6) mg/dL Total Bilirubin (0.0-1.0) mg/dL Direct Bilirubin (0.0-0.5) mg/dL AST (5-37) U/L ALT (0-40) U/L Alkaline Phosphatase (39-117) U/L Total Protein (6.5-8.0) g/dL Albumin (3.5-5.0) g/dL Urine Color Yellow Urine Appearance Clear Urine pH 6.0 (5.0-9.0) Ur Specific [place] 1.020 (1.005-1.025) Urine Protein Trace (Neg-Trace) mg/dL Urine Glucose (UA) Negative (Negative) mg/dL Urine Ketones Negative (Negative) mg/dL Urine Blood Negative (Negative) Urine Nitrite Negative (Negative) Ur Leukocyte Esterase Negative (Negative) Influenza Type A (PCR) NEGATIVE (Negative) Influenza Type B (PCR) NEGATIVE (Negative) RSV RNA Qual (PCR) NEGATIVE (Negative) SARS-CoV-2 RNA (RT-PCR) NEGATIVE (Negative) 12/24/22 12/24/22 Range/Units 16:49 16:49 WBC (4.8-10.8) X10*3/uL RBC (4.60-5.80) X10*6/uL Hgb (14.0-18.0) g/dl Hct (42.0-52.0) % MCV (80.0-98.0) fL MCH (27.0-33.0) pg MCHC (31.0-36.0) g/dl RDW (11.0-16.0) % Plt Count (160-400) X10*3/uL MPV (9.4-12.4) fL Immature Gran % (Auto) (0.0-0.4) % Neut % (Auto) (45-73) % Lymph % (Auto) (20-40) % Grainger % (Auto) (2-11) % Eos % (Auto) (0-4) % Baso % (Auto) (0-2) % Lymph # (Auto) (1.2-4.9) X10*3/uL Grainger # (Auto) (0.1-1.2) X10*3/uL Eos # (Auto) (0.0-0.4) X10*3/uL Baso # (Auto) (0.0-0.2) X10*3/uL Abs Immat Gran (auto) (0.00-0.03) X10*3/uL Absolute Neuts (auto) (2.0-8.3) x10*3/uL Absolute Nucleated RBC (0.0-0.012) X10*3/uL Nucleated RBC % (auto) (0.0-0.2) /100WBC PT 13.7 H (10.0-13.1) SEC INR 1.2 H (0.9-1.1) Sodium 143 (135-145) mmol/L Potassium 4.4 (3.3-5.1) mmol/L Chloride 105 (96-108) mmol/L Carbon Dioxide 28 (22-29) mmol/L Anion Gap 14 (12-20) BUN 14 (9-16) mg/dL Creatinine 0.79 (0.5-1.4) mg/dL Estim Creat Clear Calc 105.9 Estimated GFR > 60 Random Glucose 113 (60-115) mg/dL Calcium 9.0 D (8.4-10.2) mg/dL Magnesium 1.9 (1.6-2.6) mg/dL Total Bilirubin 0.4 (0.0-1.0) mg/dL Direct Bilirubin 0.2 (0.0-0.5) mg/dL AST 16 (5-37) U/L ALT 23 (0-40) U/L Alkaline Phosphatase 109 (39-117) U/L Total Protein 6.2 L (6.5-8.0) g/dL Albumin 3.7 (3.5-5.0) g/dL Urine Color Urine Appearance Urine pH (5.0-9.0) Ur Specific [place] (1.005-1.025) Urine Protein (Neg-Trace) mg/dL Urine Glucose (UA) (Negative) mg/dL Urine Ketones (Negative) mg/dL Urine Blood (Negative) Urine Nitrite (Negative) Ur Leukocyte Esterase (Negative) Influenza Type A (PCR) (Negative) Influenza Type B (PCR) (Negative) RSV RNA Qual (PCR) (Negative) SARS-CoV-2 RNA (RT-PCR) (Negative) <CADEN Freeman - Last Filed: 12/24/22 13:22> Lab Results 12/24/22 12/24/22 12/24/22 Range/Units 14:04 14:04 16:49 WBC 4.0 L (4.8-10.8) X10*3/uL RBC 2.57 L (4.60-5.80) X10*6/uL Hgb 7.5 L (14.0-18.0) g/dl Hct 22.2 L (42.0-52.0) % MCV 86.4 (80.0-98.0) fL MCH 29.2 (27.0-33.0) pg MCHC 33.8 (31.0-36.0) g/dl RDW 12.9 (11.0-16.0) % Plt Count 24 L D (160-400) X10*3/uL MPV 12.6 H (9.4-12.4) fL Immature Gran % (Auto) 0.7 H (0.0-0.4) % Neut % (Auto) 46.5 (45-73) % Lymph % (Auto) 34.6 (20-40) % Grainger % (Auto) 11.2 H (2-11) % Eos % (Auto) 6.5 H (0-4) % Baso % (Auto) 0.5 (0-2) % Lymph # (Auto) 1.4 (1.2-4.9) X10*3/uL Grainger # (Auto) 0.5 (0.1-1.2) X10*3/uL Eos # (Auto) 0.3 (0.0-0.4) X10*3/uL Baso # (Auto) 0.0 (0.0-0.2) X10*3/uL Abs Immat Gran (auto) 0.03 (0.00-0.03) X10*3/uL Absolute Neuts (auto) 1.9 L (2.0-8.3) x10*3/uL Absolute Nucleated RBC 0.000 (0.0-0.012) X10*3/uL Nucleated RBC % (auto) 0.0 (0.0-0.2) /100WBC PT (10.0-13.1) SEC INR (0.9-1.1) Sodium (135-145) mmol/L Potassium (3.3-5.1) mmol/L Chloride (96-108) mmol/L Carbon Dioxide (22-29) mmol/L Anion Gap (12-20) BUN (9-16) mg/dL Creatinine (0.5-1.4) mg/dL Estim Creat Clear Calc Estimated GFR Random Glucose (60-115) mg/dL Calcium (8.4-10.2) mg/dL Magnesium (1.6-2.6) mg/dL Total Bilirubin (0.0-1.0) mg/dL Direct Bilirubin (0.0-0.5) mg/dL AST (5-37) U/L ALT (0-40) U/L Alkaline Phosphatase (39-117) U/L Total Protein (6.5-8.0) g/dL Albumin (3.5-5.0) g/dL Urine Color Yellow Urine Appearance Clear Urine pH 6.0 (5.0-9.0) Ur Specific [place] 1.020 (1.005-1.025) Urine Protein Trace (Neg-Trace) mg/dL Urine Glucose (UA) Negative (Negative) mg/dL Urine Ketones Negative (Negative) mg/dL Urine Blood Negative (Negative) Urine Nitrite Negative (Negative) Ur Leukocyte Esterase Negative (Negative) Influenza Type A (PCR) NEGATIVE (Negative) Influenza Type B (PCR) NEGATIVE (Negative) RSV RNA Qual (PCR) NEGATIVE (Negative) SARS-CoV-2 RNA (RT-PCR) NEGATIVE (Negative) 12/24/22 12/24/22 Range/Units 16:49 16:49 WBC (4.8-10.8) X10*3/uL RBC (4.60-5.80) X10*6/uL Hgb (14.0-18.0) g/dl Hct (42.0-52.0) % MCV (80.0-98.0) fL MCH (27.0-33.0) pg MCHC (31.0-36.0) g/dl RDW (11.0-16.0) % Plt Count (160-400) X10*3/uL MPV (9.4-12.4) fL Immature Gran % (Auto) (0.0-0.4) % Neut % (Auto) (45-73) % Lymph % (Auto) (20-40) % Grainger % (Auto) (2-11) % Eos % (Auto) (0-4) % Baso % (Auto) (0-2) % Lymph # (Auto) (1.2-4.9) X10*3/uL Grainger # (Auto) (0.1-1.2) X10*3/uL Eos # (Auto) (0.0-0.4) X10*3/uL Baso # (Auto) (0.0-0.2) X10*3/uL Abs Immat Gran (auto) (0.00-0.03) X10*3/uL Absolute Neuts (auto) (2.0-8.3) x10*3/uL Absolute Nucleated RBC (0.0-0.012) X10*3/uL Nucleated RBC % (auto) (0.0-0.2) /100WBC PT 13.7 H (10.0-13.1) SEC INR 1.2 H (0.9-1.1) Sodium 143 (135-145) mmol/L Potassium 4.4 (3.3-5.1) mmol/L Chloride 105 (96-108) mmol/L Carbon Dioxide 28 (22-29) mmol/L Anion Gap 14 (12-20) BUN 14 (9-16) mg/dL Creatinine 0.79 (0.5-1.4) mg/dL Estim Creat Clear Calc 105.9 Estimated GFR > 60 Random Glucose 113 (60-115) mg/dL Calcium 9.0 D (8.4-10.2) mg/dL Magnesium 1.9 (1.6-2.6) mg/dL Total Bilirubin 0.4 (0.0-1.0) mg/dL Direct Bilirubin 0.2 (0.0-0.5) mg/dL AST 16 (5-37) U/L ALT 23 (0-40) U/L Alkaline Phosphatase 109 (39-117) U/L Total Protein 6.2 L (6.5-8.0) g/dL Albumin 3.7 (3.5-5.0) g/dL Urine Color Urine Appearance Urine pH (5.0-9.0) Ur Specific [place] (1.005-1.025) Urine Protein (Neg-Trace) mg/dL Urine Glucose (UA) (Negative) mg/dL Urine Ketones (Negative) mg/dL Urine Blood (Negative) Urine Nitrite (Negative) Ur Leukocyte Esterase (Negative) Influenza Type A (PCR) (Negative) Influenza Type B (PCR) (Negative) RSV RNA Qual (PCR) (Negative) SARS-CoV-2 RNA (RT-PCR) (Negative) <Michael Bhatt MD - Last Filed: 12/24/22 19:07> Independent Interpretation I performed an independent interpretation of an: EKG <Michael Bhatt MD - Last Filed: 12/24/22 19:07> Interpretation: Sinus tachycardia heart rate 110 beats per minute normal interval normal axis no acute ST T wave changes no acute ischemia <Michael Bhatt MD - Last Filed: 12/24/22 19:07> Radiology Impression Discussion of test interpretation with radiology: I have reviewed the radiologist's reading. <Michael Bhatt MD - Last Filed: 12/24/22 19:07> Radiologist Impression: CT/CT abdomen pelvis wo IV con IMPRESSION: 1.? Punctate calculus in the collecting system of left kidney. No hydroureteronephrosis. 2.? Small fat-containing umbilical hernia. <Michael Bhatt MD - Last Filed: 12/24/22 19:07> Medications Administered Discontinued Medications Generic Name Dose Route Start Last Admin Trade Name Freq PRN Reason Stop Dose Admin Sodium Chloride 1,000 mls @ 999 mls/hr 12/24/22 16:40 12/24/22 17:32 Ns IV 12/24/22 17:40 999 mls/hr .Q1H1M ONE Administration Morphine Sulfate 4 mg 12/24/22 16:40 12/24/22 17:34 Morphine Sulfate 4 Mg/Ml Cartridge IVPUSH 12/24/22 16:41 4 mg ONCE ONE Administration Protocol Ondansetron HCl 4 mg 12/24/22 16:40 12/24/22 17:35 Ondansetron Hcl 4 Mg/2 Ml Vial IVPUSH 12/24/22 16:41 4 mg ONCE ONE Administration <CADEN Freeman - Last Filed: 12/24/22 13:22> Medications Administered Discontinued Medications Generic Name Dose Route Start Last Admin Trade Name Freq PRN Reason Stop Dose Admin Sodium Chloride 1,000 mls @ 999 mls/hr 12/24/22 16:40 12/24/22 17:32 Ns IV 12/24/22 17:40 999 mls/hr .Q1H1M ONE Administration Morphine Sulfate 4 mg 12/24/22 16:40 12/24/22 17:34 Morphine Sulfate 4 Mg/Ml Cartridge IVPUSH 12/24/22 16:41 4 mg ONCE ONE Administration Protocol Ondansetron HCl 4 mg 12/24/22 16:40 12/24/22 17:35 Ondansetron Hcl 4 Mg/2 Ml Vial IVPUSH 12/24/22 16:41 4 mg ONCE ONE Administration <Michael Bhatt MD - Last Filed: 12/24/22 19:07> Discharge Plan Discharge Prescriptions: No Action bisacodyl [Dulcolax (bisacodyl)] 5 mg tablet,delayed release (DR/EC) 10 mg PO ONCE 1 Days Qty: 2 0RF Rx Instructions: Take 2 tablets by mouth at 12:00pm the day before your procedure. polyethylene glycol 3350 [Miralax] 17 gram/dose powder 238 g PO ONCE 1 Days Qty: 238 0RF Rx Instructions: Take as directed by mouth the day before your procedure. acetaminophen [Tylenol Extra Strength] 500 mg tablet 500 mg PO Q6H PRN (Reason: pain or fever) Qty: 20 0RF polyethylene glycol 3350 [Miralax] 17 gram/dose powder 17 g PO DAILY PRN (Reason: constipation) Qty: 510 0RF albuterol sulfate 90 mcg/actuation HFA aerosol inhaler 2 puff inhalation Q6H PRN (Reason: shortness of breath or wheezing) Qty: 8.5 0RF tramadol 50 mg tablet 1 tab PO Q6H PRN (Reason: pain) fluticasone propionate 50 mcg/actuation spray,suspension 2 spray intranasal DAILY PRN (Reason: Allergy Symptoms) fluticasone propion-salmeterol [Advair Diskus] 250-50 mcg/dose blister with device 1 puff inhalation BID multivitamin Tablet 1 tab PO DAILY albuterol sulfate 2.5 mg /3 mL (0.083 %) solution for nebulization 1 amp inhalation QID PRN (Reason: Wheezing) thiamine HCl (vitamin B1) 100 mg Tablet 100 mg PO DAILY pantoprazole 20 mg Tablet,Delayed Release (Dr/Ec) 20 mg PO DAILY paroxetine HCl 20 mg tablet 1 tab PO DAILY docusate sodium 100 mg capsule 1 cap PO BID PRN (Reason: Constipation) (DME) lancets [TRUEplus Lancets] 33 gauge misc See Rx Instructions .ROUTE BID Qty: 100 Rx Instructions: As directed (DME) blood-glucose meter [FreeStyle Frost Lite] Kit See Rx Instructions .ROUTE BID Qty: 1 Rx Instructions: As directed folic acid 1 mg tablet 1 mg PO DAILY <CADEN Freeman - Last Filed: 12/24/22 13:22>
[2022-12-24 13:15] VITALS: BP 126/85; PULSE 105; RESP 16; TEMP 35.7; O2SAT 96; BMI 27.6
[2022-12-24 14:11] LABS: Appearance Urine Clear; Color Urine Yellow; Glucose Urine UA Negative (Negative); Leukocyte Esterase Urine Negative (Negative); Nitrite Urine Negative (Negative); Urine Blood Negative (Negative); Urine Ketones Negative (Negative); Urine Protein Trace mg/dL (Neg-Trace)
--- NOTE | 2022-12-24 14:32 | MHC.EDTECH ---
pt has PICC line, requests to not be drawn.
[2022-12-24 14:50] LABS: Influenza A PCR NEGATIVE (Negative); Influenza B PCR NEGATIVE (Negative); Resp Syncy Virus RNA Qual PCR NEGATIVE (Negative); SARS COV2 PCR INHOUSE NEGATIVE (Negative)
[2022-12-24 16:05] VITALS: BP 131/82; PULSE 74; RESP 18; TEMP 36.5; O2SAT 100
[2022-12-24 16:53] LABS: MANUAL DIFF FLAG NO
[2022-12-24 17:02] LABS: INTERNATIONAL NORM RATIO 1.2 (0.9-1.1); Prothrombin Time 13.7 SEC (10.0-13.1)
[2022-12-24 17:23] LABS: Alanine Aminotransferase 23 U/L (0-40); Albumin Level 3.7 g/dL (3.5-5.0); Alkaline Phosphatase 109 U/L (39-117); Anion Gap 14 (12-20); Aspartate Amino Transferase 16 U/L (5-37); Basophils Percent Auto 0.5 % (0-2); Bilirubin Direct 0.2 mg/dL (0.0-0.5); Bilirubin Total 0.4 mg/dL (0.0-1.0); Blood Urea Nitrogen 14 mg/dL (9-16); Carbon Dioxide 28 mmol/L (22-29); Chloride 105 mmol/L (96-108); Creatinine Clr Calc Pharmacy 105.9; Estimated Glomerular Filt Rate > 60; Glucose Random 113 mg/dL (60-115); Magnesium 1.9 mg/dL (1.6-2.6); Mean Corpuscular HGB Conc 33.8 g/dl (31.0-36.0); Potassium 4.4 mmol/L (3.3-5.1); SCAN SMEAR FLAG 1; Sodium 143 mmol/L (135-145); Total Protein 6.2 g/dL (6.5-8.0)
[2022-12-24 17:25] LABS: Eosinophils Absolute Auto 0.3 X10*3/uL (0.0-0.4); Eosinophils Percent Auto 6.5 % (0-4); Hematocrit 22.2 % (42.0-52.0); Hemoglobin 7.5 g/dl (14.0-18.0); Imm Gran Abs Auto 0.03 X10*3/uL (0.00-0.03); Imm Gran Pct Auto 0.7 % (0.0-0.4); Lymphocytes Absolute Auto 1.4 X10*3/uL (1.2-4.9); Lymphocytes Percent Auto 34.6 % (20-40); Mean Corpuscular Hemoglobin 29.2 pg (27.0-33.0); Mean Corpuscular Volume 86.4 fL (80.0-98.0); Mean Platelet Volume 12.6 fL (9.4-12.4); Monocytes Absolute Auto 0.5 X10*3/uL (0.1-1.2); Monocytes Percent Auto 11.2 % (2-11); Neutrophils Absolute Auto 1.9 x10*3/uL (2.0-8.3); Neutrophils Percent Auto 46.5 % (45-73); Red Blood Count 2.57 X10*6/uL (4.60-5.80); Red Cell Distribution Width 12.9 % (11.0-16.0)
[2022-12-24] MEDS: 0.9 % Sodium Chloride 1,000 ML 999 ML IV (17:32)
[2022-12-24] MEDS: Morphine Sulfate 4 MG/ML CARTRIDGE IVPUSH (17:34)
[2022-12-24] MEDS: ondansetron HCL 4 MG/2 ML VIAL IVPUSH (17:35)
[2022-12-24 17:46] LABS: Platelet Count 24 X10*3/uL (160-400)
[2022-12-24 17:51] LABS: PLT ABN DIST 1
[2022-12-24] MEDS: Heparin Sodium,Porcine Flush 50 UNITS, 0.9 % Sodium Chloride Flush 5 ML IVFLUSH (19:52)
--- NOTE | 2022-12-24 20:17 | ED.ABDPAIN ---
HPI - Abdominal Pain General Chief Complaint: Abdominal Pain Stated Complaint: Back Shoulder Pain No Injury Time Seen by Provider: 12/24/22 16:21 Source: patient Mode of arrival: ambulatory Limitations: no limitations History of Present Illness HPI narrative: Patient 52 years old with history of AML diagnosed in 11/09, pancytopenia, asthma, history of alcohol abuse, kidney stones comes here with left flank pain for last 3 days, pain increases on movements. No fever no chills no trauma no urinary complaints no cough or shortness of breath no abdominal pain normal bowel movement Related Data Home Medications Medication Instructions Recorded Confirmed fluticasone propionate 50 2 spray intranasal DAILY PRN 05/13/22 11/09/22 mcg/actuation nasal Allergy Symptoms spray,suspension tramadol 50 mg tablet 1 tab PO Q6H PRN pain 05/13/22 11/09/22 fluticasone 250 mcg-salmeterol 50 1 puff inhalation BID 09/07/22 11/09/22 mcg/dose blistr powdr for inhalation (Advair Diskus) albuterol sulfate 2.5 mg/3 mL 1 amp inhalation QID PRN Wheezing 09/28/22 11/09/22 (0.083 %) solution for nebulization docusate sodium 100 mg capsule 1 cap PO BID PRN Constipation 09/28/22 11/09/22 multivitamin 1 tab PO DAILY 09/28/22 11/09/22 pantoprazole 20 mg tablet,delayed 20 mg PO DAILY 09/28/22 11/09/22 release paroxetine HCl 20 mg tablet 1 tab PO DAILY 09/28/22 11/09/22 thiamine HCl (vitamin B1) 100 mg 100 mg PO DAILY 09/28/22 11/09/22 tablet blood-glucose meter (FreeStyle #1 ea 10/05/22 11/09/22 Bailey Lite kit) lancets 33 gauge (TRUEplus Lancets) #100 ea 10/05/22 11/09/22 folic acid 1 mg tablet 1 mg PO DAILY 11/06/22 11/09/22 Previous Rx's Medication Instructions Recorded acetaminophen 500 mg tablet 500 mg PO Q6H PRN pain or fever 09/23/20 (Tylenol Extra Strength) #20 tabs polyethylene glycol 3350 17 17 g PO DAILY PRN constipation 11/10/20 gram/dose oral powder (Miralax) #510 grams albuterol sulfate 90 mcg/actuation 2 puff inhalation Q6H PRN 09/23/21 aerosol inhaler shortness of breath or wheezing #8.5 grams bisacodyl 5 mg tablet,delayed 10 mg PO ONCE colonoscopy prep 1 10/30/22 release (Dulcolax (bisacodyl)) day #2 tabs polyethylene glycol 3350 17 238 g PO ONCE 1 day #238 grams 10/30/22 gram/dose oral powder (Miralax) oxycodone 5 mg tablet 5 mg PO Q6H PRN pain #20 tabs 12/24/22 Allergies Allergy/AdvReac Type Severity Reaction Status Date / Time No Known Allergies Allergy Verified 12/24/22 13:20 [No Known Allergies*] Review of Systems Review of Systems Yes all other systems are reviewed and are negative [facility] Past Medical History Medical History Acid reflux Alcohol abuse AML (acute myeloblastic leukemia) Anemia Asthma History of gastric ulcer Macrocytic anemia Surgical History History of bone marrow biopsy History of esophagogastroduodenoscopy (EGD) Hx of abdominal surgery Hx of colonoscopy Family History Family History Father No problems noted. Mother Diabetes Other No family history of cancer Social History Social History Household Members: Family Household Members Other:: sister Housing: House Are you a primary career technical counselor to a significant other at home: No Do you presently have visiting nurse or other home services: No Alcohol intake: current Alcohol intake frequency: does not drink Alcohol type: beer Patient Tobacco Use Status: Current everyday Tobacco user Tobacco use type: Cigarette Cigarettes Per Day: 3 e-Cigarette/Vaping Use: Never Used Second Hand Smoke Exposure: No Substance Use Type: Marijuana Advance Directives: Yes Advance Directives on File: Yes Advance Directives Date on File: 05/19/22 service: No Current occupational status: unemployed Physical Exam ED Vital Signs: Vital Signs - 24 hr 12/24/22 13:15 12/24/22 16:05 Temperature 96.3 F L 97.7 F Pulse Rate 105 H 74 Respiratory Rate 16 18 Blood Pressure 126/85 131/82 Pulse Oximetry 96 100 Oxygen Delivery Method Room Air Room Air BMI result Body Mass Index 27.6 Appearance: Alert. Oriented X3. No acute distress. Eyes: PERRLA, No Nystagmus pallor++ ENT: Pharynx normal. Oral Mucosa moist Neck: Normal inspection. Neck supple. CVS: Normal heart rate and rhythm. Pulses normal. Respiratory: No respiratory distress. Equal air entry bilateral, no wheezing/rales/rhonchi Abdomen: Soft and nontender. Bowel sounds are present, no mass palpable, L CVA tenderness Skin: Skin warm and dry. Normal skin color. Normal skin turgor. Extremities: No lower extremity edema. No calf tenderness Neuro: Oriented X 3. No motor deficit. Medical Decision Making Medical Decision Making [facility] Narrative: Patient with nonspecific left flank pain CT scan showed punctate calculi no obstructive stone lab workup essentially stable with pancytopenia. Will discharge patient home on oxycodone possible patient already passed the stone Lab Data [facility] Lab Attestation statement: I reviewed the patient's lab results. 12/24/22 16:49 12/24/22 16:49 Labs: Lab Results 12/24/22 12/24/22 12/24/22 Range/Units 14:04 14:04 16:49 WBC 4.0 L (4.8-10.8) X10*3/uL RBC 2.57 L (4.60-5.80) X10*6/uL Hgb 7.5 L (14.0-18.0) g/dl Hct 22.2 L (42.0-52.0) % MCV 86.4 (80.0-98.0) fL MCH 29.2 (27.0-33.0) pg MCHC 33.8 (31.0-36.0) g/dl RDW 12.9 (11.0-16.0) % Plt Count 24 L D (160-400) X10*3/uL MPV 12.6 H (9.4-12.4) fL Immature Gran % (Auto) 0.7 H (0.0-0.4) % Neut % (Auto) 46.5 (45-73) % Lymph % (Auto) 34.6 (20-40) % [place] % (Auto) 11.2 H (2-11) % Eos % (Auto) 6.5 H (0-4) % Baso % (Auto) 0.5 (0-2) % Lymph # (Auto) 1.4 (1.2-4.9) X10*3/uL [place] # (Auto) 0.5 (0.1-1.2) X10*3/uL Eos # (Auto) 0.3 (0.0-0.4) X10*3/uL Baso # (Auto) 0.0 (0.0-0.2) X10*3/uL Abs Immat Gran (auto) 0.03 (0.00-0.03) X10*3/uL Absolute Neuts (auto) 1.9 L (2.0-8.3) x10*3/uL Absolute Nucleated RBC 0.000 (0.0-0.012) X10*3/uL Nucleated RBC % (auto) 0.0 (0.0-0.2) /100WBC PT (10.0-13.1) SEC INR (0.9-1.1) Sodium (135-145) mmol/L Potassium (3.3-5.1) mmol/L Chloride (96-108) mmol/L Carbon Dioxide (22-29) mmol/L Anion Gap (12-20) BUN (9-16) mg/dL Creatinine (0.5-1.4) mg/dL Estim Creat Clear Calc Estimated GFR Random Glucose (60-115) mg/dL Calcium (8.4-10.2) mg/dL Magnesium (1.6-2.6) mg/dL Total Bilirubin (0.0-1.0) mg/dL Direct Bilirubin (0.0-0.5) mg/dL AST (5-37) U/L ALT (0-40) U/L Alkaline Phosphatase (39-117) U/L Total Protein (6.5-8.0) g/dL Albumin (3.5-5.0) g/dL Urine Color Yellow Urine Appearance Clear Urine pH 6.0 (5.0-9.0) Ur Specific [place] 1.020 (1.005-1.025) Urine Protein Trace (Neg-Trace) mg/dL Urine Glucose (UA) Negative (Negative) mg/dL Urine Ketones Negative (Negative) mg/dL Urine Blood Negative (Negative) Urine Nitrite Negative (Negative) Ur Leukocyte Esterase Negative (Negative) Influenza Type A (PCR) NEGATIVE (Negative) Influenza Type B (PCR) NEGATIVE (Negative) RSV RNA Qual (PCR) NEGATIVE (Negative) SARS-CoV-2 RNA (RT-PCR) NEGATIVE (Negative) 12/24/22 12/24/22 Range/Units 16:49 16:49 WBC (4.8-10.8) X10*3/uL RBC (4.60-5.80) X10*6/uL Hgb (14.0-18.0) g/dl Hct (42.0-52.0) % MCV (80.0-98.0) fL MCH (27.0-33.0) pg MCHC (31.0-36.0) g/dl RDW (11.0-16.0) % Plt Count (160-400) X10*3/uL MPV (9.4-12.4) fL Immature Gran % (Auto) (0.0-0.4) % Neut % (Auto) (45-73) % Lymph % (Auto) (20-40) % [place] % (Auto) (2-11) % Eos % (Auto) (0-4) % Baso % (Auto) (0-2) % Lymph # (Auto) (1.2-4.9) X10*3/uL [place] # (Auto) (0.1-1.2) X10*3/uL Eos # (Auto) (0.0-0.4) X10*3/uL Baso # (Auto) (0.0-0.2) X10*3/uL Abs Immat Gran (auto) (0.00-0.03) X10*3/uL Absolute Neuts (auto) (2.0-8.3) x10*3/uL Absolute Nucleated RBC (0.0-0.012) X10*3/uL Nucleated RBC % (auto) (0.0-0.2) /100WBC PT 13.7 H (10.0-13.1) SEC INR 1.2 H (0.9-1.1) Sodium 143 (135-145) mmol/L Potassium 4.4 (3.3-5.1) mmol/L Chloride 105 (96-108) mmol/L Carbon Dioxide 28 (22-29) mmol/L Anion Gap 14 (12-20) BUN 14 (9-16) mg/dL Creatinine 0.79 (0.5-1.4) mg/dL Estim Creat Clear Calc 105.9 Estimated GFR > 60 Random Glucose 113 (60-115) mg/dL Calcium 9.0 D (8.4-10.2) mg/dL Magnesium 1.9 (1.6-2.6) mg/dL Total Bilirubin 0.4 (0.0-1.0) mg/dL Direct Bilirubin 0.2 (0.0-0.5) mg/dL AST 16 (5-37) U/L ALT 23 (0-40) U/L Alkaline Phosphatase 109 (39-117) U/L Total Protein 6.2 L (6.5-8.0) g/dL Albumin 3.7 (3.5-5.0) g/dL Urine Color Urine Appearance Urine pH (5.0-9.0) Ur Specific [place] (1.005-1.025) Urine Protein (Neg-Trace) mg/dL Urine Glucose (UA) (Negative) mg/dL Urine Ketones (Negative) mg/dL Urine Blood (Negative) Urine Nitrite (Negative) Ur Leukocyte Esterase (Negative) Influenza Type A (PCR) (Negative) Influenza Type B (PCR) (Negative) RSV RNA Qual (PCR) (Negative) SARS-CoV-2 RNA (RT-PCR) (Negative) Radiology Impression Discussion of test interpretation with radiology: I have reviewed the radiologist's reading. Radiologist Impression: 1.? Punctate calculus in the collecting system of left kidney. No hydroureteronephrosis. 2.? Small fat-containing umbilical hernia. ? Medications Administered Discontinued Medications Generic Name Dose Route Start Last Admin Trade Name Freq PRN Reason Stop Dose Admin Heparin Sodium (Porcine) 50 0 units 12/25/22 00:00 12/24/22 19:52 units/ Sodium Chloride 5 ml IVFLUSH 5 unit QSHIFT LONNIE Administration Sodium Chloride 1,000 mls @ 999 mls/hr 12/24/22 16:40 12/24/22 19:13 Ns IV 12/24/22 17:40 Infused .Q1H1M ONE Infusion Morphine Sulfate 4 mg 12/24/22 16:40 12/24/22 17:34 Morphine Sulfate 4 Mg/Ml Cartridge IVPUSH 12/24/22 16:41 4 mg ONCE ONE Administration Protocol Ondansetron HCl 4 mg 12/24/22 16:40 12/24/22 17:35 Ondansetron Hcl 4 Mg/2 Ml Vial IVPUSH 12/24/22 16:41 4 mg ONCE ONE Administration Discharge Plan Discharge Clinical Impression: Renal colic on left side Patient Disposition: Home, Self-Care Instructions: Renal Colic (ED) Additional Instructions: You have very small kidney stone on the left side which might be causing the pain although it is not obstructing Pain medication as prescribed Follow with urologist if pain continues Tiene un c?lculo renal muy johanna?o en el lado freda que podr?a estar causando el dolor aunque no est? obstruyendo Medicamentos para el dolor seg?n lo prescrito Siga con el ur?logo si el dolor contin?a Prescriptions: New oxycodone 5 mg tablet 5 mg PO Q6H PRN (Reason: pain) Qty: 20 0RF Rx Instructions: Partial Fill upon patient request. No Action bisacodyl [Dulcolax (bisacodyl)] 5 mg tablet,delayed release (DR/EC) 10 mg PO ONCE 1 Days Qty: 2 0RF Rx Instructions: Take 2 tablets by mouth at 12:00pm the day before your procedure. polyethylene glycol 3350 [Miralax] 17 gram/dose powder 238 g PO ONCE 1 Days Qty: 238 0RF Rx Instructions: Take as directed by mouth the day before your procedure. acetaminophen [Tylenol Extra Strength] 500 mg tablet 500 mg PO Q6H PRN (Reason: pain or fever) Qty: 20 0RF polyethylene glycol 3350 [Miralax] 17 gram/dose powder 17 g PO DAILY PRN (Reason: constipation) Qty: 510 0RF albuterol sulfate 90 mcg/actuation HFA aerosol inhaler 2 puff inhalation Q6H PRN (Reason: shortness of breath or wheezing) Qty: 8.5 0RF tramadol 50 mg tablet 1 tab PO Q6H PRN (Reason: pain) fluticasone propionate 50 mcg/actuation spray,suspension 2 spray intranasal DAILY PRN (Reason: Allergy Symptoms) fluticasone propion-salmeterol [Advair Diskus] 250-50 mcg/dose blister with device 1 puff inhalation BID multivitamin Tablet 1 tab PO DAILY albuterol sulfate 2.5 mg /3 mL (0.083 %) solution for nebulization 1 amp inhalation QID PRN (Reason: Wheezing) thiamine HCl (vitamin B1) 100 mg Tablet 100 mg PO DAILY pantoprazole 20 mg Tablet,Delayed Release (Dr/Ec) 20 mg PO DAILY paroxetine HCl 20 mg tablet 1 tab PO DAILY docusate sodium 100 mg capsule 1 cap PO BID PRN (Reason: Constipation) (DME) lancets [TRUEplus Lancets] 33 gauge misc See Rx Instructions .ROUTE BID Qty: 100 Rx Instructions: As directed (DME) blood-glucose meter [FreeStyle Bailey Lite] Kit See Rx Instructions .ROUTE BID Qty: 1 Rx Instructions: As directed folic acid 1 mg tablet 1 mg PO DAILY Interventions: ED Discharge Assessment Last Done: 12/24/22 19:57 Discharge Date/Time: 12/24/22 19:58 Print Language: [place]
== END 2022-12-24 19:58 | disposition home or self-care (01) ==
PROVIDERS: Physician Assistant; Emergency Provider Internal Medicine; PCP Internal Medicine
DX: N23 Unspecified renal colic (principal); R07.89 Other chest pain; M54.50 Low back pain, unspecified; M54.2 Cervicalgia; F17.210 Nicotine dependence, cigarettes, uncomplicated; Z20.822 Contact with and (suspected) exposure to COVID-19; Z20.828 Contact with and (suspected) exposure to other viral communicable diseases; Z71.6 Tobacco abuse counseling; Z79.899 Other long term (current) drug therapy
CPT/HCPCS: 0241U; 36415; 71045; 74176; 80048; 80076; 81003; 83735; 85025; 85610; 93005; 99284; J1642; J2270; J2405

== ENCOUNTER 2022-12-26 13:29 | Emergency (ER) | payer MEDICAID, SELFPAY ==
--- NOTE | ~2022-12-26 | XR_ITS ---
EXAMINATION: XR ABDOMEN KUB CLINICAL INDICATION: Constipation COMPARISON: 12/24/2022 TECHNIQUE: AP view of the abdomen. FINDINGS: Nonobstructive bowel gas pattern. No dilated loops of bowel. Scattered gas and stool throughout the colon with moderate colonic stool burden. The lung bases are clear. No suspicious calcification. No acute osseous abnormality. XR/XR KUB IMPRESSION: Moderate colonic stool burden.
[2022-12-26 13:35] VITALS: BP 110/76; PULSE 73; O2SAT 99
[2022-12-26 14:02] VITALS: BP 126/70; PULSE 92; RESP 18; TEMP 36.6; O2SAT 97; BMI 27.7
--- NOTE | 2022-12-26 14:02 | ED_ITS ---
HPI - General Adult General Chief complaint: General Medical <Hortencia Toscano CNP - Last Filed: 12/26/22 14:05> Stated complaint: Constipation x several days <Hortencia Toscano CNP - Last Filed: 12/26/22 14:05> Time Seen by Provider: 12/26/22 15:54 <Hortencia Toscano CNP - Last Filed: 12/26/22 14:05> Source: patient <Tony Wellington MD - Last Filed: 12/26/22 16:37> Mode of arrival: ambulatory <Tony Wellington MD - Last Filed: 12/26/22 16:37> Limitations: no limitations <Tony Wellington MD - Last Filed: 12/26/22 16:37> History of Present Illness HPI narrative: 52-year-old male who presents emergency department for evaluation of no bowel movement x2 days. The patient states that he has a history of constipation, he does take MiraLax and no other laxative or stool softener. He told me that he has leukemia and he is being treated at [facility] for this condition. He states he completed his chemotherapy in May 2023 but he still has a right chest tunnel line in place. Patient was hospitalized here on 10/26/2022 until 10/28/2022 for severe anemia. He was seen by our oncologist, Dr. Gama on 11/09/2022 after bone marrow biopsy which was consistent with acute myeloblastic leukemia and he was transferred to [facility] for management. Patient states that he has had small hard bowel movements but he has had no bowel movement in 2 days, he denied abdominal pain, he denied fever, chills, remy st pain or shortness of breath. He denied nausea or vomiting. <Tony burnham MD - Last Filed: 12/26/22 16:37> Related Data Home medications: Home Medications Medication Instructions Recorded Confirmed fluticasone propionate 50 2 spray intranasal DAILY PRN 05/13/22 11/09/22 mcg/actuation nasal Allergy Symptoms spray,suspension tramadol 50 mg tablet 1 tab PO Q6H PRN pain 05/13/22 11/09/22 fluticasone 250 mcg-salmeterol 50 1 puff inhalation BID 09/07/22 11/09/22 mcg/dose blistr powdr for inhalation (Advair Diskus) albuterol sulfate 2.5 mg/3 mL 1 amp inhalation QID PRN Wheezing 09/28/22 11/09/22 (0.083 %) solution for nebulization docusate sodium 100 mg capsule 1 cap PO BID PRN Constipation 09/28/22 11/09/22 multivitamin 1 tab PO DAILY 09/28/22 11/09/22 pantoprazole 20 mg tablet,delayed 20 mg PO DAILY 09/28/22 11/09/22 release paroxetine HCl 20 mg tablet 1 tab PO DAILY 09/28/22 11/09/22 thiamine HCl (vitamin B1) 100 mg 100 mg PO DAILY 09/28/22 11/09/22 tablet blood-glucose meter (FreeStyle #1 ea 10/05/22 11/09/22 [place] Lite kit) lancets 33 gauge (TRUEplus Lancets) #100 ea 10/05/22 11/09/22 folic acid 1 mg tablet 1 mg PO DAILY 11/06/22 11/09/22 Previous Rx's Medication Instructions Recorded acetaminophen 500 mg tablet 500 mg PO Q6H PRN pain or fever 09/23/20 (Tylenol Extra Strength) #20 tabs polyethylene glycol 3350 17 17 g PO DAILY PRN constipation 11/10/20 gram/dose oral powder (Miralax) #510 grams albuterol sulfate 90 mcg/actuation 2 puff inhalation Q6H PRN 09/23/21 aerosol inhaler shortness of breath or wheezing #8.5 grams bisacodyl 5 mg tablet,delayed 10 mg PO ONCE colonoscopy prep 1 10/30/22 release (Dulcolax (bisacodyl)) day #2 tabs polyethylene glycol 3350 17 238 g PO ONCE 1 day #238 grams 10/30/22 gram/dose oral powder (Miralax) oxycodone 5 mg tablet 5 mg PO Q6H PRN pain #20 tabs 12/24/22 docusate sodium 100 mg capsule 100 mg PO BID #60 caps 12/26/22 (Colace) sennosides 17.2 mg tablet (Senokot 17.2 mg PO BID PRN constipation 12/26/22 Extra Strength) #30 tabs <Hortencia Toscano, SALES OPERATIONS COORDINATOR - Last Filed: 12/26/22 14:05> Allergies/adverse reactions: Allergies Allergy/AdvReac Type Severity Reaction Status Date / Time No Known Allergies Allergy Verified 12/24/22 13:20 [No Known Allergies*] <Hortencia Toscano CNP - Last Filed: 12/26/22 14:05> Review of Systems Review of Systems: Yes all other systems are reviewed and are negative <Tony Wellington MD - Last Filed: 12/26/22 16:37> [facility] Past Medical History [facility] Narrative: Social history: He denies tobacco, alcohol and drug use at this time. <Tony Wellington MD - Last Filed: 12/26/22 16:37> Medical History: Medical History Acid reflux Alcohol abuse AML (acute myeloblastic leukemia) Anemia Asthma History of gastric ulcer Macrocytic anemia <Hortencia Toscano CNP - Last Filed: 12/26/22 14:05> Surgical History: Surgical History History of bone marrow biopsy History of esophagogastroduodenoscopy (EGD) Hx of abdominal surgery Hx of colonoscopy <Hortencia Toscano CNP - Last Filed: 12/26/22 14:05> Family History Family History: Family History Father No problems noted. Mother Diabetes Other No family history of cancer <Hortencia Toscano CNP - Last Filed: 12/26/22 14:05> Social History Social History: Social History Household Members: Family Household Members Other:: sister Housing: House Are you a primary day care director to a significant other at home: No Do you presently have visiting nurse or other home services: No Alcohol intake: current Alcohol intake frequency: does not drink Alcohol type: beer Patient Tobacco Use Status: Current everyday Tobacco user Tobacco use type: Cigarette Cigarettes Per Day: 3 e-Cigarette/Vaping Use: Never Used Second Hand Smoke Exposure: No Substance Use Type: Marijuana Advance Directives: Yes Advance Directives on File: Yes Advance Directives Date on File: 05/19/22 service: No Current occupational status: unemployed <Hortencia Malathichristopher Toscano CNP - Last Filed: 12/26/22 14:05> Physical Exam ED Vital Signs: Vital Signs - 24 hr 12/26/22 14:02 12/26/22 16:00 Temperature 98 F 97.7 F Pulse Rate 92 66 Respiratory Rate 18 16 Blood Pressure 126/70 114/70 Pulse Oximetry 97 98 Oxygen Delivery Method Room Air Room Air BMI result Body Mass Index 27.7 <Hortenciamarcos Piercechristopher Toscano CNP - Last Filed: 12/26/22 14:05> Vital Signs - 24 hr 12/26/22 14:02 12/26/22 16:00 Temperature 98 F 97.7 F Pulse Rate 92 66 Respiratory Rate 18 16 Blood Pressure 126/70 114/70 Pulse Oximetry 97 98 Oxygen Delivery Method Room Air Room Air BMI result Body Mass Index 27.7 <Tony Wellington MD - Last Filed: 12/26/22 16:37> Const General: cooperative and no acute distress <Tony Wellington MD - Last Filed: 12/26/22 16:37> Orientation/consciousness: oriented to person and oriented to place <Tony Wellington MD - Last Filed: 12/26/22 16:37> Limitations: no limitations <Tony Wellington MD - Last Filed: 12/26/22 16:37> HENMT Head: Yes normal to inspection, Yes normocephalic and Yes atraumatic <Tony bhatia MD - Last Filed: 12/26/22 16:37> Ears: external ears normal <Tony Wellington MD - Last Filed: 12/26/22 16:37> General nose exam: Normal external nose present <Tony Wellington MD - Last Filed: 12/26/22 16:37> Face and sinus: Yes normal facial exam <Tony Wellington MD - Last Filed: 12/26/22 16:37> Mouth: Normal oral and palatal mucosa present <Tony Wellington MD - Last Filed: 12/26/22 16:37> Throat: Yes posterior oropharynx normal <MD George Ordonez Last Filed: 12/26/22 16:37> Eyes General: appearance normal, both eyes and all related structures <Tony Wellington MD - Last Filed: 12/26/22 16:37> Pupils: Equal, round and reactive pupils present <Tony Wellington MD - Last Filed: 12/26/22 16:37> Neck Neck: Yes normal visual inspection, Yes no lymphadenopathy, Yes trachea midline and Yes supple <Tony Wellington MD - Last Filed: 12/26/22 16:37> Chest Chest palpation & inspection: normal inspection of the chest and normal palpation of entire chest wall <MD George Ordonez Last Filed: 12/26/22 16:37> Resp Effort & Inspection: normal respiratory effort and able to speak in complete sentences <MD George Ordonez Last Filed: 12/26/22 16:37> Auscultation: clear to auscultation bilaterally <Tony Wellington MD - Last Filed: 12/26/22 16:37> Cardio Rate: regular rate <MD George Ordonez Last Filed: 12/26/22 16:37> Rhythm: regular rhythm <Tony Wellington MD - Last Filed: 12/26/22 16:37> Heart sounds: S1 normal heart sound present, S2 normal heart sound present and no murmur s <Tony Wellington MD - Last Filed: 12/26/22 16:37> GI Inspection: Yes normal to inspection <MD George Ordonez Last Filed: 12/26/22 16:37> Palpation (GI): Soft to palpation, nontender and no guarding <Tony Wellington MD - Last Filed: 12/26/22 16:37> Auscultation: normal bowel sounds <MD George Ordonez Last Filed: 12/26/22 16:37> General: Yes no CVA tenderness <MD George Ordonez Last Filed: 12/26/22 16:37> Back/Spine/Pelvis Back: no CVA tenderness <Tony Wellington MD - Last Filed: 12/26/22 16:37> Skin General skin exam: no rashes or lesions noted <Tony Wellington MD - Last Filed: 12/26/22 16:37> Neuro General: oriented to person and oriented to place <Tony Wellington MD - Last Filed: 12/26/22 16:37> Cranial nerves: Yes CN's II-XII intact bilaterally and Yes Equal, round and reactive pu pils present <Tony Wellington MD - Last Filed: 12/26/22 16:37> Cognition (Neuro): normal cognition <Tony Wellington MD - Last Filed: 12/26/22 16:37> Motor exam (neuro): 5/5 motor strength present throughout <Tony Wellington MD - Last Filed: 12/26/22 16:37> Extrem General: Yes normal to inspection <Tony Wellington MD - Last Filed: 12/26/22 16:37> Psych Appearance: grossly normal <Tony Wellington MD - Last Filed: 12/26/22 16:37> Speech and movement: Normal speech and movement present <Tony Wellington MD - Last Filed: 12/26/22 16:37> Affect: normal affect <Tony Wellington MD - Last Filed: 12/26/22 16:37> Attitude: cooperative <Tony Wellington MD - Last Filed: 12/26/22 16:37> Thought process: Normal thought process present <Tony Wellington MD - Last Filed: 06/10 16:37> Thought content: Normal thought content present <Tony Wellington MD - Last Filed: 12/26/22 16:37> Course Course Course Narrative: This is an RME: Additional HPI, ROS, PE not included below will be d eferred to primary provider. Patient is a 52-year-old male who presents to the emergency for evaluation of constipation x2 days. Reports stools to be very hard, straining, having small amount of stool passing, bright red blood per rectum. Denies ABD pain, nausea, vomiting. Reports he has Leukemia, taking pain medications for this. Plan: labs, KUB <Hortencia Toscano CNP - Last Filed: 12/26/22 14:05> Medical Decision Making Medical Decision Making [facility] Narrative: 52-year-old male with a complicated past medical history including chronic normocytic pancytopenia with anemia, diagnosed in October 2022 with acute myeloblastic leukemia treated at [facility] who presents emergency department for evaluation of constipation for 2 days with small stools and occasional blood per rectum. Patient had no systemic symptoms and did not have any abdominal pain. Prior to my evaluation he states that a large bowel movement and feels better. Patient's vital signs were normal. Patient's abdominal exam was normal as well. 1617: Patient's comprehensive metabolic panel was normal. CBC was abnormal but is consistent with his pancytopenia, WBC 3000, H&H 7.3 and 21.2, platelet count 82934. Patient's MCV was normal a 6.9. Given that this and change his baseline to do not think that we have to worry about a GI bleed at this time specially since the patient only had minimal blood per rectum and is having no abdominal pain. The patient will be discharged home, I will start him on Colace 100 mg twice a day and extra-strength Senokot 2 pills twice a day every 4 days as needed for constipation. Was advised to increase his fluid intake and continue taking MiraLax. <Tony Wellington MD - Last Filed: 12/26/22 16:37> Differential Diagnosis Differential includes but is not limited to constipation, dehydration, bowel obstruction <Tony Wellington MD - Last Filed: 12/26/22 16:37> Lab Data [facility] Lab Attestation statement: I reviewed the patient's lab results. <Tony Wellington MD - Last Filed: 12/26/22 16:37> Please see [facility] for discussion <Tony Wellington MD - Last Filed: 12/26/22 16:37> Result Diagrams: 12/26/22 15:16 12/26/22 15:16 <Hortencia Toscano CNP - Last Filed: 12/26/22 14:05> Labs: Lab Results 12/26/22 12/26/22 Range/Units 15:16 15:16 WBC 3.0 L (4.8-10.8) X10*3/uL RBC 2.44 L (4.60-5.80) X10*6/uL Hgb 7.3 L (14.0-18.0) g/dl Hct 21.2 L (42.0-52.0) % MCV 86.9 (80.0-98.0) fL MCH 29.9 (27.0-33.0) pg MCHC 34.4 (31.0-36.0) g/dl RDW 12.7 (11.0-16.0) % Plt Count 28 L (160-400) X10*3/uL MPV 12.9 H (9.4-12.4) fL Immature Gran % (Auto) 0.7 H (0.0-0.4) % Neut % (Auto) 37.0 L (45-73) % Lymph % (Auto) 41.8 H (20-40) % Amelia % (Auto) 13.5 H (2-11) % Eos % (Auto) 6.3 H (0-4) % Baso % (Auto) 0.7 (0-2) % Lymph # (Auto) 1.3 (1.2-4.9) X10*3/uL Amelia # (Auto) 0.4 (0.1-1.2) X10*3/uL Eos # (Auto) 0.2 (0.0-0.4) X10*3/uL Baso # (Auto) 0.0 (0.0-0.2) X10*3/uL Abs Immat Gran (auto) 0.02 (0.00-0.03) X10*3/uL Absolute Neuts (auto) 1.1 L (2.0-8.3) x10*3/uL Absolute Nucleated RBC 0.000 (0.0-0.012) X10*3/uL Nucleated RBC % (auto) 0.0 (0.0-0.2) /100WBC Smear Tech's Comments VERIFIED Sodium 140 (135-145) mmol/L Potassium 4.6 (3.3-5.1) mmol/L Chloride 104 (96-108) mmol/L Carbon Dioxide 28 (22-29) mmol/L Anion Gap 13 (12-20) BUN 15 (9-16) mg/dL Creatinine 0.75 (0.5-1.4) mg/dL Estim Creat Clear Calc 111.9 Estimated GFR > 60 Random Glucose 119 H (60-115) mg/dL Calcium 8.9 (8.4-10.2) mg/dL Total Bilirubin 0.4 (0.0-1.0) mg/dL AST 18 (5-37) U/L ALT 24 (0-40) U/L Alkaline Phosphatase 111 (39-117) U/L Total Protein 6.1 L (6.5-8.0) g/dL Albumin 3.6 (3.5-5.0) g/dL <Hortencia Toscano CNP - Last Filed: 12/26/22 14:05> Lab Results 12/26/22 12/26/22 Range/Units 15:16 15:16 WBC 3.0 L (4.8-10.8) X10*3/uL RBC 2.44 L (4.60-5.80) X10*6/uL Hgb 7.3 L (14.0-18.0) g/dl Hct 21.2 L (42.0-52.0) % MCV 86.9 (80.0-98.0) fL MCH 29.9 (27.0-33.0) pg MCHC 34.4 (31.0-36.0) g/dl RDW 12.7 (11.0-16.0) % Plt Count 28 L (160-400) X10*3/uL MPV 12.9 H (9.4-12.4) fL Immature Gran % (Auto) 0.7 H (0.0-0.4) % Neut % (Auto) 37.0 L (45-73) % Lymph % (Auto) 41.8 H (20-40) % Amelia % (Auto) 13.5 H (2-11) % Eos % (Auto) 6.3 H (0-4) % Baso % (Auto) 0.7 (0-2) % Lymph # (Auto) 1.3 (1.2-4.9) X10*3/uL Amelia # (Auto) 0.4 (0.1-1.2) X10*3/uL Eos # (Auto) 0.2 (0.0-0.4) X10*3/uL Baso # (Auto) 0.0 (0.0-0.2) X10*3/uL Abs Immat Gran (auto) 0.02 (0.00-0.03) X10*3/uL Absolute Neuts (auto) 1.1 L (2.0-8.3) x10*3/uL Absolute Nucleated RBC 0.000 (0.0-0.012) X10*3/uL Nucleated RBC % (auto) 0.0 (0.0-0.2) /100WBC Smear Tech's Comments VERIFIED Sodium 140 (135-145) mmol/L Potassium 4.6 (3.3-5.1) mmol/L Chloride 104 (96-108) mmol/L Carbon Dioxide 28 (22-29) mmol/L Anion Gap 13 (12-20) BUN 15 (9-16) mg/dL Creatinine 0.75 (0.5-1.4) mg/dL Estim Creat Clear Calc 111.9 Estimated GFR > 60 Random Glucose 119 H (60-115) mg/dL Calcium 8.9 (8.4-10.2) mg/dL Total Bilirubin 0.4 (0.0-1.0) mg/dL AST 18 (5-37) U/L ALT 24 (0-40) U/L Alkaline Phosphatase 111 (39-117) U/L Total Protein 6.1 L (6.5-8.0) g/dL Albumin 3.6 (3.5-5.0) g/dL <Tony Wellington MD - Last Filed: 12/26/22 16:37> Independent Interpretation I performed an independent interpretation of an: Plain X-Ray <Tony Wellington MD - Last Filed: 12/26/22 16:37> Interpretation: My interpretation of the KUB is nonspecific gas pattern with moderate stool burden <Tony Wellington MD - Last Filed: 12/26/22 16:37> Radiology Impression Discussion of test interpretation with radiology: I have reviewed the radiologist's reading. <Tony Wellington MD - Last Filed: 02/07/23 16:37> Radiologist Impression: XR/XR KUB FINDINGS: Nonobstructive bowel gas pattern. No dilated loops of bowel. Scattered gas and stool throughout the colon with moderate colonic stool burden. The lung bases are clear. No suspicious calcification. No acute osseous abnormality. IMPRESSION: Moderate colonic stool burden. ?Dictated By: Vikas Atkins MD Signed By:<Electronically signed by Vikas Atkins MD in OV>12/26/22 1452 <Tnoy Wellington MD - Last Filed: 12/26/22 16:37> External Record Review External record reviewed: Inpatient record (Last hospitalization) and Office record (Hematology notes from October 2022) <Tony Wellington MD - Last Filed: 12/26/22 16:37> Discharge Plan Discharge Clinical Impression: Acute constipation <Hortencia Toscano CNP - Last Filed: 12/26/22 14:05> Patient Disposition: Home, Self-Care <Hortencia Toscano CNP - Last Filed: 12/26/22 14:05> Instructions: Constipation (ED) <Hortencia Toscano CNP - Last Filed: 12/26/22 14:05> Additional Instructions: The x-ray of your belly showed that you had a lot of stool in your colon but otherwise was unremarkable. Your blood work was unremarkable, your blood counts are low but this is consistent with your previous values and you do not need any transfusions at this time. Continue to take the powder in water that you use for your constipation Increase the amount of fluid that you drink per day since dehydration can cause constipation. Take Colace 100 mg pills, 1 pill twice a day, this is a stool softener If you do not have a bowel movement in 2-4 days then take the laxative, Senokot as prescribed for 2-4 days. Follow-up with your doctor in 2 days. Please return to the emergency department if your symptoms get worse or if you develop any symptoms that are concerning to you. <Hortencia Toscano CNP - Last Filed: 12/26/22 14:05> Prescriptions: New docusate sodium [Colace] 100 mg capsule 100 mg PO BID Qty: 60 0RF Senokot Extra Strength 17.2 mg tablet 17.2 mg PO BID PRN (Reason: constipation) Qty: 30 0RF No Action bisacodyl [Dulcolax (bisacodyl)] 5 mg tablet,delayed release (DR/EC) 10 mg PO ONCE 1 Days Qty: 2 0RF Rx Instructions: Take 2 tablets by mouth at 12:00pm the day before your procedure. polyethylene glycol 3350 [Miralax] 17 gram/dose powder 238 g PO ONCE 1 Days Qty: 238 0RF Rx Instructions: Take as directed by mouth the day before your procedure. acetaminophen [Tylenol Extra Strength] 500 mg tablet 500 mg PO Q6H PRN (Reason: pain or fever) Qty: 20 0RF polyethylene glycol 3350 [Miralax] 17 gram/dose powder 17 g PO DAILY PRN (Reason: constipation) Qty: 510 0RF albuterol sulfate 90 mcg/actuation HFA aerosol inhaler 2 puff inhalation Q6H PRN (Reason: shortness of breath or wheezing) Qty: 8.5 0RF tramadol 50 mg tablet 1 tab PO Q6H PRN (Reason: pain) fluticasone propionate 50 mcg/actuation spray,suspension 2 spray intranasal DAILY PRN (Reason: Allergy Symptoms) oxycodone 5 mg tablet 5 mg PO Q6H PRN (Reason: pain) Qty: 20 0RF Rx Instructions: Partial Fill upon patient request. fluticasone propion-salmeterol [Advair Diskus] 250-50 mcg/dose blister with device 1 puff inhalation BID multivitamin Tablet 1 tab PO DAILY albuterol sulfate 2.5 mg /3 mL (0.083 %) solution for nebulization 1 amp inhalation QID PRN (Reason: Wheezing) thiamine HCl (vitamin B1) 100 mg Tablet 100 mg PO DAILY pantoprazole 20 mg Tablet,Delayed Release (Dr/Ec) 20 mg PO DAILY paroxetine HCl 20 mg tablet 1 tab PO DAILY docusate sodium 100 mg capsule 1 cap PO BID PRN (Reason: Constipation) (DME) lancets [TRUEplus Lancets] 33 gauge misc See Rx Instructions .ROUTE BID Qty: 100 Rx Instructions: As directed (DME) blood-glucose meter [[employer] [place] Lite] Kit See Rx Instructions .ROUTE BID Qty: 1 Rx Instructions: As directed folic acid 1 mg tablet 1 mg PO DAILY <Hortencia Toscano, SALES OPERATIONS COORDINATOR - Last Filed: 12/26/22 14:05>
[2022-12-26 15:21] LABS: Basophils Percent Auto 0.7 % (0-2); Eosinophils Absolute Auto 0.2 X10*3/uL (0.0-0.4); Eosinophils Percent Auto 6.3 % (0-4); Hematocrit 21.2 % (42.0-52.0); Hemoglobin 7.3 g/dl (14.0-18.0); Imm Gran Abs Auto 0.02 X10*3/uL (0.00-0.03); Imm Gran Pct Auto 0.7 % (0.0-0.4); Lymphocytes Absolute Auto 1.3 X10*3/uL (1.2-4.9); Lymphocytes Percent Auto 41.8 % (20-40); MANUAL DIFF FLAG SCAN; Mean Corpuscular HGB Conc 34.4 g/dl (31.0-36.0); Mean Corpuscular Hemoglobin 29.9 pg (27.0-33.0); Mean Corpuscular Volume 86.9 fL (80.0-98.0); Mean Platelet Volume 12.9 fL (9.4-12.4); Monocytes Absolute Auto 0.4 X10*3/uL (0.1-1.2); Monocytes Percent Auto 13.5 % (2-11); Neutrophils Absolute Auto 1.1 x10*3/uL (2.0-8.3); Red Blood Count 2.44 X10*6/uL (4.60-5.80); Red Cell Distribution Width 12.7 % (11.0-16.0); SCAN SMEAR FLAG 1
[2022-12-26 15:40] LABS: Alanine Aminotransferase 24 U/L (0-40); Albumin Level 3.6 g/dL (3.5-5.0); Alkaline Phosphatase 111 U/L (39-117); Anion Gap 13 (12-20); Aspartate Amino Transferase 18 U/L (5-37); Bilirubin Total 0.4 mg/dL (0.0-1.0); Blood Urea Nitrogen 15 mg/dL (9-16); Calcium 8.9 mg/dL (8.4-10.2); Carbon Dioxide 28 mmol/L (22-29); Chloride 104 mmol/L (96-108); Creatinine Clr Calc Pharmacy 111.9; Estimated Glomerular Filt Rate > 60; Glucose Random 119 mg/dL (60-115); Potassium 4.6 mmol/L (3.3-5.1); Sodium 140 mmol/L (135-145); Total Protein 6.1 g/dL (6.5-8.0)
[2022-12-26 16:00] VITALS: BP 114/70; PULSE 66; RESP 16; TEMP 36.5; O2SAT 98
[2022-12-26 16:19] LABS: Platelet Count 28 X10*3/uL (160-400)
[2022-12-26 16:21] LABS: SLIDE REVIEW VERIFIED
== END 2022-12-26 16:42 | disposition home or self-care (01) ==
PROVIDERS: Nurse Practitioner Family; Emergency Provider Emergency Medicine Emergency Medical Services; PCP Internal Medicine
DX: K59.00 Constipation, unspecified (principal); R10.13 Epigastric pain; Z79.899 Other long term (current) drug therapy
CPT/HCPCS: 36415; 74018; 80053; 85025; 99283; 99284

== ENCOUNTER 2023-06-20 22:09 | Inpatient (IN) | payer MEDICAID, SELFPAY ==
--- NOTE | ~2023-06-20 | US_ITS ---
EXAMINATION: US VENOUS WITH DOPPLER UPPER EXTREMITY, RIGHT CLINICAL INFORMATION: Right upper extremity swelling. COMPARISON: None available. TECHNIQUE: Ultrasound of the upper extremity is performed using compression sonography and color and pulse Doppler flow with assessment of augmentation of flow. There is also imaging and Doppler assessment of the jugular and subclavian veins. Spectral analysis with color-flow imaging is performed. FINDINGS: There is no evidence for deep venous thrombosis in the right internal jugular, subclavian, axillary, brachial, radial and ulnar veins. Positive superficial thrombus is seen in the right basilic vein. The right cephalic vein is patent. The subcutaneous soft tissues are unremarkable. US/US venous duplex UE RT IMPRESSION: 1. No evidence for deep venous thrombosis in the visualized veins of the right upper extremity. 2. Positive superficial thrombus in the right basilic vein.
--- NOTE | ~2023-06-20 | XR_ITS ---
EXAMINATION: XR FOREARM, RIGHT XR HAND, RIGHT CLINICAL INFORMATION: Pain and swelling COMPARISON: None available. TECHNIQUE: AP and lateral views of the right forearm were obtained. PA, oblique and lateral views of the right hand FINDINGS: No fracture or dislocation. Imaged portions of the elbow are unremarkable. Osseous alignment of the hand is maintained. Diffuse soft tissue swelling about the hand. No radiopaque foreign bodies. XR/XR hand wrist RT IMPRESSION: * No fracture or dislocation. * Diffuse soft tissue swelling about the hand.
--- NOTE | ~2023-06-20 | XR_ITS ---
EXAMINATION: XR FOREARM, RIGHT XR HAND, RIGHT CLINICAL INFORMATION: Pain and swelling COMPARISON: None available. TECHNIQUE: AP and lateral views of the right forearm were obtained. PA, oblique and lateral views of the right hand FINDINGS: No fracture or dislocation. Imaged portions of the elbow are unremarkable. Osseous alignment of the hand is maintained. Diffuse soft tissue swelling about the hand. No radiopaque foreign bodies. XR/XR forearm RT 2V IMPRESSION: * No fracture or dislocation. * Diffuse soft tissue swelling about the hand.
[2023-06-20 22:47] VITALS: BP 115/50; PULSE 74; RESP 18; TEMP 36.7; O2SAT 98; BMI 29.2
[2023-06-20 23:23] VITALS: BP 104/54; PULSE 70; RESP 18; TEMP 37.5; O2SAT 99
--- NOTE | 2023-06-20 23:51 | ED_ITS ---
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 comes here for pain getting worse for last 24 hours with slight swelling of the dorsum of the right hand patient has port on the right side Related Data Home Medications Medication Instructions Recorded Confirmed fluticasone propionate 50 2 spray intranasal DAILY PRN 05/13/22 11/09/22 mcg/actuation nasal Allergy Symptoms spray,suspension tramadol 50 mg tablet 1 tab PO Q6H PRN pain 05/13/22 11/09/22 fluticasone 250 mcg-salmeterol 50 1 puff inhalation BID 09/07/22 11/09/22 mcg/dose blistr powdr for inhalation (Advair Diskus) albuterol sulfate 2.5 mg/3 mL 1 amp inhalation QID PRN Wheezing 09/28/22 11/09/22 (0.083 %) solution for nebulization docusate sodium 100 mg capsule 1 cap PO BID PRN Constipation 09/28/22 11/09/22 multivitamin 1 tab PO DAILY 09/28/22 11/09/22 pantoprazole 20 mg tablet,delayed 20 mg PO DAILY 09/28/22 11/09/22 release paroxetine HCl 20 mg tablet 1 tab PO DAILY 09/28/22 11/09/22 thiamine HCl (vitamin B1) 100 mg 100 mg PO DAILY 09/28/22 11/09/22 tablet blood-glucose meter (FreeStyle #1 ea 10/05/22 11/09/22 [place] Lite kit) lancets 33 gauge (TRUEplus Lancets) #100 ea 10/05/22 11/09/22 folic acid 1 mg tablet 1 mg PO DAILY 11/06/22 11/09/22 Previous Rx's Medication Instructions Recorded acetaminophen 500 mg tablet 500 mg PO Q6H PRN pain or fever 09/23/20 (Tylenol Extra Strength) #20 tabs polyethylene glycol 3350 17 17 g PO DAILY PRN constipation 11/10/20 gram/dose oral powder (Miralax) #510 grams albuterol sulfate 90 mcg/actuation 2 puff inhalation Q6H PRN 09/23/21 aerosol inhaler shortness of breath or wheezing #8.5 grams bisacodyl 5 mg tablet,delayed 10 mg PO ONCE colonoscopy prep 1 10/30/22 release (Dulcolax (bisacodyl)) day #2 tabs polyethylene glycol 3350 17 238 g PO ONCE 1 day #238 grams 10/30/22 gram/dose oral powder (Miralax) oxycodone 5 mg tablet 5 mg PO Q6H PRN pain #20 tabs 12/24/22 docusate sodium 100 mg capsule 100 mg PO BID #60 caps 12/26/22 (Colace) sennosides 17.2 mg tablet (Senokot 17.2 mg PO BID PRN constipation 12/26/22 Extra Strength) #30 tabs Allergies Allergy/AdvReac Type Severity Reaction Status Date / Time No Known Allergies Allergy Verified 12/24/22 13:20 [No Known Allergies*] Review of Systems Review of Systems: Yes all other systems are reviewed and are negative PMFSH Past Medical History Medical History Acid reflux Alcohol abuse AML (acute myeloblastic leukemia) Anemia Asthma History of gastric ulcer Macrocytic anemia Surgical History History of bone marrow biopsy History of esophagogastroduodenoscopy (EGD) Hx of abdominal surgery Hx of colonoscopy Family History Family History Father No problems noted. Mother Diabetes Other No family history of cancer Social History Social History Household Members: Family Household Members Other:: sister Housing: House Are you a primary home health aide caregiver to a significant other at home: No Do you presently have visiting nurse or other home services: No Alcohol intake: current Alcohol intake frequency: does not drink Alcohol type: beer Patient Tobacco Use Status: Current everyday Tobacco user Tobacco use type: Cigarette Cigarettes Per Day: 3 Smoked in Last 30 Days: No e-Cigarette/Vaping Use: Never Used Second Hand Smoke Exposure: No Use of substances other than those prescribed or required for medical reasons: No Substance Use Type: Marijuana Substance Use Frequency: Daily Advance Directives: Yes Advance Directives on File: Yes Advance Directives Date on File: 11/10/22 service: No Current occupational status: unemployed Physical Exam Vital Signs: Vital Signs: Last Vital Signs Temp 98.1 F 06/21/23 02:18 Pulse 74 06/21/23 02:18 Resp 14 06/21/23 02:18 BP 124/59 L 06/21/23 02:18 Pulse Ox 98 06/21/23 01:46 O2 Del Method Room Air 06/21/23 01:46 BMI result Body Mass Index 29.2 Appearance: Alert. Oriented X3. No acute distress. Eyes: PERRLA, No Nystagmus ENT: Pharynx normal. Oral Mucosa moist Neck: Normal inspection. Neck supple. CVS: Normal heart rate and rhythm. Pulses normal. Respiratory: No respiratory distress. Equal air entry bilateral, no wheezing/rales/rhonchi Abdomen: Soft and nontender. Bowel sounds are present, no mass palpable, no CVA tenderness Skin: Skin warm and dry. Normal skin color. Normal skin turgor. Extremities: No lower extremity edema. No calf tenderness diffuse tenderness the right hand with slight dorsum of the swelling neurovascular intact Neuro: Oriented X 3. No motor deficit. No sensory deficit.No cerebellar signs , cranial nerves II-XII intact Medications Administered Discontinued Medications Generic Name Dose Route Start Last Admin Trade Name Freq PRN Reason Stop Dose Admin Sodium Chloride 100 mls @ 100 mls/hr 06/21/23 00:00 06/21/23 02:18 Ns IV 06/21/23 00:59 100 mls/hr ONCE ONE Administration Medical Decision Making Medical Decision Making [facility] Narrative: Patient with AML with pancytopenia will admit patient for platelet and PRBC transfusion oncology to review the patient received the chemotherapy last week likely the pain in the right arm which is chronic likely from bone marrow infiltration Consult Healthcare Provider Management of the patient was discussed with: Hospitalist Lab Data [facility] Lab Attestation statement: I reviewed the patient's lab results. 06/20/23 23:45 06/20/23 23:45 Labs: Lab Results 06/20/23 06/20/23 06/20/23 Range/Units 23:45 23:45 23:45 WBC 1.5 L (4.8-10.8) X10*3/uL RBC 2.09 L (4.60-5.80) X10*6/uL Hgb 5.9 L* (14.0-18.0) g/dl Hct 17.4 L* (42.0-52.0) % MCV 83.3 (80.0-98.0) fL MCH 28.2 (27.0-33.0) pg MCHC 33.9 (31.0-36.0) g/dl RDW 13.6 (11.0-16.0) % Plt Count 12 L* D (160-400) X10*3/uL MPV TNP Immature Gran % (Auto) 0.0 (0.0-0.4) % Neut % (Auto) 8.5 L (45-73) % Lymph % (Auto) 82.5 H (20-40) % [place] % (Auto) 6.5 (2-11) % Eos % (Auto) 1.9 (0-4) % Baso % (Auto) 0.6 (0-2) % Lymph # (Auto) 1.3 (1.2-4.9) X10*3/uL [place] # (Auto) 0.1 (0.1-1.2) X10*3/uL Eos # (Auto) 0.0 (0.0-0.4) X10*3/uL Baso # (Auto) 0.0 (0.0-0.2) X10*3/uL Abs Immat Gran (auto) 0.00 (0.00-0.03) X10*3/uL Absolute Neuts (auto) 0.1 L (2.0-8.3) x10*3/uL Absolute Nucleated RBC 0.000 (0.0-0.012) X10*3/uL Nucleated RBC % (auto) 0.0 (0.0-0.2) /100WBC Smear Tech's Comments VERIFIED Sodium 137 (135-145) mmol/L Potassium 3.6 D (3.3-5.1) mmol/L Chloride 103 (96-108) mmol/L Carbon Dioxide 25 (22-29) mmol/L Anion Gap 13 (12-20) BUN 17 H (9-16) mg/dL Creatinine 0.78 (0.5-1.4) mg/dL Estim Creat Clear Calc 108.9 Estimated GFR > 60 Random Glucose 137 H (60-115) mg/dL Lactic Acid 1.2 (0.5-2.0) mmol/L Calcium 9.0 (8.4-10.2) mg/dL Total Bilirubin 0.4 (0.0-1.0) mg/dL AST 9 (5-37) U/L ALT 21 (0-40) U/L Alkaline Phosphatase 107 (39-117) U/L Total Protein 6.1 L (6.5-8.0) g/dL Albumin 3.5 (3.5-5.0) g/dL Blood Type Antibody Screen Crossmatch 06/21/23 Range/Units 00:54 WBC (4.8-10.8) X10*3/uL RBC (4.60-5.80) X10*6/uL Hgb (14.0-18.0) g/dl Hct (42.0-52.0) % MCV (80.0-98.0) fL MCH (27.0-33.0) pg MCHC (31.0-36.0) g/dl RDW (11.0-16.0) % Plt Count (160-400) X10*3/uL MPV Immature Gran % (Auto) (0.0-0.4) % Neut % (Auto) (45-73) % Lymph % (Auto) (20-40) % [place] % (Auto) (2-11) % Eos % (Auto) (0-4) % Baso % (Auto) (0-2) % Lymph # (Auto) (1.2-4.9) X10*3/uL [place] # (Auto) (0.1-1.2) X10*3/uL Eos # (Auto) (0.0-0.4) X10*3/uL Baso # (Auto) (0.0-0.2) X10*3/uL Abs Immat Gran (auto) (0.00-0.03) X10*3/uL Absolute Neuts (auto) (2.0-8.3) x10*3/uL Absolute Nucleated RBC (0.0-0.012) X10*3/uL Nucleated RBC % (auto) (0.0-0.2) /100WBC Smear Tech's Comments Sodium (135-145) mmol/L Potassium (3.3-5.1) mmol/L Chloride (96-108) mmol/L Carbon Dioxide (22-29) mmol/L Anion Gap (12-20) BUN (9-16) mg/dL Creatinine (0.5-1.4) mg/dL Estim Creat Clear Calc Estimated GFR Random Glucose (60-115) mg/dL Lactic Acid (0.5-2.0) mmol/L Calcium (8.4-10.2) mg/dL Total Bilirubin (0.0-1.0) mg/dL AST (5-37) U/L ALT (0-40) U/L Alkaline Phosphatase (39-117) U/L Total Protein (6.5-8.0) g/dL Albumin (3.5-5.0) g/dL Blood Type A Positive Antibody Screen NEGATIVE Crossmatch See Detail Discharge Plan Discharge Clinical Impression: Pancytopenia, Leukemia, Bone pain, Thrombocytopenia Patient Disposition: Admitted As Inpatient
[2023-06-20 23:54] LABS: Basophils Percent Auto 0.6 % (0-2); Eosinophils Percent Auto 1.9 % (0-4); Lymphocytes Absolute Auto 1.3 X10*3/uL (1.2-4.9); Lymphocytes Percent Auto 82.5 % (20-40); MANUAL DIFF FLAG SCAN; Mean Corpuscular HGB Conc 33.9 g/dl (31.0-36.0); Mean Corpuscular Hemoglobin 28.2 pg (27.0-33.0); Mean Corpuscular Volume 83.3 fL (80.0-98.0); Monocytes Absolute Auto 0.1 X10*3/uL (0.1-1.2); Monocytes Percent Auto 6.5 % (2-11); Neutrophils Absolute Auto 0.1 x10*3/uL (2.0-8.3); Neutrophils Percent Auto 8.5 % (45-73); Red Blood Count 2.09 X10*6/uL (4.60-5.80); Red Cell Distribution Width 13.6 % (11.0-16.0); SCAN SMEAR FLAG 1
[2023-06-20 23:55] LABS: White Blood Count 1.5 X10*3/uL (4.8-10.8)
[2023-06-20 23:58] LABS: Hematocrit 17.4 % (42.0-52.0); Hemoglobin 5.9 g/dl (14.0-18.0); Platelet Count 12 X10*3/uL (160-400)
[2023-06-21] VITALS (13 sets, daily range): BP systolic 107–145; BP diastolic 52–83; PULSE 56–78; RESP 12–18; TEMP 36.6–37.2; O2SAT 96–98
[2023-06-21 00:01] LABS: Lactic Acid 1.2 mmol/L (0.5-2.0)
[2023-06-21 00:06] LABS: Alanine Aminotransferase 21 U/L (0-40); Albumin Level 3.5 g/dL (3.5-5.0); Alkaline Phosphatase 107 U/L (39-117); Anion Gap 13 (12-20); Aspartate Amino Transferase 9 U/L (5-37); Bilirubin Total 0.4 mg/dL (0.0-1.0); Blood Urea Nitrogen 17 mg/dL (9-16); Carbon Dioxide 25 mmol/L (22-29); Chloride 103 mmol/L (96-108); Creatinine Clr Calc Pharmacy 108.9; Estimated Glomerular Filt Rate > 60; Glucose Random 137 mg/dL (60-115); Potassium 3.6 mmol/L (3.3-5.1); Sodium 137 mmol/L (135-145); Total Protein 6.1 g/dL (6.5-8.0)
[2023-06-21 00:40] LABS: SLIDE REVIEW VERIFIED
--- NOTE | 2023-06-21 01:41 | P.HPHOSP_ITS ---
History of Present Illness Date of Service: 06/21/23 Chief Complaint: Arm pain This is a 52-year-old male with pertinent history of alcohol use disorder, acute leukemia ?AML, asthma, gastroesophageal reflux disease who presents to the emergency department for evaluation of right arm pain . Patient states he has ch ronic pain in his right arm and is slowly getting worse over the last 24 hours. Denies any trauma? Does endorse generalized malaise and weakness.? No fever, chills, cough. Patient denies chest discomfort, palpitations, abdominal pain, changes in urinary or bowel habits.? He denies melena or hematochezia In the emergency department, patient's hemoglobin was noted to be 5.9 Review of Systems Constitutional: Constitutional: Reports fatigue, Reports lethargy and Reports malaise Cardiovascular: Cardiovascular: Reports no additional cardiovascular complaints Respiratory: Respiratory: Reports no additional respiratory complaints Gastrointestinal: Gastrointestinal: Reports no additional gastrointestinal complaints Genitourinary: Genitourinary: Reports no additional male genitourinary complaints Musculoskeletal: Musculoskeletal: Reports arthralgias and Reports joint swelling Endocrine: Endocrine: Reports fatigue [facility] Medical History Acid reflux Alcohol abuse AML (acute myeloblastic leukemia) Anemia Asthma History of gastric ulcer Macrocytic anemia Family History Father No problems noted. Mother Diabetes Other No family history of cancer Surgical History History of bone marrow biopsy History of esophagogastroduodenoscopy (EGD) Hx of abdominal surgery Hx of colonoscopy Social History Household Members: Family Household Members Other:: sister Housing: House Are you a primary resident care supervisor to a significant other at home: No Do you presently have visiting nurse or other home services: No Alcohol intake: current Alcohol intake frequency: does not drink Alcohol type: beer Patient Tobacco Use Status: Former Tobacco user Tobacco use type: Cigarette Cigarettes Per Day: 3 Smoked in Last 30 Days: No e-Cigarette/Vaping Use: Never Used Second Hand Smoke Exposure: No Use of substances other than those prescribed or required for medical reasons: No Substance Use Type: Marijuana Substance Use Frequency: Daily Advance Directives: Yes Advance Directives on File: Yes Advance Directives Date on File: 11/10/22 Nutrition Risks: No Nutritional Risk service: No Current occupational status: unemployed Meds Allergies Allergy/AdvReac Type Severity Reaction Status Date / Time No Known Allergies Allergy Verified 12/24/22 13:20 [No Known Allergies*] Home Medications Medication Instructions Recorded Confirmed Last Taken Type fluticasone propionate 50 2 spray intranasal DAILY PRN 05/13/22 11/09/22 Unknown History mcg/actuation nasal Allergy Symptoms spray,suspension tramadol 50 mg tablet 1 tab PO Q6H PRN pain 05/13/22 11/09/22 Unknown History fluticasone 250 mcg-salmeterol 50 1 puff inhalation BID 09/07/22 11/09/22 10/26/22 History mcg/dose blistr powdr for inhalation (Advair Diskus) albuterol sulfate 2.5 mg/3 mL 1 amp inhalation QID PRN Wheezing 09/28/22 11/09/22 Unknown History (0.083 %) solution for nebulization docusate sodium 100 mg capsule 1 cap PO BID PRN Constipation 09/28/22 11/09/22 Unknown History multivitamin 1 tab PO DAILY 09/28/22 11/09/22 10/26/22 History pantoprazole 20 mg tablet,delayed 20 mg PO DAILY 09/28/22 11/09/22 10/26/22 H istory release paroxetine HCl 20 mg tablet 1 tab PO DAILY 09/28/22 11/09/22 10/26/22 History thiamine HCl (vitamin B1) 100 mg 100 mg PO DAILY 09/28/22 11/09/22 10/26/22 History tablet blood-glucose meter (FreeStyle #1 ea 10/05/22 11/09/22 Unknown History [place] Lite kit) lancets 33 gauge (TRUEplus Lancets) #100 ea 10/05/22 11/09/22 Unknown History folic acid 1 mg tablet 1 mg PO DAILY 11/06/22 11/09/22 Unknown History Physical Exam Vital Signs and Narrative: Vital Signs: Last Vital Signs Temp 99.5 F 06/20/23 23:23 Pulse 70 06/20/23 23:23 Resp 18 06/20/23 23:23 BP 104/54 L 06/20/23 23:23 Pulse Ox 99 06/20/23 23:23 O2 Del Method Room Air 06/20/23 23:23 BMI result Body Mass Index 29.2 Middle-aged male lying in bed in no distress Neck supple, no JVD Regular rate and rhythm, S1-S2 heard Regular breath sounds bilaterally, no wheezing or crackles appreciated Abdomen soft nontender, no guarding, no rigidity Patient is awake, alert and oriented to self, place, time and person ; no focal motor deficit Extremity: Right wrist tenderness present Psych: Normal mood No pedal edema Results Labs 06/20/23 23:45 06/20/23 23:45 Labs: Laboratory Results - last 24 hr 06/20/23 06/20/23 06/20/23 23:45 23:45 23:45 MCV 83.3 MCH 28.2 MCHC 33.9 RDW 13.6 Plt Count 12 L* D MPV TNP Immature Gran % (Auto) 0.0 Neut % (Auto) 8.5 L Lymph % (Auto) 82.5 H [place] % (Auto) 6.5 Eos % (Auto) 1.9 Baso % (Auto) 0.6 Lymph # (Auto) 1.3 [place] # (Auto) 0.1 Eos # (Auto) 0.0 Baso # (Auto) 0.0 Abs Immat Gran (auto) 0.00 Absolute Neuts (auto) 0.1 L Absolute Nucleated RBC 0.000 Nucleated RBC % (auto) 0.0 Smear Tech's Comments VERIFIED Anion Gap 13 Estim Creat Clear Calc 108.9 Estimated GFR > 60 Random Glucose 137 H Lactic Acid 1.2 Calcium 9.0 Total Bilirubin 0.4 AST 9 ALT 21 Alkaline Phosphatase 107 Total Protein 6.1 L Albumin 3.5 Blood Type Antibody Screen Crossmatch 06/21/23 00:54 MCV MCH MCHC RDW Plt Count MPV Immature Gran % (Auto) Neut % (Auto) Lymph % (Auto) [place] % (Auto) Eos % (Auto) Baso % (Auto) Lymph # (Auto) [place] # (Auto) Eos # (Auto) Baso # (Auto) Abs Immat Gran (auto) Absolute Neuts (auto) Absolute Nucleated RBC Nucleated RBC % (auto) Smear Tech's Comments Anion Gap Estim Creat Clear Calc Estimated GFR Random Glucose Lactic Acid Calcium Total Bilirubin AST ALT Alkaline Phosphatase Total Protein Albumin Blood Type A Positive Antibody Screen NEGATIVE Crossmatch See Detail Assessment and Plan (1) Pancytopenia: Status: Acute Plan This is a 52-year-old male with pertinent history of alcohol use disorder, acute leukemia ?AML, asthma, gastroesophageal reflux disease who presents to the emergency department for evaluation of right arm pain and generalized malaise #.? Symptomatic acute on chronic anemia #. Pancytopenia -Has h/o acute leukemia ?AML -Transfusing 2 units prbc and 1 unit platelets. Repeat in am.?Will consult Dr. Gama for evaluation in a.m. #. Right arm pain. Imaging without fracture or dislocation. Symptomatic treatment for now #.? Mild intermittent asthma: Continue home inhaler. #. Alcohol use disorder -On thiamine and folic acid. #.? Gastroesophageal reflux disease:? On Protonix Med rec pending DVT Prophylaxis: Defer lovenox in setting of thrombocytopenia Full code Regular Diet Admit as inpatient and will require two night minimum hospital stay for blood transfusion and monitoring of H&H. Specialist consult pending Time Spent With Patient Time: Total time managing care of this patient today ____ minutes. Quality Stroke Does the patient have a stroke diagnosis?: No VTE Prior VTE?: No VTE Risk Level:: Medical - moderate - high VTE Device Contraindication: N/A - Device Ordered VTE Drug Contraindication: Treatment Not Indicated
--- NOTE | 2023-06-21 02:30 | PC.NURSE ---
Pt on hospital monitor, no c/o chest pain, NSR with rate 82bpm. Pt in no distress, resting comfortably, blankets provided.
--- NOTE | 2023-06-21 02:43 | MHC.EDTECH ---
This tech completed belonging list,and patient urinated 300cc in urinal.
--- NOTE | 2023-06-21 03:55 | PC.NURSE ---
pt's med reconciliation done.
--- NOTE | 2023-06-21 04:50 | PC.NURSE ---
1st PRBCs complete, no signs / symptoms of transfusion reaction noted.
[2023-06-21 06:03] LABS: Anion Gap 13 (12-20); Blood Urea Nitrogen 13 mg/dL (9-16); Calcium 8.9 mg/dL (8.4-10.2); Carbon Dioxide 25 mmol/L (22-29); Chloride 103 mmol/L (96-108); Creatinine Clr Calc Pharmacy 126.7; Estimated Glomerular Filt Rate > 60; Glucose Random 161 mg/dL (60-115); Potassium 4.1 mmol/L (3.3-5.1); Sodium 137 mmol/L (135-145)
[2023-06-21 06:05] LABS: Basophils Percent Auto 0.8 % (0-2); Eosinophils Absolute Auto 0.1 X10*3/uL (0.0-0.4); Eosinophils Percent Auto 3.8 % (0-4); Hematocrit 21.4 % (42.0-52.0); Hemoglobin 7.3 g/dl (14.0-18.0); Lymphocytes Absolute Auto 1.1 X10*3/uL (1.2-4.9); Lymphocytes Percent Auto 82.3 % (20-40); MANUAL DIFF FLAG SCAN; Mean Corpuscular HGB Conc 34.1 g/dl (31.0-36.0); Mean Corpuscular Hemoglobin 28.6 pg (27.0-33.0); Mean Corpuscular Volume 83.9 fL (80.0-98.0); Monocytes Absolute Auto 0.1 X10*3/uL (0.1-1.2); Monocytes Percent Auto 4.6 % (2-11); Neutrophils Absolute Auto 0.1 x10*3/uL (2.0-8.3); Neutrophils Percent Auto 8.5 % (45-73); Red Blood Count 2.55 X10*6/uL (4.60-5.80); Red Cell Distribution Width 13.2 % (11.0-16.0); SCAN SMEAR FLAG 1
[2023-06-21 06:22] LABS: Platelet Count 10 X10*3/uL (160-400); White Blood Count 1.3 X10*3/uL (4.8-10.8)
--- NOTE | 2023-06-21 06:46 | PC.NURSE ---
Critical lab result received: Platelets 10 [place] text sent to Dr. Velasquez. No new orders received.
[2023-06-21] MEDS: oxyCODONE HCl Immed Release 5 MG TABLET PO ×3 (07:09→23:25)
--- NOTE | 2023-06-21 07:13 | PC.NURSE ---
assumed care of pt at this time. pt axox4, VSS, afebrile, nsr on monitor 66 bpm, respirations even and unlabored, skin warm and dry; color appropriate to ethnicity. prbc infusing through R. sided chest port; no s+s of reaction noted. lung sounds cta. swelling, redness and pain of R. hand, warm to touch, +cms; pt medicated per jan. +radial pulses bilat. pt eating breakfast at this time. all needs met at this time; call fernandez within reach.
--- NOTE | 2023-06-21 07:59 | PM.EVENT ---
Event Note Date of Service: 06/21/23 Event Note: Pt seen and examined, chart reviewed. Record from [facility] reviewed 53 with AML being treated at [facility] and comes in with right arm pain and has pancytopenia. There is no mention that patient was seen at his oncologist Clinic at [facility] Hours earlier with the following assessment : Interval HistoryJos? is seen today?while in clinic for blood work.? A nurse is?the beet worker for our?interaction.? Sameer? reports he awoke?yesterday?morning?and had severe right upper extremity pain?which began in the right shoulder?and extended to his hand.? He took oxycodone with little benefit?and states he almost?went to the ED?secondary to?the severity of the pain.? He reports limited?range of motion of the right upper extremity. ?He denies any?recent?change of activity, straining or trauma that may have precipitated?this pain.? He has experienced pain in the right shoulder, in the past.? He had Doppler ultrasound?of the right upper extremity?in January?as well as May to rule out thrombosis.? He has had a dye study of his right?chest wall Awad,?for similar complaints of right?shoulder pain.? He denies any fever or chills?and continues to take levofloxacin?as prescribed. ?He denies any?bleeding.? He notes mild swelling of the right upper extremity,?including?dorsal surface of the hand.? He states he generally does not use his right upper extremity secondary to the pain he has experienced?over the past few months. Problem List/Past Medical HistoryOngoingHistory of peptic ulcer disease Obese class I AllergiesNSAIDs MedicationsInpatientAtivan Inj, 1 mg, IV Push Slowly, Chemo To Be Scheduled, PRN Heparin Flush 10 units/mL Inj, 50 units= 5 mL, IV Push, Every Sunday and , PRN Heparin Flush 10 units/mL Inj, 50 units= 5 mL, IV Push, Every Sunday and , PRN Heparin Flush 10 units/mL Inj, 50 units= 5 mL, IV Push, Every Sunday and NaCL 0.9% 500 mL, 500 mL, IV Infusion NaCL 0.9% 500 mL, 500 mL, IV Infusion NaCL 0.9% 500 mL, 500 mL, IV Infusion NaCL 0.9% 500 mL, 500 mL, IV Infusion Ondansetron ODTablet, 8 mg, By Mouth, Chemo To Be Scheduled Ondansetron ODTablet, 8 mg, By Mouth, Chemo To Be Scheduled Ondansetron ODTablet, 8 mg, By Mouth, Chemo To Be Scheduled Ondansetron ODTablet, 8 mg, By Mouth, Chemo To Be Scheduled Ondansetron ODTablet, 8 mg, By Mouth, Chemo To Be Scheduled Pneumovax 23 Adult Vaccine Inj, 0.5 mL, Intramuscular, Chemo To Be Scheduled Homeacyclovir 400 mg oral tablet, 400 mg, By Mouth, 2 times a day, 3 refills Advair Diskus 250 mcg-50 mcg inhalation powder, 1 puffs, Inhalation, 2 times a day allopurinol 300 mg oral tablet, 300 mg= 1 tablet, By Mouth, Daily Compression Stockings, See Instructions Daily Chelo oral tablet, 1 tablet, By Mouth, Daily folic acid 1 mg oral tablet, 1 mg= 1 tablet, By Mouth, Daily levoFLOXacin 500 mg oral tablet, 500 mg= 1 tablet, By Mouth, Every 24 hours, 1 refills metFORMIN 500 mg oral tablet, 500 mg= 1 each, By Mouth, Daily ondansetron 4 mg oral tablet, 1 TO 2 TABLETS, By Mouth, Every 8 hours, PRN oxyCODONE 5 mg oral tablet, See Instructions pantoprazole 20 mg oral delayed release tablet, 20 mg= 1 tablet, By Mouth, Daily PARoxetine 20 mg oral tablet, 20 mg= 1 tablet, By Mouth, Daily posaconazole 100 mg oral delayed release tablet, 300 mg, By Mouth, Every 24 hours ProAir HFA 90 mcg/inh inhalation aerosol with adapter, 2 puffs, Inhalation, Every 6 hours, PRN prochlorperazine 5 mg oral tablet, 1 TO 2 TABLETS, By Mouth, Every 6 hours, PRN venetoclax 100 mg oral tablet, 100 mg= 1 tablet, By Mouth, Daily venetoclax 100 mg oral tablet, 100 mg= 1 tablet, By Mouth, Daily venetoclax 100 mg oral tablet, 100 mg= 1 tablet, By Mouth, Daily, 4 refills venetoclax 100 mg oral tablet, See Instructions Vitamin B1 100 mg oral tablet, 100 mg= 1 tablet, By Mouth, Daily Physical ExamPatient is well-appearing?and in no acute distress. ?Alert and oriented x3.? On inspection,?right shoulder appears lower than left.? Right chest Awad catheter?clean and dry with no erythema or exudate.? Tenderness is noted?surrounding?the Awad catheter, particularly inferior?and medial.? Point tenderness is noted?palpating?right shoulder, anterior,?medial and posteriorly.? Patient?reports unable to actively?abduct?right upper extremity?but?passive?abduction is possible to 90 degrees. Lab Results/Pathology Test Name Test Result Date/Time WBC1.0 k/mm306/20/2023 11:02 EDT RBC2.42 m/mm306/20/2023 11:02 EDT Hgb7.1 Gm/dL06/20/2023 11:02 EDT Hct19.8 %06/20/2023 11:02 EDT MCV81.8 hcsrvigdrwa20/02/2023 11:02 EDT MCH29.3 pg06/20/2023 11:02 EDT MCHC35.9 g/dL06/20/2023 11:02 EDT Platelet Count11 k/mm306/20/2023 11:02 EDT RDW-SD41.3 hbuuyrieegb74/02/2023 11:02 EDT MPVNOT RCDXFLXS99/02/2023 11:02 EDT Nucleated RBC (Automated)0.0 #/100 WBC'S006/20/2023 11:02 EDT Abs. NRBC0.0 k/mm306/20/2023 11:02 EDT Abs. Neut0.1 k/mm306/20/2023 11:02 EDT Abs. Lymph0.8 k/mm306/20/2023 11:02 EDT Abs. Mono0.1 k/mm306/20/2023 11:02 EDT Abs. Eo0.0 k/mm306/20/2023 11:02 EDT Abs. Baso0.0 k/mm306/20/2023 11:02 EDT Neut %11.2 %06/20/2023 11:02 EDT Lymph %78.6 %06/20/2023 11:02 EDT [place] %5.1 %06/20/2023 11:02 EDT Eos %4.1 %06/20/2023 11:02 EDT Baso %1.0 %06/20/2023 11:02 EDT Imm Gran0.0 %06/20/2023 11:02 EDT Abs. Imm Gran0.0 k/mm306/20/2023 11:02 EDT Assessment/Plan This 53-year-old gentleman currently?receiving?treatment for AML presents with?acute on chronic right shoulder pain.? Etiology is?uncertain.? Speaking with?the nurse who treated him last week, she states?his Awad site was not?tender?at time of his dressing change the way it is today. ?Additionally,?the nurse reports?he was?using his right upper extremity?without any?restriction?at that time. ?His Awad catheter?has been evaluated in the past?dye study and?Doppler ultrasound right upper extremity has been obtained in the past, negative for thrombosis, for similar complaints.? He is on Levaquin?and therefore?potential for tendon rupture or?tendinitis?is in the differential diagnosis.? Thrombocytopenia is noted, however, his?H&H have not changed significantly, therefore, I do not believe?a bleed?is the cause of his?symptoms.? Infection?is possible, however, he?is afebrile?and clinical exam does not?correlate with?infectious cause.? I will consult with Dr. Rios?regarding?appropriate?imaging or evaluation. From what we know I don't any additional work up is needed at this time and he should follow up with the oncology clinic at [facility] ? Time Spent With Patient Time: Total time managing care of this patient today ____ minutes.
--- NOTE | 2023-06-21 08:40 | P.CNHO_ITS ---
Subjective - Subjective Chief complaint: Consult for: Pancytopenia. AML. Patient: new to practice Consult date: 06/21/23 Requesting Physician: Ene. Primary Care Provider: Cassandra Rodriguez MD Medical Summary: DIAGNOSIS: 1. PANCYTOPENIA. 2. AML. HPI - Consult Narrative Reason for consult: Consult for: AML. Narrative: Brandon Louis is a 53 year old with pertinent who presents to the emergency department for evaluation of right arm pain . Patient states he has chronic pain in his right arm and is slowly getting worse over the last 24 hours. Denies any trauma? Does endorse generalized malaise and weakness.? No fever, chills, cough. Patient denies chest discomfort, palpitations, abdominal pain, changes in urinary or bowel habits.? He denies melena or hematochezia In the emergency department, patient's hemoglobin was noted to be 5.9 Review of Systems Constitutional: Constitutional: Reports fatigue, Reports lethargy and Reports malaise Cardiovascular: Cardiovascular: Reports no additional cardiovascular complaints Respiratory: Respiratory: Reports no additional respiratory complaints Gastrointestinal: Gastrointestinal: Reports no additional gastrointestinal complaints Genitourinary: Genitourinary: Reports no additional male genitourinary complaints Musculoskeletal: Musculoskeletal: Reports arthralgias and Reports joint swelling Endocrine: Endocrine: Reports fatigue PMFSH Medical History: history of alcohol use disorder, acute leukemia ?AML, asthma, gastroesophageal reflux disease. Acid reflux Alcohol abuse AML (acute myeloblastic leukemia) Anemia Asthma History of gastric ulcer Macrocytic anemia Surgical History: History of bone marrow biopsy History of esophagogastroduodenoscopy (EGD) Hx of abdominal surgery. Family History: Father No problems noted. Mother Diabetes Other No family history of cancer Review of Systems - Constitutional Reports system reviewed and no additional complaints, except as documented, Reports lack of energy - Eyes Reports system reviewed and no additional complaints, except as documented - ENT Reports system reviewed and no additional complaints, except as documented - Cardiovascular Reports system reviewed and no additional complaints, except as documented - Respiratory Reports no additional respiratory complaints - Gastrointestinal Reports system reviewed and no additional complaints, except as documented - Genitourinary Genitourinary: Reports no additional male genitourinary complaints - Musculoskeletal Reports system reviewed and no additional complaints, except as documented - Integumentary/Breasts Skin/Breast: Reports no additional skin complaints - Neurologic Reports system reviewed and no additional complaints, except as documented - Psychiatric Reports system reviewed and no additional complaints, except as documented - Endocrine Reports no additional endocrine complaints - Hematologic/Lymphatic Reports system reviewed and no additional complaints, except as documented - Allergic/Immunologic Reports system reviewed and no additional complaints, except as documented PMFSH Medical History: Medical History (Last Reviewed 06/21/23 @ 03:21 by Keith Velasquez MD) Acid reflux Alcohol abuse AML (acute myeloblastic leukemia) Anemia Asthma History of gastric ulcer Macrocytic anemia Functional capacity: independent ambulation Patient : No Family History: Family History (Last Reviewed 06/21/23 @ 03:21 by Keith Velasquez MD) Father No problems noted. Mother Diabetes Other No family history of cancer Surgical History: Surgical History (Last Reviewed 06/21/23 @ 03:21 by Keith Velasquez MD) History of bone marrow biopsy History of esophagogastroduodenoscopy (EGD) Hx of abdominal surgery Hx of colonoscopy Social History: Social History (Last Reviewed 06/21/23 @ 03:21 by Keith Velasquez MD) Living Situation History: Household Members: Family Household Members Other:: sister Housing: House Are you a primary palliative care nurse practitioner to a significant other at home: No Do you presently have visiting nurse or other home services: No Tobacco History: Patient Tobacco Use Status: Former Tobacco user Tobacco use type: Cigarette e-Cigarette/Vaping Use: Never Used Second Hand Smoke Exposure: No Substance Use History: Substance Use Type: Marijuana Advance Directives: Advance Directives Date on File: 11/10/22 Occupation Assessmet: service: No Current occupational status: unemployed Home Medications and Allergies Current Medications: Current Medications Acetaminophen (Acetaminophen 325 Mg Tablet) 650 mg PO Q6H PRN PRN Reason: Pain, Mild (Pain Scale 1-3) Albuterol Sulfate (Albuterol Sulfate 90 Mcg 8 Gm Inhaler) 2 puff INHALE Q6H PRN PRN Reason: shortness of breath or wheezing Docusate Sodium (Docusate Sodium 100 Mg Capsule) 100 mg PO BID PRN PRN Reason: Constipation Folic Acid (Folic Acid 1 Mg Tablet) 1 mg PO DAILY LONNIE Melatonin (Melatonin 3 Mg Tablet) 6 mg PO BEDTIME PRN PRN Reason: Insomnia Multivitamins/Vitamin C (Multivitamin Tablet) 1 tab PO DAILY LONNIE Non-Formulary Medication (Fluticasone Propion-Salmeterol [Advair Diskus]) 1 puff INHALE BID [facility] Non-Formulary Medication (Pantoprazole) 20 mg PO DAILY [facility] Non-Formulary Medication (Sennosides [Senokot Extra Strength]) 17.2 mg PO BID PRN PRN Reason: constipation Ondansetron HCl (Ondansetron Hcl 4 Mg/2 Ml Vial) 4 mg IVPUSH Q8H PRN PRN Reason: Nausea and Vomiting Paroxetine HCl (Paroxetine Hcl 20 Mg Tablet) 20 mg PO DAILY [facility] Pharmacy Consult (Consult Rx Perform Med Rec) 1 each MISCELLANE ONCE PRN PRN Reason: Consult order Sodium Chloride (0.9 % Sodium Chloride Flush 3 Ml Syringe) 3 ml IVFLUSH QSHIFT [facility] Thiamine HCl (Thiamine Hcl 100 Mg Tablet) 100 mg PO DAILY [facility] Home Medications Medication Instructions Recorded Confirmed Type docusate sodium 100 mg capsule 1 cap PO BID PRN Constipation 09/28/22 06/21/23 History multivitamin 1 tab PO DAILY 09/28/22 06/21/23 History pantoprazole 20 mg tablet,delayed 20 mg PO DAILY@0630 09/28/22 06/21/23 History release paroxetine HCl 20 mg tablet 1 tab PO DAILY 09/28/22 06/21/23 History thiamine HCl (vitamin B1) 100 mg 100 mg PO DAILY 09/28/22 06/21/23 History tablet blood-glucose meter (FreeStyle #1 ea 10/05/22 06/21/23 History Gonzales Lite kit) lancets 33 gauge (TRUEplus Lancets) #100 ea 10/05/22 06/21/23 History folic acid 1 mg tablet 1 mg PO DAILY 11/06/22 06/21/23 History acyclovir 400 mg tablet 400 mg PO BID 06/21/23 06/21/23 History budesonide-formoterol HFA 80 2 puff inhalation BID 06/21/23 06/21/23 History mcg-4.5 mcg/actuation aerosol inhaler (Symbicort) calcium carbonate 300 mg (750 mg) 1 tab PO BID 06/21/23 06/21/23 History chewable tablet (Antacid Extra Strength (calcium carb)) levofloxacin 500 mg tablet 500 mg PO DAILY 06/21/23 06/21/23 History metformin 500 mg tablet 500 mg PO BID 06/21/23 06/21/23 History ondansetron HCl 4 mg tablet 4 mg PO Q8H PRN nausea 06/21/23 06/21/23 History posaconazole 100 mg tablet,delayed 300 mg PO DAILY 06/21/23 06/21/23 History release prochlorperazine maleate 5 mg 5 mg PO Q6H PRN nausea 06/21/23 06/21/23 History tablet Allergies Allergy/AdvReac Type Severity Reaction Status Date / Time No Known Allergies Allergy Verified 12/24/22 13:20 [No Known Allergies*] Physical Exam Vital signs: Vital Signs Temp 99.0 F 06/21/23 08:17 Pulse 65 06/21/23 08:05 Resp 16 06/21/23 08:17 BP 126/78 06/21/23 08:17 Pulse Ox 97 06/21/23 08:05 O2 Del Method Room Air 06/21/23 08:05 Intake & Output 06/20/23 06/21/23 06/21/23 18:59 06:59 18:59 Intake Total 450 / 450 350 / 350 Output Total 400 / 400 Balance 50 / 50 350 / 350 Urine Output (Average ml/kg/hr) 0.41 0.41 Intake: Intake (Blood Product) Amount 350 / 350 350 / 350 Red Blood Cells (E0336) Unit 350 / 350 [id number] Red Blood Cells (E0336) Unit 0 / 0 350 / 350 [id number] Intake, IV Amount 100 / 100 0.9 % Sodium Chloride 100 ml @ 100 / 100 100 mls/hr IV ONCE ONE Rx#: [id number] Output: Output, Urine Amount 400 / 400 Other: Weight 82.1 kg Weight 82.1 kg Hem/Onc Consult Result - Labs CBC & Chem 7: 06/22/23 08:24 06/21/23 05:17 Labs: Short CBC 06/20/23 06/21/23 Range/Units 23:45 05:17 WBC 1.5 L 1.3 L (4.8-10.8) X10*3/uL Hgb 5.9 L* 7.3 L D (14.0-18.0) g/dl Hct 17.4 L* 21.4 L D (42.0-52.0) % Plt Count 12 L* D 10 L* (160-400) X10*3/uL BMP 06/20/23 06/21/23 23:45 05:17 Sodium 137 137 Potassium 3.6 D 4.1 Chloride 103 103 Carbon Dioxide 25 25 BUN 17 H 13 Creatinine 0.78 0.67 Calcium 9.0 8.9 Liver Function 06/20/23 Range/Units 23:45 Total Bilirubin 0.4 (0.0-1.0) mg/dL AST 9 (5-37) U/L ALT 21 (0-40) U/L Alkaline Phosphatase 107 (39-117) U/L Albumin 3.5 (3.5-5.0) g/dL Assessment and Plan Patient Active problem list reviewed?: Yes (1) Pancytopenia Status: Acute Assessment and plan: 53 year old gentleman with H/O AML. He mentions he underwent induction treatment in October of last year. He now presents with his shoulder pain. He was actually seen at [facility] yesterday. Notes from there: This 53-year-old gentleman currently?receiving?treatment for AML presents with?acute on chronic right shoulder pain.? Etiology is?uncertain.? Speaking with?the nurse who treated him last week, she states?his Awad site was not?tender?at time of his dressing change the way it is today. ?Additionally,?the nurse reports?he was?using his right upper extremity?without any?restriction?at that time. ?His Awad catheter?has been evaluated in the past?dye study and?Doppler ultrasound right upper extremity has been obtained in the past, negative for thrombosis, for similar complaints.? He is on Levaquin?and therefore?potential for tendon rupture or?tendinitis?is in the differential diagnosis.? Thrombocytopenia is noted, however, his?H&H have not changed significantly, therefore, I do not believe?a bleed?is the cause of his?symptoms.? Infection?is possible, however, he?is afebrile?and clinical exam does not?correlate with?infectious cause.? PLAN: It appears that he is most likely relapse. Upon review of his records from [facility] it appears that he has already been started on therapy with decitabine and venetoclax. He has an appointment at [facility] for labs on Sunday and follow-up on Sunday. He should keep those appointments. If platelets fall to less than 10 he can not receive a platelet transfusion. Discussed with Dr. cho. I wish him the best of luck. Thank you, Cc: - Time Spent With Patient Time Spent with Patient (in minutes): 30
--- NOTE | 2023-06-21 08:58 | PHA.MEDREC ---
Pharmacy Consult ? Medication Reconciliation Pharmacy has completed the medication reconciliation. Spoke to patient to confirm meds. Utilized customer service dispatcher services. Patient is poor historian of medicaitons, but gets meds through [facility]. Called patient's pharmacy and confirm meds in [facility].
[2023-06-21 09:18] LABS: Band Neutrophils Percent 1 % (3-5); Basophils Percent Manual 3 % (0-2); Eosinophils Percent Manual 3 % (0-4); Lymphocytes Percent Manual 78 % (20-40); Monocytes Percent Manual 2 % (2-11); Neutrophils Absolute Manual 0.2 X10*3/uL (2.0-8.3); Neutrophils Percent Manual 13 % (45-73)
--- NOTE | 2023-06-21 09:18 | PC.NURSE ---
called pharmacy about pt unverified meds.
[2023-06-21 09:21] LABS: Hypochromasia 1+ (5-14) /OIF; Microcytosis 1+ (5-14) /OIF; Platelet Estimate DECREASED (NORMAL); Platelet Morphology Comment NORMAL; RBC Morphology NOTED
[2023-06-21] MEDS: Folic Acid 1 MG TABLET PO (11:04)
[2023-06-21] MEDS: Thiamine HCL 100 MG TABLET PO (11:04)
[2023-06-21] MEDS: PARoxetine HCL 20 MG TABLET PO (11:04)
[2023-06-21] MEDS: Multivitamin TABLET 1 TAB PO (11:04)
[2023-06-21] MEDS: 0.9 % Sodium Chloride Flush 3 ML SYRINGE IVFLUSH ×3 (11:07→23:26)
--- NOTE | 2023-06-21 15:11 | PC.NURSE ---
attempt to call [place] [facility] [place].
--- NOTE | 2023-06-21 15:31 | PC.NURSE ---
report given to [place] [place].
--- NOTE | 2023-06-21 19:02 | PC.NURSE ---
Patient admitted from ED about 15:15. Patient alert and oriented x4, Portuguese speaking mostly, interviewed in Portuguese> Patient with scattered inspiratory/expiratory wheezes to auscultation, breathing shallow, even, and unlabored on room air. Patient with port-a-cath to right upper chest, dual lumen, accessed in ED. Patient with right arm swelling, 1+ edema, and associated 10/10 burning arm pain, and he also reports a history AML, for which he recieves treatment at [facility] three times weekly, but has questions about whether his cancer is severe. Discussed with MD, who came up to see patient and also new order for oxycodone, adminitered PRN per emar with effect. Patient generally uses a cane at times for ambulation. Resting in bed at this time
[2023-06-22 07:20] VITALS: BP 121/72; PULSE 60; RESP 20; TEMP 37.2; O2SAT 94
[2023-06-22 08:47] LABS: Hematocrit 26.8 % (42.0-52.0); Hemoglobin 9.3 g/dl (14.0-18.0); Mean Corpuscular HGB Conc 34.7 g/dl (31.0-36.0); Mean Corpuscular Hemoglobin 28.2 pg (27.0-33.0); Mean Corpuscular Volume 81.2 fL (80.0-98.0); Red Cell Distribution Width 13.2 % (11.0-16.0)
[2023-06-22] MEDS: PARoxetine HCL 20 MG TABLET PO (08:47)
[2023-06-22] MEDS: Folic Acid 1 MG TABLET PO (08:47)
[2023-06-22] MEDS: Thiamine HCL 100 MG TABLET PO (08:47)
[2023-06-22] MEDS: Multivitamin TABLET 1 TAB PO (08:47)
[2023-06-22] MEDS: Omeprazole 20 MG CAPSULE.DR PO (08:47)
[2023-06-22] MEDS: 0.9 % Sodium Chloride Flush 3 ML SYRINGE IVFLUSH ×2 (08:47→16:07)
[2023-06-22 08:48] LABS: White Blood Count 1.1 X10*3/uL (4.8-10.8)
[2023-06-22] MEDS: oxyCODONE HCl Immed Release 5 MG TABLET PO ×2 (08:51→16:09)
[2023-06-22 09:00] LABS: Platelet Count 11 X10*3/uL (160-400)
--- NOTE | 2023-06-22 15:43 | MHC.CM.PN ---
CM MET WITH PT WITH [employer] PT LIVES WITH HIS SISTER AND IS INDEPENDENT WITH CARE PT DENIES USE OF DME OR HOME SERVICES HE REPORTS HE DOES GO TO THE [facility] FOR ONCOLOGY HCP ON FILE PCP: KARMEN CHAPPELL DCP: HOME NO SERVICES VIA FAMILY TRANSPORT
[2023-06-22 16:00] VITALS: BP 110/60; PULSE 58; RESP 20; TEMP 36.9; O2SAT 97
[2023-06-22 19:03] VITALS: BP 126/71; PULSE 65; RESP 18; TEMP 36.2; O2SAT 96
[2023-06-22] MEDS: Magnesium Hydrox/Alum Hydrox 30 ML ORAL.SUSP PO (19:38)
[2023-06-23] MEDS: oxyCODONE HCl Immed Release 5 MG TABLET PO ×2 (00:26→10:03)
[2023-06-23] MEDS: Magnesium Hydrox/Alum Hydrox 30 ML ORAL.SUSP PO (00:29)
[2023-06-23 08:00] VITALS: BP 136/79; PULSE 57; RESP 18; TEMP 36.6; O2SAT 98
[2023-06-23] MEDS: Omeprazole 20 MG CAPSULE.DR PO (10:03)
[2023-06-23] MEDS: PARoxetine HCL 20 MG TABLET PO (10:03)
[2023-06-23] MEDS: Multivitamin TABLET 1 TAB PO (10:03)
[2023-06-23] MEDS: Folic Acid 1 MG TABLET PO (10:03)
[2023-06-23] MEDS: 0.9 % Sodium Chloride Flush 3 ML SYRINGE IVFLUSH (10:04)
[2023-06-23] MEDS: Thiamine HCL 100 MG TABLET PO (10:04)
--- NOTE | 2023-06-23 11:10 | PM.DS ---
DS: Providers Provider Date of Service: 06/23/23 Date of admission: 06/21/23 01:43 Primary care physician: Cassandra Rodriguez MD Consults: 06/21/23 01:43 Consult to Hematology / Oncology Routine Consulting Provider: Gurmeet Gama Reason for consultation: pancytopenia DS: Diagnosis Discharge Diagnosis (1) Pancytopenia: Status: Acute DS: Summary Hospital Course Hospital Course: Pt seen and examined, chart reviewed. Record from [facility] reviewed 53 with AML being treated at [facility] and comes in with right arm pain and has pancytopenia. Patient on the day of presenation here was seen at the Oncology clinic with the following Assessment Interval HistoryJos? is seen today?while in clinic for blood work.? A nurse is?the cattle dehorner for our?interaction.? Sameer? reports he awoke?yesterday?morning?and had severe right upper extremity pain?which began in the right shoulder?and extended to his hand.? He took oxycodone with little benefit?and states he almost?went to the ED?secondary to?the severity of the pain.? He reports limited?range of motion of the right upper extremity. ?He denies any?recent?change of activity, straining or trauma that may have precipitated?this pain.? He has experienced pain in the right shoulder, in the past.? He had Doppler ultrasound?of the right upper extremity?in January?as well as May to rule out thrombosis.? He has had a dye study of his right?chest wall Awad,?for similar complaints of right?shoulder pain.? He denies any fever or chills?and continues to take levofloxacin?as prescribed. ?He denies any?bleeding.? He notes mild swelling of the right upper extremity,?including?dorsal surface of the hand.? He states he generally does not use his right upper extremity secondary to the pain he has experienced?over the past few months. Plan This 53-year-old gentleman currently?receiving?treatment for AML presents with?acute on chronic right shoulder pain.? Etiology is?uncertain.? Speaking with?the nurse who treated him last week, she states?his Awad site was not?tender?at time of his dressing change the way it is today. ?Additionally,?the nurse reports?he was?using his right upper extremity?without any?restriction?at that time. ?His Awad catheter?has been evaluated in the past?dye study and?Doppler ultrasound right upper extremity has been obtained in the past, negative for thrombosis, for similar complaints.? He is on Levaquin?and therefore?potential for tendon rupture or?tendinitis?is in the differential diagnosis.? Thrombocytopenia is noted, however, his?H&H have not changed significantly, therefore, I do not believe?a bleed?is the cause of his?symptoms.? Infection?is possible, however, he?is afebrile?and clinical exam does not?correlate with?infectious cause.? I will consult with Dr. Rios?regarding?appropriate?imaging or evaluation. Here at [facility] he was noted to be anemic with numbers similar to what was done earlier during the day at [facility], Hemoglobin of 5.9 and Hematocrit of 17, Plat 11. He was also c/o right arm pain that has also been an ongoing issues that has been investiaged at [facility] with US of the arm which has turned out to be negative. He was transfused 2 units of RBC and H/H now 9.3/26.8, no platlets transfusion, Platlet stable at 11. He was seen by Oncology here at [facility] with no indication for further work up, right arm pain was treated with oxydone, overall the pain is better. He had US of the right arm which showed No evidence for deep venous thrombosis in the visualized veins of the right upper extremity. 2. Positive superficial thrombus in the right basilic vein. He is much comfortable today and will be discharge home today, he has a follow up appointment in 2 days on Monday 06/25 at 9.30 with oncology clinic at [facility] Time Spent with Patient Time attestation: Total time managing care of this patient today ____ minutes. Discharge coordination time: Greater than 30 minutes Quality: Safe Use of Opioids Does Pt have an Active Cancer Diagnosis on the Problem List?: Yes Opioid Measure Date for [facility] Report: 05/24/23 Opioid Measure Time for [facility] Report: 11:10 Quality: Stroke Does the patient have a stroke diagnosis?: No Physical Exam Vital Signs: Vital Signs: Last Vital Signs Temp 97.9 F 06/23/23 08:00 Pulse 57 06/23/23 08:00 Resp 18 06/23/23 08:00 BP 136/79 06/23/23 08:00 Pulse Ox 98 06/23/23 08:00 O2 Del Method Room Air 06/23/23 08:00 O2 Flow Rate 97 06/22/23 16:00 BMI result Body Mass Index 29.2 Const: Other: General: AO X 3, no acute distress Resp: CTA bilateral CVS: S1,S2,RRR GI: +BS, NT, no distention Skin: No rash Neuro: motor grossly intact Psych: appropriate affect DS: Data Data Completed and Pending Completed studies during hospitalization [Text1]: Procedures Destruction of Ascending Colon, Via Natural or Artificial Opening Endoscopic (09/07/22) Detoxification Services for Substance Abuse Treatment (10/26/22) Excision of Duodenum, Via Natural or Artificial Opening Endoscopic, Diagnostic (09/07/22) Excision of Sigmoid Colon, Via Natural or Artificial Opening Endoscopic, Diagnostic (09/07/22) Excision of Stomach, Pylorus, Via Natural or Artificial Opening Endoscopic, Diagnostic (09/07/22) Excision of Transverse Colon, Via Natural or Artificial Opening Endoscopic, Diagnostic (09/07/22) Transfusion of Nonautologous Red Blood Cells into Peripheral Vein, Percutaneous Approach (10/26/22) Labs on day of discharge: Preliminary micro results at discharge 06/20/23 23:45 Blood Culture - Preliminary Blood - Central Line No growth after 48 hours. 06/20/23 23:45 Blood Culture - Preliminary Blood - Central Line No growth after 48 hours. Discharge Plan Discharge Anticipated Discharge Date/Time: 06/23/23 11:07 Patient Disposition: Home, Self-Care Discharge Diagnosis: right arm pain, pancytopenia Referrals: Cassandra Rodriguez MD [Primary Care Provider] - 1 Week Discharge Medications: Continued albuterol sulfate 90 mcg/actuation HFA aerosol inhaler 2 puff inhalation Q6H PRN (Reason: shortness of breath or wheezing) Qty: 8.5 0RF oxycodone 5 mg tablet 5 mg PO Q6H PRN (Reason: pain) Qty: 20 0RF Rx Instructions: Partial Fill upon patient request. multivitamin Tablet 1 tab PO DAILY thiamine HCl (vitamin B1) 100 mg Tablet 100 mg PO DAILY pantoprazole 20 mg Tablet,Delayed Release (Dr/Ec) 20 mg PO DAILY@0630 paroxetine HCl 20 mg tablet 1 tab PO DAILY docusate sodium 100 mg capsule 1 cap PO BID PRN (Reason: Constipation) metformin 500 mg tablet 500 mg PO BID prochlorperazine maleate 5 mg tablet 5 mg PO Q6H PRN (Reason: nausea) Rx Instructions: ALTERNATES WITH ZOFRAN ondansetron HCl 4 mg tablet 4 mg PO Q8H PRN (Reason: nausea) Rx Instructions: ALTERNATES WITH COMPRO calcium carbonate [Antacid Ext Str (calcium carb)] 300 mg (750 mg) tablet,chewable 1 tab PO BID acyclovir 400 mg tablet 400 mg PO BID levofloxacin 500 mg tablet 500 mg PO DAILY budesonide-formoterol [Symbicort] 80-4.5 mcg/actuation HFA aerosol inhaler 2 puff INHALATION BID posaconazole 100 mg tablet,delayed release (DR/EC) 300 mg PO DAILY (DME) lancets [TRUEplus Lancets] 33 gauge misc See Rx Instructions .ROUTE BID Qty: 100 Rx Instructions: As directed (DME) blood-glucose meter [FreeStyle [place] Lite] Kit See Rx Instructions .ROUTE BID Qty: 1 Rx Instructions: As directed folic acid 1 mg tablet 1 mg PO DAILY Discharge Orders: Discharge Order (Routine); Ordered 06/23/23 Ordered By: Curtis Luque Diet: Advance to usual diet Activity on Discharge: As tolerated Stand Alone Forms: Patient Portal Discharge page Care Plan Goals: recovery from leukemia Health Concerns: leukemia pancytopenia right arm pain Plan of Treatment: follow-up with the oncology clinic on Sunday. Assessment: As above
--- NOTE | 2023-06-23 11:37 | MHC.CM.PN ---
order for home, self care. CM acknowledge.
== END 2023-06-23 12:00 | disposition home or self-care (01) | DRG 660 ==
LOC: HO.ED 23:37 → HO.EDOVER 06-21 01:46 → HO.IMC 06-21 15:03
PROVIDERS: Internal Medicine Medical Oncology; Admitting Provider Student in an Organized Health Care Education/Training Program; Emergency Provider Internal Medicine; PCP Internal Medicine; Visit Provider Internal Medicine
DX: D61.818 Other pancytopenia (principal); C92.00 Acute myeloblastic leukemia, not having achieved remission; I82.611 Acute embolism and thrombosis of superficial veins of right upper extremity; K21.9 Gastro-esophageal reflux disease without esophagitis; J45.20 Mild intermittent asthma, uncomplicated; F10.10 Alcohol abuse, uncomplicated; F17.210 Nicotine dependence, cigarettes, uncomplicated; Z71.6 Tobacco abuse counseling; Z79.899 Other long term (current) drug therapy
CPT/HCPCS: 36415; 73090; 73110; 73130; 80048; 80053; 83605; 85007; 85025; 85027; 86850; 86900; 86901; 86923; 87040; 93971; 99285; P9016

== ENCOUNTER → 2023-06-21 01:43 | Outpatient (BNV) | payer MEDICAID, SELFPAY | PROVIDERS: Admitting Provider Student in an Organized Health Care Education/Training Program; Emergency Provider Internal Medicine; PCP Internal Medicine; Visit Provider Student in an Organized Health Care Education/Training Program | DX: D61.818 Other pancytopenia (principal) | CPT/HCPCS: 99222; 99239; 99499 ==

== ENCOUNTER → 2023-06-21 01:43 | Outpatient (BNV) | payer MEDICAID, SELFPAY | PROVIDERS: Admitting Provider Student in an Organized Health Care Education/Training Program; Emergency Provider Internal Medicine; PCP Internal Medicine; Visit Provider Internal Medicine Medical Oncology | DX: D61.818 Other pancytopenia (principal) | CPT/HCPCS: 99222 ==

== ENCOUNTER 2024-05-09 12:39 | Outpatient (REF) | payer MEDICAID, SELFPAY ==
--- NOTE | ~2024-05-09 | XR_ITS ---
EXAMINATION: XR CHEST CLINICAL INFORMATION: Asthma COMPARISON: [facility] chest x-ray December 2022 TECHNIQUE: 2 views of the chest were obtained. FINDINGS: The cardiac and mediastinal contours are stable. There is a right jugular port with tip projecting over the cavoatrial junction. There is abnormal density at the left lung base with convex margin probably representing a small loculated left pleural effusion. No right pleural effusion. No pneumothorax. Lungs otherwise clear. Bony structures are unremarkable. XR/XR chest 2V IMPRESSION: Probable new small loculated left pleural effusion at the lateral costophrenic angle.
== END 2024-05-09 12:40 | disposition home or self-care (01) ==
LOC: HO.HHCX 12:39
PROVIDERS: Visit Provider Internal Medicine
DX: J45.40 Moderate persistent asthma, uncomplicated (principal)
CPT/HCPCS: 71046

== ENCOUNTER 2024-05-13 09:20 | Outpatient (REF) | payer MEDICAID, SELFPAY ==
--- NOTE | ~2024-05-13 | XR_ITS ---
EXAMINATION: XR CHEST CLINICAL INFORMATION: Follow-up left-sided pleural effusion, history of sepsis COMPARISON: 05/09/2024 TECHNIQUE: 2 views of the chest were obtained. FINDINGS: Right internal jugular tunneled chest port with internal tip at the SVC/right atrial junction. Heart, mediastinum, pulmonary vessels and lung dao within normal limits. Interval resolution left pleural effusion. XR/XR chest 2V IMPRESSION: Resolution left pleural effusion. No acute cardiopulmonary disease.
== END 2024-05-13 09:21 | disposition home or self-care (01) ==
LOC: HO.HHCX 09:20
PROVIDERS: Visit Provider Internal Medicine
DX: J90 Pleural effusion, not elsewhere classified (principal)
CPT/HCPCS: 71046